=== PATIENT | female | born 1955 | race Caucasian/White ===

== ENCOUNTER 2017-03-20 00:59 | Emergency (ER) | payer OTHER ==
[~2017-03-20] VITALS: Ht 167.6 cm; Wt 114.6 kg
[~2017-03-20 00:59] MED LIST: ASPI81TA28 PO; BENZ100C6 PO; CALC0.2510 PO; CARV6.25 PO; CLOB-65 TOP; CLX/20 PO; ERGO500037 PO; ESTR1CRE PV; HYDR-4715 PO; INSU100I2 SQ; INSUINJ12 SQ; LORA-741 PO; LPT/20 PO; LSX/80 PO; MAGN1TAB41 PO; OXYC-57 PO; PROB1TAB16 PO; SALI0.6517 NAE; SITA25TA PO
[2017-03-20 01:03] VITALS: TEMP 36.9; Ht 167.6 cm; Wt 114.6 kg
[2017-03-20 02:05] LABS: BASO % 0.4 %; BASO ABS # 0.02 K/uL (0-0.2); COMPLETE YES; EOS % 3.8 %; HEMATOCRIT 33.3 % (37-47); IG% 0.2 %; LYMPH % 22.8 %; LYMPH ABS # 1.21 K/uL (1.2-3.4); MEAN CELL VOLUME 93.8 fL (80-100); MEAN CORPUSCULAR HEMOGLOBIN 30.1 pg (25-34); MEAN CORPUSCULAR HGB CONC 32.1 g/dl (32-36); MEAN PLATELET VOLUME 10.7 fL (7.4-10.4); MONO % 7.5 %; NEUT % 65.3 %; PLATELET COUNT 127 K/uL (130-400); RED BLOOD COUNT 3.55 M/uL (4.2-5.4)
[2017-03-20 02:14] LABS: INR 1.1 (0.9-1.1); PROTHROMBIN TIME (PATIENT) 11.6 SECONDS (9.0-12.0)
[2017-03-20 02:22] LABS: BUN/CREATININE RATIO 28.1 (10-20); CALCIUM 9.1 mg/dl (8.5-10.1); CREATININE 2.61 mg/dl (0.60-1.20); POTASSIUM 3.7 mmol/L (3.5-5.1)
[2017-03-20 02:27] LABS: CKMB/CK RATIO 2.2 (0-3.0)
[2017-03-20] MEDS ORDERED: FUROSEMIDE 40 MG/4 ML VIAL IV STA (02:32)
--- NOTE | 2017-03-20 03:05 | EMERGENCY ROOM VISIT NOTE ---
History Report prepared by Bhavesh: Katerine Bains Under the Supervision of: Dr. Caro Montejo D.O. First contact with patient: 01:36 Chief Complaint: SHORTNESS OF BREATH Stated Complaint: SOB W/EXERSION,GAINED 25 LBS FLUID IN 1 WEEK Nursing Triage Summary: Pt states she has gained 25lbs in the last week, her abdomen and Bilateral LE feel "tight". History of Present Illness The patient is a 62 year old female who presents to the Emergency Room with complaints of worsening shortness of breath starting 4 days ago. The patient states that she has noticed it is worse with exertion. She notes that she has had 25 lbs of fluid gain in the past week. She states that she knows this because she weighs herself daily. She denies any recent change in medications or diet. She notes that she stopped taking her Lasix at night because she needs sleep and has to urinate in the middle of the night if she does. She complains of her legs feeling tight and chronic constipation. The patient denies chest pain, back pain, fever, nausea, vomiting, hematochezia, and urinary symptoms. Source of History: patient Onset: 4 days ago Position: other (global) Quality: other (global) Timing: worsening Modifying Factors (Worsening): exertion Associated Symptoms: No fevers, No chest pain, No nausea, No vomiting, No back pain, No hematochezia, No urinary symptoms Note: The patient complains of her legs feeling tight, weight gain, and chronic constipation. Review of Systems See HPI for pertinent positives & negatives. A total of 10 systems reviewed and were otherwise negative. Past Medical & Surgical Medical Problems: (1) CKD (chronic kidney disease), stage IV (2) Congestive heart failure (3) Coronary artery disease (4) Depression (5) Diab Courtney Wo Compl, Type Ii Or Unspec Type, Not Uncntrld (6) DM2 (diabetes mellitus, type 2) (7) [place] (dyspnea on exertion) (8) Elevated troponin (9) High cholesterol (10) HTN (hypertension) (11) Hypertension Nos (12) Sarcoidosis Surgical Problems: (1) H/O colonoscopy (2) History of appendectomy (3) History of heart artery stent (4) History of hysterectomy (5) Status post breast lumpectomy Family History Blood clots FATHER (+ clotting disorder) Cancer FATHER MOTHER (BRCA positive) Depression Diabetes mellitus FATHER MOTHER Heart disease FATHER MOTHER Hypertension Kidney stones FATHER Stroke MOTHER Social History Smoking Status: Never Smoker Alcohol Use: none Drug Use: none Marital Status: Housing Status: lives with significant other Occupation Status: employed Current/Historical Medications Scheduled Allopurinol (Zyloprim), 200 MG PO QAM Aspirin (Aspirin Ec), 81 MG PO QAM Atorvastatin (Atorvastatin Calcium), 20 MG PO HS Calcitriol (Rocaltrol Cap), 1 CAP PO DAILY Carvedilol (Coreg), 6.25 MG PO BID Citalopram (Citalopram Hydrobromide), 20 MG PO QPM Ergocalciferol (Vitamin D 62962 Unit), 50,000 UNIT PO every 2 weeks Furosemide (Lasix), 1 TAB PO BID Hydralazine Hcl (Apresoline), 10 MG PO BID Insulin Glargine (Basaglar Kwikpen), 57 UNITS SQ QAM Insulin Lispro (Human) (Humalog Kwikpen), SQ ACHS Probiotic Product (Probiotic), 1 TAB PO DAILY Sitagliptin Phosphate (Januvia), 25 MG PO DAILY [viviscal], 1 TAB PO BID Scheduled PRN Metolazone (Metolazone), 2.5 MG PO WK PRN for fluid/weight gain Polyvinyl Alcohol-Povidone (Op (Refresh), 1-2 DROPS OPB UD PRN for DRYNESS Allergies Coded Allergies: Sulfa Antibiotics (Verified Allergy, Mild, RASH, 03/20/17) Morphine (Verified Adverse Reaction, Severe, NAUSEA/SICKNESS, 03/20/17) Atenolol (Verified Adverse Reaction, Mild, DROP HEART RATE, 03/20/17) Physical Exam Vital Signs Date Time Temp Pulse Resp B/P (MAP) Pulse Ox O2 Delivery O2 Flow Rate FiO2 03/20/17 04:54 61 16 181/83 96 Room Air 03/20/17 03:00 57 18 171/88 98 Room Air 03/20/17 02:42 60 20 186/75 95 Room Air 03/20/17 01:35 94 Room Air 03/20/17 01:33 60 03/20/17 01:03 36.9 72 24 190/72 92 Room Air Physical Exam HEENT: Head - normocephalic and atraumatic Pupils are equal, round, and reactive to light. Extraocular eye muscles are intact, and sclera are anicteric. Nose - moist nasal mucosa without discharge. Mouth - moist buccal mucosa. Oropharynx is nonerythematous and there is no tonsillar exudate or edema noted. Neck: Supple; no JVD, nuchal rigidity, cervical lymphadenopathy, or auscultated bruits. Heart: Regular rate and rhythm. There is a normal S1 and S2 with no murmurs, clicks, or gallops appreciated. Barely hear heart sounds secondary to body habitus. Lungs: Clear to auscultation bilaterally with no wheezes, rales, or rhonchi. Abdomen: Soft, completely nontender, with good bowel sounds. Abdomen is distended. There are no palpable pulsatile masses or hepatosplenomegaly. There is no guarding, rigidity, or rebound noted. Extremities: No evidence of cyanosis or clubbing. There are easily palpable peripheral pulses. 2+ pitting edema in bilateral LE. Skin: warm and dry with good turgor and no rashes. Medical Decision & Procedures ER Provider Diagnostic Interpretation: Chest X-Ray: The results were interpreted by me. Pacer in place. No significant pulmonary edema. No pleural effusions. Cardiomegaly. Laboratory Results 03/20/17 01:56 Red Blood Count 3.55, Mean Corpuscular Volume 93.8, Mean Corpuscular Hemoglobin 30.1, Mean Corpuscular Hemoglobin Concent 32.1, Mean Platelet Volume 10.7, Neutrophils (%) (Auto) 65.3, Lymphocytes (%) (Auto) 22.8, Monocytes (%) (Auto) 7.5, Eosinophils (%) (Auto) 3.8, Basophils (%) (Auto) 0.4, Neutrophils # (Auto) 3.46, Lymphocytes # (Auto) 1.21, Monocytes # (Auto) 0.40, Eosinophils # (Auto) 0.20, Basophils # (Auto) 0.02 03/20/17 01:56 Test 03/20/17 01:56 White Blood Count 5.30 K/uL (4.8-10.8) Red Blood Count 3.55 M/uL (4.2-5.4) Hemoglobin 10.7 g/dL (12.0-16.0) Hematocrit 33.3 % (37-47) Mean Corpuscular Volume 93.8 fL (80-100) Mean Corpuscular Hemoglobin 30.1 pg (25-34) Mean Corpuscular Hemoglobin Concent 32.1 g/dl (32-36) Platelet Count 127 K/uL (130-400) Mean Platelet Volume 10.7 fL (7.4-10.4) Neutrophils (%) (Auto) 65.3 % Lymphocytes (%) (Auto) 22.8 % Monocytes (%) (Auto) 7.5 % Eosinophils (%) (Auto) 3.8 % Basophils (%) (Auto) 0.4 % Neutrophils # (Auto) 3.46 K/uL (1.4-6.5) Lymphocytes # (Auto) 1.21 K/uL (1.2-3.4) Monocytes # (Auto) 0.40 K/uL (0.11-0.59) Eosinophils # (Auto) 0.20 K/uL (0-0.5) Basophils # (Auto) 0.02 K/uL (0-0.2) RDW Standard Deviation 48.2 fL (36.4-46.3) RDW Coefficient of Variation 14.2 % (11.5-14.5) Immature Granulocyte % (Auto) 0.2 % Immature Granulocyte # (Auto) 0.01 K/uL (0.00-0.02) Prothrombin Time 11.6 SECONDS (9.0-12.0) Prothromb Time International Ratio 1.1 (0.9-1.1) Activated Partial Thromboplast Time 25.4 SECONDS (21.0-31.0) Partial Thromboplastin Ratio 1.0 Anion Gap 4.0 mmol/L (3-11) Est Creatinine Clear Calc Drug Dose 28.0 ml/min Estimated GFR () 21.6 Estimated GFR (Non- 18.7 BUN/Creatinine Ratio 28.1 (10-20) Calcium Level 9.1 mg/dl (8.5-10.1) Total Creatine Kinase 64 U/L (26-192) Creatine Kinase MB 1.4 ng/ml (0.5-3.6) Creatine Kinase MB Ratio 2.2 (0-3.0) Troponin I 0.026 ng/ml (0-0.045) Pro-B-Type Natriuretic Peptide 2724 pg/ml (0-900) Laboratory results per my review. Medications Administered Medications (Trade) Dose Ordered Sig/Saurabh Route Start Time Stop Time Status Last Admin Dose Admin Furosemide (Lasix Inj) 40 mg NOW STAT IV 03/20/17 02:32 03/20/17 02:34 DC 03/20/17 02:42 40 MG Procedure 0232: Ordered Lasix Inj 40 mg IV. ECG Indication: SOB/dyspnea Rate (beats per minute): 60 Rhythm: other (atrial paced rhythm) Findings: RBBB, no ectopy Comparison ECG Date: December 24, 2015 Change: ST segment depression in leads 1 and AVL are new. ED Course 0219: Past medical records reviewed. The patient was evaluated in room A4B. A complete history and physical exam was performed. A twelve-lead EKG was obtained as described above. Patient had chest x-ray as described above. 0232: Ordered Lasix Inj 40 mg IV. 0350: I reevaluated the patient and she has urinated. She is feeling better. 0416: Upon reevaluation, the patient urinated again and is resting comfortably. I discussed findings and results with her. She verbalized agreement of the treatment plan. The patient was discharged home. Medical Decision The patient is a 62 year old female who presents to the Emergency Room with complaints of worsening shortness of breath starting 4 days ago. Differential diagnoses include CHF exacerbation, diuretic noncompliance, pneumonia, renal failure. LABS: Hemoglobin 107 which is baseline Creatine 2.61 which is baseline Normal white count BUN 73 Glucose 290 BNP 2724 Troponin 0.026 this is a 62-year-old female patient presents to emergency department with significant waking over the past week. She does have increased exertional shortness of breath. She admits that she has started a new job and has been on her feet or than usual. She also states that she stopped taking her evening dose of diuretic because it was keeping her up to go to the bathroom. The patient has started to diurese after receiving IV furosemide. I've asked her to start taking her evening dose of Lasix again. She was encouraged to follow-up with the PCP in the next 24-48 hours. If symptoms worsened or if she developed significant shortness of breath, she was to return to the ER. Medication Reconcilliation Current Medication List: was personally reviewed by me Blood Pressure Screening Patient's blood pressure: Elevated blood pressure Blood pressure disposition: Referred to PCP Impression Primary Impression: Noncompliance with medication regimen Additional Impression: Chronic kidney disease Scribe Attestation The scribe's documentation has been prepared under my direction and personally reviewed by me in its entirety. I confirm that the note above accurately reflects all work, treatment, procedures, and medical decision making performed by me. Departure Information Dispostion Home / Self-Care Referrals Madelaine Harrison D.O. (PCP) Forms HOME CARE DOCUMENTATION FORM, IMPORTANT VISIT INFORMATION Patient Instructions My [facility] [employer] Additional Instructions Please take your Lasix twice a day. Follow up with PCP next week. Watch your weight closely Return to the ER for any worsening shortness of breath Problem Qualifiers Additional Impression: Chronic kidney disease Chronic kidney disease stage: unspecified stage Qualified Codes: N18.9 - Chronic kidney disease, unspecified
[2017-03-20] MEDS ORDERED: ALLO100T PO (04:05)
[2017-03-20] MEDS ORDERED: INSU100I23 SQ (04:05)
[2017-03-20] MEDS ORDERED: viviscal PO (04:06)
[2017-03-20] MEDS ORDERED: POLYSOL OPB (04:06)
[2017-03-20] MEDS ORDERED: ZRX25 PO (04:08)
[2017-03-20 04:54] VITALS: BP 181/83; PULSE 61; O2SAT 96
--- NOTE | 2017-03-20 06:31 | DIAGNOSTIC IMAGING REPORT ---
CHEST 2 VIEWS ROUTINE CLINICAL HISTORY: Exertional shortness of breath COMPARISON STUDY: 12/23/2015 FINDINGS: The heart remains mildly enlarged. There is a left subclavian dual-chamber central venous pacemaker present. There is right hilar prominence unchanged from the prior study. There is no failure. There is no lobar consolidation. Surgical clips project over the anterior mediastinum unchanged from the prior study.[ IMPRESSION: Mild cardiomegaly. Stable hilar prominence. No acute findings. Electronically signed by: Tristen Calderon M.D. 03/20/2017 6:29 AM Dictated Date/Time: 03/20/2017 6:29 AM
== END 2017-03-20 04:55 | disposition home or self-care (01) ==
LOC: C.EDB 01:00 → C.EDA 04:55
DX: Z91.14 Patient's other noncompliance with medication regimen (principal); R06.02 Shortness of breath; R63.5 Abnormal weight gain; I12.9 Hypertensive chronic kidney disease with stage 1 through stage 4 chronic kidney disease, or unspecified chronic kidney disease; N18.4 Chronic kidney disease, stage 4 (severe); E11.22 Type 2 diabetes mellitus with diabetic chronic kidney disease; I25.10 Atherosclerotic heart disease of native coronary artery without angina pectoris; Z95.0 Presence of cardiac pacemaker; E78.00 Pure hypercholesterolemia, unspecified; Z79.82 Long term (current) use of aspirin; Z79.4 Long term (current) use of insulin

== ENCOUNTER 2018-05-31 19:55 | Inpatient (IN) ==
[2018-05-31] MEDS ORDERED: ONDANSETRON INJ 2 MG/ML 2 ML VIAL IV STA ×2 (21:06→22:17)
[2018-05-31] MEDS ORDERED: HYDROmorphone INJ 0.5 MG/0.5 ML SYR IV STA (21:06)
[2018-05-31] MEDS ORDERED: SODIUM CHLORIDE 0.9% 1000ML 1,000 ML IV SCH (21:15)
--- NOTE | 2018-05-31 21:29 | XRay Report ---
XR chest 1V portable CLINICAL HISTORY: Cough. COMPARISON STUDY: Chest radiograph December 23, 2015. Chest CT August 10, 2015. FINDINGS: Dual-lead left subclavian pacemaker is in place. There is no pneumothorax or pleural effusi on. There is no consolidation or evidence for pulmonary edema. Cardiomegaly is unchanged. IMPRESSION: No acute cardiopulmonary findings. No change in appearance of the chest. Electronically signed by: Audi Dewey M.D. 05/31/2018 9:28 PM
[2018-05-31 21:36] LABS: Basophils # (auto) 0.03 K/uL (0-0.2); Basophils % (auto) 0.5 %; Eosinophils # (auto) 0.28 K/uL (0-0.5); Eosinophils % (auto) 4.4 %; Hematocrit (blood only) 37.6 % (37-47); Hemoglobin 12.1 g/dL (12.0-16.0); Immature Granulocytes # (auto) 0.01 K/uL (0.00-0.02); Immature Granulocytes % (auto) 0.2 %; Lymphocytes # (auto) 1.19 K/uL (1.2-3.4); Lymphocytes % (auto) 18.7 %; Mean Corpuscular Hgb Conc 32.2 g/dL (32-36); Mean Corpuscular Volume 91.7 fL (80-100); Monocytes # (auto) 0.52 K/uL (0.11-0.59); Monocytes % (auto) 8.2 %; Neutrophils # (auto) 4.33 K/uL (1.4-6.5); Platelet Count 160 K/uL (130-400); RDW Standard Deviation 46.5 fL (36.4-46.3); White Blood Count 6.36 K/uL (4.8-10.8)
[2018-05-31 21:55] LABS: BUN Creatinine Ratio 27.7 (10-20); Calcium 9.2 mg/dl (8.5-10.1); Creatinine Clr Calc Pharmacy 32.2 ml/min; Est GFR (African American) 30.3; Est GFR (Non-African American) 26.2
[2018-05-31 21:58] LABS: Albumin Globulin Ratio 0.6 (0.9-2); Bilirubin,Total 0.9 mg/dl (0.2-1); Globulin 4.7 gm/dl (2.5-4.0); Total Protein 7.7 gm/dl (6.4-8.2)
[2018-05-31] MEDS ORDERED: HYDROmorphone INJ 1 MG/ML SYRINGE IV STA (22:28)
--- NOTE | 2018-05-31 22:47 | CT Scan Report ---
CT OF THE ABDOMEN AND PELVIS WITHOUT CONTRAST CLINICAL HISTORY: LUQ abd pain ? mass COMPARISON STUDY: No previous studies for comparison. TECHNIQUE: Axial images of the abdomen and pelvis were obtained without IV contrast. Images were revi ewed in the axial, sagittal, and coronal planes. Automated exposure control was utilized for the zhanna dy. A dose lowering technique was utilized adhering to the principles of ALARA. FINDINGS: Pacer leads are partially imaged. There is a trace left pleural effusion. There is nodulari ty liver surface. Gallstones are noted within the gallbladder with moderate gallbladder distention. T here is no pericholecystic infiltration. There is no hydronephrosis. The size of the spleen is at the upper limits of normal. A low-attenuation 1.5 cm left adrenal nodule is benign. There is no biliary or pancreatic ductal dilatation. There is no peripancreatic infiltration. There is no evidence for a bowel obstruction. No pneumatosis, free air or portal venous gas is present. Note is made of an 8.4 x 7.4 x 3.3 cm hematoma within the left rectus sheath. No additional sites of hemorrhage are identifie d within the abdomen or the pelvis. No suspicious osseous lesions are noted. IMPRESSION: 1. 8.4 x 7.4 x 3.3 cm left rectus sheath hematoma. 2. Cholelithiasis and moderate gallbladder distention without pericholecystic infiltration. The findi ngs are not strongly suggestive of acute cholecystitis however a right upper quadrant ultrasound coul d be obtained if this patient has right upper quadrant pain. 3. Nodularity of the liver surface which suggests cirrhosis. No hepatic lesions identified although s ensitivity diminished on this unenhanced exam. Electronically signed by: Audi Dewey M.D. 05/31/2018 10:46 PM
[2018-05-31 22:58] LABS: Potassium 3.2 mmol/L (3.5-5.1)
[2018-05-31] MEDS ORDERED: LEVOFLOXACIN/D5W 750 MG/150 ML BAG IV SCH (23:00)
[2018-05-31] MEDS ORDERED: ALBUTEROL 0.083% NEBU SOLN 3 ML VIAL NEB STA (23:01)
[2018-05-31] MEDS ORDERED: POTASSIUM CHLORIDE 20 MEQ TABCR PO STA (23:07)
[2018-05-31 23:10] LABS: Appearance Urine Clear (Clear); Bacteria Urine Automated Negative (Negative); Bilirubin Urine Negative (Negative); Cast Urine Automated 0 /lpf (0-5); Color Urine Yellow; Glucose Urine UA Negative (Negative); Ketones Urine Negative (Negative); Leukocyte Esterase Urine Negative (Negative); Nitrite Urine Negative (Negative); Protein Urine 2+ (Negative); Specific Gravity Urine 1.014 (1.000-1.030); Urobilinogen Urine Negative (Negative); pH Urine 6.5 (4.5-7.5)
[2018-05-31] MEDS ORDERED: CARVEDILOL 12.5 MG TAB PO STA (23:22)
[2018-05-31 23:31] LABS: Magnesium 1.6 mg/dl (1.8-2.4)
--- NOTE | 2018-05-31 23:54 | History & Physical Report ---
Date of Service May 31, 2018 Assessment & Plan (1) Acute hypoxemic respiratory failure: Secondary to diminished inspiratory effort secondary to rectus sheath hematoma secondary to cough symptoms from complicated sinusitis Rule out pneumonia ? Restrictive lung disease exacerbation CAD status post stent hx cardiac sarcoidosis/sinus node dysfunction status post PPM, paced rhythm hypertensive urgency secondary to missed meds, abdominal discomfort, illness CRI, creatinine better than baseline chronic anemia secondary to CKD, hemoglobin better than baseline possibly from hemoconcentration DM 2 insulin requiring, well controlled as of recent outpatient hemoglobin A1c of 6.9 last December 2017 Hypokalemia secondary to home insulin, diuretic Rx past tobacco abuse Medical telemetry for uncontrolled BP Supplemental O2 Baseline ABG Incentive spirometry CT chest RE cough rule out pneumonia Augmentin to replace Doxycycline for persistent complicated sinusitis symptoms if no pneumonia on CT chest antitussives as needed Facilitate home BP meds Analgesia, local measures for rectus sheath hematoma Appropriate to hold home aspirin with rectus sheath hematoma trend H&H, transfuse PRBC if hemoglobin less than 8 (hx CAD) General Surgery consult RE rectus sheath hematoma Resume home diuretics in a.m. if creatinine stable and oral intake better Decrease basal insulin given unpredictable p.o. intake , ISS BG goal 140-180 , update hemoglobin A1c Replace potassium DVT prophylaxis. SCDs RE rectus sheath hematoma Full code History of Present Illness Chief Complaint: Left-sided abdominal pain Primary Care Provider: Madelaine Harrison History obtained from patient, family, and records. Medical history significant for CAD status post stent, cardiac sarcoidosis/ sinus node dysfunction status post PPM, hypertension, hyperlipidemia, restrictive lung disease as per records, CRI (baseline creatinine 2.5), chronic anemia baseline hemoglobin 11, DM 2 insulin requiring, malignant melanoma as per records, past tobacco abuse. Recent confinement December 2015 for elevated troponin. 1 week history of sinus congestion symptoms. Patient coughing up greenish junky stuff. Patient seen at PCPs office. Doxycycline prescribed for sinusitis. Some shortness of breath with congestion symptoms. Admits to some sick contacts. Denies aspiration. Minimal improvement. Today patient noted achy left-sided abdominal pain worse with coughing. Poor appetite, occasional dry heaving. At the ER, IV Levaquin administered. Patient developed a pruritic rash on the during antibiotic infusion. Levaquin subsequently halted, IV Benadryl administered. 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 [employer] Allergies Allergy/AdvReac Type Severity Reaction Status Date / Time Sulfa (Sulfonamide Allergy Intermediate RASH Verified 06/01/18 06:15 Antibiotics) levofloxacin [From Levaquin] Allergy Mild Rash Verified 06/01/18 00:11 gabapentin [From Neurontin] AdvReac Intermediate FELT LIKE Verified 05/31/18 21: 17 WENT TO OUTER SPACE morphine AdvReac Intermediate NAUSEA/SICK Verified 06/01/18 06:15 NESS atenolol AdvReac Mild DROP HEART Verified 05/31/18 21:17 RATE Home Medications Home Medications Medication Instructions Recorded Confirmed Type allopurinol 200 mg PO QPM 05/31/18 05/31/18 History atorvastatin 20 mg PO HS 05/31/18 05/31/18 History calcitriol 0.25 mcg PO 3XWK 05/31/18 05/31/18 History carboxymethylcellulose sodium 1 - 2 drp OPB DIRECTED PRN 05/31/18 05/31/18 History [Refresh Tears] carvedilol 6.25 mg PO BID 05/31/18 05/31/18 History citalopram [Celexa] 20 mg PO QPM 05/31/18 05/31/18 History doxycycline hyclate 100 mg PO BID 05/31/18 05/31/18 History ergocalciferol (vitamin D2) 50,000 unit PO DIRECTED 05/31/18 05/31/18 History [Vitamin D2] hydralazine 10 mg PO BID 05/31/18 05/31/18 History insulin aspart U-100 [Novolog 0 sliding scale dose SUBCUT AC 05/31/18 05/31/18 History Flexpen U-100 Insulin] insulin glargine [Lantus U-100 57 unit SUBCUT QAM 05/31/18 05/31/18 History Insulin] linagliptin [Tradjenta] 5 mg PO DAILY 05/31/18 05/31/18 History meclizine 25 mg PO TID PRN 05/31/18 05/31/18 History metolazone 2.5 mg PO WK PRN 05/31/18 05/31/18 History acetaminophen [Mapap 650 mg PO Q4H PRN #90 tab 06/01/18 Rx (acetaminophen)] amoxicillin-pot clavulanate 1 tab PO BID #14 tab 06/01/18 Rx aspirin [Aspir-81] 81 mg PO DAILY #0 tab 06/01/18 05/31/18 Rx benzonatate [Tessalon Perles] 100 mg PO TID PRN #30 cap 06/01/18 Rx dextromethorphan-guaifenesin 20 ml PO Q6H #237 ml 06/01/18 Rx [Robitussin Cough-Chest Congestion DM] furosemide [Lasix] 80 mg PO BID #60 tab 06/01/18 05/31/18 Rx prednisone 5 mg PO DAILY #21 tab 06/01/18 Rx tramadol 25 - 50 mg PO Q4H PRN #60 tab 06/01/18 Rx Past Med/Surg History Medical History Sarcoidosis (Chronic) Coronary artery disease (Chronic) "s/p stenting x 2" HTN (hypertension) (Chronic) High cholesterol (Chronic) Congestive heart failure (Chronic) "diastolic" CKD (chronic kidney disease), stage IV (Chronic) DM2 (diabetes mellitus, type 2) (Chronic) "On insulin" Depression (Chronic) Surgical History History of heart artery stent (Resolved) History of appendectomy (Resolved) History of hysterectomy (Resolved) Status post breast lumpectomy (Resolved) H/O colonoscopy (Chronic) Family History Other No pertinent family history Social History Current Living Situation: Spouse current occupational status: retired Feels Safe at Home: Yes Safety Concerns: Feels Safe At This Time Smoking Status: Former smoker Hx Alcohol Use: No Hx Substance Use: No Beliefs That Will Affect Care: None Preferred Language: [place] Review of Systems As per HPI, all 10 systems reviewed, all other ROS negative Physical Exam 2 Vital Signs (Past 24 Hours): Last Vital Signs Temp 37.0 C 02/18/19 20:13 Pulse 73 05/31/18 23:00 Resp 28 H 05/31/18 23:00 BP 210/87 H 05/31/18 23:00 Pulse Ox 80 L 05/31/18 23:00 Physical Exam: GENERAL: Obese, uncomfortable, no respiratory distress SKIN: Pallor, warm HEENT: Pale palpebral conjunctivae, no ptosis, dry buccal mucosa NECK : Supple, short neck, no tenderness CHEST : Decreased breath sounds , no tenderness HEART : RRR, no obvious murmurs ABDOMEN: Some distention, tender left abdomen EXTREMITIES : minimal LE swelling, no tenderness, no other conspicuous deformities noted NEUROLOGIC : Coherent, no facial asymmetry, no other gross focality Results & Data Laboratory Results Laboratory Results WBC 6.36 K/uL (4.8-10.8) 05/31/18 21:30 RBC 4.10 M/uL (4.2-5.4) L 05/31/18 21:30 Hgb 12.1 g/dL (12.0-16.0) 05/31/18 21:30 Hct 37.6 % (37-47) 05/31/18 21:30 MCV 91.7 fL (80-100) 05/31/18 21:30 MCH 29.5 pg (25-34) 05/31/18 21:30 MCHC 32.2 g/dL (32-36) 05/31/18 21:30 RDW Std Deviation 46.5 fL (36.4-46.3) H 05/31/18 21:30 RDW Coeff of Dao 14.0 % (11.5-14.5) 05/31/18 21:30 Plt Count 160 K/uL (130-400) 05/31/18 21:30 MPV 11.0 fL (7.4-10.4) H 05/31/18 21:30 Immature Gran % (Auto) 0.2 % 05/31/18 21:30 Neut % (Auto) 68.0 % 05/31/18 21:30 Lymph % (Auto) 18.7 % 05/31/18 21:30 Wood % (Auto) 8.2 % 05/31/18 21:30 Eos % (Auto) 4.4 % 05/31/18 21:30 Baso % (Auto) 0.5 % 05/31/18 21:30 Immature Gran # (Auto) 0.01 K/uL (0.00-0.02) 05/31/18 21:30 Neut # (Auto) 4.33 K/uL (1.4-6.5) 05/31/18 21:30 Lymph # (Auto) 1.19 K/uL (1.2-3.4) L 05/31/18 21:30 Wood # (Auto) 0.52 K/uL (0.11-0.59) 05/31/18 21:30 Eos # (Auto) 0.28 K/uL (0-0.5) 05/31/18 21:30 Baso # (Auto) 0.03 K/uL (0-0.2) 05/31/18 21:30 Sodium 138 mmol/L (136-145) 05/31/18 21:30 Potassium 3.2 mmol/L (3.5-5.1) L 05/31/18 22:27 Chloride 103 mmol/L (98-107) 05/31/18 21:30 Carbon Dioxide 31 mmol/L (21-32) 05/31/18 21:30 Anion Gap 4.0 (3-11) 05/31/18 21:30 BUN 54 mg/dl (7-18) H 05/31/18 21:30 Creatinine 1.96 mg/dl (0.6-1.2) H 05/31/18 21:30 Est Cr Clr Drug Dosing 32.2 ml/min 05/31/18 21:30 Est GFR ( Amer) 30.3 05/31/18 21:30 Est GFR (Non-Af Amer) 26.2 05/31/18 21:30 BUN/Creatinine Ratio 27.7 (10-20) H 05/31/18 21:30 Glucose 92 mg/dl (70-99) 05/31/18 21:30 Calcium 9.2 mg/dl (8.5-10.1) 05/31/18 21:30 Magnesium 1.6 mg/dl (1.8-2.4) L 05/31/18 22:27 Total Bilirubin 0.9 mg/dl (0.2-1) 05/31/18 21:30 AST 18 U/L (15-37) 05/31/18 22:27 ALT 23 U/L (12-78) 05/31/18 21:30 Alkaline Phosphatase 76 U/L (45-117) 05/31/18 21:30 Total Protein 7.7 gm/dl (6.4-8.2) 05/31/18 21:30 Albumin 3.0 gm/dl (3.4-5.0) L 05/31/18 21:30 Globulin 4.7 gm/dl (2.5-4.0) H 05/31/18 21:30 Albumin/Globulin Ratio 0.6 (0.9-2) L 05/31/18 21:30 Lipase 291 U/L (73-393) 05/31/18 21:30 TSH 2.990 uIu/ml (0.300-4.500) 05/31/18 22:27 Urine Color Yellow 05/31/18 22:50 Urine Appearance Clear (Clear) 05/31/18 22:50 Urine pH 6.5 (4.5-7.5) 05/31/18 22:50 Ur Specific Coral 1.014 (1.000-1.030) 05/31/18 22:50 Urine Protein 2+ (Negative) H 05/31/18 22:50 Urine Glucose (UA) Negative (Negative) 05/31/18 22:50 Urine Ketones Negative (Negative) 05/31/18 22:50 Urine Blood Negative (Negative) 05/31/18 22:50 Urine Nitrite Negative (Negative) 05/31/18 22:50 Urine Bilirubin Negative (Negative) 05/31/18 22:50 Urine Urobilinogen Negative (Negative) 05/31/18 22:50 Ur Leukocyte Esterase Negative (Negative) 05/31/18 22:50 Urine WBC (Auto) 1-5 /hpf (0-5) 05/31/18 22:50 Urine RBC (Auto) 0-4 /hpf (0-4) 05/31/18 22:50 U Hyaline Cast (Auto) 0 /lpf (0-5) 05/31/18 22:50 U Epithel Cells (Auto) 10-20 /lpf (0-5) H 05/31/18 22:50 Urine Bacteria (Auto) Negative (Negative) 05/31/18 22:50 Diagnostic Findings Chest x-ray no acute cardiopulmonary findings CT abdomen pelvis: 1. 8.4 x 7.4 x 3.3 cm left rectus sheath hematoma. 2. Cholelithiasis and moderate gallbladder distention without pericholecystic infiltration. The findings are not strongly suggestive of acute cholecystitis however a right upper quadrant ultrasound could be obtained if this patient has right upper quadrant pain. 3. Nodularity of the liver surface which suggests cirrhosis. No hepatic lesions identified although sensitivity diminished on this unenhanced exam. EKG as per my interpretation rate 60, paced rhythm
[2018-05-31] MEDS ORDERED: PROCHLORPERAZINE 5 MG in SYRINGE 4 ML IV STA (23:59)
[2018-06-01] MEDS ORDERED: DiphenhydrAMINE HCL 50 MG/ML VIAL IV STA (00:04)
[2018-06-01] MEDS ORDERED: DiphenhydrAMINE HCL 50 MG/ML VIAL ONE (00:05)
[2018-06-01 00:37] LABS: Partial Thromboplastin Time 26.8 Seconds (21.0-31.0)
--- NOTE | 2018-06-01 01:24 | Emergency Department Note ---
Entered by Kelley Berger acting as a scribe for History of Present Illness General Chief complaint: Cough Stated complaint: COLD, [place] PAIN ON SIDE Source: patient History of Present Illness Onset (ago): week(s) 1 Location: chest and left (side) Pain Consistency: + other (persistent) Maximum Pain Intensity: 10 Current Pain Intensity: 8 Quality: + sharp (pain in her side) and + other (cough) Exacerbated By: + movement Associated symptoms: + other (Positive left side pain, runny nose, left ear pain.) The patient is a 63 year old female who presents to the Emergency Room with complaints of a persistent cough beginning 1 week ago. She states when her symptoms began, she had a cough and runny nose. She reports she went to the doctor 5 days ago and was given doxycycline and was diagnosed with a URI. The patient states this morning she had a coughing fit and suddenly felt a sharp pain in her left side. She notes her pain is worse with movement and rates it as a 8/10 in severity when she is not coughing and a 10/10 when she coughs. Pt has left ear pain and dizziness which resolved after she took meclizine. Pt regularly takes aspirin. Home Medications Home Medications Medication Instructions Recorded Confirmed Type allopurinol 200 mg PO QPM 05/31/18 05/31/18 History aspirin [Aspir-81] 81 mg PO DAILY 05/31/18 05/31/18 History atorvastatin 20 mg PO HS 05/31/18 05/31/18 History calcitriol 0.25 mcg PO 3XWK 05/31/18 05/31/18 History carboxymethylcellulose sodium 1 - 2 drp OPB DIRECTED PRN 05/31/18 05/31/18 History [Refresh Tears] carvedilol 6.25 mg PO BID 05/31/18 05/31/18 History citalopram [Celexa] 20 mg PO QPM 05/31/18 05/31/18 History doxycycline hyclate 100 mg PO BID 05/31/18 05/31/18 History ergocalciferol (vitamin D2) 50,000 unit PO DIRECTED 05/31/18 05/31/18 History [Vitamin D2] furosemide [Lasix] 80 mg PO DAILY 05/31/18 05/31/18 History hydralazine 10 mg PO BID 05/31/18 05/31/18 History insulin aspart U-100 [Novolog 0 sliding scale dose SUBCUT AC 05/31/18 05/31/18 History Flexpen U-100 Insulin] insulin glargine [Lantus U-100 57 unit SUBCUT QAM 05/31/18 05/31/18 History Insulin] linagliptin [Tradjenta] 5 mg PO DAILY 05/31/18 05/31/18 History meclizine 25 mg PO TID PRN 05/31/18 05/31/18 History metolazone 2.5 mg PO WK PRN 05/31/18 05/31/18 History Allergies Allergy/AdvReac Type Severity Reaction Status Date / Time levofloxacin [From Levaquin] Allergy Mild Rash Verified 06/01/18 00:11 Sulfa (Sulfonamide Allergy Mild RASH Verified 05/31/18 21:17 Antibiotics) morphine AdvReac Severe NAUSEA/SICK Verified 05/31/18 21:17 NESS gabapentin [From Neurontin] AdvReac Intermediate FELT LIKE Verified 05/31/18 21: 17 WENT TO OUTER SPACE atenolol AdvReac Mild DROP HEART Verified 05/31/18 21:17 RATE Past Med/Surg History Medical History Sarcoidosis (Chronic) Coronary artery disease (Chronic) "s/p stenting x 2" HTN (hypertension) (Chronic) High cholesterol (Chronic) Congestive heart failure (Chronic) "diastolic" CKD (chronic kidney disease), stage IV (Chronic) DM2 (diabetes mellitus, type 2) (Chronic) "On insulin" Depression (Chronic) Surgical History History of heart artery stent (Resolved) History of appendectomy (Resolved) History of hysterectomy (Resolved) Status post breast lumpectomy (Resolved) H/O colonoscopy (Chronic) Family History Other No pertinent family history Social History current occupational status: retired Feels Safe at Home: Yes Smoking Status: Never smoker Review of Systems See HPI for pertinent positives & negatives. and A total of 10 systems reviewed and were otherwise negative Physical Exam Vital Signs Vital Signs - 24 hr 05/31/18 20:13 05/31/18 21:55 05/31/18 22:52 Temperature 37.0 C Temperature Source Oral Sepsis Recent Fever Within 48 Hours No Sepsis Action Taken by Nursing No Action Required Pulse Rate 64 Pulse Rate [Apical] 87 Pulse Rate [Exercises] Pulse Rhythm [Apical] Regular Pulse Strength [Apical] Normal Respiratory Rate 22 18 Respiratory Rate [Exercises] Respiratory Effort / Characteristics Non-Labored Non-Labored Spontaneous Respiratory Depth Normal Normal Respiratory Pattern Regular Blood Pressure 202/78 H Blood Pressure [Left Arm] 197/82 H Blood Pressure Mean 119 Blood Pressure Mean [Left Arm] 120 Blood Pressure Position Sitting Pulse Oximetry 96 98 96 Pulse Oximetry [Exercises] Oxygen Delivery Method Room Air Room Air Room Air Oxygen Flow Rate 05/31/18 23:00 06/01/18 00:30 06/01/18 01:12 Temperature Temperature Source Sepsis Recent Fever Within 48 Hours Sepsis Action Taken by Nursing Pulse Rate 63 Pulse Rate [Apical] 62 65 Pulse Rate [Exercises] 73 Pulse Rhythm [Apical] Regular Pulse Strength [Apical] Normal Respiratory Rate 22 24 24 Respiratory Rate [Exercises] 28 H Respiratory Effort / Characteristics Non-Labored Spontaneous Non-Labored Spontaneous Respiratory Depth Normal Normal Respiratory Pattern Regular Blood Pressure 167/78 H Blood Pressure [Left Arm] 210/87 H 202/85 H Blood Pressure Mean Blood Pressure Mean [Left Arm] 128 124 Blood Pressure Position Pulse Oximetry 95 92 91 Pulse Oximetry [Exercises] 80 L Oxygen Delivery Method Nasal Cannula Nasal Cannula Nasal Cannula Oxygen Flow Rate 2 3 3 GENERAL: Sitting up in bed with a persistent cough, mild distress, non-toxic EYE EXAM: normal conjunctiva. OROPHARYNX: no exudate, no erythema, lips, buccal mucosa, and tongue normal and mucous membranes are moist NECK: supple, no nuchal rigidity, no adenopathy, non-tender LUNGS: Clear to auscultation. Normal chest wall mechanics HEART: no murmurs, S1 normal and S2 normal ABDOMEN: abdomen soft, LUQ with a firm, tender and palpable mass, normo-active bowel, sounds, no masses, no rebound or guarding. BACK: Back is symmetrical on inspection and there is no deformity, no midline tenderness, no CVA tenderness. SKIN: no rashes and no bruising UPPER EXTREMITIES: upper extremities are grossly normal. LOWER EXTREMITIES: No pitting edema. NEURO EXAM: Normal sensorium, cranial nerves II-XII grossly intact, normal speech, no gross weakness of arms, no gross weakness of legs. Course ED COURSE: Vital signs were reviewed and showed hypertensive The patients medical record was reviewed The above diagnostic studies were performed and reviewed. ED treatments and interventions as stated above. 2058: The patient was evaluated in room C8. A complete history and physical examination was performed. 2304: I reviewed the [facility] He will evaluate the patient for further management. 2308: Upon reevaluation, the patient is feeling slightly better. I discussed my findings with the patient and she understands and agrees with the treatment plan. Based on the patients age, coexisting illnesses, exam and lab findings the decision to treat as an inpatient was made. The patient remained stable while under my care. The patient will be evaluated for further management. Consultations Consultation #1: I reviewed the patient's case with Dr. Espinosa [facility]. He will evaluate the patient for further management. Time: 23:04 Administered Medications Levofloxacin/Dextrose (Levaquin/D5w) 750 mg in 150 mls @ 100 mls/hr IV Q24H AVIS Stop: 06/02/18 22:59 Last Infusion: 06/01/18 00:04 Dose: 0 mls/hr Admin: 05/31/18 23:13 Dose: 100 mls/hr Discontinued Medications Albuterol (Ventolin 0.083% 2.5mg/3ml) 2.5 mg NEB NOW STA Stop: 05/31/18 23:02 Last Admin: 05/31/18 23:13 Dose: 2.5 mg Carvedilol (Coreg) 6.25 mg PO NOW STA Stop: 05/31/18 23:23 Last Admin: 05/31/18 23:33 Dose: 6.25 mg Diphenhydramine HCl (Benadryl) 50 mg IV NOW STA Stop: 06/01/18 00:05 Last Admin: 06/01/18 00:09 Dose: 50 mg Diphenhydramine HCl (Benadryl) Confirm Administered Dose 50 mg .ROUTE .STK-MED ONE Stop: 06/01/18 00:06 Last Admin: 06/01/18 00:15 Dose: Not Given Hydromorphone HCl (Dilaudid) 0.5 mg IV NOW STA Stop: 05/31/18 21:07 Last Admin: 05/31/18 21:34 Dose: 0.5 mg Hydromorphone HCl (Dilaudid) 1 mg IV NOW STA Stop: 05/31/18 22:29 Last Admin: 05/31/18 22:50 Dose: 1 mg Sodium Chloride (Nss 1000ml) 1,000 mls @ 999 mls/hr IV .Q1H1M AVIS Stop: 05/31/18 22:15 Last Admin: 05/31/18 21:36 Dose: 999 mls/hr Prochlorperazine 5 mg/ Syringe 5 mls @ 5 mls/min IV NOW STA Stop: 06/01/18 00:00 Last Admin: 06/01/18 00:15 Dose: 5 mls/min Ondansetron HCl (Zofran) 4 mg IV NOW STA Stop: 05/31/18 21:07 Last Admin: 05/31/18 21:36 Dose: 4 mg Ondansetron HCl (Zofran) 4 mg IV NOW STA Stop: 05/31/18 22:18 Last Admin: 05/31/18 22:51 Dose: 4 mg Potassium Chloride (Klor-Con M20) 40 meq PO NOW STA Stop: 05/31/18 23:08 Last Admin: 05/31/18 23:35 Dose: 40 meq Medical Decision Making Differential Diagnosis Differential diagnoses includes but is not limited to gastritis, peptic ulcer disease, GERD, gallbladder disease, pancreatitis, small bowel obstruction, acute coronary syndrome, pericarditis, ischemic bowel, irritable bowel disease, irritable bowel syndrome, appendicitis, diverticulitis, malignancy, hernia, urinary tract infection, torsion, /ectopic (if female), perforation, trauma, infectious. Medical Records Attestation: I reviewed the patient's medical records. Home Medications Current Medication List: was personally reviewed by me Laboratory Data Attestation: I reviewed the patient's lab results. Result diagrams: 05/31/18 21:30 05/31/18 22:27 Lab Results 05/31/18 05/31/18 05/31/18 Range/Units 21:30 21:30 22:27 WBC 6.36 (4.8-10.8) K/uL RBC 4.10 L (4.2-5.4) M/uL Hgb 12.1 (12.0-16.0) g/dL Hct 37.6 (37-47) % MCV 91.7 (80-100) fL MCH 29.5 (25-34) pg MCHC 32.2 (32-36) g/dL RDW Std Deviation 46.5 H (36.4-46.3) fL RDW Coeff of Dao 14.0 (11.5-14.5) % Plt Count 160 (130-400) K/uL MPV 11.0 H (7.4-10.4) fL Immature Gran % (Auto) 0.2 % Neut % (Auto) 68.0 % Lymph % (Auto) 18.7 % [place] % (Auto) 8.2 % Eos % (Auto) 4.4 % Baso % (Auto) 0.5 % Immature Gran # (Auto) 0.01 (0.00-0.02) K/uL Neut # (Auto) 4.33 (1.4-6.5) K/uL Lymph # (Auto) 1.19 L (1.2-3.4) K/uL [place] # (Auto) 0.52 (0.11-0.59) K/uL Eos # (Auto) 0.28 (0-0.5) K/uL Baso # (Auto) 0.03 (0-0.2) K/uL APTT (21.0-31.0) Seconds PTT Ratio Sodium 138 (136-145) mmol/L Potassium 3.2 L (3.5-5.1) mmol/L Chloride 103 (98-107) mmol/L Carbon Dioxide 31 (21-32) mmol/L Anion Gap 4.0 (3-11) BUN 54 H (7-18) mg/dl Creatinine 1.96 H (0.6-1.2) mg/dl Est Cr Clr Drug Dosing 32.2 ml/min Est GFR ( Amer) 30.3 Est GFR (Non-Af Amer) 26.2 BUN/Creatinine Ratio 27.7 H (10-20) Glucose 92 (70-99) mg/dl Calcium 9.2 (8.5-10.1) mg/dl Magnesium 1.6 L (1.8-2.4) mg/dl Total Bilirubin 0.9 (0.2-1) mg/dl AST 18 (15-37) U/L ALT 23 (12-78) U/L Alkaline Phosphatase 76 (45-117) U/L Total Protein 7.7 (6.4-8.2) gm/dl Albumin 3.0 L (3.4-5.0) gm/dl Globulin 4.7 H (2.5-4.0) gm/dl Albumin/Globulin Ratio 0.6 L (0.9-2) Lipase 291 (73-393) U/L TSH 2.990 (0.300-4.500) uIu/ml Urine Color Urine Appearance (Clear) Urine pH (4.5-7.5) Ur Specific [place] (1.000-1.030) Urine Protein (Negative) Urine Glucose (UA) (Negative) Urine Ketones (Negative) Urine Blood (Negative) Urine Nitrite (Negative) Urine Bilirubin (Negative) Urine Urobilinogen (Negative) Ur Leukocyte Esterase (Negative) Urine WBC (Auto) (0-5) /hpf Urine RBC (Auto) (0-4) /hpf U Hyaline Cast (Auto) (0-5) /lpf U Epithel Cells (Auto) (0-5) /lpf Urine Bacteria (Auto) (Negative) Influenza Type A Ag (Neg) Influenza Type B Ag (Neg) Blood Type Antibody Screen 05/31/18 05/31/18 06/01/18 Range/Units 22:50 23:25 00:13 WBC (4.8-10.8) K/uL RBC (4.2-5.4) M/uL Hgb (12.0-16.0) g/dL Hct (37-47) % MCV (80-100) fL MCH (25-34) pg MCHC (32-36) g/dL RDW Std Deviation (36.4-46.3) fL RDW Coeff of Dao (11.5-14.5) % Plt Count (130-400) K/uL MPV (7.4-10.4) fL Immature Gran % (Auto) % Neut % (Auto) % Lymph % (Auto) % [place] % (Auto) % Eos % (Auto) % Baso % (Auto) % Immature Gran # (Auto) (0.00-0.02) K/uL Neut # (Auto) (1.4-6.5) K/uL Lymph # (Auto) (1.2-3.4) K/uL [place] # (Auto) (0.11-0.59) K/uL Eos # (Auto) (0-0.5) K/uL Baso # (Auto) (0-0.2) K/uL APTT (21.0-31.0) Seconds PTT Ratio Sodium (136-145) mmol/L Potassium (3.5-5.1) mmol/L Chloride (98-107) mmol/L Carbon Dioxide (21-32) mmol/L Anion Gap (3-11) BUN (7-18) mg/dl Creatinine (0.6-1.2) mg/dl Est Cr Clr Drug Dosing ml/min Est GFR ( Amer) Est GFR (Non-Af Amer) BUN/Creatinine Ratio (10-20) Glucose (70-99) mg/dl Calcium (8.5-10.1) mg/dl Magnesium (1.8-2.4) mg/dl Total Bilirubin (0.2-1) mg/dl AST (15-37) U/L ALT (12-78) U/L Alkaline Phosphatase (45-117) U/L Total Protein (6.4-8.2) gm/dl Albumin (3.4-5.0) gm/dl Globulin (2.5-4.0) gm/dl Albumin/Globulin Ratio (0.9-2) Lipase (73-393) U/L TSH (0.300-4.500) uIu/ml Urine Color Yellow Urine Appearance Clear (Clear) Urine pH 6.5 (4.5-7.5) Ur Specific [place] 1.014 (1.000-1.030) Urine Protein 2+ H (Negative) Urine Glucose (UA) Negative (Negative) Urine Ketones Negative (Negative) Urine Blood Negative (Negative) Urine Nitrite Negative (Negative) Urine Bilirubin Negative (Negative) Urine Urobilinogen Negative (Negative) Ur Leukocyte Esterase Negative (Negative) Urine WBC (Auto) 1-5 (0-5) /hpf Urine RBC (Auto) 0-4 (0-4) /hpf U Hyaline Cast (Auto) 0 (0-5) /lpf U Epithel Cells (Auto) 10-20 H (0-5) /lpf Urine Bacteria (Auto) Negative (Negative) Influenza Type A Ag Neg for Influ A (Neg) Influenza Type B Ag Neg for Influ B (Neg) Blood Type A Negative Antibody Screen NEGATIVE 06/01/18 Range/Units 00:13 WBC (4.8-10.8) K/uL RBC (4.2-5.4) M/uL Hgb (12.0-16.0) g/dL Hct (37-47) % MCV (80-100) fL MCH (25-34) pg MCHC (32-36) g/dL RDW Std Deviation (36.4-46.3) fL RDW Coeff of Dao (11.5-14.5) % Plt Count (130-400) K/uL MPV (7.4-10.4) fL Immature Gran % (Auto) % Neut % (Auto) % Lymph % (Auto) % [place] % (Auto) % Eos % (Auto) % Baso % (Auto) % Immature Gran # (Auto) (0.00-0.02) K/uL Neut # (Auto) (1.4-6.5) K/uL Lymph # (Auto) (1.2-3.4) K/uL [place] # (Auto) (0.11-0.59) K/uL Eos # (Auto) (0-0.5) K/uL Baso # (Auto) (0-0.2) K/uL APTT 26.8 (21.0-31.0) Seconds PTT Ratio 1.0 Sodium (136-145) mmol/L Potassium (3.5-5.1) mmol/L Chloride (98-107) mmol/L Carbon Dioxide (21-32) mmol/L Anion Gap (3-11) BUN (7-18) mg/dl Creatinine (0.6-1.2) mg/dl Est Cr Clr Drug Dosing ml/min Est GFR ( Amer) Est GFR (Non-Af Amer) BUN/Creatinine Ratio (10-20) Glucose (70-99) mg/dl Calcium (8.5-10.1) mg/dl Magnesium (1.8-2.4) mg/dl Total Bilirubin (0.2-1) mg/dl AST (15-37) U/L ALT (12-78) U/L Alkaline Phosphatase (45-117) U/L Total Protein (6.4-8.2) gm/dl Albumin (3.4-5.0) gm/dl Globulin (2.5-4.0) gm/dl Albumin/Globulin Ratio (0.9-2) Lipase (73-393) U/L TSH (0.300-4.500) uIu/ml Urine Color Urine Appearance (Clear) Urine pH (4.5-7.5) Ur Specific [place] (1.000-1.030) Urine Protein (Negative) Urine Glucose (UA) (Negative) Urine Ketones (Negative) Urine Blood (Negative) Urine Nitrite (Negative) Urine Bilirubin (Negative) Urine Urobilinogen (Negative) Ur Leukocyte Esterase (Negative) Urine WBC (Auto) (0-5) /hpf Urine RBC (Auto) (0-4) /hpf U Hyaline Cast (Auto) (0-5) /lpf U Epithel Cells (Auto) (0-5) /lpf Urine Bacteria (Auto) (Negative) Influenza Type A Ag (Neg) Influenza Type B Ag (Neg) Blood Type Antibody Screen Imaging Data Radiologist's Impression: Radiology results as stated below per my review and the radiologist's interpretation: XR chest 1V portable CLINICAL HISTORY: Cough. COMPARISON STUDY: Chest radiograph December 23, 2015. Chest CT August 10, 2015. FINDINGS: Dual-lead left subclavian pacemaker is in place. There is no pneumothorax or pleural effusion. There is no consolidation or evidence for pulmonary edema. Cardiomegaly is unchanged. IMPRESSION: No acute cardiopulmonary findings. No change in appearance of the chest. Electronically signed by: Audi Dewey M.D. 05/31/2018 9:[address] OF THE ABDOMEN AND PELVIS WITHOUT CONTRAST CLINICAL HISTORY: LUQ abd pain ? mass COMPARISON STUDY: No previous studies for comparison. TECHNIQUE: Axial images of the abdomen and pelvis were obtained without IV contrast. Images were reviewed in the axial, sagittal, and coronal planes. Automated exposure control was utilized for the study. A dose lowering technique was utilized adhering to the principles of ALARA. FINDINGS: Pacer leads are partially imaged. There is a trace left pleural effusion. There is nodularity liver surface. Gallstones are noted within the gallbladder with moderate gallbladder distention. There is no pericholecystic infiltration. There is no hydronephrosis. The size of the spleen is at the upper limits of normal. A low-attenuation 1.5 cm left adrenal nodule is benign. There is no biliary or pancreatic ductal dilatation. There is no peripancreatic infiltration. There is no evidence for a bowel obstruction. No pneumatosis, free air or portal venous gas is present. Note is made of an 8.4 x 7.4 x 3.3 cm hematoma within the left rectus sheath. No additional sites of hemorrhage are identified within the abdomen or the pelvis. No suspicious osseous lesions are noted. IMPRESSION: 1. 8.4 x 7.4 x 3.3 cm left rectus sheath hematoma. 2. Cholelithiasis and moderate gallbladder distention without pericholecystic infiltration. The findings are not strongly suggestive of acute cholecystitis however a right upper quadrant ultrasound could be obtained if this patient has right upper quadrant pain. 3. Nodularity of the liver surface which suggests cirrhosis. No hepatic lesions identified although sensitivity diminished on this unenhanced exam. Electronically signed by: Audi Dewey M.D. 05/31/2018 10:46 PM Blood Pressure Blood Pressure Findings: Elevated blood pressure Blood Pressure Disposition: further management by hospitalist BARRY Narrative Patient is a 63-year-old female presents the ER for 1 week worth of a cough and runny nose associated with left ear pain. Patient is on doxycycline. Patient notes that she does have excruciating pain in the left upper quadrant. She does have a firm mass here. Labs were obtained and showed no significant leukocytosis or anemia. BMP with mild hypokalemia. Creatinine was elevated at 1.9 which is actually improved from previous. No significant transaminitis. Lipase is normal. UA was unremarkable. Influenza was negative. CT abdomen pelvis confirms rectus sheath hematoma. Patient was hypoxic at 80% on room air. She was given IV antibiotics 1 neb treatment. She was updated bedside and admitted to the hospitalist for hypoxia secondary to a viral URI on 2 L nasal cannula. Impression & Plan Hypoxia, URI (upper respiratory infection) Discharge Plan Visit Data Chief Complaint: Cough Stated Complaint: COLD, [place] PAIN ON SIDE ED Provider: Norman Martinez Discharge Problem: Hypoxia, URI (upper respiratory infection) Patient Disposition: Being Evaluated by Hospitalist Discharge Instructions Interventions: ED Discharge Assessment Last Done: 06/01/18 01:12 The scribe's documentation has been prepared under my direction and personally reviewed by me in its entirety. I confirm that the note above accurately reflects all work, treatment, procedures, and medical decision making performed by me.
[2018-06-01] MEDS ORDERED: DEXTROSE 50% 50 ML SYRINGE IV PRN (01:53)
[2018-06-01] MEDS ORDERED: GLUCOSE 10 TABS/TUBE PO PRN (01:53)
[2018-06-01] MEDS ORDERED: ACETAMINOPHEN 325 MG TAB PO PRN (01:53)
[2018-06-01] MEDS ORDERED: MAGNESIUM SULFATE / D5W 1 GM/100 ML BAG IV ONE (01:53)
[2018-06-01] MEDS ORDERED: GLUCOSE 40% GEL 15 GM TUBE PO PRN (01:53)
[2018-06-01] MEDS ORDERED: NITROGLYCERIN SL 0.4 MG/TAB TAB SL PRN (01:53)
[2018-06-01] MEDS ORDERED: NSS + 20MEQ KCL 20 MEQ/1,000 ML BAG IV STA (01:53)
[2018-06-01] MEDS ORDERED: LORazepam 0.25 MG/0.5 ML VIAL IV PRN (01:53)
[2018-06-01] MEDS ORDERED: GLUCAGON FOR INJ 1 MG VIAL SQ PRN (01:53)
[2018-06-01] MEDS ORDERED: TRAMADOL HCL 50 MG TABLET PO PRN (01:53)
[2018-06-01] MEDS ORDERED: HYDROmorphone INJ 0.5 MG/0.5 ML SYR IV PRN (01:53)
[2018-06-01] MEDS ORDERED: CARBOHYDRATES FOR HYPOGLYCEMIA PO PRN (01:53)
[2018-06-01] MEDS ORDERED: PROCHLORPERAZINE 5 MG in SYRINGE 4 ML IV PRN (01:53)
[2018-06-01] MEDS ORDERED: BENZONATATE 100 MG CAPSULE PO PRN (01:53)
[2018-06-01] MEDS ORDERED: PROCHLORPERAZINE 5 ML IV SCH (01:53)
[2018-06-01] MEDS ORDERED: CARBOXYMETHYLCELLULOSE SODIUM OPB PRN (01:53)
[2018-06-01] MEDS ORDERED: AMPICILLIN/SULBACTAM SOD 3,000 MG in 0.9 % SODIUM CHLORIDE 100 ML IV STA (02:06)
[2018-06-01] MEDS: INSULIN ASPART 100 UNITS/ML 3 ML PEN SC SCH ×3 (02:33→12:55)
[2018-06-01] MEDS: HydrALAZINE 10 MG TAB PO SCH ×2 (02:34→08:22)
[2018-06-01 02:41] LABS: Influenza A virus by PCR Neg for Influ A (Neg); Influenza B virus by PCR Neg for Influ B (Neg)
[2018-06-01 06:04] LABS: Basophils # (auto) 0.02 K/uL (0-0.2); Basophils % (auto) 0.3 %; Eosinophils % (auto) 2.9 %; Hematocrit (blood only) 33.3 % (37-47); Hemoglobin 10.7 g/dL (12.0-16.0); Immature Granulocytes # (auto) 0.02 K/uL (0.00-0.02); Immature Granulocytes % (auto) 0.3 %; Lymphocytes # (auto) 1.41 K/uL (1.2-3.4); Lymphocytes % (auto) 20.3 %; Mean Corpuscular Hgb Conc 32.1 g/dL (32-36); Mean Corpuscular Volume 92.2 fL (80-100); Mean Platelet Volume 10.7 fL (7.4-10.4); Monocytes % (auto) 5.8 %; Neutrophils # (auto) 4.88 K/uL (1.4-6.5); Neutrophils % (auto) 70.4 %; Platelet Count 145 K/uL (130-400); RDW Coefficient of Variation 13.9 % (11.5-14.5); RDW Standard Deviation 46.1 fL (36.4-46.3); Red Blood Count 3.61 M/uL (4.2-5.4); White Blood Count 6.93 K/uL (4.8-10.8)
[2018-06-01 06:36] LABS: BUN Creatinine Ratio 26.5 (10-20); Calcium 8.4 mg/dl (8.5-10.1); Est GFR (African American) 28.7; Est GFR (Non-African American) 24.8; Magnesium 1.8 mg/dl (1.8-2.4); Potassium 4.3 mmol/L (3.5-5.1)
[2018-06-01 06:49] LABS: Estimated Average Glucose 183 mg/dl
--- NOTE | 2018-06-01 07:27 | CT Scan Report ---
CT chest wo con CT DOSE: 525.83 mGy.cm CLINICAL HISTORY: 63 years-old Female with cough. Acute cough with chest pain. TECHNIQUE: Multiaxial CT images of the chest were performed without contrast. A dose lowering techni que was utilized adhering to the principles of ALARA. COMPARISON: CT abdomen and pelvis of same day, CT chest 08/10/2015 FINDINGS: No dominant thyroid nodule identified. Moderate multichamber heart enlargement with trace pericardial effusion. Three-vessel distribution of coronary arterial calcifications are noted. Left subclavian p acer is noted with leads overlying the right atrium and right ventricle. No thoracic aortic aneurysm. Main pulmonary artery is dilated to 3.5 cm transversely. Mild peripheral calcifications of the pulmo nary artery also noted. AP window lymph nodes measure up to 9 mm. Mildly enlarged paratracheal and castro bcarinal lymph nodes measure up to 1.1 cm in short axis. Trace left pleural effusion. No pneumothorax. Mild mosaic attenuation noted bilaterally along with castro btle subsegmental bilateral groundglass densities. Minimal dependent subsegmental bibasilar atelectas is. Additionally, mild intralobular septal thickening noted bilaterally. Scattered calcified granulom daniella. No lobar airspace consolidation typical for pneumonia. 4 mm solid nodule of the right upper lobe , image 109 series 4 is indeterminate. There are a few additional scattered peripheral nodules about the posterior segment right upper lobe measuring up to 3 mm. Central airways appear patent. Mild wall thickening about the mid and distal esophagus with small sliding-type hiatal hernia. Hyperd ense material is noted within the esophageal lumen and proximal stomach. Soft tissues are unremarkabl e. The bones appear to be intact. IMPRESSION: 1. Cardiomegaly with trace pericardial and trace left pleural effusions. 2. Suggestion of pulmonary arterial hypertension. 3. Mild bilateral intralobular septal thickening is suggestive of a component of pulmonary edema . 4. Mild bilateral mosaic attenuation with groundglass opacities suggest air trapping with atelectasis . 5. There are a few benign-appearing pulmonary nodules of the right upper lobe measuring up to 4 mm wh ich are likely on an infectious or inflammatory basis. 6. Mild wall thickening about the mid and distal esophagus with small sliding-type hiatal hernia. Electronically signed by: Efe Elkins M.D. 06/01/2018 7:26 AM
[2018-06-01] MEDS ORDERED: AMPICILLIN/SULBACTAM SOD 3,000 MG in 0.9 % SODIUM CHLORIDE 100 ML IV SCH (08:00)
--- NOTE | 2018-06-01 08:18 | Discharge Summary ---
Date of Service June 01, 2018 Admission HPI Per Admitting Provider History obtained from patient, family, and records. Medical history significant for CAD status post stent, cardiac sarcoidosis/ sinus node dysfunction status post PPM, hypertension, hyperlipidemia, restrictive lung disease as per records, CRI (baseline creatinine 2.5), chronic anemia baseline hemoglobin 11, DM 2 insulin requiring, malignant melanoma as per records, past tobacco abuse. Recent confinement December 2015 for elevated troponin. 1 week history of sinus congestion symptoms. Patient coughing up greenish junky stuff. Patient seen at PCPs office. Doxycycline prescribed for sinusitis. Some shortness of breath with congestion symptoms. Admits to some sick contacts. Denies aspiration. Minimal improvement. Today patient noted achy left-sided abdominal pain worse with coughing. Poor appetite, occasional dry heaving. At the ER, IV Levaquin administered. Patient developed a pruritic rash on the during antibiotic infusion. Levaquin subsequently halted, IV Benadryl administered. Admission Exam Per Admitting Provider GENERAL: Sitting up in bed with a persistent cough, mild distress, non-toxic EYE EXAM: normal conjunctiva. OROPHARYNX: no exudate, no erythema, lips, buccal mucosa, and tongue normal and mucous membranes are moist NECK: supple, no nuchal rigidity, no adenopathy, non-tender LUNGS: Clear to auscultation. Normal chest wall mechanics HEART: no murmurs, S1 normal and S2 normal ABDOMEN: abdomen soft, LUQ with a firm, tender and palpable mass, normo-active bowel, sounds, no masses, no rebound or guarding. BACK: Back is symmetrical on inspection and there is no deformity, no midline tenderness, no CVA tenderness. SKIN: no rashes and no bruising UPPER EXTREMITIES: upper extremities are grossly normal. LOWER EXTREMITIES: No pitting edema. NEURO EXAM: Normal sensorium, cranial nerves II-XII grossly intact, normal speech, no gross weakness of arms, no gross weakness of legs. Principal Diagnosis Acute hypoxic respiratory failure Rectus sheath hematoma Obesity with a BMI of 36 Diabetes type 2 CKD CAD Chronic diastolic CHF Cardiac sarcoidosis Gout Depression Discharge Exam ROS-No Headache, No Visual Changes, No Nausea, No Vomiting, No Fever, No Chills , No Neck Pain or Stiffness, No Chest Pain, No Palpitations, No SOB, No [place], No Cough, No Sputum, No Wheezing, No Abdominal Pain, No Diarrhea, No Hematemesis, No Hemoptysis, No Unexpected Weight Loss, No Flank pain, No Melena, No Hematochezia, No Frequency, No Urgency, No Burning, No Hematuria, No Rashes, No Diaphoresis. Appetite is Normal, patient says she is at her baseline for breathing she is on home O2. Physical Exam Gen-AAO x 3, NAD, Afebrile, Obese Head-NCAT, EOMI, PERRLA, Anicteric Sclera, No Posterior Pharyngeal Erythema Neck-Supple, No JVD, No Thyromegaly, No Masses, No LAD, No Bruits Lungs-No Rales, No Rhonchi, Mild Wheezing-patient reports that she always wheezes, No Crepitus Chest-No S4, +S1, +S2, No S3, No Murmurs, No Rubs, No Gallops, No Ectopy Abdomen-Soft, Bowel Sounds Present, Tender, Non Distended, No Hepatomegaly, No Splenomegaly, No Palpable Masses, No Rebound, No Rigidity, No Guarding Musculoskeletal-Full Range of Motion Bilaterally, No CVAT Extremities-No Cyanosis, No Clubbing, No Edema Nuero-Cranial Nerves II-XII grossly intact, Motor WNL, DTRs WNL, Strength WNL, Non Focal Psych-Normal Mood Discharge Data Allergies Allergy/AdvReac Type Severity Reaction Status Date / Time Sulfa (Sulfonamide Allergy Intermediate RASH Verified 06/01/18 06:15 Antibiotics) levofloxacin [From Levaquin] Allergy Mild Rash Verified 06/01/18 00:11 gabapentin [From Neurontin] AdvReac Intermediate FELT LIKE Verified 05/31/18 21: 17 WENT TO OUTER SPACE morphine AdvReac Intermediate NAUSEA/SICK Verified 06/01/18 06:15 NESS atenolol AdvReac Mild DROP HEART Verified 05/31/18 21:17 RATE Consultations 05/31/18 23:01 ED Decision to Admit Stat 06/01/18 01:53 Consult General Surgery Routine Ordered Studies 05/31/18 21:58 CT abd pelvis wo con Stat 05/31/18 23:53 CT chest wo con Urgent Allergies Sulfa (Sulfonamide Antibiotics) Allergy (Intermediate, Verified 06/01/18 06:15) RASH levofloxacin [From Levaquin] Allergy (Mild, Verified 06/01/18 00:11) Rash gabapentin [From Neurontin] Adverse Reaction (Intermediate, Verified 05/31/18 21 :17) FELT LIKE WENT TO OUTER SPACE morphine Adverse Reaction (Intermediate, Verified 06/01/18 06:15) NAUSEA/SICKNESS atenolol Adverse Reaction (Mild, Verified 05/31/18 21:17) DROP HEART RATE Height/Weight/Isolation Height 5 ft 6 in Weight 101.8 kg Chemistry 05/31/18 05/31/18 06/01/18 21:30 22:27 05:40 Sodium 138 140 Potassium 3.2 L 4.3 D Chloride 103 106 Carbon Dioxide 31 28 Anion Gap 4.0 6.0 BUN 54 H 54 H Creatinine 1.96 H 2.05 H Glucose 92 149 H Urinalysis 05/31/18 22:50 Urine Color Yellow Urine Appearance Clear Urine pH 6.5 Ur Specific [place] 1.014 Urine Protein 2+ H Urine Glucose (UA) Negative Urine Ketones Negative Urine Blood Negative Urine Nitrite Negative Urine Bilirubin Negative Hospital Course (1) Acute hypoxemic respiratory failure: Secondary to diminished inspiratory effort secondary to rectus sheath hematoma secondary to cough symptoms from complicated sinusitis Restrictive lung disease exacerbation CAD status post stent hx cardiac sarcoidosis/sinus node dysfunction status post PPM hypertensive urgency secondary to missed meds, abdominal discomfort, illness, Resolved CRI, creatinine better than baseline chronic anemia secondary to CKD, hemoglobin better than baseline possibly from hemoconcentration DM 2 insulin requiring, well controlled as of recent outpatient hemoglobin A1c of 6.9 last December 2017 Hypokalemia secondary to home insulin, diuretic Rx-Resolved past tobacco abuse Supplemental O2-On Home O2 Incentive spirometry CT chest Neg for PNA, Edema Augmentin and Doxycycline on DC/sinusitis symptoms Facilitate home BP meds Analgesia, local measures for rectus sheath hematoma Appropriate to hold home aspirin with rectus sheath hematoma trend H&H, transfuse PRBC if hemoglobin less than 8 (hx CAD) General Surgery consult RE rectus sheath hematoma Decrease basal insulin given unpredictable p.o. intake , ISS BG goal 140-180 , update hemoglobin A1c DVT prophylaxis. SCDs RE rectus sheath hematoma Full code DC later today after seen by GS and Hb stable Total Time Total Time Spent Total Time Spent (In Minutes): 45 mins Total Time Includes: Examination of the Patient, Discharge Planning, Medication Reconciliation and Communication With Other Providers Discharge Plan Discharge Items Patient Disposition: Home - Self-Care Reason For Visit: RESP FAILURE Discharge Diagnosis: Acute hypoxic respiratory failure Rectus sheath hematoma Obesity with a BMI of 36 Diabetes type 2 CKD CAD Chronic diastolic CHF Cardiac sarcoidosis Gout Depression Condition: Good Discharge Goals: Decrease discomfort Activity: Resume your previous activity Lifting: None Bathing: No limitations Sexual Activity: When tolerated Exercise/Sports: None Driving/Machine Use: No limitations Weightbearing: Left weightbearing and Right weightbearing Non-emergency contact: Primary Care Provider Call non-emergency contact if: you have any medication questions and your symptoms worsen Follow-up/Referrals: Madelaine Harrison [Primary Care Provider] - Diet: Carb Consistent or DM2 and Heart Healthy Addtl Provider Instructions: Monitor H/H weekly x 2 Prescriptions: New acetaminophen [Mapap (acetaminophen)] 325 mg Tablet 650 mg PO Q4H PRN (Reason: fever or pain) Qty: 90 RF: 0 tramadol 50 mg Tablet 25 - 50 mg PO Q4H PRN (Reason: pain) Qty: 60 RF: 0 amoxicillin-pot clavulanate 875-125 mg Tablet 1 tab PO BID Qty: 14 RF: 0 benzonatate [Tessalon Perles] 100 mg Capsule 100 mg PO TID PRN (Reason: cough) Qty: 30 RF: 0 prednisone 5 mg tablet 5 mg PO DAILY Qty: 21 RF: 0 dextromethorphan-guaifenesin [Robitussin Cough-Chest [place] DM] 5-50 mg/5 mL liquid 20 ml PO Q6H Qty: 237 RF: 0 Continue metolazone 2.5 mg Tablet 2.5 mg PO WK PRN (Reason: Fluid Retention) RF: 0 hydralazine 10 mg Tablet 10 mg PO BID RF: 0 carvedilol 6.25 mg Tablet 6.25 mg PO BID RF: 0 atorvastatin 20 mg Tablet 20 mg PO HS RF: 0 allopurinol 100 mg Tablet 200 mg PO QPM RF: 0 citalopram [Celexa] 20 mg Tablet 20 mg PO QPM RF: 0 carboxymethylcellulose sodium [Refresh Tears] 0.5 % Drops 1 - 2 drp OPB DIRECTED PRN (Reason: Dry Eyes) RF: 0 meclizine 25 mg Tablet 25 mg PO TID PRN (Reason: Dizziness) RF: 0 ergocalciferol (vitamin D2) [Vitamin D2] 50,000 unit Capsule 50,000 unit PO DIRECTED RF: 0 doxycycline hyclate 100 mg Tablet 100 mg PO BID RF: 0 calcitriol 0.25 mcg Capsule 0.25 mcg PO 3XWK RF: 0 insulin aspart U-100 [Novolog Flexpen U-100 Insulin] 100 unit/mL Insulin Pen SUBCUT AC RF: 0 linagliptin [Tradjenta] 5 mg Tablet 5 mg PO DAILY RF: 0 No Action insulin glargine [Lantus U-100 Insulin] 100 unit/mL Solution 57 unit SUBCUT QAM RF: 0 Stand-Alone Forms: [facility] Discharge Orders: Discharge Order (Routine); Ordered 06/01/18 Ordered By: Deshawn Walker Admission Data Admit Date/Time: 05/31/18 23:58 Attending Provider: Deshawn Walker Admit Provider: Je Espinosa Primary Care Provider: Madelaine Harrison Other Providers: Je Espinosa ; Adarsh Murray ; Jessica Glass ; Henrique Sanford ; Bret Juarez ; Lencho Forte Jr ; Je Calabrese ; Zelalem Rangel ; Mayela Gonzáles ; Juan A Calderon ; Kevyn Voss Service: Telemetry Medical
[2018-06-01] MEDS ORDERED: AMOXICILLIN/CLAVULANATE 875 MG TAB PO SCH (09:00)
[2018-06-01] MEDS ORDERED: SODIUM CHLORIDE 0.65% NA SOLN 45 ML (OCEAN) NAE SCH (09:00)
[2018-06-01] MEDS ORDERED: CARVEDILOL 6.25 MG TAB PO SCH (09:00)
[2018-06-01] MEDS ORDERED: INSULIN GLARGINE SOLOSTAR 100 UNITS/ML 3 ML PEN SQ SCH (09:00)
[2018-06-01] MEDS ORDERED: CONSULT PHARMACY PRN (09:00)
[2018-06-01] MEDS ORDERED: FUROSEMIDE 80 MG in SYRINGE 0 ML IV ONE (09:30)
--- NOTE | 2018-06-01 11:36 | Surgery Consultation ---
Date of Consultation June 01, 2018 Assessment & Plan (1) Rectus sheath hematoma: No further intervention needed. Can f/u in clinic as needed for fever or signs of future infection. History of Present Illness Attending Physician: Deshawn Walker DO History of Present Illness 63 y/o female admitted last night for cough, uncontrolled HTN, rectus sheath hematoma. During one of her coughing spells she felt a "pop" on her left side and began having pain. Not on any anticoagulants other than ASA. Feels better this morning, is being discharged by primary service. Allergies Allergy/AdvReac Type Severity Reaction Status Date / Time Sulfa (Sulfonamide Allergy Intermediate RASH Verified 06/01/18 06:15 Antibiotics) levofloxacin [From Levaquin] Allergy Mild Rash Verified 06/01/18 00:11 gabapentin [From Neurontin] AdvReac Intermediate FELT LIKE Verified 05/31/18 21: 17 WENT TO OUTER SPACE morphine AdvReac Intermediate NAUSEA/SICK Verified 06/01/18 06:15 NESS atenolol AdvReac Mild DROP HEART Verified 05/31/18 21:17 RATE Home Medications Home Medications Medication Instructions Recorded Confirmed Type allopurinol 200 mg PO QPM 05/31/18 05/31/18 History aspirin [Aspir-81] 81 mg PO DAILY 05/31/18 05/31/18 History atorvastatin 20 mg PO HS 05/31/18 05/31/18 History calcitriol 0.25 mcg PO 3XWK 05/31/18 05/31/18 History carboxymethylcellulose sodium 1 - 2 drp OPB DIRECTED PRN 05/31/18 05/31/18 History [Refresh Tears] carvedilol 6.25 mg PO BID 05/31/18 05/31/18 History citalopram [Celexa] 20 mg PO QPM 05/31/18 05/31/18 History doxycycline hyclate 100 mg PO BID 05/31/18 05/31/18 History ergocalciferol (vitamin D2) 50,000 unit PO DIRECTED 05/31/18 05/31/18 History [Vitamin D2] furosemide [Lasix] 80 mg PO DAILY 05/31/18 05/31/18 History hydralazine 10 mg PO BID 05/31/18 05/31/18 History insulin aspart U-100 [Novolog 0 sliding scale dose SUBCUT AC 05/31/18 05/31/18 History Flexpen U-100 Insulin] insulin glargine [Lantus U-100 57 unit SUBCUT QAM 05/31/18 05/31/18 History Insulin] linagliptin [Tradjenta] 5 mg PO DAILY 05/31/18 05/31/18 History meclizine 25 mg PO TID PRN 05/31/18 05/31/18 History metolazone 2.5 mg PO WK PRN 05/31/18 05/31/18 History acetaminophen [Mapap 650 mg PO Q4H PRN #90 tab 06/01/18 Rx (acetaminophen)] amoxicillin-pot clavulanate 1 tab PO BID #14 tab 06/01/18 Rx benzonatate [Tessalon Perles] 100 mg PO TID PRN #30 cap 06/01/18 Rx dextromethorphan-guaifenesin 20 ml PO Q6H #237 ml 06/01/18 Rx [Robitussin Cough-Chest Congestion DM] prednisone 5 mg PO DAILY #21 tab 06/01/18 Rx tramadol 25 - 50 mg PO Q4H PRN #60 tab 06/01/18 Rx Patient History Medical History Sarcoidosis (Chronic) Coronary artery disease (Chronic) "s/p stenting x 2" HTN (hypertension) (Chronic) High cholesterol (Chronic) Congestive heart failure (Chronic) "diastolic" CKD (chronic kidney disease), stage IV (Chronic) DM2 (diabetes mellitus, type 2) (Chronic) "On insulin" Depression (Chronic) Surgical History History of heart artery stent (Resolved) History of appendectomy (Resolved) History of hysterectomy (Resolved) Status post breast lumpectomy (Resolved) H/O colonoscopy (Chronic) Family History Other No pertinent family history Social History Current Living Situation: Spouse current occupational status: retired Feels Safe at Home: Yes Safety Concerns: Feels Safe At This Time Smoking Status: Former smoker Hx Alcohol Use: No Hx Substance Use: No Beliefs That Will Affect Care: None Preferred Language: Pashto Communication Ability: Effective 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
[2018-06-01 11:58] LABS: Hematocrit (blood only) 33.1 % (37-47); Hemoglobin 10.6 g/dL (12.0-16.0)
[2018-06-01] MEDS ORDERED: ALLOPURINOL 100 MG TAB PO SCH (21:00)
[2018-06-01] MEDS ORDERED: CITALOPRAM 20 MG TAB PO SCH (21:00)
[2018-06-01] MEDS ORDERED: ATORVASTATIN 20 MG TAB PO SCH (21:00)
== END 2018-06-01 14:11 | disposition home or self-care (01) | DRG 555 ==
LOC: ED 19:55 → 2N 23:58

== ENCOUNTER 2018-09-10 14:33 | Observation (INO) ==
--- OUTSIDE RECORDS SUMMARY | 2018-09-10 14:36 | External Medical Summary | Continuity of Care Document ---
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 08-Jan-2017 13:00 Encounter Diagnosis: Problem not documented
[2018-09-10] MEDS ORDERED: SODIUM CHLORIDE 0.9% 1000ML 500 ML IV ONE (14:53)
[2018-09-10] MEDS ORDERED: ONDANSETRON INJ 2 MG/ML 2 ML VIAL IV STA (14:55)
[2018-09-10 15:41] LABS: Basophils # (auto) 0.02 K/uL (0-0.2); Basophils % (auto) 0.3 %; Eosinophils # (auto) 0.18 K/uL (0-0.5); Eosinophils % (auto) 2.8 %; Hematocrit (blood only) 34.9 % (37-47); Hemoglobin 11.6 g/dL (12.0-16.0); Immature Granulocytes # (auto) 0.01 K/uL (0.00-0.02); Immature Granulocytes % (auto) 0.2 %; Lymphocytes # (auto) 1.14 K/uL (1.2-3.4); Lymphocytes % (auto) 17.9 %; Mean Corpuscular Hgb Conc 33.2 g/dL (32-36); Mean Corpuscular Volume 91.1 fL (80-100); Monocytes # (auto) 0.36 K/uL (0.11-0.59); Monocytes % (auto) 5.7 %; Neutrophils # (auto) 4.66 K/uL (1.4-6.5); Neutrophils % (auto) 73.1 %; Platelet Count 155 K/uL (130-400); RDW Coefficient of Variation 14.3 % (11.5-14.5); RDW Standard Deviation 46.8 fL (36.4-46.3); Red Blood Count 3.83 M/uL (4.2-5.4); White Blood Count 6.37 K/uL (4.8-10.8)
[2018-09-10 15:56] LABS: Alanine Aminotransferase 29 U/L (12-78); Albumin Level 3.3 gm/dl (3.4-5.0); Aspartate Aminotransferase 22 U/L (15-37); BUN Creatinine Ratio 23.7 (10-20); Blood Urea Nitrogen 53 mg/dl (7-18); Carbon Dioxide 26 mmol/L (21-32); Chloride 105 mmol/L (98-107); Creatinine Clr Calc Pharmacy 29.8 ml/min; Est GFR (Non-African American) 22.4; Glucose 125 mg/dl (70-99); Magnesium 2.2 mg/dl (1.8-2.4); Potassium 3.9 mmol/L (3.5-5.1); Sodium 140 mmol/L (136-145)
[2018-09-10 16:00] LABS: Appearance Urine Clear (Clear); Bacteria Urine Automated Negative (Negative); Bilirubin Urine Negative (Negative); Blood Urine Negative (Negative); Cast Urine Automated 0 /lpf (0-5); Color Urine Yellow; Glucose Urine UA Negative (Negative); Ketones Urine Negative (Negative); Leukocyte Esterase Urine Negative (Negative); Nitrite Urine Negative (Negative); RBC Urine Automated 0-4 /hpf (0-4); Specific Gravity Urine 1.011 (1.000-1.030); Urobilinogen Urine Negative (Negative); WBC Urine Automated 0 /hpf (0-5)
[2018-09-10 16:01] LABS: Albumin Globulin Ratio 0.8 (0.9-2); Alkaline Phosphatase 68 U/L (45-117); Bilirubin,Total 0.9 mg/dl (0.2-1); Globulin 4.4 gm/dl (2.5-4.0); Total Protein 7.7 gm/dl (6.4-8.2); Troponin I < 0.015 ng/ml (0-0.045)
[2018-09-10 16:13] LABS: Protein Urine 2+ (Negative)
--- NOTE | 2018-09-10 16:27 | CT Scan Report ---
CT head/brain wo con CLINICAL HISTORY: Dizziness COMPARISON STUDY: Head CT dated 07/03/2015 TECHNIQUE: Axial CT of the brain is performed from the vertex to the skull base. IV contrast was not administered for this examination. A dose lowering technique was utilized adhering to the principles of ALARA. CT DOSE: 1277.12 mGycm FINDINGS: No intra or extra-axial mass lesions are visualized. There is no CT evidence of acute cortical infarc tion. There is no evidence of midline shift. There is no acute hemorrhage. No calvarial fractures ar e visualized. There are mild white matter hypodensities likely on a small vessel basis. There is no evidence of pathologic ventricular dilatation. There is no evidence of acute sinusitis IMPRESSION: No acute intracranial findings Electronically signed by: Tristen Calderon M.D. 09/10/2018 4:26 PM
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
[2018-09-10] MEDS ORDERED: HydrALAZINE 10 MG TAB PO ONE (18:30)
[2018-09-10] MEDS ORDERED: NITROGLYCERIN 2% OINTMENT 30GM TUBE EXT STA (18:32)
[2018-09-10] MEDS ORDERED: NITROGLYCERIN 2% OINTMENT 30GM TUBE ONE (18:39)
--- NOTE | 2018-09-10 19:42 | XRay Report ---
TWO VIEW CHEST CLINICAL HISTORY: Dizziness. FINDINGS: PA and lateral chest radiographs are compared to study dated 05/31/2018 and correlated with chest CT dated 06/01/2018. The PA view is degraded by patient rotation. A 2-lead cardiac pacemaker is unchanged in position. The heart is enlarged and there is atherosclerotic calcification of the thorac ic aorta. There is mild pulmonary vascular congestion. Chronic interstitial thickening is similar to previous. Bibasilar atelectasis is observed. No airspace consolidation or pleural effusion is identif ied. There is no pneumothorax. The skeletal structures are osteopenic. The bony thorax appears intact . IMPRESSION: 1. Cardiomegaly and cardiac pacemaker with mild pulmonary vascular congestion. 2. No airspace consolidation or pleural effusion is identified. Electronically signed by: Davis Santos M.D. 09/10/2018 7:41 PM
--- NOTE | 2018-09-10 20:01 | Emergency Department Note ---
Entered by Kellee Antonio acting as a scribe for Petar Morgan MD History of Present Illness General Chief complaint: Dizziness Stated complaint: EXTREME DIZZY, VOMITING, CAN'T WALK STRAIGHT Time Seen by Provider: 09/10/18 14:49 Source: patient History of Present Illness Provider complaint: vertigo episodes Onset (ago): day(s) 1 Location: head Pain Consistency: + other (episode) Maximum Pain Intensity: 4 Quality: + other (vertigo) Associated symptoms: + headaches and + other (-urinary problems, -numbness/weakn ess in legs, +neck pain, +tingling in hands); no fever/chills and no shortness of breath The patient is a 63 year old female who presents to the Emergency Room with complaints of vertigo episodes. The patient states that she is experiencing episodes of vertigo that started yesterday. She states that the episodes cause her not to be able to walk, or stand up, and cannot open her eyes. She states that she is experiencing a headache located in the back of her head, neck pain, and tingling in her hands. The patient denies any fever, chills, shortness of breath, urinary symptoms, or numbness or weakness in her legs. The patient states that she had a head injury 3 weeks ago and one recently on Thursday. She reports that she has a history of diabetes mellitus, chronic kidney disease, and hypertension. She states that she has taken new medication recently for hypertension. She notes that she has had vertigo episodes in the past, but they were recently from low blood sugar. Home Medications Home Medications Medication Instructions Recorded Confirmed Type Lantus U-100 Insulin 54 unit SUBCUT QAM 05/31/18 09/10/18 History Novolog Flexpen U-100 Insulin 0 sliding scale dose SUBCUT AC 05/31/18 09/10/18 History Refresh Tears 1 - 2 drp OPB DIRECTED PRN 05/31/18 09/10/18 History Tradjenta 5 mg PO DAILY 05/31/18 09/10/18 History allopurinol 200 mg PO QPM 05/31/18 09/10/18 History atorvastatin 20 mg PO HS 05/31/18 09/10/18 History citalopram [Celexa] 20 mg PO QPM 05/31/18 09/10/18 History ergocalciferol (vitamin D2) 50,000 unit PO WK 05/31/18 09/10/18 History [Vitamin D2] hydralazine 10 mg PO BID 05/31/18 09/10/18 History metolazone 2.5 mg PO WK 05/31/18 09/10/18 History aspirin [Aspir-81] 81 mg PO DAILY #0 tab 06/01/18 09/10/18 Rx benzonatate [Tessalon Perles] 100 mg PO TID PRN #30 cap 06/01/18 09/10/18 Rx acetaminophen [Mapap 650 mg PO HS 09/10/18 09/10/18 History (acetaminophen)] carvedilol 12.5 mg PO BID 09/10/18 09/10/18 History cyclosporine [Restasis] 1 drp OPHTHALMIC (EYE) Q12H 09/10/18 09/10/18 History docusate sodium [Colace] 100 mg PO BID 09/10/18 09/10/18 History furosemide [Lasix] 80 mg PO QAM 09/10/18 09/10/18 History melatonin 1 mg PO HS PRN 09/10/18 09/10/18 History Allergies Allergy/AdvReac Type Severity Reaction Status Date / Time Sulfa (Sulfonamide Allergy Intermediate RASH Verified 09/10/18 15:56 Antibiotics) levofloxacin [From Levaquin] Allergy Mild Rash Verified 09/10/18 15:56 gabapentin [From Neurontin] AdvReac Intermediate FELT LIKE Verified 09/10/18 15:56 WENT TO OUTER SPACE morphine AdvReac Intermediate NAUSEA/SICK Verified 09/10/18 15:56 NESS atenolol AdvReac Mild DROP HEART Verified 09/10/18 15:56 RATE Past Med/Surg History Medical History Pacemaker (Chronic) Sarcoidosis (Chronic) Coronary artery disease (Chronic) "s/p stenting x 2" HTN (hypertension) (Chronic) High cholesterol (Chronic) Congestive heart failure (Chronic) "diastolic" CKD (chronic kidney disease), stage IV (Chronic) DM2 (diabetes mellitus, type 2) (Chronic) "On insulin" Depression (Chronic) Gout (Chronic) Surgical History History of heart artery stent (Chronic) History of appendectomy (Chronic) History of hysterectomy (Chronic) Status post breast lumpectomy (Chronic) H/O colonoscopy (Chronic) Family History Other Cancer Diabetes No pertinent family history Stroke Social History Preferred Language: Indonesian Communication Ability: Effective Costing 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 and A total of 10 systems reviewed and were otherwise negative Physical Exam Vital Signs Vital Signs - 24 hr 09/10/18 14:44 09/10/18 15:01 09/10/18 15:49 Temperature 36.5 C Temperature Source Oral Sepsis Recent Fever Within 48 Hours No Sepsis New/Unexplained Change in Mental Status No Sepsis Action Taken by Nursing No Action Required Pulse Rate - Lying 54 L Pulse Rate - Sitting 55 L Pulse Rate - Standing 58 L Pulse Rate 55 L Pulse Rate [Apical] Respiratory Rate 16 Blood Pressure - Lying 204/73 H Blood Pressure - Sitting 199/78 H Blood Pressure- Standing 190/115 H Blood Pressure 196/81 H Blood Pressure [Right Arm] Blood Pressure Mean 119 Blood Pressure Mean [Right Arm] Pulse Oximetry 99 99 Oxygen Delivery Method Room Air 09/10/18 15:55 09/10/18 16:49 09/10/18 16:50 Temperature Temperature Source Sepsis Recent Fever Within 48 Hours Sepsis New/Unexplained Change in Mental Status Sepsis Action Taken by Nursing Pulse Rate - Lying Pulse Rate - Sitting Pulse Rate - Standing Pulse Rate Pulse Rate [Apical] 62 Respiratory Rate 20 Blood Pressure - Lying Blood Pressure - Sitting Blood Pressure- Standing Blood Pressure Blood Pressure [Right Arm] 211/82 H Blood Pressure Mean Blood Pressure Mean [Right Arm] 125 Pulse Oximetry 98 94 Oxygen Delivery Method Room Air Room Air 09/10/18 17:06 Temperature Temperature Source Sepsis Recent Fever Within 48 Hours Sepsis New/Unexplained Change in Mental Status Sepsis Action Taken by Nursing Pulse Rate - Lying Pulse Rate - Sitting Pulse Rate - Standing Pulse Rate Pulse Rate [Apical] Respiratory Rate Blood Pressure - Lying Blood Pressure - Sitting Blood Pressure- Standing Blood Pressure Blood Pressure [Right Arm] 188/87 H Blood Pressure Mean Blood Pressure Mean [Right Arm] 120 Pulse Oximetry Oxygen Delivery Method General: Moderately-ill appearing older female in no acute distress. She sits in bed with sunglasses on. No signs of nystagmus. HEENT: Normal cephalic atraumatic. Pupils are equal round and reactive to light. Extraocular movements are intact. Oropharynx is pink with moist mucous membranes. No swelling of the mouth lips or tongue. Conjunctiva are somewhat pale Neck: Supple with a midline trachea. No meningeal signs or stiffness, no JVD or bruits. No Stridor. Chest: Clear to auscultation bilaterally. No wheezes or rhonchi. No increased work of breathing. Heart: regular rate and rhythm. Abdomen: Soft nontender, nondistended without rebound guarding or rigidity. Extremities: No cyanosis clubbing or edema. No calf tenderness or asymmetry Spine/Back. Non tender to palpation. No CVA tenderness Skin: Good turgor without rashes. Neurologic exam: Cranial nerves two through 12 are intact. Motor and sensation are intact and symmetrical throughout. No tremor. Course 1450: The patient was evaluated in room A3, and a complete history and physical examination were performed. 1556: I reevaluated the patient and discussed her test results, she is currently resting comfortably. 1624: I reevaluated the patient and she is currently still wheezing and denatures in high 80. 1658: I reevaluated the patient and discussed her results. 1701: I reviewed the patient's case with Dr. Isac Munoz. He will evaluate the patient for further management. Reevaluation(s) Reevaluation #1: Dr. Isac Munoz Time: 17:10 Administered Medications Allopurinol (Zyloprim) 200 mg PO QPM AVIS Stop: 10/10/18 20:59 Last Admin: 09/10/18 21:34 Dose: 200 mg Documented by: [id number] Atorvastatin Calcium (Lipitor) 20 mg PO HS AVIS Stop: 10/10/18 20:59 Last Admin: 09/10/18 21:34 Dose: 20 mg Documented by: [id number] Carvedilol (Coreg) 12.5 mg PO BID AVIS Stop: 10/10/18 20:59 Last Admin: 09/10/18 21:34 Dose: 12.5 mg Documented by: [id number] Citalopram Hydrobromide (Celexa) 20 mg PO QPM AVIS Stop: 10/10/18 20:59 Last Admin: 09/10/18 21:34 Dose: 20 mg Documented by: [id number] Sodium Chloride (Nss 1000ml) 1,000 mls @ 80 mls/hr IV .[id number] AVIS Stop: 09/11/18 09:44 Last Admin: 09/10/18 21:34 Dose: 80 mls/hr Documented by: [id number] Insulin Aspart (Novolog Flexpen) 0 units SC ACHS AVIS Stop: 10/10/18 20:59 Last Admin: 09/10/18 21:32 Dose: Not Given Documented by: [id number] Cosigned by: [id number] Insulin Glargine (Lantus Solostar Pen) 0 - 27 units SC BID [facility]; Protocol Stop: 10/10/18 20:59 Last Admin: 09/10/18 21:33 Dose: 14 units Documented by: [id number] Cosigned by: [id number] Discontinued Medications Hydralazine HCl (Apresoline) 10 mg PO 1830 ONE Stop: 09/10/18 18:31 Last Admin: 09/10/18 18:42 Dose: 10 mg Documented by: [id number] Sodium Chloride (Nss 1000ml) 500 mls @ 999 mls/hr IV .Q31M ONE Stop: 09/10/18 15:23 Last Infusion: 09/10/18 16:20 Dose: 0 mls/hr Documented by: [id number] Admin: 09/10/18 15:47 Dose: 999 mls/hr Documented by: [id number] Nitroglycerin (Nitro-Bid 2%) Confirm Administered Dose 18 inch .ROUTE .STK-MED ONE Stop: 09/10/18 18:40 Last Admin: 09/10/18 18:42 Dose: 0.5 inch Documented by: [id number] Ondansetron HCl (Zofran) 4 mg IV NOW STA Stop: 09/10/18 14:56 Last Admin: 09/10/18 15:47 Dose: 4 mg Documented by: [id number] Medical Decision Making Differential Diagnosis Differentials include vertigo, concussion, CVA, infection, dehydration, electrolyte abnormality, and metabolic derangement. Medical Records Attestation: I reviewed the patient's medical records. Home Medications Current Medication List: was personally reviewed by me Laboratory Data Attestation: I reviewed the patient's lab results. Result diagrams: 09/10/18 15:28 09/10/18 15:28 Lab Results 09/10/18 09/10/18 09/10/18 Range/Units 15:20 15:28 15:28 WBC 6.37 (4.8-10.8) K/uL RBC 3.83 L (4.2-5.4) M/uL Hgb 11.6 L (12.0-16.0) g/dL Hct 34.9 L (37-47) % MCV 91.1 (80-100) fL MCH 30.3 (25-34) pg MCHC 33.2 (32-36) g/dL RDW Std Deviation 46.8 H (36.4-46.3) fL RDW Coeff of Dao 14.3 (11.5-14.5) % Plt Count 155 (130-400) K/uL MPV 12.0 H (7.4-10.4) fL Immature Gran % (Auto) 0.2 % Neut % (Auto) 73.1 % Lymph % (Auto) 17.9 % Emmet % (Auto) 5.7 % Eos % (Auto) 2.8 % Baso % (Auto) 0.3 % Immature Gran # (Auto) 0.01 (0.00-0.02) K/uL Neut # (Auto) 4.66 (1.4-6.5) K/uL Lymph # (Auto) 1.14 L (1.2-3.4) K/uL Emmet # (Auto) 0.36 (0.11-0.59) K/uL Eos # (Auto) 0.18 (0-0.5) K/uL Baso # (Auto) 0.02 (0-0.2) K/uL Sodium 140 (136-145) mmol/L Potassium 3.9 (3.5-5.1) mmol/L Chloride 105 (98-107) mmol/L Carbon Dioxide 26 (21-32) mmol/L Anion Gap 10.0 (3-11) BUN 53 H (7-18) mg/dl Creatinine 2.23 H (0.6-1.2) mg/dl Est Cr Clr Drug Dosing 29.8 ml/min Est GFR ( Amer) 26.0 Est GFR (Non-Af Amer) 22.4 BUN/Creatinine Ratio 23.7 H (10-20) Glucose 125 H (70-99) mg/dl POC Glucose 143 H (70-99) Calcium 10.0 (8.5-10.1) mg/dl Magnesium 2.2 (1.8-2.4) mg/dl Total Bilirubin 0.9 (0.2-1) mg/dl AST 22 (15-37) U/L ALT 29 (12-78) U/L Alkaline Phosphatase 68 (45-117) U/L Troponin I < 0.015 (0-0.045) ng/ml Total Protein 7.7 (6.4-8.2) gm/dl Albumin 3.3 L (3.4-5.0) gm/dl Globulin 4.4 H (2.5-4.0) gm/dl Albumin/Globulin Ratio 0.8 L (0.9-2) TSH (0.300-4.500) uIu/ml Urine Color Urine Appearance (Clear) Urine pH (4.5-7.5) Ur Specific [place] (1.000-1.030) Urine Protein (Negative) Urine Glucose (UA) (Negative) Urine Ketones (Negative) Urine Blood (Negative) Urine Nitrite (Negative) Urine Bilirubin (Negative) Urine Urobilinogen (Negative) Ur Leukocyte Esterase (Negative) Urine WBC (Auto) (0-5) /hpf Urine RBC (Auto) (0-4) /hpf U Hyaline Cast (Auto) (0-5) /lpf U Epithel Cells (Auto) (0-5) /lpf Urine Bacteria (Auto) (Negative) 09/10/18 09/10/18 Range/Units 15:28 15:29 WBC (4.8-10.8) K/uL RBC (4.2-5.4) M/uL Hgb (12.0-16.0) g/dL Hct (37-47) % MCV (80-100) fL MCH (25-34) pg MCHC (32-36) g/dL RDW Std Deviation (36.4-46.3) fL RDW Coeff of Dao (11.5-14.5) % Plt Count (130-400) K/uL MPV (7.4-10.4) fL Immature Gran % (Auto) % Neut % (Auto) % Lymph % (Auto) % Emmet % (Auto) % Eos % (Auto) % Baso % (Auto) % Immature Gran # (Auto) (0.00-0.02) K/uL Neut # (Auto) (1.4-6.5) K/uL Lymph # (Auto) (1.2-3.4) K/uL [place] # (Auto) (0.11-0.59) K/uL Eos # (Auto) (0-0.5) K/uL Baso # (Auto) (0-0.2) K/uL Sodium (136-145) mmol/L Potassium (3.5-5.1) mmol/L Chloride (98-107) mmol/L Carbon Dioxide (21-32) mmol/L Anion Gap (3-11) BUN (7-18) mg/dl Creatinine (0.6-1.2) mg/dl Est Cr Clr Drug Dosing ml/min Est GFR ( Amer) Est GFR (Non-Af Amer) BUN/Creatinine Ratio (10-20) Glucose (70-99) mg/dl POC Glucose (70-99) Calcium (8.5-10.1) mg/dl Magnesium (1.8-2.4) mg/dl Total Bilirubin (0.2-1) mg/dl AST (15-37) U/L ALT (12-78) U/L Alkaline Phosphatase (45-117) U/L Troponin I (0-0.045) ng/ml Total Protein (6.4-8.2) gm/dl Albumin (3.4-5.0) gm/dl Globulin (2.5-4.0) gm/dl Albumin/Globulin Ratio (0.9-2) TSH 1.840 (0.300-4.500) uIu/ml Urine Color Yellow Urine Appearance Clear (Clear) Urine pH 8.0 H (4.5-7.5) Ur Specific [place] 1.011 (1.000-1.030) Urine Protein 2+ H (Negative) Urine Glucose (UA) Negative (Negative) Urine Ketones Negative (Negative) Urine Blood Negative (Negative) Urine Nitrite Negative (Negative) Urine Bilirubin Negative (Negative) Urine Urobilinogen Negative (Negative) Ur Leukocyte Esterase Negative (Negative) Urine WBC (Auto) 0 (0-5) /hpf Urine RBC (Auto) 0-4 (0-4) /hpf U Hyaline Cast (Auto) 0 (0-5) /lpf U Epithel Cells (Auto) 10-20 H (0-5) /lpf Urine Bacteria (Auto) Negative (Negative) Imaging Data Radiologist's Impression: Radiology results as stated below per my review and the radiologist's interpretation: CT head/brain wo con CLINICAL HISTORY: Dizziness COMPARISON STUDY: Head CT dated 07/03/2015 TECHNIQUE: Axial CT of the brain is performed from the vertex to the skull ba se. IV contrast was not administered for this examination. A dose lowering technique was utilized adhering to the principles of ALARA. CT DOSE: 1277.12 mGycm FINDINGS: No intra or extra-axial mass lesions are visualized. There is no CT evidence of acute cortical infarction. There is no evidence of midline shift. There is no acute hemorrhage. No calvarial fractures are visualized. There are mild white matter hypodensities likely on a small vessel basis. There is no evidence of pathologic ventricular dilatation. There is no evidence of acute sinusitis IMPRESSION: No acute intracranial findings Electronically signed by: Tristen Calderon M.D. 09/10/2018 4:26 PM ECG Data Attestation: I personally reviewed and interpreted this ECG as follows: Indication: other (dizziness) Rate (beats per minute): 59 Rhythm: other (ventricular pace rhythm) Findings: no acute ischemic change Comparison ECG Date: from (06/01/18) Change: the following changes noted (ventricular pace rhythm replaced atrial pace rhythm ) Blood Pressure Blood Pressure Findings: Elevated blood pressure Blood Pressure Disposition: Referred to patients primary care provider MDM Narrative This patient comes in as described above. She was placed in room A3. She is here for treatment and evaluation of weakness and dizziness. She says she just feels awful. She also has a headache. On exam, she initially looks somewhat pale and moderately ill-appearing but has a normal neurologic exam. She has no meningeal signs or stiffness. She did have an concussion a couple weeks ago and tells me. she had negative CAT scan. She said her electrolytes were off at the time. IV access established was hydrated with normal saline bolus IV as well as IV Zofran. she seems to be doing quite a bit better. EKG shows a paced rhythm without any acute ischemic changes or ectopy. She has no significant electrolyte or metabolic abnormalities. she has no fever or white count to suggest infection. CAT scan of his head is unremarkable. Chest x-ray is unremarkable. I am concerned that she is very symptomatic. she is not orthostatic when we check these. I do think she needs to be admitted for hydration and further evaluation, she may need an MRI to rule out a central neurologic process as well as the posterior part of the brain cannot be seen on CAT scan very well. I have consulted the [facility] [address] hospitalist in the ER for these measures. Impression & Plan Dizziness, Nausea, Dehydration, Head ache Discharge Plan Visit Data *Final* Discharge Date/Time: 09/10/18 19:50 Chief Complaint: Dizziness Stated Complaint: EXTREME DIZZY, VOMITING, CAN'T WALK STRAIGHT ED Provider: Petar Morgan Discharge Problem: Dizziness, Nausea, Dehydration, Head ache Patient Disposition: Admitted As Inpatient Discharge Instructions Interventions: ED Discharge Assessment Last Done: 09/10/18 19:50 The capriibe's documentation has been prepared under my direction and personally reviewed by me in its entirety. I confirm that the note above accurately reflects all work, treatment, procedures, and medical decision making performed by me.
[2018-09-10] MEDS ORDERED: CARBOHYDRATES FOR HYPOGLYCEMIA PO PRN (20:34)
[2018-09-10] MEDS ORDERED: MECLIZINE HCL 25 MG TAB PO PRN (20:34)
[2018-09-10] MEDS ORDERED: DEXTROSE 50% 50 ML SYRINGE IV PRN (20:34)
[2018-09-10] MEDS ORDERED: GLUCOSE 10 TABS/TUBE PO PRN (20:34)
[2018-09-10] MEDS ORDERED: GLUCOSE 40% GEL 15 GM TUBE PO PRN (20:34)
[2018-09-10] MEDS ORDERED: GLUCAGON FOR INJ 1 MG VIAL SQ PRN (20:34)
[2018-09-10] MEDS ORDERED: DOCUSATE SODIUM 100 MG CAP PO PRN (20:34)
[2018-09-10] MEDS ORDERED: ALLOPURINOL 100 MG TAB PO SCH (21:00)
[2018-09-10] MEDS ORDERED: ATORVASTATIN 20 MG TAB PO SCH (21:00)
[2018-09-10] MEDS ORDERED: CITALOPRAM 20 MG TAB PO SCH (21:00)
[2018-09-10] MEDS ORDERED: SODIUM CHLORIDE 0.9% 1000ML 1,000 ML IV SCH (21:15)
[2018-09-10] MEDS: INSULIN ASPART 100 UNITS/ML 3 ML PEN SC SCH (21:32)
[2018-09-10] MEDS: INSULIN GLARGINE SOLOSTAR 100 UNITS/ML 3 ML PEN SC SCH (21:33)
[2018-09-10] MEDS: CARVEDILOL 12.5 MG TAB PO SCH (21:34)
[2018-09-11] MEDS: ACETAMINOPHEN 325 MG TAB PO PRN ×2 (00:48→08:03)
--- NOTE | 2018-09-11 07:31 | Hospitalist Progress Note ---
Date of Service September 11, 2018 Assessment & Plan (1) Dizziness: (2) Headache: Pt presented with onset of dizziness described as "head spinning" with associated nausea with movement of head and sitting/standing. Today with posterior VOGEL In ER afebrile, P: 55, R: 16, BP: 196/81, 99% on RA. Pt was given 500ml NSS and zofran for nausea. No leukocytosis or significant electrolyte abnormality. negative troponin. UA: no signs infection. Paced EKG. CT Head: no acute changes VOGEL may be secondary to HTN Dizziness likely vertigo/inner ear related with reproducible symptoms with movement and noted nystagmus on exam -Tele -Orthostatic vital signs -CXR-Vascular congestion -TSH-normal -Stop IVF -Meclizine -PT eval for assistance with Yakelin-Halpike maneuver -+improvement, DC today after PT (3) Pacemaker: H/O conduction system disease s/p pacemaker -pacemaker interrogation-pulse 55?? 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 Pt was anxious and with dizziness, +VOGEL -nitro paste applied -resume hydralazine, carvedilol -monitor BP (5) DM2 (diabetes mellitus, type 2): A1c: 6.9 on 12/2017 -Hold Tradjenta -Continue Lantus, NovoLog sliding scale per protocol -A1c in a.m. (6) Coronary artery disease: S/P stent -Continue aspirin, statin, Coreg (7) CKD (chronic kidney disease), stage IV: Cr: 2.23 (baseline 2.2-2.5) -monitor renal functions -avoid nephrotoxic agents when possible (8) Depression: Hx Depression. Recent increased anxiety with caring for elderly father -continue citalopram DVT Prophylaxis -SCDs Full Code Follows with Dr Harrison for routine care ROS-No Headache, No Visual Changes, No Nausea, No Vomiting, No Fever, No Chills, No Neck Pain or Stiffness, No Chest Pain, No Palpitations, No SOB, No [place], No Cough, No Sputum, No Wheezing, No Abdominal Pain, No Diarrhea, No Hematemesis, No Hemoptysis, No Unexpected Weight Loss, No Flank pain, No Melena, No Hematochezia, No Frequency, No Urgency, No Burning, No Hematuria, No Rashes, No Diaphoresis. Appetite is Normal Physical Exam Gen-AAO x 3, NAD, Afebrile, obese Head-NCAT, EOMI, PERRLA, Anicteric Sclera, No Posterior Pharyngeal Erythema Neck-Supple, No JVD, No Thyromegaly, No Masses, No LAD, No Bruits Lungs-Clear to Auscultation Bilaterally, No Rales, No Rhonchi, No Wheezing, No Crepitus Chest-No S4, +S1, +S2, No S3, No Murmurs, No Rubs, No Gallops, No Ectopy Abdomen-Soft, Bowel Sounds Present, Non Tender, Non Distended, No Hepatomegaly, No Splenomegaly, No Palpable Masses, No Rebound, No Rigidity, No Guarding Musculoskeletal-Full Range of Motion Bilaterally, No CVAT Extremities-No Cyanosis, No Clubbing, No Edema Nuero-Cranial Nerves II-XII grossly intact, Motor WNL, DTRs WNL, Strength WNL, Non Focal Psych-Normal Mood Results & Data Vital Signs (Past 12 Hours) Vital Signs Temp Pulse Pulse Pulse Resp BP BP 09/11/18 04:32 36.8 C 55 L 20 143/72 H 09/10/18 23:14 36.8 C 57 L 18 143/68 H 09/10/18 23:09 66 09/10/18 21:52 36.8 C 67 18 185/70 H 09/10/18 21:51 62 09/10/18 19:50 65 18 186/90 H Pulse Ox 09/11/18 04:32 93 09/10/18 23:14 91 09/10/18 23:09 09/10/18 21:52 97 09/10/18 21:51 09/10/18 19:50 Current Diagnoses Type 2 diabetes mellitus without complications (09/10/18) Major depressive disorder, single episode, unspecified (09/10/18) Essential (primary) hypertension (09/10/18) Atherosclerotic heart disease of [place] coronary artery without angina pectoris (09/10/18) Chronic kidney disease, stage 4 (severe) (09/10/18) Dizziness and giddiness (09/10/18) Headache (09/10/18) Presence of cardiac pacemaker (09/10/18) Allergies Sulfa (Sulfonamide Antibiotics) Allergy (Intermediate, Verified 09/10/18 15:56) RASH levofloxacin [From Levaquin] Allergy (Mild, Verified 09/10/18 15:56) Rash gabapentin [From Neurontin] Adverse Reaction (Intermediate, Verified 09/10/18 15:56) FELT LIKE WENT TO OUTER SPACE morphine Adverse Reaction (Intermediate, Verified 09/10/18 15:56) NAUSEA/SICKNESS atenolol Adverse Reaction (Mild, Verified 09/10/18 15:56) DROP HEART RATE Height/Weight/Isolation Height 5 ft 6 in Weight 102.3 kg Chemistry 09/10/18 15:28 Sodium 140 Potassium 3.9 Chloride 105 Carbon Dioxide 26 Anion Gap 10.0 BUN 53 H Creatinine 2.23 H Glucose 125 H Urinalysis 09/10/18 15:29 Urine Color Yellow Urine Appearance Clear Urine pH 8.0 H Ur Specific [place] 1.011 Urine Protein 2+ H Urine Glucose (UA) Negative Urine Ketones Negative Urine Blood Negative Urine Nitrite Negative Urine Bilirubin Negative
[2018-09-11] MEDS: INSULIN GLARGINE SOLOSTAR 100 UNITS/ML 3 ML PEN SC SCH (08:05)
[2018-09-11] MEDS: CARVEDILOL 12.5 MG TAB PO SCH (08:05)
[2018-09-11] MEDS: INSULIN ASPART 100 UNITS/ML 3 ML PEN SC SCH ×2 (08:07→12:25)
[2018-09-11 08:35] LABS: Hematocrit (blood only) 32.9 % (37-47); Hemoglobin 10.6 g/dL (12.0-16.0); Mean Corpuscular Hgb Conc 32.2 g/dL (32-36); Mean Corpuscular Volume 92.7 fL (80-100); Mean Platelet Volume 11.6 fL (7.4-10.4); Platelet Count 139 K/uL (130-400); RDW Coefficient of Variation 14.6 % (11.5-14.5); RDW Standard Deviation 48.6 fL (36.4-46.3); Red Blood Count 3.55 M/uL (4.2-5.4); White Blood Count 4.58 K/uL (4.8-10.8)
[2018-09-11 08:41] LABS: Estimated Average Glucose 148 mg/dl; Hemoglobin A1C 6.8 % (4.5-5.6)
[2018-09-11 09:00] LABS: BUN Creatinine Ratio 23.8 (10-20); Calcium 9.3 mg/dl (8.5-10.1); Creatinine Clr Calc Pharmacy 30.6 ml/min; Est GFR (African American) 26.2; Est GFR (Non-African American) 22.6; Potassium 3.7 mmol/L (3.5-5.1)
[2018-09-11] MEDS ORDERED: ASPIRIN 81 MG ECTAB PO SCH (09:00)
[2018-09-11] MEDS ORDERED: HydrALAZINE 10 MG TAB PO SCH (09:00)
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
== END 2018-09-11 12:42 | disposition home or self-care (01) ==
LOC: ED 14:33 → 2W 14:33

== ENCOUNTER 2019-03-28 11:25 | Inpatient (IN) ==
[2019-03-28] MEDS ORDERED: SODIUM CHLORIDE 0.9% 1000ML 1,000 ML IV ONE (12:26)
[2019-03-28] MEDS ORDERED: PROMETHAZINE HCL 6.25 MG in SODIUM CHLORIDE 0.9% 50 ML IV STA (12:26)
[2019-03-28] MEDS ORDERED: ACETAMINOPHEN 1,000 MG/100 ML VIAL IV STA (12:26)
[2019-03-28] MEDS ORDERED: HYDROmorphone INJ 0.5 MG/0.5 ML SYR IV PRN ×2 (12:26→18:09)
[2019-03-28] MEDS ORDERED: ONDANSETRON INJ 2 MG/ML 2 ML VIAL IV STA ×2 (12:26→14:21)
[2019-03-28] MEDS ORDERED: PROMETHAZINE 6.25 MG/50.25 ML NSS IV ONE (13:08)
--- NOTE | 2019-03-28 13:14 | XRay Report ---
SINGLE VIEW CHEST CLINICAL HISTORY: Atypical chest pain. Epigastric abdominal pain. FINDINGS: An AP, portable, upright chest radiograph is compared to study dated 03/11/2019. Correlatio n is made with chest CT dated 06/01/2018. The examination is degraded by portable technique and apical lordotic positioning. A right internal jugular central venous infusion port is unchanged in position . A 2-lead cardiac pacemaker is again noted and partially obscures the left lower chest. The heart is enlarged noting atherosclerotic calcification of the thoracic aorta. The pulmonary vasculature is no ncongested. There is bibasilar scarring/atelectasis. No airspace consolidation or large pleural effus ion is seen. No pneumothorax is seen. The skeletal structures are osteopenic. The bony thorax is jayce sly intact. Surgical clips project over the upper chest. IMPRESSION: 1. Cardiomegaly and cardiac pacemaker. There is no radiographic evidence of congestive failure. 2. No airspace consolidation or large pleural effusion is identified. Electronically signed by: Davis Santos M.D. 03/28/2019 1:13 PM
[2019-03-28 13:21] LABS: Albumin Globulin Ratio 0.8 (0.9-2); Albumin Level 3.1 gm/dl (3.4-5.0); BUN Creatinine Ratio 40.9 (10-20); Bilirubin,Total 1.6 mg/dl (0.2-1); Calcium 9.4 mg/dl (8.5-10.1); Creatinine Clr Calc Pharmacy 31.8 ml/min; Est GFR (African American) 30.9; Est GFR (Non-African American) 26.7; Globulin 3.7 gm/dl (2.5-4.0); Potassium 3.7 mmol/L (3.5-5.1); Total Protein 6.8 gm/dl (6.4-8.2); Troponin I 0.02 ng/ml (0-0.045)
[2019-03-28] MEDS ORDERED: NovoLIN-R INSULIN PER UNIT CHARGE IV STA (13:28)
[2019-03-28 13:31] LABS: Basophils # (auto) 0.01 K/uL (0-0.2); Basophils % (auto) 0.6 %; Eosinophils # (auto) 0.08 K/uL (0-0.5); Eosinophils % (auto) 4.4 %; Hematocrit (blood only) 33.9 % (37-47); Hemoglobin 11.4 g/dL (12.0-16.0); Immature Granulocytes # (auto) 0.01 K/uL (0.00-0.02); Immature Granulocytes % (auto) 0.6 %; Lymphocytes # (auto) 0.16 K/uL (1.2-3.4); Lymphocytes % (auto) 8.9 %; Mean Corpuscular Hemoglobin 29.9 pg (25-34); Mean Corpuscular Hgb Conc 33.6 g/dL (32-36); Monocytes # (auto) 0.09 K/uL (0.11-0.59); Neutrophils # (auto) 1.45 K/uL (1.4-6.5); Neutrophils % (auto) 80.5 %; Platelet Count 93 K/uL (130-400); Platelet Estimate Decreased (Normal); RDW Coefficient of Variation 12.8 % (11.5-14.5); RDW Standard Deviation 41.2 fL (36.4-46.3); Red Blood Count 3.81 M/uL (4.2-5.4)
[2019-03-28] MEDS ORDERED: HydrALAZINE HCL 20 MG/ML VIAL IV STA (13:50)
[2019-03-28 13:56] LABS: Beta-Hydroxybutyrate 20.86 mg/dl (0.2-2.81)
[2019-03-28 14:04] LABS: Appearance Urine Clear (Clear); Bacteria Urine Automated Negative (Negative); Bilirubin Urine Negative (Negative); Blood Urine Trace (Negative); Color Urine Yellow; Glucose Urine UA 3+ (Negative); Ketones Urine 1+ (Negative); Leukocyte Esterase Urine Negative (Negative); Nitrite Urine Negative (Negative); Protein Urine 3+ (Negative); RBC Urine Automated 0-4 /hpf (0-4); Specific Gravity Urine 1.016 (1.000-1.030); Urobilinogen Urine Negative (Negative); pH Urine 6.5 (4.5-7.5)
--- NOTE | 2019-03-28 14:06 | CT Scan Report ---
CT SCAN OF THE ABDOMEN AND PELVIS WITHOUT IV CONTRAST CLINICAL HISTORY: Epigastric abdominal pain. COMPARISON STUDY: Abdominal CT dated 05/31/2018. TECHNIQUE: CT scan of the abdomen and pelvis is performed from the lung bases to the proximal femora. Images are reviewed in the axial, sagittal, and coronal planes. IV contrast was not administered for this examination due to poor renal function. A dose lowering technique was utilized adhering to the principles of ALARA. CT DOSE: 1038.06 mGy.cm FINDINGS: Lung bases: The heart is mildly enlarged and without pericardial effusion. Pacemaker leads are noted. The coronary arteries are densely calcified. There are scattered calcified granulomas. No airspace c onsolidation or pleural effusion is identified. There is a small to moderate hiatal hernia. Liver: The unenhanced liver is enlarged, measuring 18.3 cm in length. There is nodularity of the hepa tic surface contour suggesting early change of cirrhosis. There is no intrahepatic biliary ductal dil atation. Gallbladder: There are numerous calcified gallstones, with no clear CT evidence of acute cholecystiti s. Spleen: Normal in size and attenuation. Pancreas: The unenhanced pancreas is moderately atrophic and grossly unremarkable. Adrenal glands: A small left adrenal adenoma is unchanged. The right adrenal gland is normal in appea jacinto. Kidneys: The unenhanced kidneys demonstrate cortical atrophy and are without hydronephrosis. No renal calculi are clearly identified. There are bilateral renal vascular calcifications. There is no evide nce of contour deforming renal mass lesion. Abdominal vasculature: The abdominal aorta is normal in course and caliber noting moderate to advance d atherosclerotic calcification. Bowel: There is colonic fecal retention. No bowel obstruction is seen. The appendix is not identifie d and reported surgically absent. Peritoneum: There is no intraperitoneal free air or abdominal ascites. Lymphadenopathy: None. Pelvic viscera: The bladder is normal as imaged. The uterus is surgically absent. No adnexal lesion i s seen. Skeletal structures: The skeletal structures are osteopenic. There is mild to moderate lumbosacral sp ondylosis. No lytic or blastic lesions are seen. IMPRESSION: 1. There are no acute infectious or inflammatory findings in the abdomen or pelvis. 2. Cholelithiasis. 3. The liver is mildly enlarged. Nodularity of the surface contour suggests early change of cirrhosis . 4. Cardiomegaly and cardiac pacemaker. 5. Hiatal hernia. 6. Additional findings as above. Electronically signed by: Davis Santos M.D. 03/28/2019 2:05 PM
--- NOTE | 2019-03-28 15:15 | Ultrasound Report ---
US gallbladder CLINICAL HISTORY: 64 years-old Female presenting with ruq pain, vomiting. TECHNIQUE: Real-time grayscale and limited color Doppler ultrasound imaging of the abdomen limited to the right upper quadrant was performed. COMPARISON: CT from earlier today. FINDINGS: Pancreas: Visualized portions of the pancreatic head and body normal. Liver: Minimally hyperechogenic parenchyma with heterogeneous echotexture, likely indicating fibrosis or steatosis. The liver measures 18.7 cm in maximal sagittal dimension. No sonographic evidence of h epatic mass. Main portal vein patent with normal directional flow. Biliary: No intrahepatic biliary ductal dilatation. Common bile duct measures up to 4 mm in diameter. Gallbladder: Gallstones without evidence of gallbladder distention, wall thickening, or pericholecyst ic fluid or inflammatory change. Right kidney: Normal in appearance without evidence of hydronephrosis. Ascites: None. Other: None. IMPRESSION: 1. Cholelithiasis without evidence of cholecystitis or biliary ductal dilatation. 2. Heterogeneous liver parenchyma could indicate underlying fibrosis or steatosis. Borderline hepato megaly. Electronically signed by: Valdemar Amaya M.D. 03/28/2019 3:13 PM
--- NOTE | 2019-03-28 15:47 | History & Physical Report ---
Date of Service March 28, 2019 Assessment & Plan (1) Dehydration: 2/2 intolerance of PO. Dysphagia, nausea and pain all playing a role. Cont with supportive care efforts. IVF for now, hold Lasix/metolazone. Clear liquid diet and advance as tolerated to mech soft. (2) Vomiting: cont supportive care with antiemetics. Holding most PO for bowel rest for now. (3) Esophageal cancer: continues on chemo with carboplatin/paclitaxel. Monitor CBC w/diff daily out of concern for expected neutropenia. (4) Dysphagia: 2/2 esophageal mass with presumed inflammation undergoing XRT and chemo. GI cocktail/TUMS and pain control as tolerated. Scheduled Tylenol, PRN Dilaudid or Oxycodone. Nutritional assessment per faculty head. Appreciate recs. (5) Abdominal discomfort, epigastric: supportive care same as above. CT abdomen doesn't reveal evidence of acute issues outside of esophageal mass. She only reports chronic pain with worsening of pain after eating. Clinically, story appears to be most consistent with pain from her cancer, however, biliary colic is in the differential. Will ask Surgery to evaluate her. (6) CKD (chronic kidney disease), stage IV: at baseline, cont to renally dose meds as appropriate and avoid nephrotoxic substances. Follows with Dr. Brown as outpatient. (7) Coronary artery disease: appears stable with no evidence of ACS. Cont to monitor on telemetry. Holding ASA. Cont Coreg. Pt not on statin at home. CKD precludes ACEI use. (8) Depression: Cont celexa per home regimen as tolerated. (9) Chronic diastolic (congestive) heart failure: hypovolemic 2/2 dehydration. Holding Lasix, metolazone. Monitor for fluid overload with ongoing IVF. (10) DM2 (diabetes mellitus, type 2): Cont basal bolus insulin while admitted. Holding trajenta. (11) Gout: Will treat gout flares as they arise. For now holding allopurinol. (12) Thrombocytopenia: 2/2 chemo, some epistaxis recently reported at home. Currently 93K. Monitor CBC daily. (13) Leukopenia due to antineoplastic chemotherapy: Monitor CBC w/ diff daily for neutropenia. (14) DVT prophylaxis: SCDs, holding chemoprophylaxis in setting of thrombocytopenia. Full Code as discussed with her on admission. Dispo- med tele, expect to home on discharge. May niko PT/OT evaluations, however. Amisha Oleary DO [facility] Hospitalist History of Present Illness Chief Complaint: abdominal pain, intolerant of PO Primary Care Provider: Madelaine Harrison DO 64-year-old female with esophageal adenocarcinoma on chemotherapy and radiation presents with severe epigastric pain triggered by anything p.o. including solid or liquid. She reports the pain began after starting XRT and chemotherapy, started on the same day. Since that time she has been tolerating the pain using Tylenol 1000 at night only along with as needed viscous lidocaine, which she states works for only 15 minutes at a time. She is subsequently unable to tolerate any solid food and has been subsisting on popsicles. She has been unable to take any pills down for the last 3 days and has not taken insulin in over 24 hours. Additionally, last dose of chemotherapy was approximately 3 days ago and she takes Decadron around these treatments. Her blood glucose level was in the 300s and she was given insulin in the ER which improved things. She is having severe nausea in addition to epigastric pain which radiates to her right upper quadrant. She is found most helpful to use Protonix and Mylanta in addition to the lidocaine and Tylenol above. She also recently started Compazine and after Phenergan in the ER states that this is helpful, also. She reports pain in her right ear without tinnitus or fullness. She denies any upper respiratory tract symptoms outside of a chronic cough that is nonprodu ctive. She does state that she had some epistaxis this week where she was blowing clots from her nose. This has lasted approximately 1 week. She denies any fevers or chills. She denies any sore throat. She recently was around someone who was ill and took an antibiotic course to prevent infection but was not actually sick. She is also very constipated, and reports having a BM last night which was incomplete. She denies any UTI symptoms. A recent EGD performed on 02/10 test 19 reveal a partially obstructing malignant esophageal tumor in the lower esophagus with a normal stomach and duodenum. Full liquid diet/mechanical soft diet was indefinitely recommended. She is currently requesting red Jell-O. She does report being given Carafate to take per radiation oncology, however, states that the thick pasty slurry she took 1 time was difficult to swallow with questionable success in controlling symptoms. Allergies Allergy/AdvReac Type Severity Reaction Status Date / Time Sulfa (Sulfonamide Allergy Intermediate RASH Verified 03/28/19 12:06 Antibiotics) atenolol Allergy Mild DROP HEART Verified 03/28/19 12:06 RATE levofloxacin [From Levaquin] Allergy Mild Rash Verified 03/28/19 12:06 gabapentin [From Neurontin] AdvReac Mild FELT LIKE Verified 03/28/19 12:06 WENT TO OUTER SPACE morphine AdvReac Mild NAUSEA/SICK Verified 03/28/19 12:06 NESS Home Medications Home Medications Medication Instructions Recorded Confirmed Type Novolog Flexpen U-100 Insulin 0 sliding scale dose SUBCUT AC 05/31/18 03/28/19 History Tradjenta 5 mg PO QAM 05/31/18 03/28/19 History allopurinol 200 mg PO QPM 05/31/18 03/28/19 History atorvastatin 20 mg PO HS 05/31/18 03/28/19 History citalopram [Celexa] 20 mg PO QPM 05/31/18 03/28/19 History ergocalciferol (vitamin D2) 50,000 unit PO WK 05/31/18 03/28/19 History [Vitamin D2] hydralazine 10 mg PO BID 05/31/18 03/28/19 History metolazone 2.5 mg PO WK 05/31/18 03/28/19 History Restasis 1 drp OPHTHALMIC (EYE) Q12H 09/10/18 03/28/19 History acetaminophen [Mapap 650 mg PO HS 09/10/18 03/28/19 History (acetaminophen)] carvedilol 12.5 mg PO BID 09/10/18 03/28/19 History docusate sodium [Colace] 100 mg PO QAM 09/10/18 03/28/19 History furosemide [Lasix] 80 mg PO QAM 09/10/18 03/28/19 History melatonin 1 mg PO HS PRN 09/10/18 03/28/19 History meclizine 12.5 mg PO Q8H PRN #30 tab 09/11/18 03/28/19 Rx aspirin [Aspir-81] 81 mg PO QAM 01/11/19 03/28/19 History insulin glargine 100) 100 unit/mL 40 unit SUBCUT QAM 11/22/19 12/16/19 History subcutaneous solution nystatin 100,000 unit/gram topical 1 appln TOP BID #60 gm 03/04/19 03/28/19 Rx powder ondansetron 4 mg disintegrating 4 mg PO HS PRN tab 03/04/19 03/28/19 History tablet pantoprazole 20 mg tablet,delayed 20 mg PO DAILY 03/23/19 03/28/19 History release sucralfate 1 gram tablet 1 gm PO Q6H #60 tab 03/25/19 03/28/19 Rx dexamethasone 12 mg PO UD 03/28/19 03/28/19 History Past Med/Surg History Medical History Anemia Carcinoma in situ Cervical - 1985 CKD (chronic kidney disease), stage IV follows w/ Dr. Faye Congestive heart failure "diastolic" - Follows with Dr. Good Coronary artery disease "s/p stenting x 2"--follow with Dr. Good Depression Diastolic dysfunction with acute on chronic heart failure (Inactive) Difficulty swallowing Current due to esophageal CA - feels like food sits at top of stomach DM2 (diabetes mellitus, type 2) IDDM Esophageal cancer (Chronic) Diagnosed 01/19/19 Gout Hearing deficit High cholesterol (Inactive) History of GI bleed d/t ulcer (age in 20's) HTN (hypertension) Melanoma of back Removed - [facility] Surgery Pacemaker (Inactive) implanted 2015 -- [employer] - last checked 03/01/2019 Rectus sheath hematoma (Resolved) Sarcoidosis Cutaneuos, Lung, Eyes, Spleen, Cardiac (s/p prednisone 1 year and then plaquinil) Surgical History H/O colonoscopy (Inactive) 01/19/19 [facility] History of appendectomy (Inactive) Age 16 History of bilateral cataract extraction 2014 History of bronchoscopy 1988 - with biopsy (at [facility]) History of cardiac cath prior to 2009 -- @ [place] History of carpal tunnel surgery of right wrist x 2 History of cone biopsy of cervix 1985 - malignant "in situ" History of detached retina repair 2014 - right eye History of dilatation and curettage 1974 History of esophagogastroduodenoscopy (EGD) w/ biopsy 01/19/19 [facility] History of heart artery stent (Inactive) x 2 stents prior to 2010 in [place] History of hysterectomy (Inactive) 1986 History of lumpectomy of left breast benign History of Mohs micrographic surgery for skin cancer On back - for Melanoma History of wisdom tooth extraction Hx of endoscopy upper endoscopic ultrasonography Family History Mother , Passed age 78 of dementia Breast cancer Bilateral Breasts - 2 different kinds - had lumpectomy and brachytherapy Hypertension Heart disease Father , Passed age 88 of COPD/Cardiac Complications Diabetes Melanoma Heart disease Sister No problems noted. 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 Physical Exam Physical Exam: CONSTITUTIONAL: WNWD, vitals as above, generally ill-appearing EYES: PERRL, normal conjunctivae, no scleral icterus ENT: external ear and nose normal, oropharynx clear, + maxillary sinus tenderness bilaterally, TM clear bilaterally with some clear fluid in left middle ear (opposite the side with pain). NECK: trachea midline, no lymphadenopathy RESPIRATORY: clear to auscultation bilaterally, no crackles, rales or wheezes, normal respiratory effort CARDIOVASCULAR: regular rate and rhythm, S1 and 2 heard without murmurs, gallops or rubs, no JVD, no peripheral edema CHEST: A port on R anterior chest wall is accessed. GASTROINTESTINAL: hypoactive bowel sounds, TTP in epigastric region, LLQ and somewhat RUQ, no guarding, soft and not distended. MUSCULOSKELETAL: moves all extremities equally SKIN: warm and dry NEUROLOGIC: CN 2-12 grossly intact, normal cognition, normal speech PSYCHIATRIC: alert cooperative and oriented to person, place and time. Results & Data Vital Signs (Past 12 Hours) Vital Signs Temp Pulse Pulse Resp BP BP Pulse Ox 03/28/19 14:30 81 20 146/79 H 93 03/28/19 14:08 71 20 180/90 H 92 03/28/19 13:36 70 22 213/88 H 100 03/28/19 12:54 98 03/28/19 11:33 36.9 C 64 20 175/81 H 98 Laboratory Results Short CBC 03/28/19 Range/Units 12:49 WBC 1.80 L (4.8-10.8) K/uL Hgb 11.4 L (12.0-16.0) g/dL Hct 33.9 L (37-47) % Plt Count 93 L (130-400) K/uL BMP 03/28/19 12:49 Sodium 137 Potassium 3.7 Chloride 103 Carbon Dioxide 23 BUN 79 H Creatinine 1.92 H Glucose 344 H* Calcium 9.4 Cardiac Enzymes 03/28/19 Range/Units 12:49 Troponin I 0.020 (0-0.045) ng/ml Liver Function 03/28/19 Range/Units 12:49 Total Bilirubin 1.6 H (0.2-1) mg/dl AST 14 L (15-37) U/L ALT 14 (12-78) U/L Alkaline Phosphatase 57 (45-117) U/L Albumin 3.1 L (3.4-5.0) gm/dl Urine 03/28/19 Range/Units 13:30 Urine Color Yellow Urine Appearance Clear (Clear) Urine pH 6.5 (4.5-7.5) Ur Specific [place] 1.016 (1.000-1.030) Urine Protein 3+ H (Negative) Urine Glucose (UA) 3+ H (Negative) Diagnostic Findings US gallbladder: Pancreas: Visualized portions of the pancreatic head and body normal. Liver: Minimally hyperechogenic parenchyma with heterogeneous echotexture, likely indicating fibrosis or steatosis. The liver measures 18.7 cm in maximal sagittal dimension. No sonographic evidence of hepatic mass. Main portal vein patent with normal directional flow. Biliary: No intrahepatic biliary ductal dilatation. Common bile duct measures up to 4 mm in diameter. Gallbladder: Gallstones without evidence of gallbladder distention, wall thickening, or pericholecystic fluid or inflammatory change. Right kidney: Normal in appearance without evidence of hydronephrosis. Ascites: None. Other: None. IMPRESSION: 1. Cholelithiasis without evidence of cholecystitis or biliary ductal dilatation. 2. Heterogeneous liver parenchyma could indicate underlying fibrosis or steatosis. Borderline hepatomegaly. SINGLE VIEW CHEST FINDINGS: An AP, portable, upright chest radiograph is compared to study dated 03/11/2019. Correlation is made with chest CT dated 06/01/2018. The examination is degraded by portable technique and apical lordotic positioning. A right internal jugular central venous infusion port is unchanged in position. A 2-lead cardiac pacemaker is again noted and partially obscures the left lower chest. The heart is enlarged noting atherosclerotic calcification of the thoracic aorta. The pulmonary vasculature is noncongested. There is bibasilar scarring/atelectasis. No airspace consolidation or large pleural effusion is seen. No pneumothorax is seen. The skeletal structures are osteopenic. The bony thorax is grossly intact. Surgical clips project over the upper chest. IMPRESSION: 1. Cardiomegaly and cardiac pacemaker. There is no radiographic evidence of congestive failure. 2. No airspace consolidation or large pleural effusion is identified. CT SCAN OF THE ABDOMEN AND PELVIS WITHOUT IV CONTRAST FINDINGS: Lung bases: The heart is mildly enlarged and without pericardial effusion. Pacemaker leads are noted. The coronary arteries are densely calcified. There are scattered calcified granulomas. No airspace consolidation or pleural effusion is identified. There is a small to moderate hiatal hernia. Liver: The unenhanced liver is enlarged, measuring 18.3 cm in length. There is nodularity of the hepatic surface contour suggesting early change of cirrhosis. There is no intrahepatic biliary ductal dilatation. Gallbladder: There are numerous calcified gallstones, with no clear CT evidence of acute cholecystitis. Spleen: Normal in size and attenuation. Pancreas: The unenhanced pancreas is moderately atrophic and grossly unremarkable. Adrenal glands: A small left adrenal adenoma is unchanged. The right adrenal gland is normal in appearance. Kidneys: The unenhanced kidneys demonstrate cortical atrophy and are without hydronephrosis. No renal calculi are clearly identified. There are bilateral renal vascular calcifications. There is no evidence of contour deforming renal mass lesion. Abdominal vasculature: The abdominal aorta is normal in course and caliber noting moderate to advanced atherosclerotic calcification. Bowel: There is colonic fecal retention. No bowel obstruction is seen. The appendix is not identified and reported surgically absent. Peritoneum: There is no intraperitoneal free air or abdominal ascites. Lymphadenopathy: None. Pelvic viscera: The bladder is normal as imaged. The uterus is surgically absent. No adnexal lesion is seen. Skeletal structures: The skeletal structures are osteopenic. There is mild to moderate lumbosacral spondylosis. No lytic or blastic lesions are seen. IMPRESSION: 1. There are no acute infectious or inflammatory findings in the abdomen or pelvis. 2. Cholelithiasis. 3. The liver is mildly enlarged. Nodularity of the surface contour suggests early change of cirrhosis. 4. Cardiomegaly and cardiac pacemaker. 5. Hiatal hernia. 6. Additional findings as above. Code Status & VTE Plan Code Status Full as discussed with patient on admission. VTE Prophylaxis Plan VTE Prophylaxis will be ordered: Yes Critical Care Time Critical Care Time: No Prolonged Care Time Prolonged Care Time: No Critical Care Time Critical Care Time: No (1) Esophageal cancer Malignant neoplasm of esophagus location: lower third Qualified Code(s): C15.5 - Malignant neoplasm of lower third of esophagus
--- NOTE | 2019-03-28 17:19 | Emergency Department Note ---
Entered by Vanessa Bahena acting as a scribe for History of Present Illness General Chief complaint: Abdominal Pain Time Seen by Provider: 03/28/19 12:09 Source: patient Mode of arrival: ambulatory Limitations: no limitations History of Present Illness Onset (ago): day(s) 10 Location: abdomen Radiation: non-radiation Pain Consistency: + constant Maximum Pain Intensity: 10 Current Pain Intensity: 10 Relieved By: + medication (Tramadol) Exacerbated By: + none Associated symptoms: + nausea/vomiting and + other (-diarrhea); no fever/chills Treatments prior to arrival: other (Tramadol) The patient is a 64 year old female who presents to the ED with complaints of epigastric abdominal pain for the past 10 days. She has a history of esophageal cancer and was at the cancer center this morning for an appointment, when she was referred here to the ED for her symptoms. She complains of epigastric abdominal pain, nausea, vomiting and a 14 pound weight loss recently. She rates her pain as a 10/10 in severity and states "it's right where the tumour is". Tramadol has provided no pain relief. She had a port placed on March 11. She has had 2 chemotherapy treatments and daily radiation since having the port placed. 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 She denies any recent fevers or diarrhea. She has previously undergone a complete hysterectomy and appendectomy. She states she does have known gallstones. The patient is on prescribed medication but states she has not taken it in a few days because of the vomiting. She does admit to some recent "bloody clots" coming out of her nose, but she is not bleeding currently in the ED. Home Medications Home Medications Medication Instructions Recorded Confirmed Type Novolog Flexpen U-100 Insulin 0 sliding scale dose SUBCUT AC 05/31/18 03/28/19 History Tradjenta 5 mg PO QAM 05/31/18 03/28/19 History allopurinol 200 mg PO QPM 05/31/18 03/28/19 History atorvastatin 20 mg PO HS 05/31/18 03/28/19 History citalopram [Celexa] 20 mg PO QPM 05/31/18 03/28/19 History ergocalciferol (vitamin D2) 50,000 unit PO WK 05/31/18 03/28/19 History [Vitamin D2] hydralazine 10 mg PO BID 05/31/18 03/28/19 History metolazone 2.5 mg PO WK 05/31/18 03/28/19 History Restasis 1 drp OPHTHALMIC (EYE) Q12H 09/10/18 03/28/19 History acetaminophen [Mapap 650 mg PO HS 09/10/18 03/28/19 History (acetaminophen)] carvedilol 12.5 mg PO BID 09/10/18 03/28/19 History docusate sodium [Colace] 100 mg PO QAM 09/10/18 03/28/19 History furosemide [Lasix] 80 mg PO QAM 09/10/18 03/28/19 History melatonin 1 mg PO HS PRN 09/10/18 03/28/19 History meclizine 12.5 mg PO Q8H PRN #30 tab 09/11/18 03/28/19 Rx aspirin [Aspir-81] 81 mg PO QAM 01/11/19 03/28/19 History insulin glargine 100) 100 unit/mL 40 unit SUBCUT QAM 03/04/19 03/28/19 History subcutaneous solution nystatin 100,000 unit/gram topical 1 appln TOP BID #60 gm 03/04/19 03/28/19 Rx powder ondansetron 4 mg disintegrating 4 mg PO HS PRN tab 03/04/19 03/28/19 History tablet pantoprazole 20 mg tablet,delayed 20 mg PO DAILY 03/23/19 03/28/19 History release sucralfate 1 gram tablet 1 gm PO Q6H #60 tab 03/25/19 03/28/19 Rx dexamethasone 12 mg PO UD 03/28/19 03/28/19 History Allergies Allergy/AdvReac Type Severity Reaction Status Date / Time Sulfa (Sulfonamide Allergy Intermediate RASH Verified 03/28/19 12:06 Antibiotics) atenolol Allergy Mild DROP HEART Verified 03/28/19 12:06 RATE levofloxacin [From Levaquin] Allergy Mild Rash Verified 03/28/19 12:06 gabapentin [From Neurontin] AdvReac Mild FELT LIKE Verified 03/28/19 12:06 WENT TO OUTER SPACE morphine AdvReac Mild NAUSEA/SICK Verified 03/28/19 12:06 NESS Past Med/Surg History Medical History Anemia Carcinoma in situ Cervical - 1985 CKD (chronic kidney disease), stage IV follows w/ Dr. Faye Congestive heart failure "diastolic" - Follows with Dr. Good Coronary artery disease "s/p stenting x 2"--follow with Dr. Good Depression Diastolic dysfunction with acute on chronic heart failure (Inactive) Difficulty swallowing Current due to esophageal CA - feels like food sits at top of stomach DM2 (diabetes mellitus, type 2) IDDM Esophageal cancer (Chronic) Diagnosed 01/19/19 Gout Hearing deficit High cholesterol (Inactive) History of GI bleed d/t ulcer (age in 20's) HTN (hypertension) Melanoma of back Removed - [facility]'S Surgery Pacemaker (Inactive) implanted 2015 -- [employer] - last checked 03/01/2019 Rectus sheath hematoma (Resolved) Sarcoidosis Cutaneuos, Lung, Eyes, Spleen, Cardiac (s/p prednisone 1 year and then plaquinil) Surgical History H/O colonoscopy (Inactive) 01/19/19 [facility] History of appendectomy (Inactive) Age 16 History of bilateral cataract extraction 2014 History of bronchoscopy 1988 - with biopsy (at [facility]) History of cardiac cath prior to 2009 -- @ [place] History of carpal tunnel surgery of right wrist x 2 History of cone biopsy of cervix 1985 - malignant "in situ" History of detached retina repair 2014 - right eye History of dilatation and curettage 1974 History of esophagogastroduodenoscopy (EGD) w/ biopsy 01/19/19 [facility] History of heart artery stent (Inactive) x 2 stents prior to 2009 in [place] History of hysterectomy (Inactive) 1986 History of lumpectomy of left breast benign History of Mohs micrographic surgery for skin cancer On back - for Melanoma History of wisdom tooth extraction Hx of endoscopy upper endoscopic ultrasonography Family History Mother , Passed age 78 of dementia Breast cancer Bilateral Breasts - 2 different kinds - had lumpectomy and brachytherapy Hypertension Heart disease Father , Passed age 88 of COPD/Cardiac Complications Diabetes Melanoma Heart disease Sister No problems noted. 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 and A total of 10 systems reviewed and were otherwise negative Physical Exam Vital Signs Vital Signs - 24 hr 03/28/19 11:33 03/28/19 12:54 03/28/19 13:36 Temperature 36.9 C Temperature Source Oral Pulse Rate 64 Pulse Rate [Left Finger] 70 Pulse Rhythm [Left Finger] Respiratory Rate 20 22 Respiratory Effort / Characteristics Non-Labored Non-Labored Respiratory Depth Normal Normal Respiratory Pattern Regular Regular Blood Pressure 175/81 H Blood Pressure [Left Arm] 213/88 H Blood Pressure Mean 112 Blood Pressure Mean [Left Arm] 129 Pulse Oximetry 98 98 100 Oxygen Delivery Method Room Air Room Air Room Air 03/28/19 14:08 03/28/19 14:30 03/28/19 15:15 Temperature Temperature Source Pulse Rate Pulse Rate [Left Finger] 71 81 72 Pulse Rhythm [Left Finger] Regular Regular Respiratory Rate 20 20 21 Respiratory Effort / Characteristics Non-Labored Non-Labored Non-Labored Respiratory Depth Normal Normal Normal Respiratory Pattern Regular Regular Regular Blood Pressure Blood Pressure [Left Arm] 180/90 H 146/79 H 138/67 Blood Pressure Mean Blood Pressure Mean [Left Arm] 120 101 90 Pulse Oximetry 92 93 93 Oxygen Delivery Method Room Air Room Air Room Air GENERAL: Patient is in no acute distress. HEENT: No acute trauma, normocephalic atraumatic, mucous membranes moist, no nasal congestion, no scleral icterus. NECK: No stridor, no adenopathy, no meningismus, trachea is midline. LUNGS: Clear to auscultation bilaterally, no wheeze, no rhonchi, breath sounds equal. HEART: Without murmurs gallops or rubs, regular rate and rhythm. ABDOMEN: Soft, moderate epigastric and RUQ tenderness, bowel sounds positive, no hernias, no peritonitis. EXTREMITIES: No cyanosis or edema, full range of motion of all the joints without pain or difficulty, no signs for acute trauma. NEUROLOGIC: Oriented x 3, no acute motor or sensory deficits, no focal weakness. SKIN: No rash, no jaundice, no diaphoresis. Course Course 1220: The patient was evaluated in room A4 and a complete history and physical were performed. 1420: I reevaluated the patient. She is up to date on the plan. 1525: I reevaluated the patient. She is resting comfortably. I discussed my recommendation she remain in the hospital for further evaluation and management and she is agreeable with the plan. 1528: I discussed the patients case with Dr. Oleary, [facility] Hospitalist. The patient will be further evaluated. Administered Medications Acetaminophen (Ofirmev) 1,000 mg in 100 mls @ 400 mls/hr IV Q8H AVIS Stop: 03/31/19 18:08 Last Admin: 03/28/19 19:03 Dose: 400 mls/hr Documented by: [id number] Sodium Chloride (Nss 1000ml) 1,000 mls @ 100 mls/hr IV .Q10H AVIS Stop: 04/27/19 18:59 Last Admin: 03/28/19 19:10 Dose: 100 mls/hr Documented by: [id number] Discontinued Medications Hydralazine HCl (Hydralazine Hcl) 10 mg IV NOW STA Stop: 03/28/19 13:51 Last Admin: 03/28/19 14:17 Dose: 10 mg Documented by: [id number] Hydromorphone HCl (Dilaudid) 0.5 mg IV Q15M PRN PRN Reason: Pain Stop: 04/11/19 12:25 Last Admin: 03/28/19 13:27 Dose: 0.5 mg Documented by: [id number] Sodium Chloride (Nss 1000ml) 1,000 mls @ 999 mls/hr IV .Q1H1M ONE Stop: 03/28/19 13:26 Last Infusion: 03/28/19 14:21 Dose: 0 mls/hr Documented by: [id number] Admin: 03/28/19 13:27 Dose: 999 mls/hr Documented by: [id number] Acetaminophen (Ofirmev) 1,000 mg in 100 mls @ 400 mls/hr IV NOW STA Stop: 03/28/19 12:40 Last Infusion: 03/28/19 14:20 Dose: 0 mls/hr Documented by: [id number] Admin: 03/28/19 14:06 Dose: 400 mls/hr Documented by: [id number] Promethazine HCl 6.25 mg/ (Sodium Chloride) 50.25 mls @ 201 mls/hr IV NOW STA Stop: 03/28/19 12:40 Last Admin: 03/28/19 13:27 Dose: Not Given Documented by: [id number] Insulin Human Regular (Novolin R U-100 Per Unit) 10 units IV NOW STA Stop: 03/28/19 13:29 Last Admin: 03/28/19 14:02 Dose: 10 units Documented by: [id number] Cosigned by: [id number] Ondansetron HCl (Zofran) 4 mg IV NOW STA Stop: 03/28/19 12:27 Last Admin: 03/28/19 13:27 Dose: 4 mg Documented by: [id number] Ondansetron HCl (Zofran) 4 mg IV NOW STA Stop: 03/28/19 14:22 Last Admin: 03/28/19 14:36 Dose: 4 mg Documented by: [id number] Promethazine HCl (Phenergan) Confirm Administered Dose 6.25 mg IV .STK-MED ONE Stop: 03/28/19 13:09 Last Admin: 03/28/19 13:27 Dose: 6.25 mg Documented by: [id number] Medical Decision Making Differential Diagnosis The differential diagnoses considered include biliary colic, worsening esophageal cancer, bowel obstruction, pancreatitis, acute cholecystitis, diverticulitis, pneumonia, dehydration, electrolyte imbalance. Medical Records Attestation: I reviewed the patient's medical records. Home Medications Current Medication List: was personally reviewed by me Laboratory Data Attestation: I reviewed the patient's lab results. Result diagrams: 03/28/19 12:49 03/28/19 12:49 Lab Results 03/28/19 03/28/19 03/28/19 Range/Units 12:49 12:49 13:30 WBC 1.80 L (4.8-10.8) K/uL RBC 3.81 L (4.2-5.4) M/uL Hgb 11.4 L (12.0-16.0) g/dL Hct 33.9 L (37-47) % MCV 89.0 (80-100) fL MCH 29.9 (25-34) pg MCHC 33.6 (32-36) g/dL RDW Std Deviation 41.2 (36.4-46.3) fL RDW Coeff of Dao 12.8 (11.5-14.5) % Plt Count 93 L (130-400) K/uL Immature Gran % (Auto) 0.6 % Neut % (Auto) 80.5 % Lymph % (Auto) 8.9 % [place] % (Auto) 5.0 % Eos % (Auto) 4.4 % Baso % (Auto) 0.6 % Immature Gran # (Auto) 0.01 (0.00-0.02) K/uL Neut # (Auto) 1.45 (1.4-6.5) K/uL Lymph # (Auto) 0.16 L (1.2-3.4) K/uL [place] # (Auto) 0.09 L (0.11-0.59) K/uL Eos # (Auto) 0.08 (0-0.5) K/uL Baso # (Auto) 0.01 (0-0.2) K/uL Platelet Estimate Decreased L (Normal) Sodium 137 (136-145) mmol/L Potassium 3.7 (3.5-5.1) mmol/L Chloride 103 (98-107) mmol/L Carbon Dioxide 23 (21-32) mmol/L Anion Gap 11.0 (3-11) BUN 79 H (7-18) mg/dl Creatinine 1.92 H (0.6-1.2) mg/dl Est Cr Clr Drug Dosing 31.8 ml/min Est GFR ( Amer) 30.9 Est GFR (Non-Af Amer) 26.7 BUN/Creatinine Ratio 40.9 H (10-20) Glucose 344 H* (70-99) mg/dl POC Glucose (70-99) Calcium 9.4 (8.5-10.1) mg/dl Total Bilirubin 1.6 H (0.2-1) mg/dl AST 14 L (15-37) U/L ALT 14 (12-78) U/L Alkaline Phosphatase 57 (45-117) U/L Troponin I 0.020 (0-0.045) ng/ml Total Protein 6.8 (6.4-8.2) gm/dl Albumin 3.1 L (3.4-5.0) gm/dl Globulin 3.7 (2.5-4.0) gm/dl Albumin/Globulin Ratio 0.8 L (0.9-2) Lipase 146 (73-393) U/L Beta-Hydroxybutyric Acd 20.86 H (0.2-2.81) mg/dl Urine Color Yellow Urine Appearance Clear (Clear) Urine pH 6.5 (4.5-7.5) Ur Specific Masterson 1.016 (1.000-1.030) Urine Protein 3+ H (Negative) Urine Glucose (UA) 3+ H (Negative) Urine Ketones 1+ H (Negative) Urine Blood Trace H (Negative) Urine Nitrite Negative (Negative) Urine Bilirubin Negative (Negative) Urine Urobilinogen Negative (Negative) Ur Leukocyte Esterase Negative (Negative) Urine WBC (Auto) 1-5 (0-5) /hpf Urine RBC (Auto) 0-4 (0-4) /hpf U Hyaline Cast (Auto) 1-5 (0-5) /lpf U Epithel Cells (Auto) 5-10 H (0-5) /lpf Urine Bacteria (Auto) Negative (Negative) 03/28/19 Range/Units 14:31 WBC (4.8-10.8) K/uL RBC (4.2-5.4) M/uL Hgb (12.0-16.0) g/dL Hct (37-47) % MCV (80-100) fL MCH (25-34) pg MCHC (32-36) g/dL RDW Std Deviation (36.4-46.3) fL RDW Coeff of Dao (11.5-14.5) % Plt Count (130-400) K/uL Immature Gran % (Auto) % Neut % (Auto) % Lymph % (Auto) % [place] % (Auto) % Eos % (Auto) % Baso % (Auto) % Immature Gran # (Auto) (0.00-0.02) K/uL Neut # (Auto) (1.4-6.5) K/uL Lymph # (Auto) (1.2-3.4) K/uL [place] # (Auto) (0.11-0.59) K/uL Eos # (Auto) (0-0.5) K/uL Baso # (Auto) (0-0.2) K/uL Platelet Estimate (Normal) Sodium (136-145) mmol/L Potassium (3.5-5.1) mmol/L Chloride (98-107) mmol/L Carbon Dioxide (21-32) mmol/L Anion Gap (3-11) BUN (7-18) mg/dl Creatinine (0.6-1.2) mg/dl Est Cr Clr Drug Dosing ml/min Est GFR ( Amer) Est GFR (Non-Af Amer) BUN/Creatinine Ratio (10-20) Glucose (70-99) mg/dl POC Glucose 283 H (70-99) Calcium (8.5-10.1) mg/dl Total Bilirubin (0.2-1) mg/dl AST (15-37) U/L ALT (12-78) U/L Alkaline Phosphatase (45-117) U/L Troponin I (0-0.045) ng/ml Total Protein (6.4-8.2) gm/dl Albumin (3.4-5.0) gm/dl Globulin (2.5-4.0) gm/dl Albumin/Globulin Ratio (0.9-2) Lipase (73-393) U/L Beta-Hydroxybutyric Acd (0.2-2.81) mg/dl Urine Color Urine Appearance (Clear) Urine pH (4.5-7.5) Ur Specific Masterson (1.000-1.030) Urine Protein (Negative) Urine Glucose (UA) (Negative) Urine Ketones (Negative) Urine Blood (Negative) Urine Nitrite (Negative) Urine Bilirubin (Negative) Urine Urobilinogen (Negative) Ur Leukocyte Esterase (Negative) Urine WBC (Auto) (0-5) /hpf Urine RBC (Auto) (0-4) /hpf U Hyaline Cast (Auto) (0-5) /lpf U Epithel Cells (Auto) (0-5) /lpf Urine Bacteria (Auto) (Negative) Imaging Data Radiologist's Impression: Radiology results as stated below per my review and the radiologist's interpretation: SINGLE VIEW CHEST CLINICAL HISTORY: Atypical chest pain. Epigastric abdominal pain. FINDINGS: An AP, portable, upright chest radiograph is compared to study dated 03/11/2019. Correlation is made with chest CT dated 06/01/2018. The examination is degraded by portable technique and apical lordotic positioning. A right internal jugular central venous infusion port is unchanged in position. A 2-lead cardiac pacemaker is again noted and partially obscures the left lower chest. The heart is enlarged noting atherosclerotic calcification of the thoracic aorta. The pulmonary vasculature is noncongested. There is bibasilar scarring/atelectasis. No airspace consolidation or large pleural effusion is seen. No pneumothorax is seen. The skeletal structures are osteopenic. The bony thorax is grossly intact. Surgical clips project over the upper chest. IMPRESSION: 1. Cardiomegaly and cardiac pacemaker. There is no radiographic evidence of congestive failure. 2. No airspace consolidation or large pleural effusion is identified. Electronically signed by: Davis Santos M.D. 03/28/2019 1:[address] SCAN OF THE ABDOMEN AND PELVIS WITHOUT IV CONTRAST CLINICAL HISTORY: Epigastric abdominal pain. COMPARISON STUDY: Abdominal CT dated 05/31/2018. TECHNIQUE: CT scan of the abdomen and pelvis is performed from the lung bases to the proximal femora. Images are reviewed in the axial, sagittal, and coronal planes. IV contrast was not administered for this examination due to poor renal function. A dose lowering technique was utilized adhering to the principles of ALARA. CT DOSE: 1038.06 mGy.cm FINDINGS: Lung bases: The heart is mildly enlarged and without pericardial effusion. Pacemaker leads are noted. The coronary arteries are densely calcified. There are scattered calcified granulomas. No airspace consolidation or pleural effusion is identified. There is a small to moderate hiatal hernia. Liver: The unenhanced liver is enlarged, measuring 18.3 cm in length. There is nodularity of the hepatic surface contour suggesting early change of cirrhosis. There is no intrahepatic biliary ductal dilatation. Gallbladder: There are numerous calcified gallstones, with no clear CT evidence of acute cholecystitis. Spleen: Normal in size and attenuation. Pancreas: The unenhanced pancreas is moderately atrophic and grossly unremarkable. Adrenal glands: A small left adrenal adenoma is unchanged. The right adrenal gland is normal in appearance. Kidneys: The unenhanced kidneys demonstrate cortical atrophy and are without hydronephrosis. No renal calculi are clearly identified. There are bilateral renal vascular calcifications. There is no evidence of contour deforming renal mass lesion. Abdominal vasculature: The abdominal aorta is normal in course and caliber n oting moderate to advanced atherosclerotic calcification. Bowel: There is colonic fecal retention. No bowel obstruction is seen. The appendix is not identified and reported surgically absent. Peritoneum: There is no intraperitoneal free air or abdominal ascites. Lymphadenopathy: None. Pelvic viscera: The bladder is normal as imaged. The uterus is surgically absent. No adnexal lesion is seen. Skeletal structures: The skeletal structures are osteopenic. There is mild to moderate lumbosacral spondylosis. No lytic or blastic lesions are seen. IMPRESSION: 1. There are no acute infectious or inflammatory findings in the abdomen or pelvis. 2. Cholelithiasis. 3. The liver is mildly enlarged. Nodularity of the surface contour suggests early change of cirrhosis. 4. Cardiomegaly and cardiac pacemaker. 5. Hiatal hernia. 6. Additional findings as above. Electronically signed by: Davis Santos M.D. 03/28/2019 2:05 PM US gallbladder CLINICAL HISTORY: 64 years-old Female presenting with ruq pain, vomiting. TECHNIQUE: Real-time grayscale and limited color Doppler ultrasound imaging of t he abdomen limited to the right upper quadrant was performed. COMPARISON: CT from earlier today. FINDINGS: Pancreas: Visualized portions of the pancreatic head and body normal. Liver: Minimally hyperechogenic parenchyma with heterogeneous echotexture, likely indicating fibrosis or steatosis. The liver measures 18.7 cm in maximal sagittal dimension. No sonographic evidence of hepatic mass. Main portal vein patent with normal directional flow. Biliary: No intrahepatic biliary ductal dilatation. Common bile duct measures up to 4 mm in diameter. Gallbladder: Gallstones without evidence of gallbladder distention, wall thickening, or pericholecystic fluid or inflammatory change. Right kidney: Normal in appearance without evidence of hydronephrosis. Ascites: None. Other: None. IMPRESSION: 1. Cholelithiasis without evidence of cholecystitis or biliary ductal dilatation. 2. Heterogeneous liver parenchyma could indicate underlying fibrosis or steatosis. Borderline hepatomegaly. Electronically signed by: Valdemar Amaya M.D. 03/28/2019 3:13 PM ECG Data Attestation: I personally reviewed and interpreted this ECG as follows: Indication: + other (abdominal pain) Rate (beats per minute): 67 Rhythm: + sinus rhythm ECG Intervals/blocks: + First degree AV block, + Right Bundle branch block and + Normal QT-c (488) ECG ST segments: no ST elevation ECG Findings: no PVCs Comparison ECG Date: from (09/10/2018) Change: the following changes noted (Pacemaker function today is not active compared to previous) MDM Narrative There is a lower white blood cell count, likely consistent with her recent chemotherapy. Hemoglobin was 11.4. Platelet count slightly low at 93, also likely consistent with her recent chemotherapy. There was no true neutropenia. Renal panel testing shows a creatinine of 1.92, this value is baseline for the patient. Sugar was quite high at 344. No worrisome liver enzyme elevation. No evidence for pancreatitis. Urinalysis did not show any evidence of for infection. Chest film did not show pneumonia or free air. EKG showed a sinus rhythm with a first-degree AV block, no acute ischemic change. Cardiac enzyme testing x1 was not consistent with acute cardiac injury. Abdominal and pelvis CT showed gallstones, no bowel obstruction, no acute surgical pathology. Gallbladder ultrasound showed gallstones, no evidence for acute cholecystitis. The patient received IV saline. She was given IV Tylenol, IV Dilaudid, IV Zofran. She required another dose of IV Zofran and a dose of IV Phenergan to control her nausea. She was given IV hydralazine for some elevated blood pressure. She received IV insulin for her high blood sugar, her blood sugar is now in the mid 200s. The patient presents with weight loss, increasing epigastric abdominal pain, nausea and vomiting and the inability to take her regular medications. She is dehydrated based on history. Given the story, given her findings, I do think a hospital stay is warranted. Further care and work-up is warranted. I spoke to the patient and case management. The on-call hospitalist was consulted. At this point, the reason for the increased epigastric abdominal pain is not completely clear. Impression & Plan Abdominal discomfort, epigastric, Esophageal cancer, Gallstones, Vomiting, Dehydration, Failure of outpatient treatment Discharge Plan Visit Data *Final* Discharge Date/Time: 03/28/19 17:24 Chief Complaint: Abdominal Pain ED Provider: Davis Sheriff Discharge Problem: Abdominal discomfort, epigastric, Esophageal cancer, Gallstones, Vomiting, Dehydration, Failure of outpatient treatment Patient Disposition: Admitted As Inpatient Discharge Instructions Interventions: ED Discharge Assessment Last Done: 03/28/19 17:24 The capriibe's documentation has been prepared under my direction and personally reviewed by me in its entirety. I confirm that the note above accurately reflects all work, treatment, procedures, and medical decision making performed by me.
[2019-03-28] MEDS ORDERED: CARBOHYDRATES FOR HYPOGLYCEMIA PO PRN (18:09)
[2019-03-28] MEDS ORDERED: DEXTROSE 50% 50 ML SYRINGE IV PRN (18:09)
[2019-03-28] MEDS ORDERED: GLUCOSE 10 TABS/TUBE PO PRN (18:09)
[2019-03-28] MEDS ORDERED: PROCHLORPERAZINE 5 MG in SYRINGE 4 ML IV PRN (18:09)
[2019-03-28] MEDS ORDERED: OXYCODONE HCL IR 5 MG TAB (IMMEDIATE RELEASE) PO PRN (18:09)
[2019-03-28] MEDS ORDERED: ONDANSETRON 8MG OD TAB PO PRN (18:09)
[2019-03-28] MEDS ORDERED: SODIUM CHLORIDE 0.65% NA SOLN 45 ML (OCEAN) PRN (18:09)
[2019-03-28] MEDS ORDERED: GLUCAGON FOR INJ 1 MG VIAL SQ PRN (18:09)
[2019-03-28] MEDS ORDERED: GLUCOSE 40% GEL 15 GM TUBE PO PRN (18:09)
[2019-03-28] MEDS ORDERED: ALUMINUM/MAGNESIUM SUSP 72 ML, LIDOCAINE HCL VISCOUS 2% 24 ML, BARCODE IDENTIFIER 1 EA PO PRN (18:09)
--- NOTE | 2019-03-28 18:35 | Surgery Consultation ---
Date of Consultation March 28, 2019 Assessment & Plan (1) Epigastric abdominal pain: Normally we may consider removal of the gallbladder. But her history of esophageal cancer with recent radiation and chemotherapy can be contributing to this problem. Her burning pain is atypical. She has not had any of these symptoms prior She is neutropenic and thrombocytopenic adding to her risk. We can try HIDA scan with ejection fraction to assess the function and whether she has any symptoms with the ejection fraction. This may be difficult to rule out is biliary colic but I would have to be pushed further to consider operation. I will follow her for now and order the HIDA scan with ejection fraction History of Present Illness Attending Physician: Amisha Oleary, DO History of Present Illness Asked to see the patient with possible biliary colic-she does have gallstones on her ultrasound and CT scan. She does not have any gallbladder wall thickening or pericholecystic fluid Significant history for esophageal cancer undergoing chemotherapy and radiation therapy-with intense right epigastric burning type pain associated with the eating which began shortly after her radiation. She did not have these symptoms prior to that She is also dehydrated with a white blood cell count of 1.8, platelet count 93 BUN and creatinine 79/1.9 respectively Currently she is sitting in her bed eating a liquid dinner in no distress Allergies Allergy/AdvReac Type Severity Reaction Status Date / Time Sulfa (Sulfonamide Allergy Intermediate RASH Verified 03/28/19 12:06 Antibiotics) atenolol Allergy Mild DROP HEART Verified 03/28/19 12:06 RATE levofloxacin [From Levaquin] Allergy Mild Rash Verified 03/28/19 12:06 gabapentin [From Neurontin] AdvReac Mild FELT LIKE Verified 03/28/19 12:06 WENT TO OUTER SPACE morphine AdvReac Mild NAUSEA/SICK Verified 03/28/19 12:06 NESS Home Medications Home Medications Medication Instructions Recorded Confirmed Type Novolog Flexpen U-100 Insulin 0 sliding scale dose SUBCUT AC 05/31/18 03/28/19 History Tradjenta 5 mg PO QAM 05/31/18 03/28/19 History allopurinol 200 mg PO QPM 05/31/18 03/28/19 History atorvastatin 20 mg PO HS 05/31/18 03/28/19 History citalopram [Celexa] 20 mg PO QPM 05/31/18 03/28/19 History ergocalciferol (vitamin D2) 50,000 unit PO WK 05/31/18 03/28/19 History [Vitamin D2] hydralazine 10 mg PO BID 05/31/18 03/28/19 History metolazone 2.5 mg PO WK 05/31/18 03/28/19 History Restasis 1 drp OPHTHALMIC (EYE) Q12H 09/10/18 03/28/19 History acetaminophen [Mapap 650 mg PO HS 09/10/18 03/28/19 History (acetaminophen)] carvedilol 12.5 mg PO BID 09/10/18 03/28/19 History docusate sodium [Colace] 100 mg PO QAM 09/10/18 03/28/19 History furosemide [Lasix] 80 mg PO QAM 09/10/18 03/28/19 History melatonin 1 mg PO HS PRN 09/10/18 03/28/19 History meclizine 12.5 mg PO Q8H PRN #30 tab 09/11/18 03/28/19 Rx aspirin [Aspir-81] 81 mg PO QAM 01/11/19 03/28/19 History insulin glargine 100) 100 unit/mL 40 unit SUBCUT QAM 03/04/19 03/28/19 History subcutaneous solution nystatin 100,000 unit/gram topical 1 appln TOP BID #60 gm 03/04/19 03/28/19 Rx powder ondansetron 4 mg disintegrating 4 mg PO HS PRN tab 03/04/19 03/28/19 History tablet pantoprazole 20 mg tablet,delayed 20 mg PO DAILY 03/23/19 03/28/19 History release sucralfate 1 gram tablet 1 gm PO Q6H #60 tab 03/25/19 03/28/19 Rx dexamethasone 12 mg PO UD 03/28/19 03/28/19 History Patient History Medical History Anemia Carcinoma in situ Cervical - 1985 CKD (chronic kidney disease), stage IV follows w/ Dr. Faye Congestive heart failure "diastolic" - Follows with Dr. Good Coronary artery disease "s/p stenting x 2"--follow with Dr. Good Depression Diastolic dysfunction with acute on chronic heart failure (Inactive) Difficulty swallowing Current due to esophageal CA - feels like food sits at top of stomach DM2 (diabetes mellitus, type 2) IDDM Esophageal cancer (Chronic) Diagnosed 01/19/19 Gout Hearing deficit High cholesterol (Inactive) History of GI bleed d/t ulcer (age in 20's) HTN (hypertension) Melanoma of back Removed - [facility] Surgery Pacemaker (Inactive) implanted 2015 -- [employer]tr[employer] - last checked 03/01/2019 Rectus sheath hematoma (Resolved) Sarcoidosis Cutaneuos, Lung, Eyes, Spleen, Cardiac (s/p prednisone 1 year and then plaquinil) Surgical History H/O colonoscopy (Inactive) 01/19/19 [facility] History of appendectomy (Inactive) Age 16 History of bilateral cataract extraction 2014 History of bronchoscopy 1988 - with biopsy (at [facility]) History of cardiac cath prior to 2009 -- @ [place] History of carpal tunnel surgery of right wrist x 2 History of cone biopsy of cervix 1985 - malignant "in situ" History of detached retina repair 2014 - right eye History of dilatation and curettage 1974 History of esophagogastroduodenoscopy (EGD) w/ biopsy 01/19/19 [facility] History of heart artery stent (Inactive) x 2 stents prior to 2009 in [place] History of hysterectomy (Inactive) 1987 History of lumpectomy of left breast benign History of Mohs micrographic surgery for skin cancer On back - for Melanoma History of wisdom tooth extraction Hx of endoscopy upper endoscopic ultrasonography Family History Mother , Passed age 78 of dementia Breast cancer Bilateral Breasts - 2 different kinds - had lumpectomy and brachytherapy Hypertension Heart disease Father , Passed age 88 of COPD/Cardiac Complications Diabetes Melanoma Heart disease Sister No problems noted. 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 Feels Safe at Home: Yes Smoking Status: Former smoker Tobacco Type: cigarettes ; Second Hand Exposure: Yes (FATHER SMOKED) ; Hx Alcohol Use: Yes Alcohol type: other Hx Substance Use: No Childhood Exposure to Second-Hand Smoke: Yes (Father Smoked in Home ) Other Diet Comment: "I try to stay away from sugars" caffeine: No during the past year weight has: decreased > 10 lbs Dental Care, Regularly: No Review of Systems Review of Systems: All systems reviewed & are unremarkable except as noted in HPI & below Physical Exam Physical Exam: Patient does not appear to be in any significant distress and has no significant abdominal pain at the present time Her abdomen is soft Respiratory: normal respiratory effort; no respiratory distress Cardiovascular: Rate/Rhythm: regular rate Musculoskeletal: Head/Neck/Chest: head atraumatic Skin: no rashes, warm and dry Neurologic: awake Psychiatric: Orientation: alert Results & Data Vital Signs (Past 12 Hours) Vital Signs Temp Pulse Pulse Resp BP BP Pulse Ox 03/28/19 17:24 79 20 145/65 H 93 03/28/19 16:43 72 15 159/65 H 93 03/28/19 16:00 75 25 H 160/74 H 94 03/28/19 15:15 72 21 138/67 93 03/28/19 14:30 81 20 146/79 H 93 03/28/19 14:08 71 20 180/90 H 92 03/28/19 13:36 70 22 213/88 H 100 03/28/19 12:54 98 03/28/19 11:33 36.9 C 64 20 175/81 H 98 I have reviewed her ultrasound and CAT scan PG Care Time/CCT Total # of Minutes Spent Total Time Spent with Patient: Total time spent is greater than 50% in coordination of care (as documented) at patient's floor/unit and/or counseling patient:
[2019-03-28] MEDS: ACETAMINOPHEN 1,000 MG/100 ML VIAL IV SCH (19:03)
[2019-03-28] MEDS: SODIUM CHLORIDE 0.9% 1000ML 1,000 ML IV SCH (19:10)
[2019-03-28] MEDS: FAMOTIDINE 20 MG in SYRINGE 3 ML IV SCH (20:10)
[2019-03-28] MEDS ORDERED: INSULIN HUMAN REGULAR PER UNIT 10 UNITS in SYRINGE 9.9 ML IV ONE (20:15)
[2019-03-28] MEDS: CITALOPRAM 20 MG TAB PO SCH (20:31)
[2019-03-28] MEDS: carvediloL 12.5 MG TAB PO SCH (20:31)
[2019-03-28] MEDS: SENNA 17.6 MG/10 ML UDP PO SCH (20:34)
[2019-03-28] MEDS: INSULIN ASPART 100 UNITS/ML 3 ML PEN SC SCH (21:50)
[2019-03-28] MEDS: INSULIN GLARGINE SOLOSTAR 100 UNITS/ML 3 ML PEN SC SCH (21:52)
[2019-03-29] MEDS ORDERED: INSULIN ASPART 100 UNITS/ML 3 ML PEN SC SCH (01:00)
[2019-03-29] MEDS: CALCIUM CARBONATE 500 MG CHEWABLE TAB PO PRN ×3 (01:28→16:08)
[2019-03-29] MEDS: ACETAMINOPHEN 1,000 MG/100 ML VIAL IV SCH ×3 (01:28→19:11)
[2019-03-29] MEDS: PROMETHAZINE HCL 12.5 MG in SODIUM CHLORIDE 0.9% 50 ML IV PRN ×3 (01:49→16:29)
[2019-03-29] MEDS: SODIUM CHLORIDE 0.9% 1000ML 1,000 ML IV SCH ×2 (04:39→14:30)
[2019-03-29] MEDS: HEPARIN 100 UNIT/ML 5ML FLUSH FLUSH PRN (05:57)
[2019-03-29] MEDS: FAMOTIDINE 20 MG in SYRINGE 3 ML IV SCH ×2 (06:33→20:05)
[2019-03-29 06:51] LABS: Hematocrit (blood only) 30.3 % (37-47); Hemoglobin 10.1 g/dL (12.0-16.0); Mean Corpuscular Hemoglobin 30.1 pg (25-34); Mean Corpuscular Hgb Conc 33.3 g/dL (32-36); Mean Corpuscular Volume 90.2 fL (80-100); Mean Platelet Volume 12.5 fL (7.4-10.4); Platelet Count 76 K/uL (130-400); RDW Coefficient of Variation 12.8 % (11.5-14.5); RDW Standard Deviation 42.6 fL (36.4-46.3); Red Blood Count 3.36 M/uL (4.2-5.4); White Blood Count 1.22 K/uL (4.8-10.8)
[2019-03-29 06:56] LABS: Eosinophils # (auto) 0.05 K/uL (0-0.5); Eosinophils % (auto) 4.1 %; Giant Platelets 2+; Lymphocytes # (auto) 0.24 K/uL (1.2-3.4); Lymphocytes % (auto) 19.7 %; Monocytes % (auto) 8.2 %; Neutrophils # (auto) 0.83 K/uL (1.4-6.5); Ovalocytes 1+; Platelet Estimate Decreased (Normal)
[2019-03-29 07:06] LABS: BUN Creatinine Ratio 38.2 (10-20); Calcium 8.8 mg/dl (8.5-10.1); Creatinine Clr Calc Pharmacy 31.1 ml/min; Est GFR (Non-African American) 25.8; Magnesium 2.1 mg/dl (1.8-2.4); Potassium 3.7 mmol/L (3.5-5.1)
[2019-03-29 08:20] LABS: Estimated Average Glucose 183 mg/dl
[2019-03-29] MEDS ORDERED: SINCALIDE 1.8 MCG in 0.9 % SODIUM CHLORIDE 100 ML IV SCH (08:45)
[2019-03-29] MEDS: INSULIN ASPART 100 UNITS/ML 3 ML PEN SC SCH ×4 (09:09→21:19)
--- NOTE | 2019-03-29 09:49 | Nuclear Medicine Report ---
NM hepatobiliary CLINICAL HISTORY: 64 years-old Female presenting with gallstones, nausea , vomiting, dehydration, CK D, generalized abdominal pain, constipation. TECHNIQUE: Immediately following the intravenous administration of 5.3 mCi Tc-99m Choletec, dynamic a nterior abdominal imaging was performed. No morphine administration was required. COMPARISON: CT and ultrasound from 03/28/2019. FINDINGS: Uniform hepatic tracer accumulation is shown. Prompt intrahepatic biliary excretion is seen. The gall bladder and common bile duct are visualized by 26-30 minutes. Expected radiotracer activity within sm all bowel indicates an unobstructed common duct. IMPRESSION: 1. No evidence of acute or chronic cholecystitis. No evidence of cystic duct obstruction. Electronically signed by: Valdemar Amaya M.D. 03/29/2019 9:48 AM
[2019-03-29] MEDS: carvediloL 12.5 MG TAB PO SCH ×2 (09:50→20:16)
[2019-03-29] MEDS: INSULIN GLARGINE SOLOSTAR 100 UNITS/ML 3 ML PEN SC SCH ×2 (09:51→20:17)
--- NOTE | 2019-03-29 10:17 | Radiation OncologyConsultation ---
Date of Consultation March 29, 2019 Assessment & Plan (1) Esophageal cancer: Ms. Murray is a 64-year-old female with a diagnosis of esophageal cancer currently receiving chemotherapy and radiation therapy. The patient has received 9 fractions of radiation therapy of 180 cGy per fraction for a total dose of 1620 centigray. The patient was seen in our department yesterday in the outpatient setting and was doing poorly so we sent her to the emergency room after completion of treatment. The patient was admitted to the hospital due to multiple medical issues including dehydration and potential cholecystitis. Surgery has evaluated the patient and has recommended against cholecystectomy and has recommended conservative management. I have spoken with Dr. Sampson regarding continuation of radiation therapy while in the inpatient setting. At this point, Dr. Sampson has recommended that we hold radiation therapy today and will reevaluate tomorrow after conversation with hospital team. Please call us with any further questions or concerns. Malignant neoplasm of esophagus location: lower third Qualified Code(s): C15.5 - Malignant neoplasm of lower third of esophagus Present on Admission?: Yes History of Present Illness Attending Physician: Margot Sampson MD Allergies Allergy/AdvReac Type Severity Reaction Status Date / Time Sulfa (Sulfonamide Allergy Intermediate RASH Verified 03/28/19 12:06 Antibiotics) atenolol Allergy Mild DROP HEART Verified 03/28/19 12:06 RATE levofloxacin [From Levaquin] Allergy Mild Rash Verified 03/28/19 12:06 gabapentin [From Neurontin] AdvReac Mild FELT LIKE Verified 03/28/19 12:06 WENT TO OUTER SPACE morphine AdvReac Mild NAUSEA/SICK Verified 03/28/19 12:06 NESS Home Medications Home Medications Medication Instructions Recorded Confirmed Type Novolog Flexpen U-100 Insulin 0 sliding scale dose SUBCUT AC 05/31/18 03/28/19 History Tradjenta 5 mg PO QAM 05/31/18 03/28/19 History allopurinol 200 mg PO QPM 05/31/18 03/28/19 History atorvastatin 20 mg PO HS 05/31/18 03/28/19 History citalopram [Celexa] 20 mg PO QPM 05/31/18 03/28/19 History ergocalciferol (vitamin D2) 50,000 unit PO WK 05/31/18 03/28/19 History [Vitamin D2] hydralazine 10 mg PO BID 05/31/18 03/28/19 History metolazone 2.5 mg PO WK 05/31/18 03/28/19 History Restasis 1 drp OPHTHALMIC (EYE) Q12H 09/10/18 03/28/19 History acetaminophen [Mapap 650 mg PO HS 09/10/18 03/28/19 History (acetaminophen)] carvedilol 12.5 mg PO BID 09/10/18 03/28/19 History docusate sodium [Colace] 100 mg PO QAM 09/10/18 03/28/19 History furosemide [Lasix] 80 mg PO QAM 09/10/18 03/28/19 History melatonin 1 mg PO HS PRN 09/10/18 03/28/19 History meclizine 12.5 mg PO Q8H PRN #30 tab 09/11/18 03/28/19 Rx aspirin [Aspir-81] 81 mg PO QAM 01/11/19 03/28/19 History insulin glargine 100) 100 unit/mL 40 unit SUBCUT QAM 03/04/19 03/28/19 History subcutaneous solution nystatin 100,000 unit/gram topical 1 appln TOP BID #60 gm 03/04/19 03/28/19 Rx powder ondansetron 4 mg disintegrating 4 mg PO HS PRN tab 03/04/19 03/28/19 History tablet pantoprazole 20 mg tablet,delayed 20 mg PO DAILY 03/23/19 03/28/19 History release sucralfate 1 gram tablet 1 gm PO Q6H #60 tab 03/25/19 03/28/19 Rx dexamethasone 12 mg PO UD 03/28/19 03/28/19 History Patient History Medical History Anemia Carcinoma in situ Cervical - 1985 CKD (chronic kidney disease), stage IV follows w/ Dr. Faye Congestive heart failure "diastolic" - Follows with Dr. Good Coronary artery disease "s/p stenting x 2"--follow with Dr. Good Depression Diastolic dysfunction with acute on chronic heart failure (Inactive) Difficulty swallowing Current due to esophageal CA - feels like food sits at top of stomach DM2 (diabetes mellitus, type 2) IDDM Esophageal cancer (Chronic) Diagnosed 01/19/19 Gout Hearing deficit High cholesterol (Inactive) History of GI bleed d/t ulcer (age in 20's) HTN (hypertension) Melanoma of back Removed - [facility] Surgery Pacemaker (Inactive) implanted 2015 -- [employer] - last checked 03/01/2019 Rectus sheath hematoma (Resolved) Sarcoidosis Cutaneuos, Lung, Eyes, Spleen, Cardiac (s/p prednisone 1 year and then plaqu inil) Surgical History H/O colonoscopy (Inactive) 01/19/19 [facility] History of appendectomy (Inactive) Age 16 History of bilateral cataract extraction 2014 History of bronchoscopy 1988 - with biopsy (at [facility]) History of cardiac cath prior to 2009 -- @ [place] History of carpal tunnel surgery of right wrist x 2 History of cone biopsy of cervix 1985 - malignant "in situ" History of detached retina repair 2014 - right eye History of dilatation and curettage 1974 History of esophagogastroduodenoscopy (EGD) w/ biopsy 01/19/19 [facility] History of heart artery stent (Inactive) x 2 stents prior to 2009 in [place] History of hysterectomy (Inactive) 1987 History of lumpectomy of left breast benign History of Mohs micrographic surgery for skin cancer On back - for Melanoma History of wisdom tooth extraction Hx of endoscopy upper endoscopic ultrasonography Family History Mother , Passed age 78 of dementia Breast cancer Bilateral Breasts - 2 different kinds - had lumpectomy and brachytherapy Hypertension Heart disease Father , Passed age 88 of COPD/Cardiac Complications Diabetes Melanoma Heart disease Sister No problems noted. 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 Other Information That Helps Us Care for You: No Feels Safe at Home: Yes Safety Concerns: Feels Safe At This Time Smoking Status: Never smoker Tobacco Type: cigarettes ; Do You Dip or Chew Tobacco: No ; Second Hand Exposure: Yes ; Tobacco Cessation Education Requested by Patient: No Hx Alcohol Use: No Hx Substance Use: No Childhood Exposure to Second-Hand Smoke: Yes (Father Smoked in Home ) Other Diet Comment: "I try to stay away from sugars" caffeine: No during the past year weight has: decreased > 10 lbs Dental Care, Regularly: No Results Additional Studies 03/28/19 12:26 ECG [address] abd pelvis wo con Stat 03/28/19 12:27 XR chest 1V portable Stat 03/28/19 14:10 US gallbladder Stat 03/29/19 04:44 ECG 12 lead EKG AMLAB 03/29/19 08:00 NM hepatobiliary Routine 03/30/19 04:44 ECG 12 lead EKG AMLAB
--- NOTE | 2019-03-29 12:57 | Hospitalist Progress Note ---
Date of Service March 29, 2019 Assessment & Plan (1) Dehydration: due to intolerance to po /severe dysphagia /odynophagia possible due to advanced esophageal carcinoma with obstructive 7 cm tumor on GE junction also getting radiation tx received 9 radiation tx already -possible can worsen the dysphagia due to radiation scarring pt was started on liquid diet , which is d/preet as unable to swallow , experiencing severe burning sensation and pain on epigastric area with each sips of liquid ordered for NPO except of Ice chips GI consult requested for consideration for PEG tube given large tumor mass on lower GE junction not sure endoscopic PEG tube will be an option may need to consider other possible option for nutrition - TPN nutrition consulted pt has significant wt loss 50lb in past 6 months past several weeks was not able to eat or drink anything has been sucking on popsicles only is scheduled for total 29 sessions of radiation( received 9 tx already ) getting chemo weekly during radiation tx with Paclitaxel and Carboplatin ( Heme /Onc Dr Sandoval with [facility] ) plan to get 5-6 weeks of chemo plan is to have surgical resection of esophageal tumor (2) Vomiting: (3) Esophageal cancer: following with Heme Onc Dr Segura with [facility] and Radiation oncology pt was seen by GI for chronic 1.5 yr of abdominal pain , bloating ,experiencing pain while swallowing with solid , which advanced to liquid significant wt loss of 50lb in last 1 yrs EGD on 01/[address] Saha showed :localized severe mucosal changes characteristic friability /with spontaneous bleeding , mass /pathology shows poorly differentiate adenoca was seen by surgery in [place] , plan to have chemo and radiation tx , later follow up at [facility] for possible surgical resenction (4) Dysphagia: 2/2 esophageal mass with presumed inflammation undergoing XRT and chemo. ordered for NPO as pt could not tolerate pO NUTRITION: significant wt loss due to lower esophageal GE junction adeno ca /severe dysphagia unable to swallow liquid causing pain and discomfort at lower epigastric area /Last EGD showed ulcerated lesion with tumor mass ordered for NPO speech eval appreciated recommends GI eval , possible consideration for PEG tube if feeding tube is not an option , may need to consider parenteral nutrition - TPN nutrition consulted pt has A-port which is currently in use for chemo tx need to discuss with Oncology if A -port can be used for TPN or needs different IV access (5) Abdominal discomfort, epigastric: possible due to lower esophageal /GE junction ulcerated mass /adeno ca . CT abdomen doesn't reveal evidence of acute issues outside of esophageal mass. She only reports chronic pain with worsening of pain after eating. appreciate input form surgery HIDA scan negative -suggestive of no acute gall bladder pathology cont pain control , PPI for GERD pt reports severe constant pain on lower abdomen unable to swallow roxicodone getting intermittent relief with IV dilaudid ordered for Roxanol pain management consulted (6) CKD (chronic kidney disease), stage IV: presents with dehydration due to poor PO intake unable to swallow Cr at approx baseline 1.9 ordered for IV fluid avoid NSAID's/contrast (7) Coronary artery disease: appears stable with no evidence of ACS. no complain of chest heaviness or SOB D/c Aspirin -high risk for GI bleed /ulcerated , bleeding mass noted in lower GE junction in last EGD cont Coreg (8) Depression: Cont celexa (9) Chronic diastolic (congestive) heart failure: hypovolemic 2/2 dehydration. Holding Lasix, metolazone. ordered IVF (10) DM2 (diabetes mellitus, type 2): Cont basal bolus insulin with sliding scale while in hospital /NPO Holding trajenta. (11) Thrombocytopenia: pancytopenia : due to recent Chemo tx Antineoplastic chemotherapy induced pancytopenia Aspirin D/preet avoid anticoagulation (12) Leukopenia due to antineoplastic chemotherapy: follow CBC ordered neutropenic precaution (13) DVT prophylaxis: SCDs, holding chemoprophylaxis in setting of thrombocytopenia. Full Code as discussed with her on admission. DISPOSITION : expected to be discharged home when medically stable Subjective unable to swallow liquid having severe pain and burning , has constant epigastric pain and nausea radiation tx was kept on hold due to dehydration no rt upper quad pain HIDA SCAN negative ordered for NPO , except for sips of water and ice chips GI consulted for option of feeding tube no complain of cough , no fever or chills Review of Systems Review of Systems: All systems reviewed & are unremarkable except as noted in HPI & below Physical Exam Constitutional: WD/WN, vitals as above + ill appearing Eyes: PERRL, conjunctivae normal, anicteric sclerae ENMT: external ear and nose normal, oropharynx normal Neck: trachea midline, no thyromegaly Respiratory: normal respiratory effort; no respiratory distress Cardiovascular: Rate/Rhythm: regular rate Gastrointestinal (Abdomen): Percussion/Palpation: + abdomen tender (Tenderness on epigastric area ) and abdomen soft Musculoskeletal: Head/Neck/Chest: head atraumatic Skin: no rashes, warm and dry Neurologic: PERRL, EOMI, accommodation nl, no face palsy, no dysarthria awake Psychiatric: Orientation: alert Results & Data Vital Signs (Past 12 Hours) Vital Signs Temp Pulse Pulse Resp BP BP Pulse Ox 03/29/19 11:27 36.8 C 60 16 146/70 H 92 03/29/19 07:23 36.7 C 59 L 17 156/75 H 90 03/29/19 07:07 59 L 03/29/19 03:02 36.4 C L 58 L 16 122/72 92 (1) Esophageal cancer Malignant neoplasm of esophagus location: lower third Qualified Code(s): C15.5 - Malignant neoplasm of lower third of esophagus
[2019-03-29] MEDS ORDERED: OXYCODONE HCL SOLN 5 MG/5 ML UDC PO PRN (13:55)
--- NOTE | 2019-03-29 14:00 | Surgery Progress Note ---
Date of Service March 29, 2019 Assessment & Plan (1) Epigastric abdominal pain: I don't think cholecystectomy will alleviate sxs in this situation unless evidence of acute disease will cont to follow Subjective pt resting in bed- not too hungry today Hida normal ( no EF done ) Results & Data Vital Signs (Past 12 Hours) Vital Signs Temp Pulse Pulse Resp BP BP Pulse Ox 03/29/19 11:27 36.8 C 60 16 146/70 H 92 03/29/19 07:23 36.7 C 59 L 17 156/75 H 90 03/29/19 07:07 59 L 03/29/19 03:02 36.4 C L 58 L 16 122/72 92 PG Care Time/CCT Total # of Minutes Spent Total Time Spent with Patient: Total time spent is greater than 50% in coordination of care (as documented) at patient's floor/unit and/or counseling patient:
[2019-03-29] MEDS ORDERED: ONDANSETRON INJ 2 MG/ML 2 ML VIAL IV PRN (16:23)
[2019-03-29] MEDS ORDERED: PHARMACY GLYCEMIC MGMT CONSULT PRN (16:45)
[2019-03-29] MEDS ORDERED: bisacodyL 10 MG SUPP PR STA (17:56)
[2019-03-29] MEDS: D5W AND NSS 1,000 ML IV SCH (19:06)
[2019-03-29] MEDS: MoRPHine SULFATE 10 MG/0.5 ML UDP PO PRN (19:32)
[2019-03-29] MEDS: SENNA 17.6 MG/10 ML UDP PO SCH (20:17)
[2019-03-29] MEDS: CITALOPRAM 20 MG TAB PO SCH (20:17)
[2019-03-30] MEDS: ACETAMINOPHEN 1,000 MG/100 ML VIAL IV SCH ×2 (02:37→09:29)
[2019-03-30] MEDS: D5W AND NSS 1,000 ML IV SCH ×3 (05:38→18:05)
[2019-03-30] MEDS: FAMOTIDINE 20 MG in SYRINGE 3 ML IV SCH ×2 (06:26→18:05)
--- NOTE | 2019-03-30 06:40 | Surgery Progress Note ---
Date of Service March 30, 2019 Assessment & Plan (1) Dysphagia: considering GI evaluation for possible PEG tube. If they do not feel this can be performed , I would consider checking with doctors at [facility] where she has been treated to try to avoid open operation. Results & Data Vital Signs (Past 12 Hours) Vital Signs Temp Pulse Resp BP Pulse Ox 03/30/19 03:49 36.9 C 55 L 19 127/75 95 03/29/19 23:37 36.9 C 55 L 18 131/64 95 PG Care Time/CCT Total # of Minutes Spent Total Time Spent with Patient: Total time spent is greater than 50% in coordination of care (as documented) at patient's floor/unit and/or counseling patient:
--- NOTE | 2019-03-30 08:42 | Pharmacy Report ---
Pharmacy Glycemic Short Note 2 - Date of Service March 30, 2019 - Glycemic Short BSG Results (Last 24 hours): 03/29/19 03/29/19 03/29/19 11:41 16:25 20:11 POC Glucose 220 H 141 H 146 H 03/30/19 03/30/19 03:01 07:38 POC Glucose 144 H 148 H OUTPATIENT ANTIDIABETIC REGIMEN: * Lantus 40 units SQ qAM * Novolog AC - med rec states patient has not used recently * Linagliptin 5 mg PO qAM * A1c = 8% (03/29/19) ASSESSMENT: * Zoraida is a 64 year old diabetic admitted with dehydration, vomiting, abdominal discomfort, and dysphagia in the setting of esophageal cancer on active chemotherapy. She was made NPO on 03/29 PM for surgery evaluation. * Basal insulin was changed to dose per scale (decreased from 15 units BID to 10-15 units) to allow for possible reduction in Lantus dose with NPO status. * Post prandial BSGs were acceptable yesterday, with the exception of lunch BSG of 220 mg/dL. Carb ratio was tightened yesterday evening. Effect not seen since patient has not consumed food since then. No changes at this time. PLAN FOR INPATIENT GLYCEMIC CONTROL: * Hold outpatient oral diabetes medications * Basal insulin * Lantus 10-15 units SQ BID - 10 units for BSG less than 140 mg/dL - 15 units for BSG 140 mg/dL or more * Bolus insulin * NovoLog per scale ACHS or Q6hrs while NPO * Goal Range: Low 120 mg/dL - High 150 mg/dL * Correction Factor: 25 mg/dL/unit * Nutritional / Prandial insulin per carb ratio of 1 unit per 8 grams CHO consumed PLAN FOR DISCHARGE: * A1c = 8% * Patient reports recent steroid use with chemotherapy and the possibility of starting chronic low-dose steroids. * If steroid is ordered on discharge, consider addition of one daily dose of NPH to combat steroid induced hyperglycemia.
[2019-03-30] MEDS: INSULIN ASPART 100 UNITS/ML 3 ML PEN SC SCH ×4 (09:19→20:41)
[2019-03-30] MEDS: INSULIN GLARGINE SOLOSTAR 100 UNITS/ML 3 ML PEN SC SCH ×2 (09:21→20:42)
[2019-03-30] MEDS: carvediloL 12.5 MG TAB PO SCH ×2 (09:22→20:43)
[2019-03-30] MEDS: PROMETHAZINE HCL 12.5 MG in SODIUM CHLORIDE 0.9% 50 ML IV PRN ×2 (10:05→17:02)
[2019-03-30] MEDS ORDERED: ACETAMINOPHEN 1,000 MG/100 ML VIAL IV PRN (11:03)
--- NOTE | 2019-03-30 11:27 | Hospitalist Progress Note ---
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 also getting radiation tx received 9 radiation tx already -possible can worsen the dysphagia due to radiation scarring pt was started on liquid diet , which is d/preet as unable to swallow , experiencing severe burning sensation and pain on epigastric area with each sips of liquid ordered for NPO GI consulted appreciate input scheduled for EGD today and possible stent placement at the lower GE junction pt may be able to tolerate soft /liquid diet if esophageal stent placement is done nutrition consulted pt has significant wt loss 50lb in past 6 months past several weeks was not able to eat or drink anything has been sucking on popsicles only is scheduled for total 29 sessions of radiation( received 9 tx already ) getting chemo weekly during radiation tx with Paclitaxel and Carboplatin ( Heme /Onc Dr Sandoval with [facility] [address] ) plan to get 5-6 weeks of chemo plan is to have surgical resection of esophageal tumor (2) Vomiting: esophageal ca /on chemo and radiation t cont supportive care with antiemetics. (3) Esophageal cancer: following with Heme Onc Dr Segura with [facility] and Radiation oncology pt was seen by GI for chronic 1.5 yr of abdominal pain , bloating ,experiencing pain while swallowing with solid , which advanced to liquid significant wt loss of 50lb in last 1 yrs EGD on 01/[address] Saha showed :localized severe mucosal changes c haracteristic friability /with spontaneous bleeding , mass /pathology shows poorly differentiate adenoca appreciate help from GI plan for Egd today with possible esophageal stent placement was seen by surgery in [place] , plan to have chemo and radiation tx , later follow up at [facility] for possible surgical resenction (4) Dysphagia: 2/2 esophageal mass with presumed inflammation undergoing XRT and chemo. NUTRITION: significant wt loss due to lower esophageal GE junction adeno ca /severe dysphagia unable to swallow liquid causing pain and discomfort at lower epigastric area /Last EGD showed ulcerated lesion with tumor mass NPO now as pt could not tolerate pO /EGD with possible stent placement by GI pt will need continued nutritional assessment for dietary supplement (5) Abdominal discomfort, epigastric: possible due to lower esophageal /GE junction ulcerated mass /adeno ca . CT abdomen doesn't reveal evidence of acute issues outside of esophageal mass. She only reports chronic pain with worsening of pain after eating. appreciate input form surgery HIDA scan negative -suggestive of no acute gall bladder pathology cont pain control , PPI for GERD pt reports severe constant pain on lower abdomen unable to swallow roxicodone getting intermittent relief with IV dilaudid ordered for Roxanol -pt repots gets pain form 12/21 down to 6 pain management consulted (6) CKD (chronic kidney disease), stage IV: presents with dehydration due to poor PO intake unable to swallow Cr at approx baseline 1.9 ordered for IV fluid avoid NSAID's/contrast pt is counselled to avoid Aspirin , and NSAID's -no motrin , aleve , advil , ibuprophen , naproxen high risk for worsening of CKD and GI bleed (7) Coronary artery disease: appears stable with no evidence of ACS. no complain of chest heaviness or SOB D/c Aspirin -high risk for GI bleed /ulcerated , bleeding mass noted in lower GE junction in last EGD cont Coreg (8) Depression: Cont celexa (9) Chronic diastolic (congestive) heart failure: pt is at present appears to be on dry side , poor PO intake -leading to dehydration Holding Lasix, metolazone. ordered IVF (10) DM2 (diabetes mellitus, type 2): Cont basal bolus insulin with sliding scale while in hospital /NPO Holding trajenta. BSg elevated due to steroid tx pre Chemo pharmacy consulted for glycemic management appreciate input (11) Thrombocytopenia: pancytopenia : due to recent Chemo tx Antineoplastic chemotherapy induced pancytopenia Aspirin D/preet avoid anticoagulation (12) Leukopenia due to antineoplastic chemotherapy: follow CBC ordered neutropenic precaution (13) DVT prophylaxis: SCDs, holding chemoprophylaxis in setting of thrombocytopenia. Full Code as discussed with her on admission. DISPOSITION : expected to be discharged home when medically stable Subjective pt able to sleep last night the liquid morphine ( roxanol ) helped no nausea or vomiting has non productive cough ( chronic ) no chest pain , SOB , no fever or chills Review of Systems Review of Systems: All systems reviewed & are unremarkable except as noted in HPI & below Physical Exam Constitutional: WD/WN, vitals as above + ill appearing Eyes: PERRL, conjunctivae normal, anicteric sclerae ENMT: external ear and nose normal, oropharynx normal Neck: trachea midline, no thyromegaly Respiratory: normal respiratory effort; no respiratory distress Cardiovascular: Rate/Rhythm: regular rate Gastrointestinal (Abdomen): Percussion/Palpation: + abdomen tender (Tenderness on epigastric area and rt upper quadrant ) and abdomen soft Musculoskeletal: Head/Neck/Chest: head atraumatic Skin: no rashes, warm and dry Neurologic: PERRL, EOMI, accommodation nl, no face palsy, no dysarthria awake Psychiatric: Orientation: alert Results & Data Vital Signs (Past 12 Hours) Vital Signs Temp Pulse Resp BP BP Pulse Ox 03/30/19 11:17 36.6 C 53 L 17 178/72 H 95 03/30/19 07:24 36.7 C 54 L 18 150/80 H 94 03/30/19 03:49 36.9 C 55 L 19 127/75 95 03/29/19 23:37 36.9 C 55 L 18 131/64 95 (1) Esophageal cancer Malignant neoplasm of esophagus location: lower third Qualified Code(s): C15.5 - Malignant neoplasm of lower third of esophagus
[2019-03-30 11:42] LABS: Hematocrit (blood only) 29.6 % (37-47); Hemoglobin 9.8 g/dL (12.0-16.0); Mean Corpuscular Hemoglobin 30.7 pg (25-34); Mean Corpuscular Hgb Conc 33.1 g/dL (32-36); Mean Corpuscular Volume 92.8 fL (80-100); Mean Platelet Volume 12.1 fL (7.4-10.4); Platelet Count 76 K/uL (130-400); RDW Coefficient of Variation 12.8 % (11.5-14.5); RDW Standard Deviation 43.7 fL (36.4-46.3); Red Blood Count 3.19 M/uL (4.2-5.4); White Blood Count 0.98 K/uL (4.8-10.8)
[2019-03-30 11:59] LABS: Basophils # (auto) 0.01 K/uL (0-0.2); Eosinophils # (auto) 0.06 K/uL (0-0.5); Eosinophils % (auto) 6.1 %; Immature Granulocytes # (auto) 0.01 K/uL (0.00-0.02); Lymphocytes # (auto) 0.23 K/uL (1.2-3.4); Lymphocytes % (auto) 23.5 %; Monocytes # (auto) 0.13 K/uL (0.11-0.59); Monocytes % (auto) 13.3 %; Neutrophils # (auto) 0.54 K/uL (1.4-6.5); Neutrophils % (auto) 55.1 %; Ovalocytes 1+
[2019-03-30] MEDS ORDERED: HydrALAZINE HCL 20 MG/ML VIAL IV PRN (11:59)
[2019-03-30 12:08] LABS: BUN Creatinine Ratio 30.4 (10-20); Calcium 8.5 mg/dl (8.5-10.1); Creatinine Clr Calc Pharmacy 37.4 ml/min; Est GFR (African American) 37.4; Est GFR (Non-African American) 32.3; Phosphorus 2.1 mg/dl (2.5-4.9); Potassium 3.5 mmol/L (3.5-5.1)
--- NOTE | 2019-03-30 14:35 | Gastrointestinal Consultation ---
Date of Consultation March 30, 2019 Assessment & Plan (1) Epigastric abdominal pain: Present on Admission?: Yes (2) Dysphagia: Present on Admission?: Yes (3) Odynophagia: Present on Admission?: Yes (4) Esophageal cancer: Consider transfer to [place] for evaluation for esophageal stent vs. PEG or other nutritional means. She is high risk for complications (neutropenia, imaging suggesting previously undiagnosed cirrhosis) and thoracic surgeon (or other surgeon from his service) who will eventually perform gastric pull through should have input in any pro cedures as may effect outcome of that surgery. Additionally she should be followed by an active, IP hem/onc service and we only have OP hem/onc available here in [place]. This was explained to the pt, and discussed with Dr. Juan Jose Jolley, [facility] hospitalist at [facility] as well as Dr. Delma Wallis the GI attending at [place]. Delma felt that it was reasonable to transfer the pt for evaluation for possible esophageal stenting vs. other nutritional options. Present on Admission?: Yes Supervising Physician Co-Signing Physician Notes I have personally seen and examined the patient with SUZI Cutler on 03/30/2019. Her note reflects my exam and findings. I agree with her impression and plan. Patient wishes to pursue either esophageal Stent or PEG. Given plans for possible esophagectomy, I would discuss with surgery team in [place] who knows patient and consider transfer to the facility so as to not interfere with surgery in future. Herman Tafoya M.D. History of Present Illness Reason for Consultation: Esophageal cancer, consider PEG Requesting Physician: Dr. Jolley Attending Physician: Juan Jose Jolley MD History of Present Illness Ms. Zoraida Murray is a 64 yr old female pt of Dr. Castillo with a hx of Sarcoidosis, CKD-3, HTN, DM-2, Obesity, CAD with stents and a pacemaker, who was sent from Radiation Onc to [facility] for admission on 03/28 for pain, poor nutritional status and dysphagia. She was dx'ed with locally advanced, distal esophageal adenocarcinoma in January and is undergoing neoadjuvant chemoradiation. She reports dysphagia and odynophagia. She reports that most of the time, if she tries to eat or drink, she has lower esophageal pain and pressure and "brings it back up." This was her initial presenting symptom prior to dx of the esophageal cancer and has increased in frequency so that she is rarely able to hold down foods or fluids. Interestingly, she is able to swallow and retain the few pills that she takes, though the water that she drinks with them comes back up. She was on ASA 81 mg until a few days ago and a BID PPI was added a few weeks ago w/o improvement. She was prescribed Carafate pills which she crushed and added to a few T of water but did feel that she was able to get that down. Here, she is neutropenic, with WBC 0.98 annd 540 neutrophils. She has significant burning chest and upper abdomen pain. She reports generalized weakness and weight loss in the past few months but is able to sit up in bed and ambulate to the BR. She denies any gross GI bleeding. CT abd/pelvis on arrival suggests early cirrhosis and hiatal hernia as well as cholelithiasis. GB US with stones, no ductal dilation. HIDA scan w/o cystic obstruction. She was seen by general surgery here whose opinion was that she has biliary colic and it would be reasonable to undergo cholecystectomy if she did not currently have cancer. Allergies Allergy/AdvReac Type Severity Reaction Status Date / Time Sulfa (Sulfonamide Allergy Intermediate RASH Verified 03/28/19 12:06 Antibiotics) atenolol Allergy Mild DROP HEART Verified 03/28/19 12:06 RATE levofloxacin [From Levaquin] Allergy Mild Rash Verified 03/28/19 12:06 gabapentin [From Neurontin] AdvReac Mild FELT LIKE Verified 03/28/19 12:06 WENT TO OUTER SPACE morphine AdvReac Mild NAUSEA/SICK Verified 03/28/19 12:06 NESS Home Medications Home Medications Medication Instructions Recorded Confirmed Type Novolog Flexpen U-100 Insulin 0 sliding scale dose SUBCUT AC 05/31/18 03/28/19 History Tradjenta 5 mg PO QAM 05/31/18 03/28/19 History allopurinol 200 mg PO QPM 05/31/18 03/28/19 History atorvastatin 20 mg PO HS 05/31/18 03/28/19 History citalopram [Celexa] 20 mg PO QPM 05/31/18 03/28/19 History ergocalciferol (vitamin D2) 50,000 unit PO WK 05/31/18 03/28/19 History [Vitamin D2] hydralazine 10 mg PO BID 05/31/18 03/28/19 History metolazone 2.5 mg PO WK 05/31/18 03/28/19 History Restasis 1 drp OPHTHALMIC (EYE) Q12H 09/10/18 03/28/19 History acetaminophen [Mapap 650 mg PO HS 09/10/18 03/28/19 History (acetaminophen)] carvedilol 12.5 mg PO BID 09/10/18 03/28/19 History docusate sodium [Colace] 100 mg PO QAM 09/10/18 03/28/19 History furosemide [Lasix] 80 mg PO QAM 09/10/18 03/28/19 History melatonin 1 mg PO HS PRN 09/10/18 03/28/19 History meclizine 12.5 mg PO Q8H PRN #30 tab 09/11/18 03/28/19 Rx aspirin [Aspir-81] 81 mg PO QAM 01/11/19 03/28/19 History insulin glargine 100) 100 unit/mL 40 unit SUBCUT QAM 03/04/19 03/28/19 History subcutaneous solution nystatin 100,000 unit/gram topical 1 appln TOP BID #60 gm 03/04/19 03/28/19 Rx powder ondansetron 4 mg disintegrating 4 mg PO HS PRN tab 03/04/19 03/28/19 History tablet pantoprazole 20 mg tablet,delayed 20 mg PO DAILY 03/23/19 03/28/19 History release sucralfate 1 gram tablet 1 gm PO Q6H #60 tab 03/25/19 03/28/19 Rx dexamethasone 12 mg PO UD 03/28/19 03/28/19 History Patient History Family History Mother , Passed age 78 of dementia Breast cancer Bilateral Breasts - 2 different kinds - had lumpectomy and brachytherapy Hypertension Heart disease Father , Passed age 88 of COPD/Cardiac Complications Diabetes Melanoma Heart disease Sister No problems noted. 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 Other Information That Helps Us Care for You: No Feels Safe at Home: Yes Safety Concerns: Feels Safe At This Time Smoking Status: Never smoker Tobacco Type: cigarettes ; Do You Dip or Chew Tobacco: No ; Second Hand Exposure: Yes ; Tobacco Cessation Education Requested by Patient: No Hx Alcohol Use: No Hx Substance Use: No Childhood Exposure to Second-Hand Smoke: Yes (Father Smoked in Home ) Other Diet Comment: "I try to stay away from sugars" caffeine: No during the past year weight has: decreased > 10 lbs Dental Care, Regularly: No Review of Systems Review of Systems: ROS: Gen: + weakness, weight loss Eyes: No eye redness, or pain, no recent vision changes Resp: No SOB, no cough Cardio: No palpitations/irregular beats, no chest pain GI: + chest and epigastric pain, + nausea/vomiting : Denies pain on urination Skin: No jaundice, itching or new rashes Physical Exam Constitutional: WD/WN, vitals as above + ill appearing and + obese Eyes: PERRL, conjunctivae normal, anicteric sclerae ENMT: external ear and nose normal, oropharynx normal Neck: trachea midline, no thyromegaly Respiratory: normal respiratory effort, lungs clear to auscultation Cardiovascular: RRR, no murmur, no edema Gastrointestinal (Abdomen): Inspection/Auscultation: abdomen normal to inspection; abdomen not distended Percussion/Palpation: + abdomen tender (epigastric) and abdomen soft Skin: no rashes, warm and dry Neurologic: patellar DTR's 2+ bilat, sensation intact Psychiatric: A+Ox3, euthymic affect Results & Data Vital Signs (Past 12 Hours) Vital Signs Temp Pulse Resp BP BP Pulse Ox 03/30/19 11:17 36.6 C 53 L 17 178/72 H 95 03/30/19 07:24 36.7 C 54 L 18 150/80 H 94 03/30/19 03:49 36.9 C 55 L 19 127/[address] 03/28/19: 1. There are no acute infectious or inflammatory findings in the abdomen or pelvis. 2. Cholelithiasis. 3. The liver is mildly enlarged. Nodularity of the surface contour suggests early change of cirrhosis. 4. Cardiomegaly and cardiac pacemaker. 5. Hiatal hernia. 6. Additional findings as above. US 03/28/19: 1. Cholelithiasis without evidence of cholecystitis or biliary ductal dilatation. 2. Heterogeneous liver parenchyma could indicate underlying fibrosis or steatosis. Borderline hepatomegaly. HIDA 03/29/19: No evidence of acute or chronic cholecystitis. No evidence of cystic duct obstruction. (1) Esophageal cancer Malignant neoplasm of esophagus location: lower third Qualified Code(s): C15.5 - Malignant neoplasm of lower third of esophagus
--- NOTE | 2019-03-30 15:26 | Discharge Summary ---
Date of Service March 30, 2019 Admission HPI Per Admitting Provider 64-year-old female with esophageal adenocarcinoma on chemotherapy and radiation presents with severe epigastric pain triggered by anything p.o. including solid or liquid. She reports the pain began after starting XRT and chemotherapy, started on the same day. Since that time she has been tolerating the pain using Tylenol 1000 at night only along with as needed viscous lidocaine, which she states works for only 15 minutes at a time. She is subsequently unable to tolerate any solid food and has been subsisting on popsicles. She has been unable to take any pills down for the last 3 days and has not taken insulin in over 24 hours. Additionally, last dose of chemotherapy was approximately 3 days ago and she takes Decadron around these treatments. Her blood glucose level was in the 300s and she was given insulin in the ER which improved things. She is having severe nausea in addition to epigastric pain which radiates to her right upper quadrant. She is found most helpful to use Protonix and Mylanta in addition to the lidocaine and Tylenol above. She also recently started Compazine and after Phenergan in the ER states that this is helpful, also. She reports pain in her right ear without tinnitus or fullness. She denies any upper respiratory tract symptoms outside of a chronic cough that is nonproductive. She does state that she had some epistaxis this week where she was blowing clots from her nose. This has lasted approximately 1 week. She denies any fevers or chills. She denies any sore throat. She recently was around someone who was ill and took an antibiotic course to prevent infection but was not actually sick. She is also very constipated, and reports having a BM last night which was incomplete. She denies any UTI symptoms. A recent EGD performed on 02/10 test 19 reveal a partially obstructing malignant esophageal tumor in the lower esophagus with a normal stomach and duodenum. Full liquid diet/mechanical soft diet was indefinitely recommended. She is currently r equesting red Jell-O. She does report being given Carafate to take per radiation oncology, however, states that the thick pasty slurry she took 1 time was difficult to swallow with questionable success in controlling symptoms. Admission Exam Per Admitting Provider CONSTITUTIONAL: WNWD, vitals as above, generally ill-appearing EYES: PERRL, normal conjunctivae, no scleral icterus ENT: external ear and nose normal, oropharynx clear, + maxillary sinus tenderness bilaterally, TM clear bilaterally with some clear fluid in left middle ear (opposite the side with pain). NECK: trachea midline, no lymphadenopathy RESPIRATORY: clear to auscultation bilaterally, no crackles, rales or wheezes, normal respiratory effort CARDIOVASCULAR: regular rate and rhythm, S1 and 2 heard without murmurs, gallops or rubs, no JVD, no peripheral edema CHEST: A port on R anterior chest wall is accessed. GASTROINTESTINAL: hypoactive bowel sounds, TTP in epigastric region, LLQ and somewhat RUQ, no guarding, soft and not distended. MUSCULOSKELETAL: moves all extremities equally SKIN: warm and dry NEUROLOGIC: CN 2-12 grossly intact, normal cognition, normal speech PSYCHIATRIC: alert cooperative and oriented to person, place and time. Principal Diagnosis Esophageal cancer, neutropenia, dehydration, malnutrition, poor oral intake Discharge Exam Constitutional: Elderly female lying in bed in NAD, + ill appearing Eyes: PERRL, EOMI, conjunctivae normal, anicteric sclerae HEENT: Normocephalic, atraumatic external ear and nose normal, oropharynx normal Neck: trachea midline, no thyromegaly Respiratory: normal respiratory effort; no respiratory distress, clear to auscultation bilaterally, no wheezing, rhonchi or crackles Cardiovascular: RRR, no murmurs noted Gastrointestinal (Abdomen): + bowel sounds, + abdomen tender (Tenderness at epigastric area and rt upper quadrant ), abdomen soft, somewhat distended Musculoskeletal: Moves all 4 extremities spontaneously and without difficulty Skin: no rashes, warm and dry Neurologic: PERRL, EOMI, accommodation nl, no face palsy, no dysarthria awake, moves extremities spontaneously Psychiatric: Orientation: alert and oriented x3, euthymic effect Discharge Data Allergies Allergy/AdvReac Type Severity Reaction Status Date / Time Sulfa (Sulfonamide Allergy Intermediate RASH Verified 03/28/19 12:06 Antibiotics) atenolol Allergy Mild DROP HEART Verified 03/28/19 12:06 RATE levofloxacin [From Levaquin] Allergy Mild Rash Verified 03/28/19 12:06 gabapentin [From Neurontin] AdvReac Mild FELT LIKE Verified 03/28/19 12:06 WENT TO OUTER SPACE morphine AdvReac Mild NAUSEA/SICK Verified 03/28/19 12:06 NESS Consultations 03/28/19 15:38 ED Decision to Admit Stat 03/28/19 18:09 Consult Case Management - Discharge Planning Routine Consult General Surgery Routine Consult Radiation Oncology Routine 03/29/19 16:28 Consult Gastroenterology Routine 03/30/19 11:00 Consult Pain Management Routine Ordered Studies 03/28/19 12:26 CT abd pelvis wo con Stat FINDINGS: Lung bases: The heart is mildly enlarged and without pericardial effusion. Pacemaker leads are noted. The coronary arteries are densely calcified. There are scattered calcified granulomas. No airspace consolidation or pleural effusion is identified. There is a small to moderate hiatal hernia. Liver: The unenhanced liver is enlarged, measuring 18.3 cm in length. There is nodularity of the hepatic surface contour suggesting early change of cirrhosis. There is no intrahepatic biliary ductal dilatation. Gallbladder: There are numerous calcified gallstones, with no clear CT evidence of acute cholecystitis. Spleen: Normal in size and attenuation. Pancreas: The unenhanced pancreas is moderately atrophic and grossly unremarka ble. Adrenal glands: A small left adrenal adenoma is unchanged. The right adrenal gland is normal in appearance. Kidneys: The unenhanced kidneys demonstrate cortical atrophy and are without hydronephrosis. No renal calculi are clearly identified. There are bilateral renal vascular calcifications. There is no evidence of contour deforming renal mass lesion. Abdominal vasculature: The abdominal aorta is normal in course and caliber noting moderate to advanced atherosclerotic calcification. Bowel: There is colonic fecal retention. No bowel obstruction is seen. The appendix is not identified and reported surgically absent. Peritoneum: There is no intraperitoneal free air or abdominal ascites. Lymphadenopathy: None. Pelvic viscera: The bladder is normal as imaged. The uterus is surgically abse nt. No adnexal lesion is seen. Skeletal structures: The skeletal structures are osteopenic. There is mild to moderate lumbosacral spondylosis. No lytic or blastic lesions are seen. IMPRESSION: 1. There are no acute infectious or inflammatory findings in the abdomen or pelvis. 2. Cholelithiasis. 3. The liver is mildly enlarged. Nodularity of the surface contour suggests early change of cirrhosis. 4. Cardiomegaly and cardiac pacemaker. 5. Hiatal hernia. 6. Additional findings as above. 03/28/19 14:10 US gallbladder Stat FINDINGS: Pancreas: Visualized portions of the pancreatic head and body normal. Liver: Minimally hyperechogenic parenchyma with heterogeneous echotexture, likely indicating fibrosis or steatosis. The liver measures 18.7 cm in maximal sagittal dimension. No sonographic evidence of hepatic mass. Main portal vein patent with normal directional flow. Biliary: No intrahepatic biliary ductal dilatation. Common bile duct measures up to 4 mm in diameter. Gallbladder: Gallstones without evidence of gallbladder distention, wall thickening, or pericholecystic fluid or inflammatory change. Right kidney: Normal in appearance without evidence of hydronephrosis. Ascites: None. Other: None. IMPRESSION: 1. Cholelithiasis without evidence of cholecystitis or biliary ductal dilatation. 2. Heterogeneous liver parenchyma could indicate underlying fibrosis or steatosis. Borderline hepatomegaly. NM hepatobiliary 03/29/2019 FINDINGS: Uniform hepatic tracer accumulation is shown. Prompt intrahepatic biliary excretion is seen. The gallbladder and common bile duct are visualized by 26-30 minutes. Expected radiotracer activity within small bowel indicates an unobstructed common duct. IMPRESSION: 1. No evidence of acute or chronic cholecystitis. No evidence of cystic duct obstruction. Hospital Course (1) Dehydration: due to intolerance to po /severe dysphagia /odynophagia possible due to advanced esophageal carcinoma with obstructive 7 cm tumor on GE junction also getting radiation tx received 9 radiation tx already -possible can worsen the dysphagia due to radiation scarring pt was started on liquid diet , which is d/preet as unable to swallow , experiencing severe burning sensation and pain on epigastric area with each sips of liquid GI consulted appreciate input -Recommend to use Carafate and full liquid diet, patient was able to have ice cream this afternoon GI and surgery consulted, discussed PEG tube placement, versus esophageal stent placement, recommend to transfer patient to [place] for further evaluation and treatment. GI discussed the case with Dr. Delma Wallis, GI attending at [place], who is willing to evaluate the pt further. I discussed the possible transfer with Dr. Bocanegra, hospitalist at [place], who is willing to accept the patient to their care. nutrition consulted pt has significant wt loss 50lb in past 6 months past several weeks was not able to eat or drink anything has been sucking on popsicles only is scheduled for total 29 sessions of radiation( received 9 tx already ) getting chemo weekly during radiation tx with Paclitaxel and Carboplatin ( Heme [facility], last chemotherapy was on Thursday, 1 week ago) plan to get 5-6 weeks of chemo Plan is to have eventually surgical resection of esophageal tumor at the [place]. (2) Vomiting: esophageal ca /on chemo and radiation therapy cont supportive care with antiemetics. (3) Esophageal cancer: following with Heme Onc Dr Segura (last chemotherapy was on Thursday, 1 week ago ) with [facility] and Radiation oncology pt was seen by GI for chronic 1.5 yr of abdominal pain , bloating ,experiencing pain while swallowing with solid , which advanced to liquid significant wt loss of 50lb in last 1 yrs EGD on 01/[address] Saha showed :localized severe mucosal changes characteristic friability /with spontaneous bleeding , mass /pathology shows poorly differentiate adenoca appreciate help from GI Pt was seen by surgery in [place] , plan to have chemo and radiation tx , later follow up at [place] for possible surgical resection During current hospitalization, GI service and general surgery consulted, discussed possibility of PEG tube versus esophageal stent placement, recommend to transfer patient to [place] for further evaluation and treatment (4) Dysphagia: 2/2 esophageal mass with presumed inflammation undergoing XRT and chemo. Difficulty with swallowing, causing pain and discomfort at lower epigastric area /Last EGD showed ulcerated lesion with tumor mass -As above, GI and surgery consulted, discussed possible esophageal stent versus PEG tube placement, recommend to transfer patient to [place] for further evaluation. GI recommended to use Carafate, and then full liquid diet, patient was able to have some ice cream this afternoon. NUTRITION: significant wt loss due to lower esophageal GE junction adeno ca /severe dysphagia unable to swallow liquid causing pain and discomfort at lower epigastric area /Last EGD showed ulcerated lesion with tumor mass NPO now as pt could not tolerate PO /EGD with possible stent placement by GI pt will need continued nutritional assessment for dietary supplement (5) Abdominal discomfort, epigastric: Possible due to lower esophageal /GE junction ulcerated mass /adeno ca CT abdomen doesn't reveal evidence of acute issues outside of esophageal mass. She reports chronic pain with worsening of pain after eating. General surgery and GI consulted, as above, discussed possibility of PEG tube placement, esophageal stent placement, recommend to transfer to [facility] in [place] for further evaluation and treatment. HIDA scan negative -suggestive of no acute gall bladder pathology cont pain control , PPI for GERD getting intermittent relief with IV dilaudid ordered for Roxanol -pt repots gets pain form 12/21 down to 6 pain management consulted (6) CKD (chronic kidney disease), stage IV: presents with dehydration due to poor PO intake unable to swallow Cr at approx baseline 1.9 ordered for IV fluid avoid NSAID's/contrast pt is counselled to avoid Aspirin , and NSAID's -no motrin , aleve , advil , ibuprophen , naproxen high risk for worsening of CKD and GI bleed (7) Coronary artery disease: appears stable with no evidence of ACS. no complain of chest heaviness or SOB D/c Aspirin -high risk for GI bleed /ulcerated , bleeding mass noted in lower GE junction in last EGD cont Coreg (8) Depression: Cont celexa (9) Chronic diastolic (congestive) heart failure: poor PO intake -leading to dehydration Holding Lasix, metolazone. ordered IVF on admission (10) DM2 (diabetes mellitus, type 2): Cont basal bolus insulin with sliding scale while in hospital /NPO Holding trajenta. BSg elevated due to steroid tx pre Chemo pharmacy consulted for glycemic management appreciate input (11) Thrombocytopenia: pancytopenia : due to recent Chemo tx Antineoplastic chemotherapy induced pancytopenia Aspirin D/preet avoid anticoagulation (12) Leukopenia due to antineoplastic chemotherapy: Neutropenia follow CBC ordered neutropenic precaution (13) DVT prophylaxis: SCDs, holding chemoprophylaxis in setting of thrombocytopenia. Full Code as discussed with her on admission. DISPOSITION : Plan to transfer to [facility] in [place] Total Time Total Time Spent Total Time Spent (In Minutes): 40 Total Time Includes: Examination of the Patient, Discharge Planning, Medication Reconciliation and Communication With Other Providers Discharge Plan Discharge Items Patient Disposition: Transfer Acute Care Hospital Reason For Visit: WEAKNESS Discharge Diagnosis: Esophageal cancer, neutropenia, dehydration, malnutrition, poor oral intake Activity: As commented below Activity Comment: as tolerated, pace yourself, ask for help as needed Non-emergency contact: Surgeon, Senior Telecommunications Specialist and Oncologist Call non-emergency contact if: you have any medication questions and your symptoms worsen Follow-up/Referrals: Madelaine Harrison DO [Primary Care Provider] - Diet: Full liquid Addtl Attending Provider Instructions: Patient with history of esophageal cancer, on chemotherapy and radiation, currently neutropenic, presented here with dehydration, very poor oral intake. Surgery and GI services were consulted, evaluated for possible EGD and stent placement, versus PEG tube, after thorough discussion, recommend to transfer patient to [facility] in [place]. GI discussed with Dr. Delma Wallis, GI attending at [place], who agreed to evaluate patient further. I discussed possible transfer with Dr. Bocanegra, hospitalist at [place], who is willing to accept the patient. Pending Studies at Discharge: No Stand-Alone Forms: Call Back Authorization, [facility] Skilled Items Patient informed of condition?: Yes DNR: No Discharge Level of Care: Other Communicable Disease: No Discharge Prognosis: Other Lines: Peripheral IV Urinary Catheter: No Medications and DC Order Prescriptions: Continued ondansetron 4 mg tablet,disintegrating 4 mg PO HS PRN (Reason: Nausea) RF: 0 nystatin 100,000 unit/gram powder 1 appln TOP BID Qty: 60 RF: 2 pantoprazole [Protonix] 20 mg tablet,delayed release (DR/EC) 20 mg PO DAILY RF: 0 sucralfate 1 gram tablet 1 gm PO Q6H Qty: 60 RF: 2 dexamethasone 4 mg tablet 12 mg PO UD RF: 0 metolazone 2.5 mg Tablet 2.5 mg PO WK RF: 0 hydralazine 10 mg Tablet 10 mg PO BID RF: 0 atorvastatin 20 mg Tablet 20 mg PO HS RF: 0 allopurinol 100 mg Tablet 200 mg PO QPM RF: 0 citalopram [Celexa] 20 mg Tablet 20 mg PO QPM RF: 0 ergocalciferol (vitamin D2) [Vitamin D2] 50,000 unit Capsule 50,000 unit PO WK RF: 0 Novolog Flexpen U-100 Insulin 100 unit/mL Insulin Pen 0 sliding scale dose SUBCUT AC RF: 0 Tradjenta 5 mg Tablet 5 mg PO QAM RF: 0 Lantus U-100 Insulin 100 unit/mL solution 40 unit SUBCUT QAM RF: 0 carvedilol 12.5 mg Tablet 12.5 mg PO BID RF: 0 docusate sodium [Colace] 100 mg Capsule 100 mg PO QAM RF: 0 Restasis 0.05 % Dropperette 1 drp OPHTHALMIC (EYE) Q12H RF: 0 acetaminophen [Mapap (acetaminophen)] 325 mg tablet 650 mg PO HS RF: 0 furosemide [Lasix] 80 mg tablet 80 mg PO QAM RF: 0 melatonin 1 mg Tablet 1 mg PO HS PRN (Reason: Insomnia) RF: 0 meclizine 25 mg Tablet 12.5 mg PO Q8H PRN (Reason: dizziness) Qty: 30 RF: 0 No Action aspirin [Aspir-81] 81 mg tablet,delayed release (DR/EC) 81 mg PO QAM RF: 0 Discharge Orders: Discharge Order (Routine); Ordered 03/30/19 Ordered By: Juan Jose Jolley Admission Data Admit Date/Time: 03/28/19 15:53 Attending Provider: Juan Jose Jolley Admit Provider: Amisha Oleary Primary Care Provider: Madelaine Harrison Other Providers: Amisha Oleary ; Adarsh Murray ; Petr Sandoval ; Ko Ortiz ; Ama Mancera ; Mike Caba ; Sandra Crawford ; Peter Saha ; Cipriano Krishnamurthy ; Melissa Leach ; Lynda Bennett ; Srinath Beatty ; Herman Tafoya ; Hodan Jauregui ; Itzel Joshi ; Geeta Jordan ; Kami Childers ; Abby Coles ; Margot Sampson ; Abdirahman Muñiz
[2019-03-30] MEDS: HEPARIN 100 UNIT/ML 5ML FLUSH FLUSH PRN (16:33)
[2019-03-30] MEDS: SUCRALFATE 1 GM/10 ML UDC PO SCH ×2 (16:35→20:42)
[2019-03-30] MEDS: ACETAMINOPHEN 1,000 MG/100 ML VIAL IV PRN (16:46)
[2019-03-30] MEDS: CALCIUM CARBONATE 500 MG CHEWABLE TAB PO PRN (19:21)
[2019-03-30] MEDS: MoRPHine SULFATE 10 MG/0.5 ML UDP PO PRN (20:41)
[2019-03-30] MEDS: SENNA 17.6 MG/10 ML UDP PO SCH (20:43)
[2019-03-30] MEDS: CITALOPRAM 20 MG TAB PO SCH (20:44)
[2019-03-31] MEDS: ACETAMINOPHEN 1,000 MG/100 ML VIAL IV PRN ×2 (03:18→12:43)
[2019-03-31] MEDS: PROMETHAZINE HCL 12.5 MG in SODIUM CHLORIDE 0.9% 50 ML IV PRN ×2 (03:42→13:21)
[2019-03-31] MEDS: D5W AND NSS 1,000 ML IV SCH (04:06)
[2019-03-31] MEDS: FAMOTIDINE 20 MG in SYRINGE 3 ML IV SCH (06:31)
[2019-03-31 06:43] LABS: Hematocrit (blood only) 28.5 % (37-47); Hemoglobin 9.4 g/dL (12.0-16.0); Mean Corpuscular Volume 91.1 fL (80-100); Mean Platelet Volume 12.1 fL (7.4-10.4); Platelet Count 78 K/uL (130-400); RDW Coefficient of Variation 12.9 % (11.5-14.5); RDW Standard Deviation 43.1 fL (36.4-46.3); Red Blood Count 3.13 M/uL (4.2-5.4); White Blood Count 0.98 K/uL (4.8-10.8)
[2019-03-31 07:13] LABS: Basophils # (auto) 0.01 K/uL (0-0.2); Eosinophils # (auto) 0.06 K/uL (0-0.5); Eosinophils % (auto) 6.1 %; Immature Granulocytes # (auto) 0.01 K/uL (0.00-0.02); Lymphocytes # (auto) 0.27 K/uL (1.2-3.4); Lymphocytes % (auto) 27.6 %; Monocytes # (auto) 0.12 K/uL (0.11-0.59); Monocytes % (auto) 12.2 %; Neutrophils # (auto) 0.51 K/uL (1.4-6.5); Neutrophils % (auto) 52.1 %
[2019-03-31 07:21] LABS: BUN Creatinine Ratio 25.7 (10-20); Calcium 8.6 mg/dl (8.5-10.1); Creatinine Clr Calc Pharmacy 43.7 ml/min; Est GFR (African American) 43.4; Est GFR (Non-African American) 37.4; Potassium 3.5 mmol/L (3.5-5.1)
--- NOTE | 2019-03-31 08:22 | History & Physical Report ---
Date of Service March 31, 2019 Assessment & Plan (1) Esophageal cancer: Present on Admission?: Yes (2) Epigastric abdominal pain: Present on Admission?: Yes (3) Odynophagia: 1. We discussed management of her pain which is likely a byproduct of her esophageal mass. Patient is in the process of being transferred to [facility] in [place] to determine further surgical treatment options at this time. 2. Patient was encouraged to utilize Roxanol as prescribed for as needed breakthrough pain. We discussed her concerns regarding dependence/tolerance of opiate therapies. 3. She does not appear to be a viable candidate for celiac plexus block at this time 4. We did briefly discuss initiation of fentanyl, but would not initiate at this time given her impending transfer to [facility] in [place]. 5. Patient may undergo outpatient evaluation at [facility] pain clinic at her request with persisting pain complaints upon her return from [facility]. Information provided. Thank you for allowing us to participate in the care of Mrs. Murray Present on Admission?: Yes History of Present Illness Chief Complaint: Midepigastric and right upper quadrant abdominal pain Primary Care Provider: Madelaine Harrison DO Mrs. Murray is a 64-year-old white female who was admitted on 03/28/2019 with abdominal pain and dehydration due to intolerance of oral intake. The patient has known history of esophageal cancer with dysphagia and nausea/vomiting who is currently undergoing radiation and chemotherapy. Patient presented with severe epigastric pain triggered by any intake of solid or liquid. She reports her pain is been ongoing over the past few months but has increased in frequency and severity recently. She reports the pain is in the midepigastric and right upper quadrant region. Her pain is a 3-4/10 while lying supine without movement. Her pain escalates with movement or any dietary intake even liquids. Patient is known to have a partially obstructing malignant esophageal tumor in the lower esophagus. Patient is in process of being transferred to [facility] in [place] which will likely occur later today to determine whether surgical options are available for treatment of her esophageal cancer. Patient is reporting persisting nausea. She reports some moderate relief from Phenergan which causes her to be tired and sedate. She has been utilizing Roxanol for as needed breakthrough pain with last dose approximately 12 hours ago. She reports that the medication "makes her not care about the pain". She is concerned about ongoing use of opiates and becoming "addicted". She has not utilized IV hydromorphone for as needed breakthrough pain. She has no prior history of use of fentanyl patches. The patient denies axial thoracic pain or thoracic radicular component to her symptoms. She denies increase in pain with deep breathing, coughing or sneezing activities. Patient has no further constitution al complaints. Plan of care discussed with Dr. Lucia De Leon. Allergies Allergy/AdvReac Type Severity Reaction Status Date / Time Sulfa (Sulfonamide Allergy Intermediate RASH Verified 03/28/19 12:06 Antibiotics) atenolol Allergy Mild DROP HEART Verified 03/28/19 12:06 RATE levofloxacin [From Levaquin] Allergy Mild Rash Verified 03/28/19 12:06 gabapentin [From Neurontin] AdvReac Mild FELT LIKE Verified 03/28/19 12:06 WENT TO OUTER SPACE morphine AdvReac Mild NAUSEA/SICK Verified 03/28/19 12:06 NESS Home Medications Home Medications Medication Instructions Recorded Confirmed Type Novolog Flexpen U-100 Insulin 0 sliding scale dose SUBCUT AC 05/31/18 03/28/19 History Tradjenta 5 mg PO QAM 05/31/18 03/28/19 History allopurinol 200 mg PO QPM 05/31/18 03/28/19 History atorvastatin 20 mg PO HS 05/31/18 03/28/19 History citalopram [Celexa] 20 mg PO QPM 05/31/18 03/28/19 History ergocalciferol (vitamin D2) 50,000 unit PO WK 05/31/18 03/28/19 History [Vitamin D2] hydralazine 10 mg PO BID 05/31/18 03/28/19 History metolazone 2.5 mg PO WK 05/31/18 03/28/19 History Restasis 1 drp OPHTHALMIC (EYE) Q12H 09/10/18 03/28/19 History acetaminophen [Mapap 650 mg PO HS 09/10/18 03/28/19 History (acetaminophen)] carvedilol 12.5 mg PO BID 09/10/18 03/28/19 History docusate sodium [Colace] 100 mg PO QAM 09/10/18 03/28/19 History furosemide [Lasix] 80 mg PO QAM 09/10/18 03/28/19 History melatonin 1 mg PO HS PRN 09/10/18 03/28/19 History meclizine 12.5 mg PO Q8H PRN #30 tab 09/11/18 03/28/19 Rx aspirin [Aspir-81] 81 mg PO QAM 01/11/19 03/28/19 History insulin glargine 100) 100 unit/mL 40 unit SUBCUT QAM 03/04/19 03/28/19 History subcutaneous solution nystatin 100,000 unit/gram topical 1 appln TOP BID #60 gm 03/04/19 03/28/19 Rx powder ondansetron 4 mg disintegrating 4 mg PO HS PRN tab 03/04/19 03/28/19 History tablet pantoprazole 20 mg tablet,delayed 20 mg PO DAILY 03/23/19 03/28/19 History release sucralfate 1 gram tablet 1 gm PO Q6H #60 tab 03/25/19 03/28/19 Rx dexamethasone 12 mg PO UD 03/28/19 03/28/19 History Past Med/Surg History Medical History (Updated 03/31/19 @ 08:54 by Fernando Adler PA-C) Anemia Carcinoma in situ Cervical - 1985 CKD (chronic kidney disease), stage IV follows w/ Dr. Faye Congestive heart failure "diastolic" - Follows with Dr. Good Coronary artery disease "s/p stenting x 2"--follow with Dr. Good Depression Diastolic dysfunction with acute on chronic heart failure (Inactive) Difficulty swallowing Current due to esophageal CA - feels like food sits at top of stomach DM2 (diabetes mellitus, type 2) IDDM Esophageal cancer (Chronic) Diagnosed 01/19/19 Gout Hearing deficit High cholesterol (Inactive) History of GI bleed d/t ulcer (age in 20's) HTN (hypertension) Melanoma of back Removed - MOH'S Surgery Pacemaker (Inactive) implanted 2015 -- [employer] - last checked 03/01/2019 Rectus sheath hematoma (Resolved) Sarcoidosis Cutaneuos, Lung, Eyes, Spleen, Cardiac (s/p prednisone 1 year and then plaquinil) Surgical History H/O colonoscopy (Inactive) 01/19/19 [facility] History of appendectomy (Inactive) Age 16 History of bilateral cataract extraction 2014 History of bronchoscopy 1988 - with biopsy (at [facility]) History of cardiac cath prior to 2009 -- @ [place] History of carpal tunnel surgery of right wrist x 2 History of cone biopsy of cervix 1985 - malignant "in situ" History of detached retina repair 2014 - right eye History of dilatation and curettage 1974 History of esophagogastroduodenoscopy (EGD) w/ biopsy 01/19/19 [facility] History of heart artery stent (Inactive) x 2 stents prior to 2009 in [place] History of hysterectomy (Inactive) 1987 History of lumpectomy of left breast benign History of Mohs micrographic surgery for skin cancer On back - for Melanoma History of wisdom tooth extraction Hx of endoscopy upper endoscopic ultrasonography Family History Mother , Passed age 78 of dementia Breast cancer Bilateral Breasts - 2 different kinds - had lumpectomy and brachytherapy Hypertension Heart disease Father , Passed age 88 of COPD/Cardiac Complications Diabetes Melanoma Heart disease Sister No problems noted. 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 Other Information That Helps Us Care for You: No Feels Safe at Home: Yes Safety Concerns: Feels Safe At This Time Smoking Status: Never smoker Tobacco Type: cigarettes ; Do You Dip or Chew Tobacco: No ; Second Hand Exposure: Yes ; Tobacco Cessation Education Requested by Patient: No Hx Alcohol Use: No Hx Substance Use: No Childhood Exposure to Second-Hand Smoke: Yes (Father Smoked in Home ) Other Diet Comment: "I try to stay away from sugars" caffeine: No during the past year weight has: decreased > 10 lbs Dental Care, Regularly: No Review of Systems Review of Systems: Constitutional: Negative for fever, chills, sweats Eyes: Negative for eye pain, photophobia, drainage Ear, nose, mouth, throat: Negative for ear pain, nasal congestion, mouth lesions, change in voice Respiratory: Negative for wheezing, sputum production Cardiovascular: Negative for chest pain, palpitations, calf pain Gastrointestinal: Negative for abdominal pain, belching, bloating Genitourinary: Negative for dysuria, urinary incontinence, urinary urgency Musculoskeletal: Negative for deformities Integumentary: Negative for nail changes, skin yellowing, pruritus Neurological: Negative for abnormal speech, seizure type activity Physical Exam Physical Exam: General: Patient was sleeping upon entering the room in no acute distress. Patient accompanied by her . Patient was easily arousable. Speech and thought process appropriate. Mood and affect appropriate. Cognition intact. Head: Normocephalic and atraumatic. Neck: Supple without adenopathy and full range of motion. Chest: Nontender to palpation of the costosternal junction. Tender over the sternum. No focal rib or intercostal tenderness. Nontender with AP/lateral compression. Abdomen: Soft and nondistended. No organomegaly. Bowel sounds active. Patient is tender in the midepigastric and right upper quadrant to palpation without rebound or guarding. Upper extremities: Strength 5/5 with handgrip and opposition. Sensation intact. Neurologic: Cranial nerves grossly intact. Ambulatory function not witnessed. Results & Data Vital Signs (Past 12 Hours) Vital Signs Temp Pulse Resp BP BP Pulse Ox 03/31/19 07:29 36.4 C L 54 L 16 154/56 H 95 03/31/19 04:32 36.7 C 56 L 18 143/75 H 91 03/31/19 03:12 36.7 C 55 L 18 147/65 H 94 03/31/19 01:45 36.8 C 54 L 17 147/71 H 92 Diagnostic Findings [place] [phone] Nuclear Medicine Report Patient: RAMIRO MURRAY Date: 03/28/19 MR#: [id number]: [address] Acct ID:[id number]: Date: [address] [place] [address] Zip: [place] [address] Age: 64Location: 2N Sex: F Room[facility]Bed: [facility] Att Phy: Margot Sampson, MDDiagnosis: WEAKNESS Roshni Phy: Madelaine Harrison, DOService Date: 03/29/19 Fam Phy:Interpreting Phy: Valdemar Amaya MD Admit Phy: Amisha Oleary DO Ordering Phy: Margot Sampson MD cc: ~ NM hepatobiliary CLINICAL HISTORY: 64 years-old Female presenting with gallstones, nausea , vomiting, dehydration, CK D, generalized abdominal pain, constipation. TECHNIQUE: Immediately following the intravenous administration of 5.3 mCi Tc- 99m Choletec, dynamic anterior abdominal imaging was performed. No morphine administration was required. COMPARISON: CT and ultrasound from 03/28/2019. FINDINGS: Uniform hepatic tracer accumulation is shown. Prompt intrahepatic biliary excretion is seen. The gallbladder and common bile duct are visualized by 26-30 minutes. Expected radiotracer activity within small bowel indicates an unobstructed common duct. IMPRESSION: 1. No evidence of acute or chronic cholecystitis. No evidence of cystic duct obstruction. Electronically signed by: Valdemar Amaya M.D. 03/29/2019 9:48 AM Dictated: 03/29/19 09 Transcribed: 03/29/19 0945 [place], [place] [phone] Ultrasound Report Patient: RAMIRO MURRAY Date: 03/28/19 MR#: [id number]: [address] Acct ID:[id number]: Date: 1955[facility] Zip: [place] [address] Age: 64Location: ED Sex: F Room/Bed: Att Phy:Diagnosis: NAUSEA,VOMITNG,SEVERE ABD PAIN Roshni Phy: Madelaine Harrison, DOService Date: 03/28/19 Fam Phy:Interpreting Phy: Valdemar Amaya MD Admit Phy: Ordering Phy: Davis Sheriff M.D. cc: ~ US gallbladder CLINICAL HISTORY: 64 years-old Female presenting with ruq pain, vomiting. TECHNIQUE: Real-time grayscale and limited color Doppler ultrasound imaging of the abdomen limited to the right upper quadrant was performed. COMPARISON: CT from earlier today. FINDINGS: Pancreas: Visualized portions of the pancreatic head and body normal. Liver: Minimally hyperechogenic parenchyma with heterogeneous echotexture, likely indicating fibrosis or steatosis. The liver measures 18.7 cm in maximal sagittal dimension. No sonographic evidence of hepatic mass. Main portal vein patent with normal directional flow. Biliary: No intrahepatic biliary ductal dilatation. Common bile duct measures up to 4 mm in diameter. Gallbladder: Gallstones without evidence of gallbladder distention, wall thickening, or pericholecystic fluid or inflammatory change. Right kidney: Normal in appearance without evidence of hydronephrosis. Ascites: None. Other: None. IMPRESSION: 1. Cholelithiasis without evidence of cholecystitis or biliary ductal dilatation. 2. Heterogeneous liver parenchyma could indicate underlying fibrosis or steatosis. Borderline hepatomegaly. Electronically signed by: Valdemar Amaya M.D. 03/28/2019 3:13 PM Dictated: 03/28/19 1511 Transcribed: 03/28/19 1511 [place], [place] [phone] XRay Report Patient: RAMIRO MURRAY Date: 03/28/19 MR#: [id number]: [address] Acct ID:[id number]: Date: [address] [place] [address] Zip: [place] [address] Age: 64Location: ED Sex: F Room/Bed: Att Phy:Diagnosis: NAUSEA,VOMITNG,SEVERE ABD PAIN Roshni Phy: Madelaine Harrison, DOService Date: 03/28/19 Fam Phy:Interpreting Phy: Davis Santos MD Admit Phy: Ordering Phy: Davis Sheriff M.D. cc: ~ SINGLE VIEW CHEST CLINICAL HISTORY: Atypical chest pain. Epigastric abdominal pain. FINDINGS: An AP, portable, upright chest radiograph is compared to study dated 03/11/2019. Correlation is made with chest CT dated 06/01/2018. The examination is degraded by portable technique and apical lordotic positioning. A right internal jugular central venous infusion port is unchanged in position. A 2-lead cardiac pacemaker is again noted and partially obscures the left lower chest. The heart is enlarged noting atherosclerotic calcification of the thoracic aorta. The pulmonary vasculature is noncongested. There is bibasilar scarring/atelectasis. No airspace consolidation or large pleural effusion is seen. No pneumothorax is seen. The skeletal structures are osteopenic. The bony thorax is grossly intact. Surgical clips project over the upper chest. IMPRESSION: 1. Cardiomegaly and cardiac pacemaker. There is no radiographic evidence of congestive failure. 2. No airspace consolidation or large pleural effusion is identified. Electronically signed by: Davis Santos M.D. 03/28/2019 1:13 PM Dictated: 03/28/19 1312 Transcribed: 03/28/19 1312 RAMIRO MURRAY 64 F 1955 [facility], [place] [phone] CT Scan Report Patient: RAMIRO MURRAY Date: 03/28/19 MR#: [id number]: [address] Acct ID:[id number]: Date: 1955[facility] Zip: [place] [address] Age: 64Location: ED Sex: F Room/Bed: Att Phy:Diagnosis: NAUSEA,VOMITNG,SEVERE ABD PAIN Roshni Phy: Madelaine Harrison, DOService Date: 03/28/19 Fam Phy:Interpreting Phy: Davis Santos MD Admit Phy: Ordering Phy: Davis Sheriff M.D. cc: ~ CT SCAN OF THE ABDOMEN AND PELVIS WITHOUT IV CONTRAST CLINICAL HISTORY: Epigastric abdominal pain. COMPARISON STUDY: Abdominal CT dated 05/31/2018. TECHNIQUE: CT scan of the abdomen and pelvis is performed from the lung bases to the proximal femora. Images are reviewed in the axial, sagittal, and coronal planes. IV contrast was not administered for this examination due to poor renal function. A dose lowering technique was utilized adhering to the principles of ALARA. CT DOSE: 1038.06 mGy.cm FINDINGS: Lung bases: The heart is mildly enlarged and without pericardial effusion. Pacemaker leads are noted. The coronary arteries are densely calcified. There are scattered calcified granulomas. No airspace consolidation or pleural effusion is identified. There is a small to moderate hiatal hernia. Liver: The unenhanced liver is enlarged, measuring 18.3 cm in length. There is nodularity of the hepatic surface contour suggesting early change of cirrhosis. There is no intrahepatic biliary ductal dilatation. Gallbladder: There are numerous calcified gallstones, with no clear CT evidence of acute cholecystitis. Spleen: Normal in size and attenuation. Pancreas: The unenhanced pancreas is moderately atrophic and grossly unremarkable. Adrenal glands: A small left adrenal adenoma is unchanged. The right adrenal gland is normal in appearance. Kidneys: The unenhanced kidneys demonstrate cortical atrophy and are without hydronephrosis. No renal calculi are clearly identified. There are bilateral renal vascular calcifications. There is no evidence of contour deforming renal mass lesion. Abdominal vasculature: The abdominal aorta is normal in course and caliber noting moderate to advanced atherosclerotic calcification. Bowel: There is colonic fecal retention. No bowel obstruction is seen. The appendix is not identified and reported surgically absent. Peritoneum: There is no intraperitoneal free air or abdominal ascites. Lymphadenopathy: None. Pelvic viscera: The bladder is normal as imaged. The uterus is surgically absent. No adnexal lesion is seen. Skeletal structures: The skeletal structures are osteopenic. There is mild to moderate lumbosacral spondylosis. No lytic or blastic lesions are seen. IMPRESSION: 1. There are no acute infectious or inflammatory findings in the abdomen or pelvis. 2. Cholelithiasis. 3. The liver is mildly enlarged. Nodularity of the surface contour suggests early change of cirrhosis. 4. Cardiomegaly and cardiac pacemaker. 5. Hiatal hernia. 6. Additional findings as above. Electronically signed by: Davis Santos M.D. 03/28/2019 2:05 PM Dictated: 03/28/19 1344 Transcribed: 03/28/19 1344 Code Status & VTE Plan VTE Prophylaxis Plan VTE Prophylaxis will be ordered: Yes (1) Esophageal cancer Malignant neoplasm of esophagus location: lower third Qualified Code(s): C15.5 - Malignant neoplasm of lower third of esophagus
[2019-03-31] MEDS: INSULIN ASPART 100 UNITS/ML 3 ML PEN SC SCH ×2 (08:32→12:53)
[2019-03-31] MEDS: INSULIN GLARGINE SOLOSTAR 100 UNITS/ML 3 ML PEN SC SCH (08:32)
[2019-03-31] MEDS: SUCRALFATE 1 GM/10 ML UDC PO SCH ×2 (08:33→12:45)
[2019-03-31] MEDS: carvediloL 12.5 MG TAB PO SCH ×2 (08:33→12:44)
--- NOTE | 2019-04-08 13:12 | Coding Query ---
MALNUTRITION Pt recently lost about 50 pounds, over 6 months. This was due to inability to eat,(nausea from ca and from chemotherapy). To promote full compliance with coding requirements relating to patient care, physician participation is requested in all cases of manager customer uncertainty. Please assist us with the question(s) below: Please place an X within the parenthesis (x). If other, please document: 1. "Malnutrition" is documented in this record on the Discharge Summary. If possible, please check the box that provides a more specific diagnosis: ( ) Mild malnutrition () Moderate malnutrition ( ) Severe malnutrition ( ) Protein malnutrition (kwashiorkor) ( ) Severe protein calorie malnutrition ( ) Protein calorie malnutrition, unspecified ( ) Other (please specify): 2. Was this diagnosis present on admission? Please place an X within the parenthesis (x). (x ) Present on admission ( ) Not present on admission ( ) Unable to be clinically determined Thank you Emmy Headley [facility]
== END 2019-03-31 14:42 | disposition short-term general hospital (02) | DRG 374 ==
LOC: EDSEX → ED 11:25 → SUATTDRO 15:53 → 2N 15:53

== ENCOUNTER 2019-04-07 19:19 | Inpatient (IN) ==
[2019-04-07] MEDS ORDERED: SODIUM CHLORIDE 0.9% 1000ML 1,000 ML IV SCH (20:45)
[2019-04-07 21:02] LABS: Albumin Level 2.6 gm/dl (3.4-5.0); BUN Creatinine Ratio 28.2 (10-20); Calcium 9.1 mg/dl (8.5-10.1); Creatinine Clr Calc Pharmacy 36.9 ml/min; Est GFR (African American) 34.3; Est GFR (Non-African American) 29.6; Potassium 3.2 mmol/L (3.5-5.1)
[2019-04-07 21:13] LABS: Hemoglobin 9.5 g/dL (12.0-16.0); Mean Corpuscular Hemoglobin 30.5 pg (25-34); Mean Corpuscular Hgb Conc 33.9 g/dL (32-36); Platelet Count 90 K/uL (130-400); RDW Coefficient of Variation 14.1 % (11.5-14.5); RDW Standard Deviation 43.8 fL (36.4-46.3); Red Blood Count 3.11 M/uL (4.2-5.4); White Blood Count 3.09 K/uL (4.8-10.8)
[2019-04-07 21:14] LABS: Albumin Globulin Ratio 0.7 (0.9-2); Globulin 3.5 gm/dl (2.5-4.0); Total Protein 6.1 gm/dl (6.4-8.2); Troponin I 0.062 ng/ml (0-0.045)
[2019-04-07 21:16] LABS: Anisocytosis Present; Basophils # (auto) 0.03 K/uL (0-0.2); Eosinophils # (auto) 0.04 K/uL (0-0.5); Eosinophils % (auto) 1.3 %; Immature Granulocytes # (auto) 0.01 K/uL (0.00-0.02); Immature Granulocytes % (auto) 0.3 %; Lymphocytes # (auto) 0.58 K/uL (1.2-3.4); Lymphocytes % (auto) 18.8 %; Monocytes # (auto) 0.57 K/uL (0.11-0.59); Monocytes % (auto) 18.4 %; Neutrophils # (auto) 1.86 K/uL (1.4-6.5); Neutrophils % (auto) 60.2 %; Platelet Estimate Decreased (Normal)
[2019-04-07] MEDS ORDERED: HYDROmorphone INJ 0.5 MG/0.5 ML SYR IV PRN (21:18)
[2019-04-07 21:20] LABS: Appearance Urine Clear (Clear); Bacteria Urine Automated Negative (Negative); Bilirubin Urine Negative (Negative); Blood Urine Negative (Negative); Color Urine Yellow; Epithelial Cell Urine Auto 20-30 /lpf (0-5); Glucose Urine UA Negative (Negative); Ketones Urine Negative (Negative); Leukocyte Esterase Urine Negative (Negative); Nitrite Urine Negative (Negative); Protein Urine 2+ (Negative); RBC Urine Automated 0-4 /hpf (0-4); Specific Gravity Urine 1.009 (1.000-1.030); Urobilinogen Urine Negative (Negative)
--- NOTE | 2019-04-07 21:23 | XRay Report ---
RIGHT ANKLE 3 VIEWS CLINICAL HISTORY: Right ankle injury. FINDINGS: 3 views of the right ankle are compared to study dated 12/26/2015. The skeletal structures a re osteopenic. No fracture is identified. The ankle mortise is intact. A chronic avulsion injury is a gain suggested along the inferior aspect of the medial malleolus. Soft tissue edema is present around the ankle and in the calf. No significant joint effusion is identified. There are large dorsal and p lantar calcaneal enthesophytes. Atherosclerotic calcification is noted in the regional arteries. IMPRESSION: 1. Soft tissue swelling with no radiographic evidence of acute fracture. 2. Large heel spurs. Electronically signed by: Davis Santos M.D. 04/07/2019 9:21 PM
--- NOTE | 2019-04-07 21:24 | XRay Report ---
SINGLE VIEW CHEST CLINICAL HISTORY: Dyspnea. FINDINGS: An AP, portable, upright chest radiograph is compared to study dated 03/28/2019. Correlatio n is made with chest CT dated 06/01/2018. The examination is degraded by portable technique, patient r otation, and apical lordotic positioning. A right internal jugular central venous infusion port is un changed in position. A 2-lead cardiac pacemaker is again noted and partially obscures the left latera l chest. The heart is enlarged noting atherosclerotic calcification of the thoracic aorta. There is p ulmonary vascular congestion. There is bibasilar scarring/atelectasis. Trace pleural effusions are castro spected. No pneumothorax is seen. The skeletal structures are osteopenic. The bony thorax is grossly intact. Surgical clips project over the upper chest. IMPRESSION: 1. Cardiomegaly and cardiac pacemaker with mild pulmonary vascular congestion. 2. Suspect trace pleural effusions. Electronically signed by: Davis Santos M.D. 04/07/2019 9:23 PM
--- NOTE | 2019-04-07 22:36 | CT Scan Report ---
CT SCAN OF THE ABDOMEN AND PELVIS WITHOUT IV CONTRAST; CT SCAN OF THE BONY PELVIS WITHOUT IV CONTRAST ; CT SCAN OF THE LUMBAR SPINE WITHOUT IV CONTRAST CLINICAL HISTORY: Low back pain. Pelvic pain. Metastatic esophageal cancer. Fall. COMPARISON STUDY: Abdominal CT dated 03/28/2019. PET/CT dated 02/14/2019 TECHNIQUE: CT scan of the abdomen and pelvis is performed from the lung bases to the proximal femora. CT scan of the bony pelvis is performed from the pelvic inlet to the proximal femora, and CT scan of lumbar spine is performed from the lower thoracic spine to the sacrum. Images were all examinations are reviewed in the axial, sagittal, and coronal planes. IV contrast was not administered for this ex amination as per the referring clinician. Note that the examination was performed in suboptimal fashi on without oral and IV contrast. A dose lowering technique was utilized adhering to the principles of ALARA. CT DOSE: 1200.17 mGy.cm FINDINGS: Lung bases: The heart is mildly enlarged and there is a small pericardial effusion. Pacemaker leads a re noted. The coronary arteries are densely calcified. There is diminutive attenuation of the cardiac blood pool as compared to the myocardium suggesting anemia. There are small to moderate pleural effu sions with bibasilar atelectasis. Intralobular septal thickening at the lung bases suggests congestiv e failure. There is a small hiatal hernia. Wall thickening at the gastroesophageal junction is simila r to previous. Liver: The unenhanced liver is enlarged, measuring 19.6 cm in length. The liver is cirrhotic in morph ology and heterogeneous in attenuation. There is nodularity of the hepatic surface contour. There is no intrahepatic biliary ductal dilatation. Gallbladder: The gallbladder is distended and there are calcified gallstones. There is no CT evidence of acute cholecystitis. Spleen: Normal in size and attenuation. Pancreas: The unenhanced pancreas is atrophic and grossly unremarkable. Adrenal glands: A 1.7 cm left adrenal nodule meets CT criteria for a fat-containing adenoma. The righ t adrenal gland is normal in appearance. Kidneys: The unenhanced kidneys are atrophic and without hydronephrosis. There are no renal calculi c learly identified. Numerous renovascular calcifications are observed. There is no evidence of contour deforming renal mass lesion. Abdominal vasculature: The abdominal aorta is normal in course and caliber noting moderate to advance d atherosclerotic calcification. Bowel: There is no bowel obstruction. There are scattered colonic diverticula without CT evidence of acute diverticulitis. Residual enteric contrast is noted in the colon. The appendix is identified an d reported surgically absent. Peritoneum: There is no intraperitoneal free air. There is trace. Ascites. Trace free fluid is noted in the pelvis. Lymphadenopathy: None. Pelvic viscera: The bladder is normal as visualized. The uterus is surgically absent. No adnexal lesi on is seen. Skeletal structures: The skeletal structures are osteopenic. No lytic or blastic lesions are seen. LUMBAR SPINE: Vertebral body height and alignment are maintained throughout the lumbar spine. There i s no evidence of fracture or malalignment. Small anterior and lateral marginal osteophytes are seen t hroughout. The transverse and spinous processes are intact. There is no evidence of spondylolysis. Th e disc spaces are preserved. The paraspinous soft tissues are within normal limits. Bony pelvis: There is no evidence of fracture involving the bony pelvis or proximal femora. There is no evidence of osteonecrosis of the femoral heads. Mild degenerative change is noted in the hips and sacroiliac joints. There is mild generalized atrophy of the pelvic musculature. No intramuscular pepe mirlande is seen. Soft tissues: There is mild body wall edema. IMPRESSION: 1. There is no evidence of solid organ injury in the abdomen or pelvis on this unenhanced examination . 2. There is no evidence of fracture or malalignment involving the lumbar spine. 3. There is no evidence of fracture involving the bony pelvis or proximal femora. 4. Cardiomegaly and cardiac pacemaker. Interlobular septal thickening at the lung bases suggests monik estive failure. 5. Small to moderate pleural effusions with associated atelectasis. 6. Wall thickening is again seen at the gastroesophageal junction. This likely corresponds to the [facility] history of esophageal carcinoma. 7. The liver is cirrhotic in morphology and heterogeneous in attenuation. 8. Trace abdominopelvic ascites. 9. Cholelithiasis. 10. Additional findings as above. ACT 112: Negative or not required by law. Electronically signed by: Davis Santos M.D. 04/07/2019 10:35 PM
[2019-04-08] MEDS ORDERED: NON-FORMULARY MEDICATION (Cyclosporine [Restasis] 1 DROPS) OP SCH (01:10)
[2019-04-08] MEDS ORDERED: PROCHLORPERAZINE MALEATE 10 MG TAB PO PRN (01:10)
[2019-04-08] MEDS ORDERED: BENZONATATE 100 MG CAPSULE PO PRN (01:10)
[2019-04-08] MEDS ORDERED: ONDANSETRON INJ 2 MG/ML 2 ML VIAL IV PRN (01:10)
[2019-04-08] MEDS ORDERED: FUROSEMIDE 40 MG/4 ML VIAL IV STA (01:10)
[2019-04-08] MEDS ORDERED: NITROGLYCERIN SL 0.4 MG/TAB TAB SL PRN (01:10)
[2019-04-08] MEDS ORDERED: NON-FORMULARY MEDICATION (Melatonin 1 MG) PO PRN (01:10)
[2019-04-08] MEDS ORDERED: FUROSEMIDE 40 MG in SYRINGE 0 ML IV ONE (01:30)
[2019-04-08] MEDS: HYDROmorphone INJ 0.5 MG/0.5 ML SYR IV PRN ×3 (01:42→20:25)
[2019-04-08] MEDS ORDERED: DEXTROSE 50% 50 ML SYRINGE IV PRN (01:45)
[2019-04-08] MEDS ORDERED: GLUCOSE 10 TABS/TUBE PO PRN (01:45)
[2019-04-08] MEDS ORDERED: GLUCAGON FOR INJ 1 MG VIAL SQ PRN (01:45)
[2019-04-08] MEDS ORDERED: GLUCOSE 40% GEL 15 GM TUBE PO PRN (01:45)
[2019-04-08] MEDS ORDERED: CARBOHYDRATES FOR HYPOGLYCEMIA PO PRN (01:45)
--- NOTE | 2019-04-08 02:19 | History and Physical Report ---
DATE OF ADMISSION: 04/07/2019 CHIEF COMPLAINT: Back pain, shortness of breath on exertion. HISTORY OF PRESENT ILLNESS: This is a 64-year-old female with past medical history significant for type 2 diabetes, chronic kidney disease stage IV, baseline creatinine around 1.8, hyperlipidemia, restrictive lung disease, sinus node dysfunction status post pacemaker, venous insufficiency, chronic diastolic congestive heart failure. The patient says recently her Lasix was stopped and she is having complaints of shortness of breath on exertion and lower extremity swelling since last about 1 week, hypertension, history of coronary artery disease with stable angina s/p stent, vitamin D deficiency, cutaneous sarcoidosis, anemia, depression. The patient has esophageal adenocarcinoma on the lower part of the esophagus, was getting chemo and radiation treatment, which is on hold currently. The patient was here in the hospital at [facility], was admitted on 03/28/2019 as she was not able to eat anything at that time. Was having severe dysphagia and odynophagia secondary to advanced esophageal carcinoma with obstructive 7-cm tumor in GE junction. At that time, the patient was transferred to [place] for further management and possible J-tube placement, but in [place] she was status post EGD and esophageal stent placement, but the stent migrated into the proximal stomach. The stent was placed on 04/04/2019, migrated on 04/05/2019. Status post stent removal but the esophagus was noted to be more dilated with stent removal, so there was no indication for J-tube at that time, and she was started on diet. Currently, patient is tolerating soft diet. No nausea, vomiting. The odynophagia has improved. The patient was discharged yesterday. At home, she was walking and her ankle gave away and she almost fell down. At that time, she was fine, but today on 04/07/2019 evening around 2:30 p.m., she started to have severe back pain in the buttock region, very severe, which she notes now she cannot walk because of the back pain. Because of that she came to the hospital and also she is lately having shortness of breath on exertion, she thinks it is because of stopping the Lasix. She does not know why it was stopped, probably because of her kidney disease. She has also noticed some swelling in the legs since last 1 week. But because of shortness of breath on exertion, she took 1 dose of Lasix today. Currently hemodynamics are stable, saturating okay on oxygen. Denies any fever, chills, no headache, no dizziness, no blurred visions, no earache. She always has runny nose and since last few weeks she is getting blood clots from the nose every day. Denies any sore throat, no cough, no fever or chills. No chest pain. Currently, no nausea. She says some abdominal discomfort from empty stomach. No diarrhea. She is constipated and she uses stool softeners, but no blood in the stools or black stools. Normal bladder movements. No blood in the stools. No hematuria or burning micturition. She has some bruises in the left forearm. ALLERGIES: SULFA ANTIBIOTICS, ATENOLOL, LEVAQUIN, GABAPENTIN, MORPHINE. PAST MEDICAL HISTORY: As mentioned above. 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 MEDICATIONS: The patient is on hydralazine 10 mg p.o. t.i.d., Lantus 20 units p.o. daily, Decadron 12 mg the night before and morning of chemotherapy, Coreg 12.5 mg p.o. b.i.d., Protonix 20 mg p.o. b.i.d., Zofran 8 mg p.o. every 8 hours p.r.n., Compazine 10 mg p.o. q. 6 hours p.r.n., tramadol 25 mg p.o. daily, Celexa 20 mg p.o. daily, Tradjenta 5 mg p.o. daily, allopurinol 200 mg p.o. daily, Lipitor 20 mg p.o. daily, vitamin D 5000 units capsule once a week, cranberry 500 mg p.o. daily, insulin NovoLog sliding scale, Restasis 0.05% ophthalmic 1 drop b.i.d., melatonin 1 mg p.o. at bedtime, clobetasol apply to affected area at night time as needed, Tessalon Perles 100 mg 1 or 2 tablets t.i.d. p.r.n., aspirin enteric coated 81 mg p.o. daily. FAMILY HISTORY: Significant for cancer, diabetes, heart disorder, nephrolithiasis. Mother has breast cancer, diabetes, eye problems, heart disorder, stroke. SOCIAL HISTORY: . Former smoker, smoked for 1 year. No drug use. No alcohol use. REVIEW OF SYSTEMS: As per HPI. Rest of the review of systems negative. PHYSICAL EXAMINATION: GENERAL: The patient is of moderate build, not in acute distress. VITAL SIGNS: Temperature 37.6, pulse 62, respiratory rate 20, blood pressure 169/62, oxygen 97% on room air. HEENT: No pallor, no icterus. Pupils are slightly dilated chronically. NECK: No JVD, no neck masses, no carotid bruits. CARDIOVASCULAR: S1, S2 heard, regular rate and rhythm, no murmur, no gallop. RESPIRATORY SYSTEM: Normal AP diameter. No accessory muscle use. No wheezing, no crackles. ABDOMEN: Soft, bowel sounds present, nontender. No distention. CENTRAL NERVOUS SYSTEM: Alert and oriented. Obeys commands. Moves extremities. EXTREMITIES: Bilateral lower extremities, +1 edema present, no erythema seen. Straight leg test positive on the left leg. LABORATORY DATA: WBC 3, hemoglobin 9.5, hematocrit 28, platelets 90. Sodium 140, potassium 3.2, chloride 110, bicarb 24, BUN 50, creatinine 1.7, serum glucose 119, calcium 9.1, total bilirubin 0.1, AST 14, ALT 16, alkaline phosphatase 79. Troponin 1 of 0.062. BNP 2200. Lipase 74. Urinalysis +2 protein. IMAGING DATA: CT of the abdomen and pelvis, no evidence of fracture or malalignment involving the lumbar spine. No evidence of fracture involving the bony pelvis or proximal femora. Cardiomegaly and cardiac pacemaker, intralobular septal thickening of the lung bases, congestive failure. No evidence of solid organ injury in the abdomen or pelvis. [id number]-ba-wdrefsta pleural effusion with associated atelectasis. Wall thickening is again seen at the gastroesophageal junction. This likely corresponds to a known history of esophageal carcinoma. The liver is cirrhotic in morphology and heterogenous in attenuation. Trace abdominopelvic ascites, cholelithiasis. Right ankle x-ray, soft tissue swelling with no radiographic evidence of acute fracture, large heel spurs. Chest x-ray, cardiomegaly and cardiac pacemaker with mild pulmonary vascular congestion, suspect trace pleural effusions. Lumbar spine CT and Pelvis CT as above. EKG: Ventricular paced rhythm at a rate of 73, no acute ST changes seen. ASSESSMENT AND PLAN: This is a 64-year-old female who presents with back pain, shortness of breath with exertion, found to have some mild congestive heart failure changes and also mild elevation of troponin. 1. Back pain. She almost fell yesterday, thought she fractured her ankle, but her ankle x-ray is okay and today she noticed severe back pain in the buttock region. CAT scan of the abdomen and pelvis and lumbar spine CT and pelvis CT is unremarkable. Could not do MRI because of the pacemaker. Pain control, PT, OT. If Still significant pain we will consider consulting pain management. 2. Mild elevation of troponin. The patient does not have any chest pain, but we will follow serial cardiac enzymes, echocardiogram. We will keep n.p.o. for now and consult cardiology in the a.m. 3. Possible [id number] diastolic congestive heart failure. The patient has history of diastolic congestive heart failure, but recently Lasix was stopped, she does not know why, and she is getting some shortness of breath on exertion and some swelling in the lower extremity and she took 1 dose of Lasix today. Chest x-ray shows some congestion. We will give IV Lasix 40 mg 1 dose and follow the response and await cardiology input. She is on Coreg. 4. Chronic kidney disease stage IV. Baseline creatinine around 1.8, current creatinine is 1.76. We will follow the creatinine after Lasix. 5. Hypokalemia, we will replace. 6. Hypertension. Continue hydralazine, Coreg. We will monitor the blood pressure. 7. History of diabetes. Currently the patient is npo.. We will cut down Lantus from [address] on insulin sliding scale. Hold Tradjenta. Monitor blood sugars, follow the HbA1c levels. 8. Gastroesophageal reflux disease, on PPI; nausea, on antiemetics. 9. Depression, Celexa. 10. Hyperlipidemia, on statin. 11. Gout, allopurinol. 12. Esophageal adenocarcinoma chemo and radiation, currently is on hold because of dysphagia and odynophagia. Recently was transferred to [place] where she had esophageal stent, but that migrated to the stomach the next day, but the esophagus is dilated enough that she is able to eat now. She will continue her soft diet when she is able to take, and follow up with Hematology/Oncology. 13. Deep vein thrombosis prophylaxis, sequential compression devices for now. 14. Pancytopenia secondary to chemo and cancer. Follow the labs. DISPOSITION: Admit to tele floor. Expect to discharge home. PT and OT prior to discharge. Social Service to help with discharge planning. Level 1 full code as per my discussion with the patient. DANED
[2019-04-08] MEDS ORDERED: CLOBETASOL PROPIONATE 0.05% OINT 15 GM TUBE EXT PRN (03:03)
[2019-04-08 05:55] LABS: Estimated Average Glucose 183 mg/dl
[2019-04-08 05:55] LABS: Hematocrit (blood only) 26.3 % (37-47); Hemoglobin 8.8 g/dL (12.0-16.0); Mean Corpuscular Hemoglobin 30.1 pg (25-34); Mean Corpuscular Hgb Conc 33.5 g/dL (32-36); Mean Corpuscular Volume 90.1 fL (80-100); Mean Platelet Volume 12.6 fL (7.4-10.4); Platelet Count 87 K/uL (130-400); RDW Coefficient of Variation 14.1 % (11.5-14.5); Red Blood Count 2.92 M/uL (4.2-5.4); White Blood Count 2.77 K/uL (4.8-10.8)
[2019-04-08 06:08] LABS: BUN Creatinine Ratio 28.4 (10-20); Calcium 8.5 mg/dl (8.5-10.1); Est GFR (African American) 35.3; Est GFR (Non-African American) 30.5; Magnesium 1.8 mg/dl (1.8-2.4); Potassium 3.3 mmol/L (3.5-5.1)
[2019-04-08 06:10] LABS: Basophils # (auto) 0.02 K/uL (0-0.2); Basophils % (auto) 0.7 %; Eosinophils # (auto) 0.04 K/uL (0-0.5); Eosinophils % (auto) 1.4 %; Lymphocytes # (auto) 0.55 K/uL (1.2-3.4); Lymphocytes % (auto) 19.9 %; Monocytes % (auto) 18.1 %; Neutrophils # (auto) 1.66 K/uL (1.4-6.5); Neutrophils % (auto) 59.9 %; Ovalocytes 1+
[2019-04-08] MEDS ORDERED: ATORVASTATIN 20 MG TAB PO SCH (09:00)
[2019-04-08] MEDS ORDERED: PANTOprazole 40 MG TAB PO SCH (09:00)
[2019-04-08] MEDS ORDERED: INSULIN GLARGINE SOLOSTAR 100 UNITS/ML 3 ML PEN SC SCH (09:00)
[2019-04-08] MEDS ORDERED: NON-FORMULARY MEDICATION (Cranberry 500 MG) PO SCH (09:00)
--- NOTE | 2019-04-08 09:06 | Cardiology Consultation ---
Date of Consultation April 08, 2019 Assessment & Plan (1) Chronic diastolic (congestive) heart failure: Diuretics were held at [facility] discharge. Mild volume overload on admission, improved with one dose IV lasix. Likely resume furosemide 80 mg daily on discharge. (2) Coronary artery disease: No anginal symptoms. Echo with preserved LV systolic function. Continue home medications. (3) Cardiac pacemaker in situ: appropriate funciton/battery longevity Device and leads are MRI compatible if additional imaging of her pelvis/sacrum is required due to severe pain Case discussed with Dr. Agrawal. Will follow Supervising Physician Co-Signing Physician Notes Patient seen and examined with Mary Pena PA-C. Agree with findings and assessment as above. Slight volume overload after oral diuretics were held. We will give an additional dose of IV Lasix this evening after brisk response from earlier dose. We will also supplement potassium 40 mEq twice daily with first dose now and check a BMP this evening. Likely change back to oral regimen in the a.m. and discharged home. In regards to her pacemaker is MRI compatible so should an MRI be deemed necessary for her back pain there will be no cardiac contraindications. General: Awake, alert and oriented x 3. No acute distress. HEENT: Normocephalic, atraumatic. Pupils equal, round and reactive to light and accommodation. Extraocular muscles are intact. Anicteric sclera. Moist mucous membranes. Neck: No JVD. No bruit. Cardiovascular: Regular. Positive S-4. Normal S-1 and S-2. No S-3. No murmurs or rubs. Pulmonary: Clear to auscultation B/L. No rales, rhonchi or wheezing Abdomen: Bowel sounds x 4, soft. No rebound, guarding or tenderness. No organomegaly. Extremities: No clubbing, cyanosis or edema. +2 pedal pulses bilaterally. Skin: Warm and dry. History of Present Illness Reason for Consultation: Elevated troponin, CHF Requesting Physician: Dr. Sampson Attending Physician: Dr. Agrawal History of Present Illness Patient is a complex 64 year old female, known to [facility] Cardiology following with Dr. Good as an outpatient. History includes: 1.Atherosclerotic coronary disease, status post remote bare metal stent. 2.Stable class 1-2 angina pectoris. 3.History of past pulmonary, renal, and cardiac sarcoidosis diagnosed at age 38. 4.Status post dual-chamber pacemaker insertion, July 2015, for conduction system disease and cardiac sarcoidosis.[employer] Advisa DR MRI A2 DR 0 1 5.Hypertension. 6.Dyslipidemia. 7.Chronic renal insufficiency stage IV. 8.Diabetes mellitus type 2, insulin requiring. 9. Diagnosis of esophageal carcinoma presenting with dysphagia January 19, 2019 Most recently she was admitted in March 2019, transferred to [facility] and underwent esophageal stent placement, which unfortunately migrated to her stomach. Stent was removed. Esophagus remained dilated and she was discharged from [facility]. Furosemide was held at that time, due to poor PO intake and mild renal insufficiency. Over the next few days, patient developed worsening SOB, edema. She took one dose of furosemide which aided her symptoms at home. She sustained a fall with injury to her ankle and lower back/sacral region. she reports her fall was mechanical in nature. Due to significant pain, she came to ER for evaluation. Due to SOB/edema, she was treated with one dose IV Lasix, with interval improvement. Cardiology consultation was requested due to mildly elevated t roponin and concerns for CHF. No chest pain reported by the patient. EKG on admission demonstrated ventricular paced rhythm without acute changes At time of consult patient feeling ok from cardiac standpoint. Edema resolved. Denied chest pain or SOB. Notes significant lower back pain with minimal movement. Nurses concerned with wide complex rhythm, intermittent. It appears she has intermittent ventricular pacing but no pacer spikes on telemetry monitors. She is asymptomatic. Allergies Allergy/AdvReac Type Severity Reaction Status Date / Time Sulfa (Sulfonamide Allergy Intermediate RASH Verified 04/07/19 21:49 Antibiotics) atenolol Allergy Mild DROP HEART Verified 04/07/19 21:49 RATE levofloxacin [From Levaquin] Allergy Mild Rash Verified 04/07/19 21:49 gabapentin [From Neurontin] AdvReac Mild FELT LIKE Verified 04/07/19 21:49 WENT TO OUTER SPACE morphine AdvReac Mild NAUSEA/SICK Verified 04/07/19 21:49 NESS Home Medications Home Medications Medication Instructions Recorded Confirmed Type Novolog Flexpen U-100 Insulin 0 sliding scale dose SUBCUT ACHS 05/31/18 04/07/19 History Tradjenta 5 mg PO QAM 05/31/18 04/07/19 History allopurinol 200 mg PO QPM 05/31/18 04/07/19 History citalopram [Celexa] 20 mg PO QPM 05/31/18 04/07/19 History Restasis 1 drp OPHTHALMIC (EYE) Q12H 09/10/18 04/07/19 History melatonin 1 mg PO HS PRN 09/10/18 04/07/19 History insulin glargine 100) 100 unit/mL 20 unit SUBCUT QAM 03/04/19 04/07/19 History subcutaneous solution pantoprazole 20 mg tablet,delayed 20 mg PO BID 03/23/19 04/07/19 History release dexamethasone 12 mg PO UD 03/28/19 04/07/19 History aspirin [Aspir-Low] 81 mg PO DAILY 04/07/19 04/07/19 History atorvastatin [Lipitor] 20 mg PO DAILY 04/07/19 04/07/19 History benzonatate 100 - 200 mg PO TID PRN 04/07/19 04/07/19 History carvedilol 12.5 mg PO BID 04/07/19 04/07/19 History clobetasol 1 applic TOPICAL HS PRN 04/07/19 04/07/19 History cranberry 500 mg PO DAILY 04/07/19 04/07/19 History cyclosporine [Restasis] 1 drp OPHTHALMIC (EYE) Q12H 04/07/19 04/07/19 History ergocalciferol (vitamin D2) 50,000 unit PO WK 04/07/19 04/07/19 History [Vitamin D2] hydralazine 10 mg PO TID 04/07/19 04/07/19 History ondansetron HCl [Zofran] 8 mg PO Q8 PRN 04/07/19 04/07/19 History prochlorperazine maleate 10 mg PO Q6H PRN 04/07/19 04/07/19 History tramadol 25 mg PO DAILY 04/07/19 04/07/19 History Patient History Medical History Anemia Carcinoma in situ Cervical - 1985 CKD (chronic kidney disease), stage IV follows w/ Dr. Faye Congestive heart failure "diastolic" - Follows with Dr. Good Coronary artery disease "s/p stenting x 2"--follow with Dr. Good Depression Diastolic dysfunction with acute on chronic heart failure (Inactive) Difficulty swallowing Current due to esophageal CA - feels like food sits at top of stomach DM2 (diabetes mellitus, type 2) IDDM Esophageal cancer (Chronic) Diagnosed 01/19/19 Gout Hearing deficit High cholesterol (Inactive) History of GI bleed d/t ulcer (age in 20's) HTN (hypertension) Melanoma of back Removed - MOH'S Surgery Pacemaker (Inactive) implanted 2015 -- Medtronic - last checked 03/01/2019 Rectus sheath hematoma (Resolved) Sarcoidosis Cutaneuos, Lung, Eyes, Spleen, Cardiac (s/p prednisone 1 year and then plaquinil) Surgical History H/O colonoscopy (Inactive) 01/19/19 [facility] History of appendectomy (Inactive) Age 16 History of bilateral cataract extraction 2014 History of bronchoscopy 1988 - with biopsy (at [facility]) History of cardiac cath prior to 2009 -- @ [place] History of carpal tunnel surgery of right wrist x 2 History of cone biopsy of cervix 1985 - malignant "in situ" History of detached retina repair 2014 - right eye History of dilatation and curettage 1974 History of esophagogastroduodenoscopy (EGD) w/ biopsy 01/19/19 [facility] History of heart artery stent (Inactive) x 2 stents prior to 2009 in [place] History of hysterectomy (Inactive) 1986 History of lumpectomy of left breast benign History of Mohs micrographic surgery for skin cancer On back - for Melanoma History of wisdom tooth extraction Hx of endoscopy upper endoscopic ultrasonography Family History Mother , Passed age 78 of dementia Breast cancer Bilateral Breasts - 2 different kinds - had lumpectomy and brachytherapy Hypertension Heart disease Father , Passed age 88 of COPD/Cardiac Complications Diabetes Melanoma Heart disease Sister No problems noted. 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 Other Information That Helps Us Care for You: No Feels Safe at Home: Yes Safety Concerns: Feels Safe At This Time Smoking Status: Unknown if ever smoked Hx Alcohol Use: No Hx Substance Use: No Childhood Exposure to Second-Hand Smoke: Yes (Father Smoked in Home ) Other Diet Comment: "I try to stay away from sugars" caffeine: No during the past year weight has: decreased > 10 lbs Dental Care, Regularly: No Review of Systems Review of Systems: All systems reviewed & are unremarkable except as noted in HPI & below Physical Exam Constitutional: + acute distress (with lower back/sacral pain with movement) and + ill appearing Neck: trachea midline, no thyromegaly normal visual inspection Respiratory: normal respiratory effort, lungs clear to auscultation Cardiovascular: RRR, no murmur, no edema Gastrointestinal (Abdomen): normal bowel sounds, soft, nontender, no hepatosplenomegaly Musculoskeletal: no cyanosis or clubbing, extremities motor strength 5/5 Psychiatric: A+Ox3, euthymic affect Results & Data Vital Signs (Past 12 Hours) Vital Signs Temp Pulse Pulse Resp BP BP Pulse Ox 04/08/19 03:06 63 16 149/67 H 97 04/08/19 03:00 61 16 97 04/08/19 02:30 57 L 16 94 04/08/19 02:06 66 18 153/70 H 93 04/08/19 02:00 67 18 93 04/08/19 01:48 62 04/08/19 01:30 61 18 97 04/08/19 01:20 57 L 19 97 04/08/19 01:10 63 18 97 04/08/19 01:06 63 24 171/70 H 96 04/08/19 01:04 63 19 04/08/19 00:55 37.3 C 61 22 171/70 H 04/08/19 00:40 68 18 97 04/08/19 00:31 54 L 19 96 04/08/19 00:30 69 18 173/65 H 97 04/08/19 00:20 61 20 96 04/08/19 00:10 61 19 96 04/08/19 00:01 67 18 96 04/08/19 00:00 56 L 19 165/65 H 96 04/07/19 23:50 68 20 97 04/07/19 23:40 67 19 95 04/07/19 23:31 69 18 95 04/07/19 23:30 56 L 62 22 169/67 H 169/67 H 96 04/07/19 23:20 70 18 94 04/07/19 23:11 37.3 C 61 20 95 04/07/19 23:01 71 22 96 04/07/19 23:00 65 17 180/63 H 97 04/07/19 22:50 68 19 95 04/07/19 22:40 69 20 85 L 04/07/19 22:31 74 19 87 L 04/07/19 22:30 62 19 168/64 H 85 L 04/07/19 22:20 71 20 89 L 04/07/19 22:10 66 26 H 87 L 04/07/19 22:09 59 L 15 89 L 04/07/19 21:50 61 16 04/07/19 21:40 74 22 04/07/19 21:31 74 21 216/73 H 93 04/07/19 21:30 71 26 H 91 04/07/19 21:20 62 23 92 04/07/19 21:10 69 26 H 95 04/07/19 21:06 70 25 H Pulse Ox 04/08/19 03:06 04/08/19 03:00 04/08/19 02:30 04/08/19 02:06 04/08/19 02:00 04/08/19 01:48 04/08/19 01:30 04/08/19 01:20 04/08/19 01:10 94 04/08/19 01:06 04/08/19 01:04 04/08/19 00:55 04/08/19 00:40 04/08/19 00:31 04/08/19 00:30 04/08/19 00:20 04/08/19 00:10 04/08/19 00:01 04/08/19 00:00 04/07/19 23:50 04/07/19 23:40 04/07/19 23:31 04/07/19 23:30 04/07/19 23:20 04/07/19 23:11 04/07/19 23:01 04/07/19 23:00 04/07/19 22:50 04/07/19 22:40 04/07/19 22:31 04/07/19 22:30 04/07/19 22:20 04/07/19 22:10 04/07/19 22:09 04/07/19 21:50 04/07/19 21:40 04/07/19 21:31 04/07/19 21:30 04/07/19 21:20 04/07/19 21:10 04/07/19 21:06 Laboratory Results 04/08/19 04/08/19 04/08/19 Range/Units Unknown 07:23 07:21 WBC (4.8-10.8) K/uL RBC (4.2-5.4) M/uL Hgb (12.0-16.0) g/dL Hct (37-47) % MCV (80-100) fL MCH (25-34) pg MCHC (32-36) g/dL RDW Std Deviation (36.4-46.3) fL RDW Coeff of Dao (11.5-14.5) % Plt Count (130-400) K/uL MPV (7.4-10.4) fL Immature Gran % (Auto) % Neut % (Auto) % Lymph % (Auto) % [place] % (Auto) % Eos % (Auto) % Baso % (Auto) % Immature Gran # (Auto) (0.00-0.02) K/uL Neut # (Auto) (1.4-6.5) K/uL Lymph # (Auto) (1.2-3.4) K/uL [place] # (Auto) (0.11-0.59) K/uL Eos # (Auto) (0-0.5) K/uL Baso # (Auto) (0-0.2) K/uL Platelet Estimate (Normal) Anisocytosis Ovalocytes Sodium (136-145) mmol/L Potassium (3.5-5.1) mmol/L Chloride (98-107) mmol/L Carbon Dioxide (21-32) mmol/L Anion Gap (3-11) BUN (7-18) mg/dl Creatinine (0.6-1.2) mg/dl Est Cr Clr Drug Dosing ml/min Est GFR ( Amer) Est GFR (Non-Af Amer) BUN/Creatinine Ratio (10-20) Glucose (70-99) mg/dl POC Glucose 200 H (70-99) Estimat Average Glucose mg/dl Hemoglobin A1c (4.5-5.6) % Calcium (8.5-10.1) mg/dl Magnesium (1.8-2.4) mg/dl Total Bilirubin (0.2-1) mg/dl AST (15-37) U/L ALT (12-78) U/L Alkaline Phosphatase (45-117) U/L Troponin I 0.049 H* (0-0.045) ng/ml NT-Pro-B Natriuret Pep (0-900) pg/ml Total Protein (6.4-8.2) gm/dl Albumin (3.4-5.0) gm/dl Globulin (2.5-4.0) gm/dl Albumin/Globulin Ratio (0.9-2) Lipase (73-393) U/L Urine Color Urine Appearance (Clear) Urine pH (4.5-7.5) Ur Specific [place] (1.000-1.030) Urine Protein (Negative) Urine Glucose (UA) (Negative) Urine Ketones (Negative) Urine Blood (Negative) Urine Nitrite (Negative) Urine Bilirubin (Negative) Urine Urobilinogen (Negative) Ur Leukocyte Esterase (Negative) Urine WBC (Auto) (0-5) /hpf Urine RBC (Auto) (0-4) /hpf U Hyaline Cast (Auto) (0-5) /lpf U Epithel Cells (Auto) (0-5) /lpf Urine Bacteria (Auto) (Negative) Nasal Screen MRSA (PCR) Positive A (Negative) 04/08/19 04/08/19 04/08/19 Range/Units 05:23 05:23 01:27 WBC 2.77 L (4.8-10.8) K/uL RBC 2.92 L (4.2-5.4) M/uL Hgb 8.8 L (12.0-16.0) g/dL Hct 26.3 L (37-47) % MCV 90.1 (80-100) fL MCH 30.1 (25-34) pg MCHC 33.5 (32-36) g/dL RDW Std Deviation 44.0 (36.4-46.3) fL RDW Coeff of Dao 14.1 (11.5-14.5) % Plt Count 87 L (130-400) K/uL MPV 12.6 H (7.4-10.4) fL Immature Gran % (Auto) 0.0 % Neut % (Auto) 59.9 % Lymph % (Auto) 19.9 % [place] % (Auto) 18.1 % Eos % (Auto) 1.4 % Baso % (Auto) 0.7 % Immature Gran # (Auto) 0.00 (0.00-0.02) K/uL Neut # (Auto) 1.66 (1.4-6.5) K/uL Lymph # (Auto) 0.55 L (1.2-3.4) K/uL [place] # (Auto) 0.50 (0.11-0.59) K/uL Eos # (Auto) 0.04 (0-0.5) K/uL Baso # (Auto) 0.02 (0-0.2) K/uL Platelet Estimate (Normal) Anisocytosis Ovalocytes 1+ Sodium 143 (136-145) mmol/L Potassium 3.3 L (3.5-5.1) mmol/L Chloride 113 H (98-107) mmol/L Carbon Dioxide 24 (21-32) mmol/L Anion Gap 6.0 (3-11) BUN 49 H (7-18) mg/dl Creatinine 1.72 H (0.6-1.2) mg/dl Est Cr Clr Drug Dosing 37.0 ml/min Est GFR ( Amer) 35.3 Est GFR (Non-Af Amer) 30.5 BUN/Creatinine Ratio 28.4 H (10-20) Glucose 180 H (70-99) mg/dl POC Glucose (70-99) Estimat Average Glucose mg/dl Hemoglobin A1c (4.5-5.6) % Calcium 8.5 (8.5-10.1) mg/dl Magnesium 1.8 (1.8-2.4) mg/dl Total Bilirubin (0.2-1) mg/dl AST (15-37) U/L ALT (12-78) U/L Alkaline Phosphatase (45-117) U/L Troponin I 0.063 H* (0-0.045) ng/ml NT-Pro-B Natriuret Pep (0-900) pg/ml Total Protein (6.4-8.2) gm/dl Albumin (3.4-5.0) gm/dl Globulin (2.5-4.0) gm/dl Albumin/Globulin Ratio (0.9-2) Lipase (73-393) U/L Urine Color Urine Appearance (Clear) Urine pH (4.5-7.5) Ur Specific [place] (1.000-1.030) Urine Protein (Negative) Urine Glucose (UA) (Negative) Urine Ketones (Negative) Urine Blood (Negative) Urine Nitrite (Negative) Urine Bilirubin (Negative) Urine Urobilinogen (Negative) Ur Leukocyte Esterase (Negative) Urine WBC (Auto) (0-5) /hpf Urine RBC (Auto) (0-4) /hpf U Hyaline Cast (Auto) (0-5) /lpf U Epithel Cells (Auto) (0-5) /lpf Urine Bacteria (Auto) (Negative) Nasal Screen MRSA (PCR) (Negative) 04/08/19 04/08/19 04/07/19 Range/Units 01:27 01:20 21:05 WBC (4.8-10.8) K/uL RBC (4.2-5.4) M/uL Hgb (12.0-16.0) g/dL Hct (37-47) % MCV (80-100) fL MCH (25-34) pg MCHC (32-36) g/dL RDW Std Deviation (36.4-46.3) fL RDW Coeff of Dao (11.5-14.5) % Plt Count (130-400) K/uL MPV (7.4-10.4) fL Immature Gran % (Auto) % Neut % (Auto) % Lymph % (Auto) % [place] % (Auto) % Eos % (Auto) % Baso % (Auto) % Immature Gran # (Auto) (0.00-0.02) K/uL Neut # (Auto) (1.4-6.5) K/uL Lymph # (Auto) (1.2-3.4) K/uL [place] # (Auto) (0.11-0.59) K/uL Eos # (Auto) (0-0.5) K/uL Baso # (Auto) (0-0.2) K/uL Platelet Estimate (Normal) Anisocytosis Ovalocytes Sodium (136-145) mmol/L Potassium (3.5-5.1) mmol/L Chloride (98-107) mmol/L Carbon Dioxide (21-32) mmol/L Anion Gap (3-11) BUN (7-18) mg/dl Creatinine (0.6-1.2) mg/dl Est Cr Clr Drug Dosing ml/min Est GFR ( Amer) Est GFR (Non-Af Amer) BUN/Creatinine Ratio (10-20) Glucose (70-99) mg/dl POC Glucose 183 H (70-99) Estimat Average Glucose 183 mg/dl Hemoglobin A1c 8.0 H (4.5-5.6) % Calcium (8.5-10.1) mg/dl Magnesium (1.8-2.4) mg/dl Total Bilirubin (0.2-1) mg/dl AST (15-37) U/L ALT (12-78) U/L Alkaline Phosphatase (45-117) U/L Troponin I (0-0.045) ng/ml NT-Pro-B Natriuret Pep (0-900) pg/ml Total Protein (6.4-8.2) gm/dl Albumin (3.4-5.0) gm/dl Globulin (2.5-4.0) gm/dl Albumin/Globulin Ratio (0.9-2) Lipase (73-393) U/L Urine Color Yellow Urine Appearance Clear (Clear) Urine pH 5.0 (4.5-7.5) Ur Specific [place] 1.009 (1.000-1.030) Urine Protein 2+ H (Negative) Urine Glucose (UA) Negative (Negative) Urine Ketones Negative (Negative) Urine Blood Negative (Negative) Urine Nitrite Negative (Negative) Urine Bilirubin Negative (Negative) Urine Urobilinogen Negative (Negative) Ur Leukocyte Esterase Negative (Negative) Urine WBC (Auto) 1-5 (0-5) /hpf Urine RBC (Auto) 0-4 (0-4) /hpf U Hyaline Cast (Auto) 1-5 (0-5) /lpf U Epithel Cells (Auto) 20-30 H (0-5) /lpf Urine Bacteria (Auto) Negative (Negative) Nasal Screen MRSA (PCR) (Negative) 04/07/19 04/07/19 Range/Units 19:47 19:47 WBC 3.09 L (4.8-10.8) K/uL RBC 3.11 L (4.2-5.4) M/uL Hgb 9.5 L (12.0-16.0) g/dL Hct 28.0 L (37-47) % MCV 90.0 (80-100) fL MCH 30.5 (25-34) pg MCHC 33.9 (32-36) g/dL RDW Std Deviation 43.8 (36.4-46.3) fL RDW Coeff of Dao 14.1 (11.5-14.5) % Plt Count 90 L (130-400) K/uL MPV 12.0 H (7.4-10.4) fL Immature Gran % (Auto) 0.3 % Neut % (Auto) 60.2 % Lymph % (Auto) 18.8 % [place] % (Auto) 18.4 % Eos % (Auto) 1.3 % Baso % (Auto) 1.0 % Immature Gran # (Auto) 0.01 (0.00-0.02) K/uL Neut # (Auto) 1.86 (1.4-6.5) K/uL Lymph # (Auto) 0.58 L (1.2-3.4) K/uL [place] # (Auto) 0.57 (0.11-0.59) K/uL Eos # (Auto) 0.04 (0-0.5) K/uL Baso # (Auto) 0.03 (0-0.2) K/uL Platelet Estimate Decreased L (Normal) Anisocytosis Present Ovalocytes Sodium 140 (136-145) mmol/L Potassium 3.2 L (3.5-5.1) mmol/L Chloride 110 H (98-107) mmol/L Carbon Dioxide 24 (21-32) mmol/L Anion Gap 6.0 (3-11) BUN 50 H (7-18) mg/dl Creatinine 1.76 H (0.6-1.2) mg/dl Est Cr Clr Drug Dosing 36.9 ml/min Est GFR ( Amer) 34.3 Est GFR (Non-Af Amer) 29.6 BUN/Creatinine Ratio 28.2 H (10-20) Glucose 191 H (70-99) mg/dl POC Glucose (70-99) Estimat Average Glucose mg/dl Hemoglobin A1c (4.5-5.6) % Calcium 9.1 (8.5-10.1) mg/dl Magnesium (1.8-2.4) mg/dl Total Bilirubin 1.0 (0.2-1) mg/dl AST 14 L (15-37) U/L ALT 16 (12-78) U/L Alkaline Phosphatase 79 (45-117) U/L Troponin I 0.062 H* (0-0.045) ng/ml NT-Pro-B Natriuret Pep 2231 H (0-900) pg/ml Total Protein 6.1 L (6.4-8.2) gm/dl Albumin 2.6 L (3.4-5.0) gm/dl Globulin 3.5 (2.5-4.0) gm/dl Albumin/Globulin Ratio 0.7 L (0.9-2) Lipase 74 (73-393) U/L Urine Color Urine Appearance (Clear) Urine pH (4.5-7.5) Ur Specific [place] (1.000-1.030) Urine Protein (Negative) Urine Glucose (UA) (Negative) Urine Ketones (Negative) Urine Blood (Negative) Urine Nitrite (Negative) Urine Bilirubin (Negative) Urine Urobilinogen (Negative) Ur Leukocyte Esterase (Negative) Urine WBC (Auto) (0-5) /hpf Urine RBC (Auto) (0-4) /hpf U Hyaline Cast (Auto) (0-5) /lpf U Epithel Cells (Auto) (0-5) /lpf Urine Bacteria (Auto) (Negative) Nasal Screen MRSA (PCR) (Negative) Diagnostic Findings 2D echocardiogram completed today 04/08/2019: Normal LV chamber size with mild concentric LVH. Normal LV systolic function with ejection fraction 60 to 65%. No segmental left ventricular wall motion abnormalities are noted. RV chamber size is normal. Normal RV systolic function. Aortic valve sclerosis mild without significant aortic valvular stenosis. Focal posterior mitral annular calcification, unchanged prior to previous study. TR jet inadequate to calculate RVSP but dilated IVC suggests increased RA pressure. Moderate left atrial enlargement. Device interrogation completed today - appropriate function and battery longevity. intermittent atrial and ventricular pacing Outpatient echo complete don 02/25/19 at [facility] Interpretation Summary The examination is adequate to evaluate the referral indication. The LV wall thickness is severely increased (concentric). The left ventricular wall motion is normal. The qualitative LV ejection fraction is 65-69% (normal). The left atrium is moderately enlarged. The right atrium is mildly enlarged. The left ventricular diastolic function is moderately abnormal (grade II). Mild tricuspid regurgitation is present. Moderate to severe pulmonary hypertension is present. The estimated pulmonary artery systolic pressure=65 mm Hg. Compared to the prior study dated 02/06/2014, pulmonary hypertension is now present. Medications Administered Current Inpatient Medications Acetaminophen (Tylenol) 650 mg PO Q4H PRN PRN Reason: Pain or Fever Stop: 05/08/19 01:09 Allopurinol (Zyloprim) 200 mg PO QPM [facility] Stop: 05/08/19 20:59 Aspirin (Ecotrin Ectab) 81 mg PO DAILY [facility] Stop: 05/08/19 08:59 Atorvastatin Calcium (Lipitor) 20 mg PO DAILY [facility] Stop: 05/08/19 08:59 Benzonatate (Tessalon Perle) 100 - 200 mg PO TID PRN PRN Reason: Cough Stop: 05/08/19 01:09 Carvedilol (Coreg) 12.5 mg PO BID [facility] Stop: 05/08/19 08:59 Citalopram Hydrobromide (Celexa) 20 mg PO QPM [facility] Stop: 05/08/19 20:59 Clobetasol Propionate (Clobetasol Propionate Oint) 1 appln EXT HS PRN PRN Reason: Rash Stop: 05/08/19 03:02 Dextrose (Dextrose 50%) 25 - 50 ml IV UD PRN; Protocol PRN Reason: Hypoglycemia Protocol Stop: 05/08/19 01:44 Glucagon (Glucagen) 1 mg SQ UD PRN; Protocol PRN Reason: Hypoglycemia Protocol Stop: 05/08/19 01:44 Glucose (Glucose 40%) 15 - 30 gm PO UD PRN; Protocol PRN Reason: Hypoglycemia Protocol Stop: 05/08/19 01:44 Glucose (Dex4 Glucose) 4 - 8 tabs PO UD PRN; Protocol PRN Reason: Hypoglycemia Protocol Stop: 05/08/19 01:44 Hydralazine HCl (Apresoline) 10 mg PO TID [facility] Stop: 05/08/19 08:59 Hydromorphone HCl (Dilaudid) 0.5 mg IV Q3H PRN PRN Reason: Pain Stop: 04/22/19 01:09 Last Admin: 04/08/19 01:42 Dose: 0.5 mg Documented by: Insulin Aspart (Novolog Flexpen) 0 units SC ACHS [facility] Stop: 05/08/19 07:29 Insulin Glargine (Lantus Solostar Pen) 10 units SC DAILY [facility] Stop: 05/08/19 08:59 Miscellaneous (Order Awaiting Action) 1 ea N/A QS [facility] Stop: 05/08/19 07:59 Miscellaneous (Carbohydrates For Hypoglycemia) 15 - 30 gm PO UD PRN PRN Reason: Hypoglycemia Treatment Stop: 05/08/19 01:44 Nitroglycerin (Nitrostat) 0.4 mg SL UD PRN PRN Reason: Chest Pain Stop: 05/08/19 01:09 Ondansetron HCl (Zofran) 4 mg IV Q6H PRN PRN Reason: Nausea Stop: 05/08/19 01:09 Pantoprazole Sodium (Protonix) 40 mg PO BID [facility] Stop: 05/08/19 08:59 Prochlorperazine (Compazine) 10 mg PO Q6H PRN PRN Reason: Nausea Stop: 05/08/19 01:09 Tramadol HCl (Ultram) 25 mg PO DAILY [facility] Stop: 05/08/19 08:59
[2019-04-08] MEDS: HydrALAZINE 10 MG TAB PO SCH ×3 (09:13→20:07)
[2019-04-08] MEDS: PANTOprazole 40 MG TAB PO SCH ×2 (09:14→20:09)
[2019-04-08] MEDS: carvediloL 12.5 MG TAB PO SCH ×2 (09:14→20:08)
[2019-04-08] MEDS: INSULIN ASPART 100 UNITS/ML 3 ML PEN SC SCH ×4 (09:19→20:16)
[2019-04-08] MEDS: ASPIRIN 81 MG ECTAB PO SCH ×2 (09:21→13:10)
[2019-04-08] MEDS: RESTASIS~ORDER AWAITING ACTION SCH ×3 (09:26→23:35)
[2019-04-08] MEDS: TRAMADOL HCL 50 MG TABLET PO SCH (10:24)
[2019-04-08] MEDS: POTASSIUM CHLORIDE / WTR 10 MEQ/100 ML PLCT IV SCH ×2 (11:51→12:56)
[2019-04-08] MEDS ORDERED: PHARMACY GLYCEMIC MGMT CONSULT PRN (14:23)
[2019-04-08] MEDS ORDERED: INSULIN GLARGINE SOLOSTAR 100 UNITS/ML 3 ML PEN SC ONE (14:30)
--- NOTE | 2019-04-08 14:42 | Pharmacy Report ---
Pharmacy Glycemic Short Note 2 - Date of Service April 08, 2019 - Glycemic Short BSG Results (Last 24 hours): 04/07/19 04/08/19 04/08/19 19:47 01:20 05:23 Glucose 191 H 180 H POC Glucose 183 H 04/08/19 04/08/19 07:23 11:54 Glucose POC Glucose 200 H 267 H OUTPATIENT ANTIDIABETIC REGIMEN: * Lantus 20 units Q AM * Novolog per scale, up to 65 units daily (however pt receives dexamethasone at time of chemotherapy txs) * Linagliptin 5mg daily * A1c = 8.0% ASSESSMENT: * Type 2 diabetic admitted for SOB, ADHF, and intractable back pain * Fasting BSG elevated this AM, will give supplemental Lantus dose now and dose per scale BID due to uncertain PO intake * Novolog doses will be based upon recent admission doses PLAN FOR INPATIENT GLYCEMIC CONTROL: * Hold outpatient oral diabetes medications (Linagliptin) * Basal insulin * Additional 5units SQ x 1 now (received only 5 units this AM) * Lantus SQ BID per the following scale: * 0 units if less than 100 * 5 units if 100-140 * 10 units if greater than 140 * Bolus insulin * NovoLog per scale ACHS and at 0200 * Goal Range: Low 110 mg/dL - High 140 mg/dL * Correction Factor: 25 mg/dL/unit * Nutritional / Prandial insulin per carb ratio of 1 unit per 8 grams CHO consumed PLAN FOR DISCHARGE: * to be determined
[2019-04-08] MEDS ORDERED: POTASSIUM CHLORIDE 20 MEQ TABCR PO SCH (14:50)
[2019-04-08] MEDS ORDERED: Nursing to Pharmacy Communication ONE (15:46)
[2019-04-08] MEDS ORDERED: HydrALAZINE HCL 20 MG/ML VIAL IV STA (15:53)
--- NOTE | 2019-04-08 15:55 | Hospitalist Progress Note ---
Date of Service April 08, 2019 Assessment & Plan (1) Traumatic buttock pain: Patient sustained injury on left lower back/buttock area he did against door on Patient sustained a fall at home, Landed on her left side hitting her back against the door Did not had much pain or discomfort right after the injury, The next day she started to experience severe excruciating pain and discomfort on the left buttock area unable to walk unable to change position CT abdomen pelvis does not show any evidence of pelvis fracture or muscle injury there is increased area of warmth, tenderness and ecchymosis on the area of impact-Concern for possible developing cellulitis, given patient is significantly immunocompromised with ongoing chemo and radiation treatment for esophageal CA\\ Ordered for IV Dapto and Zosyn Continue pain control, ordered for p.o. Roxanol, getting intermittent relief with IV Dilaudid, ordered for fentanyl patch, offloading, heating pad Patient continues to have increased pain, we will may consider ultrasound of sacral area to rule out hematoma/Patient will not be able to tolerate MRI scan due to severe pain, unable to lie flat (2) Esophageal cancer: esophageal carcinoma undergoing chemo and radiation treatment, Severe dysphasia Due to above, recent esophageal stent placement at [facility], procedure was unsuccessful secondary to stent migration stoma, later repeat EGD done to remove esophageal stent Patient able to tolerate soft diet only, ordered for full liquid diet aspiration precaution (3) Abdominal discomfort, epigastric: Due to Lower esophageal adeno CA Pain is worsening after swallowing solid, Continue full liquid diet only as tolerated, Patient was evaluated by pain management in the past Patient will continue IV Dilaudid, Roxanol as needed consider pain management if symptom not relieved with current regimen Decompensated CHF with diastolic dysfunction,. Preserved Left ventricle ejection fraction: Presented with shortness of breath volume overload, patient's Lasix was kept on hold on discharge from [facility] Given IV Lasix, with adequate diuresis, Appreciate input from cardiology, Recommend supportive care CKD stage 4: Creatinine at baseline, Avoid NSAIDs, contrast study CODE STATUS: Full code Disposition: Continue to monitor in telemetry Subjective Patient complains of severe pain on left buttock area with minimum movement Unable to lie flat secondary to severe pain Getting intermittent relief with IV Dilaudid No complaint of shortness of breath, dyspnea on exertion, no cough no fever or chills In significant distress secondary to intractable pain on lower buttock area Review of Systems Musculoskeletal: + problem reported (Severe tenderness, increased warmth, ecchymosis noted on the left buttock area) Physical Exam Constitutional: + acute distress (From severe localized pain on the left buttock area) Eyes: PERRL, conjunctivae normal, anicteric sclerae ENMT: external ear and nose normal, oropharynx normal Neck: trachea midline, no thyromegaly Respiratory: normal respiratory effort; no respiratory distress and no cough Auscultation: no crackles, no rales, no rhonchi and no wheezes Cardiovascular: RRR, no murmur, no edema Gastrointestinal (Abdomen): Percussion/Palpation: abdomen soft; abdomen nontender Musculoskeletal: Extremities: + extremities abnormal to inspection (Sustained injury/trauma to the left buttock area, area of ecchymosis with s) Skin: Trauma: + evidence of skin trauma (Localized ecchymosis on the left buttock area) Neurologic: PERRL, EOMI, accommodation nl, no face palsy, no dysarthria Psychiatric: Orientation: alert and oriented x 3 Results & Data Vital Signs (Past 12 Hours) Vital Signs Pulse Resp BP Pulse Ox 04/08/19 13:06 69 14 208/97 H 04/08/19 10:40 63 19 201/78 H 04/08/19 10:13 63 16 210/81 H 04/08/19 10:03 78 22 186/113 H 99 04/08/19 09:26 66 15 187/95 H 98 04/08/19 08:06 64 17 189/76 H 95 04/08/19 07:25 67 18 211/84 H 99 04/08/19 07:07 67 12 205/80 H 98 (1) Esophageal cancer Malignant neoplasm of esophagus location: lower third Qualified Code(s): C15.5 - Malignant neoplasm of lower third of esophagus
[2019-04-08] MEDS ORDERED: FUROSEMIDE 60 MG in SYRINGE 0 ML IV SCH (17:00)
[2019-04-08] MEDS ORDERED: PIPERACILL/TAZOBAC CONSULT ACTIVE PRN (19:31)
[2019-04-08] MEDS ORDERED: MoRPHine SULFATE 10 MG/0.5 ML UDP PO PRN (19:42)
[2019-04-08] MEDS ORDERED: PIPERACILLIN/TAZOBACTAM 4.5 GM in DEXTROSE 5% 100 ML IV STA (19:55)
[2019-04-08] MEDS ORDERED: DAPTOmycin 225 MG in SYRINGE 0 ML IV SCH (20:00)
[2019-04-08] MEDS: CITALOPRAM 20 MG TAB PO SCH (20:08)
[2019-04-08] MEDS: POTASSIUM CHLORIDE PWD 20 MEQ PACK PO SCH (20:09)
[2019-04-08] MEDS: allopurinoL 100 MG TAB PO SCH (20:10)
[2019-04-08] MEDS: INSULIN GLARGINE SOLOSTAR 100 UNITS/ML 3 ML PEN SC SCH (20:14)
[2019-04-08] MEDS: fentaNYL 12 MCG/HR TDSY TD SCH (20:25)
[2019-04-08 21:03] LABS: BUN Creatinine Ratio 27.6 (10-20); Creatinine Clr Calc Pharmacy 35.2 ml/min; Est GFR (African American) 34.1; Est GFR (Non-African American) 29.4; Potassium 3.3 mmol/L (3.5-5.1)
[2019-04-08] MEDS: CHECK FENTANYL PATCH PLACEMENT SCH (23:38)
[2019-04-09] MEDS ORDERED: INSULIN ASPART 100 UNITS/ML 3 ML PEN SC SCH (02:00)
[2019-04-09] MEDS: PIPERACILLIN/TAZOBACTAM 3.375 GM in DEXTROSE 5% 100 ML IV SCH ×3 (02:18→18:38)
--- NOTE | 2019-04-09 02:33 | Emergency Department Note ---
Entered by Debbie Negrete acting as a scribe for Nedra Villagran DO History of Present Illness General Chief complaint: Back Injury/Pain Stated complaint: BACK/SIDE PAIN Time Seen by Provider: 04/07/19 20:14 Source: patient and family History of Present Illness Onset (ago): day(s) 1 Location: back Radiation: other (group home down left buttocks amd about 6 inches down left leg ) Pain Consistency: + constant Maximum Pain Intensity: 10 Current Pain Intensity: 10 ("excruciating") Quality: + other ("shooting", "like lightning bolts") Relieved By: + rest Exacerbated By: + movement Associated symptoms: + denies other symptoms (hip pain), + shortness of breath (recent) and + other (right ankle pain secondary to fall); no fever/chills The patient is a 64 year old female with a history of esophageal cancer stage 3, chronic diastolic CHF, CAD, CKD, thrombocytopenia, HTN, DM2, chemotherapy, and radiation who presents to the Emergency Room with complaints of back injury/pain. The patient explains that 2 weeks ago she could not swallow or tolerate PO after radiation treatment. She saw her oncologist for her symptoms and was admitted to the hospital. She states that she was stable after admission and had a shunt placed shortly after. After shunt placement got began vomiting "dark coffee grounds" and had the shunt removed the following day. 1 day ago she was released from the hospital and went home even though doctors wanted to perform more blood work and testing. When she came home she was walking up a step to her doorway when her right ankle bent inward. She nearly lost her balance but was able to grab onto a railing to stop her fall. She currently has some ankle pain. The patient also reports that since the fall she began to experience "shooting" pains like "lighting bolts" from her waistline which radiates group home down to her left buttocks and then travels about "6 inches down her left leg". She describes her pain as "excruciating", constant, and worse with movement. She reports that she never had anything similar in the past nor did she hit her back during the fall. She also does not have a history of back p roblems. However, she admits that she may have hit her buttocks against the frame of her home when trying to catch herself and reports a black and blue kristi in this area. Additionally, she states that she recently stopped taking Lasix and has also been experiencing recent shortness of breath. She is unsure of her last blood counts but notes that her WBC count is down to 1,000 and has a history of neutropenia. She denies fevers and hip pain. The patient offers no additional concerns at this time. Home Medications Home Medications Medication Instructions Recorded Confirmed Type Novolog Flexpen U-100 Insulin 0 sliding scale dose SUBCUT ACHS 05/31/18 04/07/19 History Tradjenta 5 mg PO QAM 05/31/18 04/07/19 History allopurinol 200 mg PO QPM 05/31/18 04/07/19 History citalopram [Celexa] 20 mg PO QPM 05/31/18 04/07/19 History Restasis 1 drp OPHTHALMIC (EYE) Q12H 09/10/18 04/07/19 History melatonin 1 mg PO HS PRN 09/10/18 04/07/19 History insulin glargine 100) 100 unit/mL 20 unit SUBCUT QAM 03/04/19 04/07/19 History subcutaneous solution pantoprazole 20 mg tablet,delayed 20 mg PO BID 03/23/19 04/07/19 History release dexamethasone 12 mg PO UD 03/28/19 04/07/19 History aspirin [Aspir-Low] 81 mg PO DAILY 04/07/19 04/07/19 History atorvastatin [Lipitor] 20 mg PO DAILY 04/07/19 04/07/19 History benzonatate 100 - 200 mg PO TID PRN 04/07/19 04/07/19 History carvedilol 12.5 mg PO BID 04/07/19 04/07/19 History clobetasol 1 applic TOPICAL HS PRN 04/07/19 04/07/19 History cranberry 500 mg PO DAILY 04/07/19 04/07/19 History cyclosporine [Restasis] 1 drp OPHTHALMIC (EYE) Q12H 04/07/19 04/07/19 History ergocalciferol (vitamin D2) 50,000 unit PO WK 04/07/19 04/07/19 History [Vitamin D2] hydralazine 10 mg PO TID 04/07/19 04/07/19 History ondansetron HCl [Zofran] 8 mg PO Q8 PRN 04/07/19 04/07/19 History prochlorperazine maleate 10 mg PO Q6H PRN 04/07/19 04/07/19 History tramadol 25 mg PO DAILY 04/07/19 04/07/19 History Allergies Allergy/AdvReac Type Severity Reaction Status Date / Time Sulfa (Sulfonamide Allergy Intermediate RASH Verified 04/07/19 21:49 Antibiotics) atenolol Allergy Mild DROP HEART Verified 04/07/19 21:49 RATE levofloxacin [From Levaquin] Allergy Mild Rash Verified 04/07/19 21:49 gabapentin [From Neurontin] AdvReac Mild FELT LIKE Verified 04/07/19 21:49 WENT TO OUTER SPACE morphine AdvReac Mild NAUSEA/SICK Verified 04/07/19 21:49 NESS Past Med/Surg History Medical History (Updated 04/08/19 @ 20:03 by Margot Sampson MD) Anemia Carcinoma in situ Cervical - 1985 CKD (chronic kidney disease), stage IV follows w/ Dr. Faye Congestive heart failure "diastolic" - Follows with Dr. Good Coronary artery disease "s/p stenting x 2"--follow with Dr. Good Depression Diastolic dysfunction with acute on chronic heart failure Difficulty swallowing Current due to esophageal CA - feels like food sits at top of stomach DM2 (diabetes mellitus, type 2) IDDM Esophageal cancer (Chronic) Diagnosed 01/19/19 Gout Hearing deficit High cholesterol (Inactive) History of GI bleed d/t ulcer (age in 20's) HTN (hypertension) Melanoma of back Removed - MOH'S Surgery Pacemaker (Inactive) implanted 2015 -- [employer] - last checked 03/01/2019 Rectus sheath hematoma (Resolved) Sarcoidosis Cutaneuos, Lung, Eyes, Spleen, Cardiac (s/p prednisone 1 year and then plaquinil) Surgical History H/O colonoscopy (Inactive) 01/19/19 [facility] History of appendectomy (Inactive) Age 16 History of bilateral cataract extraction 2014 History of bronchoscopy 1988 - with biopsy (at [facility]) History of cardiac cath prior to 2009 -- @ [place] History of carpal tunnel surgery of right wrist x 2 History of cone biopsy of cervix 1985 - malignant "in situ" History of detached retina repair 2014 - right eye History of dilatation and curettage 1974 History of esophagogastroduodenoscopy (EGD) w/ biopsy 01/19/19 [facility] History of heart artery stent (Inactive) x 2 stents prior to 2009 in [place] History of hysterectomy (Inactive) 1986 History of lumpectomy of left breast benign History of Mohs micrographic surgery for skin cancer On back - for Melanoma History of wisdom tooth extraction Hx of endoscopy upper endoscopic ultrasonography Family History Mother , Passed age 78 of dementia Breast cancer Bilateral Breasts - 2 different kinds - had lumpectomy and brachytherapy Hypertension Heart disease Father , Passed age 88 of COPD/Cardiac Complications Diabetes Melanoma Heart disease Sister No problems noted. 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 and A total of 10 systems reviewed and were otherwise negative Physical Exam Vital Signs Vital Signs - 24 hr 04/07/19 19:29 04/07/19 19:58 04/07/19 20:00 Temperature 37.6 C H Temperature Source Oral Pulse Rate 69 63 65 Pulse Rate [Finger] 69 Pulse Rate from SpO2 Sensor 65 63 Pulse Rhythm [Finger] Pulse Strength [Finger] Respiratory Rate 12 18 22 Respiratory Effort / Characteristics Respiratory Depth Blood Pressure 186/94 H Blood Pressure [Right Arm] 186/94 H Blood Pressure Mean 124 Blood Pressure Mean [Right Arm] 124 Blood Pressure Position [Right Arm] Pulse Oximetry 91 93 Oxygen Delivery Method Room Air Room Air Room Air Sepsis Recent Fever Within 48 Hours No Sepsis New/Unexplained Change in Mental Status No Sepsis Action Taken by Nursing No Action Required 04/07/19 20:10 04/07/19 20:20 04/07/19 20:30 Temperature Temperature Source Pulse Rate 69 65 64 Pulse Rate [Finger] Pulse Rate from SpO2 Sensor 69 61 60 Pulse Rhythm [Finger] Pulse Strength [Finger] Respiratory Rate 16 24 20 Respiratory Effort / Characteristics Respiratory Depth Blood Pressure Blood Pressure [Right Arm] Blood Pressure Mean Blood Pressure Mean [Right Arm] Blood Pressure Position [Right Arm] Pulse Oximetry 91 93 92 Oxygen Delivery Method Room Air Room Air Room Air Sepsis Recent Fever Within 48 Hours Sepsis New/Unexplained Change in Mental Status Sepsis Action Taken by Nursing 04/07/19 20:40 04/07/19 20:50 04/07/19 21:06 Temperature Temperature Source Pulse Rate 70 62 70 Pulse Rate [Finger] Pulse Rate from SpO2 Sensor 69 65 Pulse Rhythm [Finger] Pulse Strength [Finger] Respiratory Rate 22 24 25 H Respiratory Effort / Characteristics Respiratory Depth Blood Pressure Blood Pressure [Right Arm] Blood Pressure Mean Blood Pressure Mean [Right Arm] Blood Pressure Position [Right Arm] Pulse Oximetry 94 92 Oxygen Delivery Method Room Air Room Air Room Air Sepsis Recent Fever Within 48 Hours Sepsis New/Unexplained Change in Mental Status Sepsis Action Taken by Nursing 04/07/19 21:10 04/07/19 21:20 04/07/19 21:30 Temperature Temperature Source Pulse Rate 69 62 71 Pulse Rate [Finger] Pulse Rate from SpO2 Sensor 63 65 81 Pulse Rhythm [Finger] Pulse Strength [Finger] Respiratory Rate 26 H 23 26 H Respiratory Effort / Characteristics Respiratory Depth Blood Pressure Blood Pressure [Right Arm] Blood Pressure Mean Blood Pressure Mean [Right Arm] Blood Pressure Position [Right Arm] Pulse Oximetry 95 92 91 Oxygen Delivery Method Room Air Room Air Room Air Sepsis Recent Fever Within 48 Hours Sepsis New/Unexplained Change in Mental Status Sepsis Action Taken by Nursing 04/07/19 21:31 04/07/19 21:40 04/07/19 21:50 Temperature Temperature Source Pulse Rate 74 74 61 Pulse Rate [Finger] Pulse Rate from SpO2 Sensor 74 74 65 Pulse Rhythm [Finger] Pulse Strength [Finger] Respiratory Rate 21 22 16 Respiratory Effort / Characteristics Respiratory Depth Blood Pressure 216/73 H Blood Pressure [Right Arm] Blood Pressure Mean 128 Blood Pressure Mean [Right Arm] Blood Pressure Position [Right Arm] Pulse Oximetry 93 Oxygen Delivery Method Room Air Room Air Room Air Sepsis Recent Fever Within 48 Hours Sepsis New/Unexplained Change in Mental Status Sepsis Action Taken by Nursing 04/07/19 22:09 04/07/19 22:10 04/07/19 22:20 Temperature Temperature Source Pulse Rate 59 L 66 71 Pulse Rate [Finger] Pulse Rate from SpO2 Sensor 63 65 72 Pulse Rhythm [Finger] Pulse Strength [Finger] Respiratory Rate 15 26 H 20 Respiratory Effort / Characteristics Respiratory Depth Blood Pressure Blood Pressure [Right Arm] Blood Pressure Mean Blood Pressure Mean [Right Arm] Blood Pressure Position [Right Arm] Pulse Oximetry 89 L 87 L 89 L Oxygen Delivery Method Room Air Room Air Room Air Sepsis Recent Fever Within 48 Hours Sepsis New/Unexplained Change in Mental Status Sepsis Action Taken by Nursing 04/07/19 22:30 04/07/19 22:31 04/07/19 22:40 Temperature Temperature Source Pulse Rate 62 74 69 Pulse Rate [Finger] Pulse Rate from SpO2 Sensor 64 72 69 Pulse Rhythm [Finger] Pulse Strength [Finger] Respiratory Rate 19 19 20 Respiratory Effort / Characteristics Respiratory Depth Blood Pressure 168/64 H Blood Pressure [Right Arm] Blood Pressure Mean 126 Blood Pressure Mean [Right Arm] Blood Pressure Position [Right Arm] Pulse Oximetry 85 L 87 L 85 L Oxygen Delivery Method Room Air Room Air Room Air Sepsis Recent Fever Within 48 Hours Sepsis New/Unexplained Change in Mental Status Sepsis Action Taken by Nursing 04/07/19 22:50 04/07/19 23:00 04/07/19 23:01 Temperature Temperature Source Pulse Rate 68 65 71 Pulse Rate [Finger] Pulse Rate from SpO2 Sensor 66 66 62 Pulse Rhythm [Finger] Pulse Strength [Finger] Respiratory Rate 19 17 22 Respiratory Effort / Characteristics Respiratory Depth Blood Pressure 180/63 H Blood Pressure [Right Arm] Blood Pressure Mean 117 Blood Pressure Mean [Right Arm] Blood Pressure Position [Right Arm] Pulse Oximetry 95 97 96 Oxygen Delivery Method Sepsis Recent Fever Within 48 Hours Sepsis New/Unexplained Change in Mental Status Sepsis Action Taken by Nursing 04/07/19 23:11 04/07/19 23:20 04/07/19 23:30 Temperature 37.3 C Temperature Source Pulse Rate 61 70 56 L Pulse Rate [Finger] 62 Pulse Rate from SpO2 Sensor 62 69 58 L Pulse Rhythm [Finger] Regular Pulse Strength [Finger] Normal Respiratory Rate 20 18 22 Respiratory Effort / Characteristics Non-Labored Spontaneous Respiratory Depth Normal Blood Pressure 169/67 H Blood Pressure [Right Arm] 169/67 H Blood Pressure Mean 131 Blood Pressure Mean [Right Arm] 101 Blood Pressure Position [Right Arm] Sitting Pulse Oximetry 95 94 96 Oxygen Delivery Method Room Air Sepsis Recent Fever Within 48 Hours Sepsis New/Unexplained Change in Mental Status Sepsis Action Taken by Nursing 04/07/19 23:31 04/07/19 23:40 04/07/19 23:50 Temperature Temperature Source Pulse Rate 69 67 68 Pulse Rate [Finger] Pulse Rate from SpO2 Sensor 69 67 69 Pulse Rhythm [Finger] Pulse Strength [Finger] Respiratory Rate 18 19 20 Respiratory Effort / Characteristics Respiratory Depth Blood Pressure Blood Pressure [Right Arm] Blood Pressure Mean Blood Pressure Mean [Right Arm] Blood Pressure Position [Right Arm] Pulse Oximetry 95 95 97 Oxygen Delivery Method Sepsis Recent Fever Within 48 Hours Sepsis New/Unexplained Change in Mental Status Sepsis Action Taken by Nursing 04/08/19 00:00 04/08/19 00:01 Temperature Temperature Source Pulse Rate 56 L 67 Pulse Rate [Finger] Pulse Rate from SpO2 Sensor 60 67 Pulse Rhythm [Finger] Pulse Strength [Finger] Respiratory Rate 19 18 Respiratory Effort / Characteristics Respiratory Depth Blood Pressure 165/65 H Blood Pressure [Right Arm] Blood Pressure Mean 117 Blood Pressure Mean [Right Arm] Blood Pressure Position [Right Arm] Pulse Oximetry 96 96 Oxygen Delivery Method Sepsis Recent Fever Within 48 Hours Sepsis New/Unexplained Change in Mental Status Sepsis Action Taken by Nursing GENERAL: alert, well appearing, well nourished, no distress, non-toxic EYE EXAM: normal conjunctiva, PERRL and EOM's grossly intact OROPHARYNX: no exudate, no erythema, lips, buccal mucosa, and tongue normal and mucous membranes are moist NECK: supple, no nuchal rigidity, no adenopathy, non-tender LUNGS: Clear to auscultation. Normal chest wall mechanics, no w/r/r HEART: no murmurs, S1 normal and S2 normal CHEST: port on the right side of the superior chest wall. ABDOMEN: abdomen soft, non-tender, normo-active bowel sounds, no masses, no rebound or guarding. BACK: Back is symmetrical on inspection and there is no deformity, no midline tenderness, no CVA tenderness. SKIN: no rashes and no bruising UPPER EXTREMITIES: upper extremities are grossly normal. FROM, nml pulses b/l. LOWER EXTREMITIES: No pitting edema. Swelling inferior to the medial malleolus on the right. No deformity. Nml pulses b/l. NEURO EXAM: Normal sensorium, cranial nerves II-XII grossly intact, normal speech, no gross weakness of arms, no gross weakness of legs. Course Course 2030: Past medical records reviewed. The patient was evaluated in room A02. A complete history and physical exam was performed. 2144: Pt updated on results. Recent [facility] labs were also reviewed. WBC improved, H/H and Plt stable. 2200: I spoke with Dr. Arteaga, [facility] Hospitalist who accepts the patient for admission. 2220: I checked on the patient and updated her on test results.The patient letty rees expressed understanding and agreement of the treatment plan. Patient offered transfer to [facility] given her recent admission there and she declined. The patient will be evaluated for further treatment. Administered Medications Allopurinol (Zyloprim) 200 mg PO QPM [facility] Stop: 05/08/19 20:59 Last Admin: 04/08/19 20:10 Dose: 200 mg Documented by: [id number] Carvedilol (Coreg) 12.5 mg PO BID [facility] Stop: 05/08/19 08:59 Last Admin: 04/08/19 20:08 Dose: 12.5 mg Documented by: [id number] Admin: 04/08/19 09:14 Dose: 12.5 mg Documented by: [id number] Citalopram Hydrobromide (Celexa) 20 mg PO QPM [facility] Stop: 05/08/19 20:59 Last Admin: 04/08/19 20:08 Dose: 20 mg Documented by: [id number] Fentanyl (Duragesic) 12 mcg TD Q3D [facility] Stop: 04/22/19 19:59 Last Admin: 04/08/19 20:25 Dose: 12 mcg Documented by: [id number] Hydralazine HCl (Apresoline) 10 mg PO TID [facility] Stop: 05/08/19 08:59 Last Admin: 04/08/19 20:07 Dose: 10 mg Documented by: [id number] Admin: 04/08/19 13:01 Dose: 10 mg Documented by: [id number] Admin: 04/08/19 09:13 Dose: 10 mg Documented by: [id number] Hydromorphone HCl (Dilaudid) 0.5 mg IV Q3H PRN PRN Reason: Pain Stop: 04/22/19 01:09 Last Admin: 04/08/19 20:25 Dose: 0.5 mg Documented by: [id number] Admin: 04/08/19 16:06 Dose: 0.5 mg Documented by: [id number] Admin: 04/08/19 01:42 Dose: 0.5 mg Documented by: [id number] Piperacillin Sod/Tazobactam (Sod 3.375 gm/ Dextrose) 115 mls @ 28.75 mls/hr IV Q8H [facility]; Protocol Stop: 04/19/19 01:59 Last Admin: 04/09/19 02:18 Dose: 28.8 mls/hr Documented by: [id number] Daptomycin 225 mg/ Syringe 4.5 mls @ 2.75 mls/min IV Q24H [facility]; Protocol Stop: 04/18/19 19:59 Last Admin: 04/08/19 20:22 Dose: 2.75 mls/min Documented by: [id number] Insulin Aspart (Novolog Flexpen) 0 units SC ACHS [facility]; Protocol Stop: 05/08/19 07:29 Last Admin: 04/08/19 20:16 Dose: 4 units Documented by: [id number] Cosigned by: [id number] Admin: 04/08/19 18:25 Dose: 5 units Documented by: [id number] Cosigned by: [id number] Admin: 04/08/19 13:01 Dose: 9 units Documented by: [id number] Cosigned by: [id number] Admin: 04/08/19 09:19 Dose: 2 units Documented by: [id number] Cosigned by: [id number] Insulin Glargine (Lantus Solostar Pen) 0 units SC BID [facility]; Protocol Stop: 05/08/19 20:59 Last Admin: 04/08/19 20:14 Dose: 10 units Documented by: [id number] Cosigned by: [id number] Miscellaneous (Order Awaiting Action) 1 ea N/A QS [facility] Stop: 05/08/19 07:59 Last Admin: 04/08/19 23:35 Dose: Not Given Documented by: [id number] Admin: 04/08/19 18:24 Dose: Not Given Documented by: [id number] Admin: 04/08/19 09:26 Dose: Not Given Documented by: [id number] Miscellaneous (Fentanyl Patch Check Placement) 1 ea N/A QS [facility] Stop: 05/09/19 00:00 Last Admin: 04/08/19 23:38 Dose: 1 ea Documented by: [id number] Pantoprazole Sodium (Protonix) 40 mg PO BID [facility] Stop: 05/08/19 08:59 Last Admin: 04/08/19 20:09 Dose: 40 mg Documented by: [id number] Admin: 04/08/19 09:14 Dose: 40 mg Documented by: [id number] Potassium Chloride (Klor-Con Pwd) 40 meq PO BID [facility] Stop: 05/08/19 20:59 Last Admin: 04/08/19 20:09 Dose: 40 meq Documented by: [id number] Tramadol HCl (Ultram) 25 mg PO DAILY [facility] Stop: 05/08/19 08:59 Last Admin: 04/08/19 10:24 Dose: 25 mg Documented by: [id number] Discontinued Medications Aspirin (Ecotrin Ectab) 81 mg PO DAILY [facility] Stop: 05/08/19 08:59 Last Admin: 04/08/19 13:10 Dose: Not Given Documented by: [id number] Atorvastatin Calcium (Lipitor) 20 mg PO DAILY [facility] Stop: 05/08/19 08:59 Last Admin: 04/08/19 09:14 Dose: 20 mg Documented by: [id number] Hydralazine HCl (Hydralazine Hcl) 10 mg IV NOW STA Stop: 04/08/19 15:54 Last Admin: 04/08/19 16:05 Dose: 10 mg Documented by: [id number] Hydromorphone HCl (Dilaudid) 0.5 mg IV Q15M PRN PRN Reason: Pain Stop: 04/21/19 21:17 Last Admin: 04/07/19 21:31 Dose: 0.5 mg Documented by: [id number] Sodium Chloride (Nss 1000ml) 1,000 mls @ 200 mls/hr IV .Q5H [facility] Stop: 05/07/19 20:44 Last Infusion: 04/08/19 06:45 Dose: 0 mls/hr Documented by: [id number] Admin: 04/07/19 21:14 Dose: 200 mls/hr Documented by: [id number] Furosemide 40 mg/ Syringe 4 mls @ 4 mls/min IV ONE ONE Stop: 04/08/19 01:31 Last Admin: 04/08/19 01:41 Dose: 4 mls/min Documented by: [id number] Potassium Chloride (K Henry / Wtr) 10 meq in 100 mls @ 100 mls/hr IV Q1H [facility] Stop: 04/08/19 13:04 Last Infusion: 04/08/19 13:57 Dose: 0 mls/hr Documented by: [id number] Admin: 04/08/19 12:56 Dose: 100 mls/hr Documented by: [id number] Infusion: 04/08/19 12:51 Dose: 100 mls/hr Documented by: [id number] Admin: 04/08/19 11:51 Dose: 100 mls/hr Documented by: [id number] Furosemide 60 mg/ Syringe 6 mls @ 4 mls/min IV TODAY@1700 [facility] Stop: 04/08/19 17:02 Last Admin: 04/08/19 16:06 Dose: 4 mls/min Documented by: [id number] Piperacillin Sod/Tazobactam (Sod 4.5 gm/ Dextrose) 120 mls @ 200 mls/hr IV NOW STA; Protocol Stop: 04/08/19 20:30 Last Infusion: 04/08/19 21:59 Dose: 0 mls/hr Documented by: [id number] Admin: 04/08/19 20:22 Dose: 200 mls/hr Documented by: [id number] Insulin Aspart (Novolog Flexpen) 0 units SC TODAY@0200 [facility]; Protocol Stop: 04/09/19 02:01 Last Admin: 04/09/19 02:18 Dose: 1 units Documented by: [id number] Cosigned by: [id number] Insulin Glargine (Lantus Solostar Pen) 10 units SC DAILY [facility] Stop: 05/08/19 08:59 Last Admin: 04/08/19 10:16 Dose: 5 units Documented by: [id number] Cosigned by: [id number] Insulin Glargine (Lantus Solostar Pen) 5 units SC NOW ONE; Protocol Stop: 04/08/19 14:31 Last Admin: 04/08/19 14:35 Dose: 5 units Documented by: [id number] Cosigned by: [id number] Medical Decision Making Differential Diagnosis Differential diagnosis includes but is not limited to etiologies such as musculoskeletal, disc herniation, fracture, aortic disease, metastatic disease, cord compression, discitis, infection, renal colic, gastrointestinal, acute exacerbation of chronic back pain, sciatica, cauda equina, as well as others were entertained. Medical Records Attestation: I reviewed the patient's medical records. Home Medications Current Medication List: was personally reviewed by me Laboratory Data Attestation: I reviewed the patient's lab results. Result diagrams: 04/08/19 05:23 04/08/19 20:00 Lab Results 04/07/19 04/07/19 04/07/19 Range/Units 19:47 19:47 21:05 WBC 3.09 L (4.8-10.8) K/uL RBC 3.11 L (4.2-5.4) M/uL Hgb 9.5 L (12.0-16.0) g/dL Hct 28.0 L (37-47) % MCV 90.0 (80-100) fL MCH 30.5 (25-34) pg MCHC 33.9 (32-36) g/dL RDW Std Deviation 43.8 (36.4-46.3) fL RDW Coeff of Dao 14.1 (11.5-14.5) % Plt Count 90 L (130-400) K/uL MPV 12.0 H (7.4-10.4) fL Immature Gran % (Auto) 0.3 % Neut % (Auto) 60.2 % Lymph % (Auto) 18.8 % Walker % (Auto) 18.4 % Eos % (Auto) 1.3 % Baso % (Auto) 1.0 % Immature Gran # (Auto) 0.01 (0.00-0.02) K/uL Neut # (Auto) 1.86 (1.4-6.5) K/uL Lymph # (Auto) 0.58 L (1.2-3.4) K/uL Walker # (Auto) 0.57 (0.11-0.59) K/uL Eos # (Auto) 0.04 (0-0.5) K/uL Baso # (Auto) 0.03 (0-0.2) K/uL Platelet Estimate Decreased L (Normal) Anisocytosis Present Sodium 140 (136-145) mmol/L Potassium 3.2 L (3.5-5.1) mmol/L Chloride 110 H (98-107) mmol/L Carbon Dioxide 24 (21-32) mmol/L Anion Gap 6.0 (3-11) BUN 50 H (7-18) mg/dl Creatinine 1.76 H (0.6-1.2) mg/dl Est Cr Clr Drug Dosing 36.9 ml/min Est GFR ( Amer) 34.3 Est GFR (Non-Af Amer) 29.6 BUN/Creatinine Ratio 28.2 H (10-20) Glucose 191 H (70-99) mg/dl Calcium 9.1 (8.5-10.1) mg/dl Total Bilirubin 1.0 (0.2-1) mg/dl AST 14 L (15-37) U/L ALT 16 (12-78) U/L Alkaline Phosphatase 79 (45-117) U/L Troponin I 0.062 H* (0-0.045) ng/ml NT-Pro-B Natriuret Pep 2231 H (0-900) pg/ml Total Protein 6.1 L (6.4-8.2) gm/dl Albumin 2.6 L (3.4-5.0) gm/dl Globulin 3.5 (2.5-4.0) gm/dl Albumin/Globulin Ratio 0.7 L (0.9-2) Lipase 74 (73-393) U/L Urine Color Yellow Urine Appearance Clear (Clear) Urine pH 5.0 (4.5-7.5) Ur Specific [place] 1.009 (1.000-1.030) Urine Protein 2+ H (Negative) Urine Glucose (UA) Negative (Negative) Urine Ketones Negative (Negative) Urine Blood Negative (Negative) Urine Nitrite Negative (Negative) Urine Bilirubin Negative (Negative) Urine Urobilinogen Negative (Negative) Ur Leukocyte Esterase Negative (Negative) Urine WBC (Auto) 1-5 (0-5) /hpf Urine RBC (Auto) 0-4 (0-4) /hpf U Hyaline Cast (Auto) 1-5 (0-5) /lpf U Epithel Cells (Auto) 20-30 H (0-5) /lpf Urine Bacteria (Auto) Negative (Negative) Imaging Data Radiologist's Impression: Radiology results as stated below per my review and the radiologist's interpretation: CT SCAN OF THE ABDOMEN AND PELVIS WITHOUT IV CONTRAST; CT SCAN OF THE BONY PELVIS WITHOUT IV CONTRAST; CT SCAN OF THE LUMBAR SPINE WITHOUT IV CONTRAST CLINICAL HISTORY: Low back pain. Pelvic pain. Metastatic esophageal cancer. Fall. COMPARISON STUDY: Abdominal CT dated 03/28/2019. PET/CT dated 02/14/2019 TECHNIQUE: CT scan of the abdomen and pelvis is performed from the lung bases to the proximal femora. CT scan of the bony pelvis is performed from the pelvic inlet to the proximal femora, and CT scan of lumbar spine is performed from the lower thoracic spine to the sacrum. Images were all examinations are reviewed in the axial, sagittal, and coronal planes. IV contrast was not administered for this examination as per the referring clinician. Note that the examination was performed in suboptimal fashion without oral and IV contrast. A dose lowering technique was utilized adhering to the principles of ALARA. CT DOSE: 1200.17 mGy.cm FINDINGS: Lung bases: The heart is mildly enlarged and there is a small pericardial effusion. Pacemaker leads are noted. The coronary arteries are densely calcified. There is diminutive attenuation of the cardiac blood pool as compared to the myocardium suggesting anemia. There are small to moderate pleural effusions with bibasilar atelectasis. Intralobular septal thickening at the lung bases suggests congestive failure. There is a small hiatal hernia. Wall thickening at the gastroesophageal junction is similar to previous. Liver: The unenhanced liver is enlarged, measuring 19.6 cm in length. The liver is cirrhotic in morphology and heterogeneous in attenuation. There is nodularity of the hepatic surface contour. There is no intrahepatic biliary ductal dilatation. Gallbladder: The gallbladder is distended and there are calcified gallstones. There is no CT evidence of acute cholecystitis. Spleen: Normal in size and attenuation. Pancreas: The unenhanced pancreas is atrophic and grossly unremarkable. Adrenal glands: A 1.7 cm left adrenal nodule meets CT criteria for a fat- containing adenoma. The right adrenal gland is normal in appearance. Kidneys: The unenhanced kidneys are atrophic and without hydronephrosis. There are no renal calculi clearly identified. Numerous renovascular calcifications are observed. There is no evidence of contour deforming renal mass lesion. Abdominal vasculature: The abdominal aorta is normal in course and caliber noting moderate to advanced atherosclerotic calcification. Bowel: There is no bowel obstruction. There are scattered colonic diverticula without CT evidence of acute diverticulitis. Residual enteric contrast is noted in the colon. The appendix is identified and reported surgically absent. Peritoneum: There is no intraperitoneal free air. There is trace. Ascites. Trace free fluid is noted in the pelvis. Lymphadenopathy: None. Pelvic viscera: The bladder is normal as visualized. The uterus is surgically absent. No adnexal lesion is seen. Skeletal structures: The skeletal structures are osteopenic. No lytic or blastic lesions are seen. LUMBAR SPINE: Vertebral body height and alignment are maintained throughout the lumbar spine. There is no evidence of fracture or malalignment. Small anterior and lateral marginal osteophytes are seen throughout. The transverse and spinous processes are intact. There is no evidence of spondylolysis. The disc spaces are preserved. The paraspinous soft tissues are within normal limits. Bony pelvis: There is no evidence of fracture involving the bony pelvis or proximal femora. There is no evidence of osteonecrosis of the femoral heads. Mild degenerative change is noted in the hips and sacroiliac joints. There is mild generalized atrophy of the pelvic musculature. No intramuscular hematoma is seen. Soft tissues: There is mild body wall edema. IMPRESSION: 1. There is no evidence of solid organ injury in the abdomen or pelvis on this unenhanced examination. 2. There is no evidence of fracture or malalignment involving the lumbar spine. 3. There is no evidence of fracture involving the bony pelvis or proximal femora. 4. Cardiomegaly and cardiac pacemaker. Interlobular septal thickening at the lung bases suggests congestive failure. 5. Small to moderate pleural effusions with associated atelectasis. 6. Wall thickening is again seen at the gastroesophageal junction. This likely corresponds to the known history of esophageal carcinoma. 7. The liver is cirrhotic in morphology and heterogeneous in attenuation. 8. Trace abdominopelvic ascites. 9. Cholelithiasis. 10. Additional findings as above. ACT 112: Negative or not required by law. Electronically signed by: Davis Santos M.D. 04/07/2019 10:35 PM RIGHT ANKLE 3 VIEWS CLINICAL HISTORY: Right ankle injury. FINDINGS: 3 views of the right ankle are compared to study dated 12/26/2015. The skeletal structures are osteopenic. No fracture is identified. The ankle mortise is intact. A chronic avulsion injury is again suggested along the inferior aspect of the medial malleolus. Soft tissue edema is present around the ankle and in the calf. No significant joint effusion is identified. There are large dorsal and plantar calcaneal enthesophytes. Atherosclerotic calcification is noted in the regional arteries. IMPRESSION: 1. Soft tissue swelling with no radiographic evidence of acute fracture. 2. Large heel spurs. Electronically signed by: Davis Santos M.D. 04/07/2019 9:21 PM SINGLE VIEW CHEST CLINICAL HISTORY: Dyspnea. FINDINGS: An AP, portable, upright chest radiograph is compared to study dated 03/28/2019. Correlation is made with chest CT dated 06/01/2018. The examination is degraded by portable technique, patient rotation, and apical lordotic positioning. A right internal jugular central venous infusion port is unchanged in position. A 2-lead cardiac pacemaker is again noted and partially obscures the left lateral chest. The heart is enlarged noting atherosclerotic calcification of the thoracic aorta. There is pulmonary vascular congestion. There is bibasilar scarring/atelectasis. Trace pleural effusions are suspected. No pneumothorax is seen. The skeletal structures are osteopenic. The bony thorax is grossly intact. Surgical clips project over the upper chest. IMPRESSION: 1. Cardiomegaly and cardiac pacemaker with mild pulmonary vascular congestion. 2. Suspect trace pleural effusions. Electronically signed by: Davis Santos M.D. 04/07/2019 9:[address] SCAN OF THE ABDOMEN AND PELVIS WITHOUT IV CONTRAST; CT SCAN OF THE BONY PELVIS WITHOUT IV CONTRAST; CT SCAN OF THE LUMBAR SPINE WITHOUT IV CONTRAST CLINICAL HISTORY: Low back pain. Pelvic pain. Metastatic esophageal cancer. Fall. COMPARISON STUDY: Abdominal CT dated 03/28/2019. PET/CT dated 02/14/2019 TECHNIQUE: CT scan of the abdomen and pelvis is performed from the lung bases to the proximal femora. CT scan of the bony pelvis is performed from the pelvic inlet to the proximal femora, and CT scan of lumbar spine is performed from the lower thoracic spine to the sacrum. Images were all examinations are reviewed in the axial, sagittal, and coronal planes. IV contrast was not administered for this examination as per the referring clinician. Note that the examination was performed in suboptimal fashion without oral and IV contrast. A dose lowering technique was utilized adhering to the principles of ALARA. CT DOSE: 1200.17 mGy.cm FINDINGS: Lung bases: The heart is mildly enlarged and there is a small pericardial effusion. Pacemaker leads are noted. The coronary arteries are densely calcified. There is diminutive attenuation of the cardiac blood pool as compared to the myocardium suggesting anemia. There are small to moderate pleural effusions with bibasilar atelectasis. Intralobular septal thickening at the lung bases suggests congestive failure. There is a small hiatal hernia. Wall thickening at the gastroesophageal junction is similar to previous. Liver: The unenhanced liver is enlarged, measuring 19.6 cm in length. The liver is cirrhotic in morphology and heterogeneous in attenuation. There is nodularity of the hepatic surface contour. There is no intrahepatic biliary ductal dilatation. Gallbladder: The gallbladder is distended and there are calcified gallstones. There is no CT evidence of acute cholecystitis. Spleen: Normal in size and attenuation. Pancreas: The unenhanced pancreas is atrophic and grossly unremarkable. Adrenal glands: A 1.7 cm left adrenal nodule meets CT criteria for a fat- containing adenoma. The right adrenal gland is normal in appearance. Kidneys: The unenhanced kidneys are atrophic and without hydronephrosis. There are no renal calculi clearly identified. Numerous renovascular calcifications are observed. There is no evidence of contour deforming renal mass lesion. Abdominal vasculature: The abdominal aorta is normal in course and caliber noting moderate to advanced atherosclerotic calcification. Bowel: There is no bowel obstruction. There are scattered colonic diverticula without CT evidence of acute diverticulitis. Residual enteric contrast is noted in the colon. The appendix is identified and reported surgically absent. Peritoneum: There is no intraperitoneal free air. There is trace. Ascites. Trace free fluid is noted in the pelvis. Lymphadenopathy: None. Pelvic viscera: The bladder is normal as visualized. The uterus is surgically absent. No adnexal lesion is seen. Skeletal structures: The skeletal structures are osteopenic. No lytic or blastic lesions are seen. LUMBAR SPINE: Vertebral body height and alignment are maintained throughout the lumbar spine. There is no evidence of fracture or malalignment. Small anterior and lateral marginal osteophytes are seen throughout. The transverse and spinous processes are intact. There is no evidence of spondylolysis. The disc spaces are preserved. The paraspinous soft tissues are within normal limits. Bony pelvis: There is no evidence of fracture involving the bony pelvis or proximal femora. There is no evidence of osteonecrosis of the femoral heads. Mild degenerative change is noted in the hips and sacroiliac joints. There is mild generalized atrophy of the pelvic musculature. No intramuscular hematoma is seen. Soft tissues: There is mild body wall edema. IMPRESSION: 1. There is no evidence of solid organ injury in the abdomen or pelvis on this unenhanced examination. 2. There is no evidence of fracture or malalignment involving the lumbar spine. 3. There is no evidence of fracture involving the bony pelvis or proximal fe caicedo. 4. Cardiomegaly and cardiac pacemaker. Interlobular septal thickening at the lung bases suggests congestive failure. 5. Small to moderate pleural effusions with associated atelectasis. 6. Wall thickening is again seen at the gastroesophageal junction. This likely corresponds to the known history of esophageal carcinoma. 7. The liver is cirrhotic in morphology and heterogeneous in attenuation. 8. Trace abdominopelvic ascites. 9. Cholelithiasis. 10. Additional findings as above. ACT 112: Negative or not required by law. Electronically signed by: Davis Santos M.D. 04/07/2019 10:[address] SCAN OF THE ABDOMEN AND PELVIS WITHOUT IV CONTRAST; CT SCAN OF THE BONY PELVIS WITHOUT IV CONTRAST; CT SCAN OF THE LUMBAR SPINE WITHOUT IV CONTRAST CLINICAL HISTORY: Low back pain. Pelvic pain. Metastatic esophageal cancer. Fall. COMPARISON STUDY: Abdominal CT dated 03/28/2019. PET/CT dated 02/14/2019 TECHNIQUE: CT scan of the abdomen and pelvis is performed from the lung bases to the proximal femora. CT scan of the bony pelvis is performed from the pelvic inlet to the proximal femora, and CT scan of lumbar spine is performed from the lower thoracic spine to the sacrum. Images were all examinations are reviewed in the axial, sagittal, and coronal planes. IV contrast was not administered for this examination as per the referring clinician. Note that the examination was performed in suboptimal fashion without oral and IV contrast. A dose lowering technique was utilized adhering to the principles of ALARA. CT DOSE: 1200.17 mGy.cm FINDINGS: Lung bases: The heart is mildly enlarged and there is a small pericardial effusion. Pacemaker leads are noted. The coronary arteries are densely calcified. There is diminutive attenuation of the cardiac blood pool as compared to the myocardium suggesting anemia. There are small to moderate pleural effusions with bibasilar atelectasis. Intralobular septal thickening at the lung bases suggests congestive failure. There is a small hiatal hernia. Wall thickening at the gastroesophageal junction is similar to previous. Liver: The unenhanced liver is enlarged, measuring 19.6 cm in length. The liver is cirrhotic in morphology and heterogeneous in attenuation. There is nodularity of the hepatic surface contour. There is no intrahepatic biliary ductal dilatation. Gallbladder: The gallbladder is distended and there are calcified gallstones. There is no CT evidence of acute cholecystitis. Spleen: Normal in size and attenuation. Pancreas: The unenhanced pancreas is atrophic and grossly unremarkable. Adrenal glands: A 1.7 cm left adrenal nodule meets CT criteria for a fat-co ntaining adenoma. The right adrenal gland is normal in appearance. Kidneys: The unenhanced kidneys are atrophic and without hydronephrosis. There are no renal calculi clearly identified. Numerous renovascular calcifications are observed. There is no evidence of contour deforming renal mass lesion. Abdominal vasculature: The abdominal aorta is normal in course and caliber noting moderate to advanced atherosclerotic calcification. Bowel: There is no bowel obstruction. There are scattered colonic diverticula without CT evidence of acute diverticulitis. Residual enteric contrast is noted in the colon. The appendix is identified and reported surgically absent. Peritoneum: There is no intraperitoneal free air. There is trace. Ascites. Trace free fluid is noted in the pelvis. Lymphadenopathy: None. Pelvic viscera: The bladder is normal as visualized. The uterus is surgically absent. No adnexal lesion is seen. Skeletal structures: The skeletal structures are osteopenic. No lytic or blastic lesions are seen. LUMBAR SPINE: Vertebral body height and alignment are maintained throughout the lumbar spine. There is no evidence of fracture or malalignment. Small anterior and lateral marginal osteophytes are seen throughout. The transverse and spinous processes are intact. There is no evidence of spondylolysis. The disc spaces are preserved. The paraspinous soft tissues are within normal limits. Bony pelvis: There is no evidence of fracture involving the bony pelvis or proximal femora. There is no evidence of osteonecrosis of the femoral heads. Mild degenerative change is noted in the hips and sacroiliac joints. There is mild generalized atrophy of the pelvic musculature. No intramuscular hematoma is seen. Soft tissues: There is mild body wall edema. IMPRESSION: 1. There is no evidence of solid organ injury in the abdomen or pelvis on this unenhanced examination. 2. There is no evidence of fracture or malalignment involving the lumbar spine. 3. There is no evidence of fracture involving the bony pelvis or proximal femora. 4. Cardiomegaly and cardiac pacemaker. Interlobular septal thickening at the lung bases suggests congestive failure. 5. Small to moderate pleural effusions with associated atelectasis. 6. Wall thickening is again seen at the gastroesophageal junction. This likely corresponds to the known history of esophageal carcinoma. 7. The liver is cirrhotic in morphology and heterogeneous in attenuation. 8. Trace abdominopelvic ascites. 9. Cholelithiasis. 10. Additional findings as above. ACT 112: Negative or not required by law. Electronically signed by: Davis Santos M.D. 04/07/2019 10:35 PM ECG Data Attestation: I personally reviewed and interpreted this ECG as follows: Indication: + back/shoulder pain Rate (beats per minute): 73 Rhythm: + other (paced rhythm) ECG [place]: + Left axis deviation ECG Findings: + Other (prolonged intervals, no acute ischemic changes) Blood Pressure Blood Pressure Findings: Elevated blood pressure Blood Pressure Disposition: further management by hospitalist BARRY Lance Patient here well-appearing with initial concerns about low back pain and sciatica type pain after a stumble and near fall last night at home. Upon additional conversation with the patient she also admits to recent increased shortness of breath stating that she is suspicious for possible congestive heart failure. Patient does follow with Dr. Good and has had a recent echo which she states was reported to her as normal. Patient was recently off of her Lasix while admitted at [facility], and due to her increased shortness of breath with exertion recently she restarted this on her own today. Patient's H&H stable, WBCs improved, platelets stable in comparison to recent labs at [facility]. Patient is undergoing active chemo and radiation for known stage III esophageal cancer. I do not suspect other occult traumatic injury related to the stumble and near fall last night. Right ankle edema likely secondary to contusion or ankle sprain. The mildly elevated troponin noted on the patient is likely secondary to possible CHF. Patient with no symptoms while at rest. I do not suspect primary ACS at this time. While the patient does have chronic kidney disease that does appear stable and could have a falsely positive t roponin secondary to this, there is no prior history of elevated troponin with her chronic kidney disease. Patient remained hemodynamically stable while in the emergency room. Patient did not wish to be transferred back to [facility] where she was recently admitted. Patient was in agreement with plan for additional inpatient evaluation here after much bedside discussion. Family was in agreement with this plan also. Case discussed with hospitalist. Impression & Plan [place]GAD[place]O (dyspnea on exertion), CHF (congestive heart failure), Lumbar radiculopathy, Elevated troponin, Right ankle pain Discharge Plan Visit Data *Final* Discharge Date/Time: 04/08/19 00:44 Chief Complaint: Back Injury/Pain Stated Complaint: BACK/SIDE PAIN ED Provider: Nedra Villagran Discharge Problem: [place] (dyspnea on exertion), CHF (congestive heart failure), Lumbar radiculopat hy, Elevated troponin, Right ankle pain Patient Disposition: Admitted As Inpatient Discharge Instructions Interventions: ED Discharge Assessment Last Done: 04/08/19 00:44 Discharge Problem: CHF (congestive heart failure) Qualifiers: Heart failure type: unspecified Heart failure chronicity: unspecified Qualified Code(s): I50.9 - Heart failure, unspecified Right ankle pain Qualifiers: Chronicity: unspecified Qualified Code(s): M25.571 - Pain in right ankle and joints of right foot The scribe's documentation has been prepared under my direction and personally reviewed by me in its entirety. I confirm that the note above accurately reflec ts all work, treatment, procedures, and medical decision making performed by me.
[2019-04-09 04:41] LABS: BUN Creatinine Ratio 26.3 (10-20); Calcium 8.6 mg/dl (8.5-10.1); Creatinine Clr Calc Pharmacy 32.5 ml/min; Est GFR (African American) 30.9; Est GFR (Non-African American) 26.7; Magnesium 1.7 mg/dl (1.8-2.4); Potassium 3.3 mmol/L (3.5-5.1)
[2019-04-09] MEDS: INSULIN ASPART 100 UNITS/ML 3 ML PEN SC SCH ×4 (08:30→20:58)
[2019-04-09] MEDS: RESTASIS~ORDER AWAITING ACTION SCH ×2 (08:31→17:29)
[2019-04-09] MEDS: CHECK FENTANYL PATCH PLACEMENT SCH ×2 (08:31→17:29)
[2019-04-09] MEDS: TRAMADOL HCL 50 MG TABLET PO SCH (08:32)
[2019-04-09] MEDS: INSULIN GLARGINE SOLOSTAR 100 UNITS/ML 3 ML PEN SC SCH (08:32)
[2019-04-09] MEDS: carvediloL 12.5 MG TAB PO SCH ×2 (08:34→20:54)
[2019-04-09] MEDS: PANTOprazole 40 MG TAB PO SCH ×2 (08:34→20:55)
[2019-04-09] MEDS: HydrALAZINE 10 MG TAB PO SCH ×3 (08:35→20:53)
[2019-04-09] MEDS ORDERED: INSULIN GLARGINE SOLOSTAR 100 UNITS/ML 3 ML PEN SC SCH (09:00)
[2019-04-09] MEDS: POTASSIUM CHLORIDE PWD 20 MEQ PACK PO SCH (09:10)
[2019-04-09] MEDS ORDERED: PROCHLORPERAZINE 5 MG in SYRINGE 4 ML IV PRN (10:09)
[2019-04-09] MEDS: POTASSIUM CHLORIDE / WTR 10 MEQ/100 ML PLCT IV SCH ×4 (10:27→14:19)
--- NOTE | 2019-04-09 10:27 | Hospitalist Progress Note ---
Date of Service April 09, 2019 Assessment & Plan (1) Traumatic buttock pain: Pain has improved markedly, Able to lie flat, area of erythema warmth has resolved, no evidence of cellulitis, will DC antibiotic CT abdomen pelvis does not show any evidence of pelvis fracture or muscle injury Continue fentanyl patch, heat application locally Acute renal failure on CKD stage IV: Creatinine elevated 1.71.9 Given IV Lasix for decompensated CHF Diuretics kept on hold Avoid NSAIDs, contrast studies Monitor BMP Low potassium: Corrected monitor BMP Bilateral ankle pain Unsure of the etiology, no evidence of increased warmth swelling or erythema noted suggestive of acute gout Patient has been taking allopurinol, feels like she is having muscle spasm on bilateral calf muscle, radiating down to her ankles and feet Added for muscle relaxant -Flexeril Pain control continue to monitor Type 2 diabetes Appreciate input from pharmacy for glycemic management A1c = 8.0% Basal Lantus, insulin sliding scale adjusted CODE STATUS full code (2) Esophageal cancer: esophageal carcinoma undergoing chemo and radiation treatment, Severe dysphasia Due to above, Patient had speech therapy evaluation in last admission, was recommended to have GI evaluation for esophageal stent placement Was transferred to [facility] Status post esophageal stent placement at [place], procedure was unsuccessful secondary to stent migration stoma, later repeat EGD done to remove esophageal stent Patient able to tolerate soft diet only, ordered for full liquid diet aspiration precaution (3) Abdominal discomfort, epigastric: Due to Lower esophageal adeno CA Pain is worsening after swallowing solid-, has improved Continue full liquid diet only as tolerated, Patient was evaluated by pain management in the past Patient will continue IV Dilaudid, Decompensated CHF with diastolic dysfunction,. Preserved Left ventricle ejection fraction: History of diastolic CHF with preserved LV ejection fraction Patient appeared to be compensated, volume status remains stable 6 kept on hold secondary to acute renal failure Appreciate input from cardiology, Recommend supportive care; next will be resumed as renal function improves to baseline Echo 04/08/2019: LV chamber size normal with mild concentric LVH., Normal LV systolic function EF 60-65%. No segmental wall motion abnormalities noted. CODE STATUS: Full code Disposition: Continue to monitor in telemetry To bed as tolerated, ordered for PT OT evaluation Subjective Complaints of bilateral ankle pain, worse with movement-things she is having attack of gout History of bilateral ankle and knee gout in the past patient has been taking allopurinol No area of increased warmth swelling noted on ankle joints Low back pain/left sacral area pain has resolved, able to lie flat No fever or chills Review of Systems Musculoskeletal: + joint pain (Bilateral ankle pain) Physical Exam Constitutional: WD/WN, vitals as above + ill appearing Eyes: PERRL, conjunctivae normal, anicteric sclerae ENMT: external ear and nose normal, oropharynx normal Neck: trachea midline, no thyromegaly Respiratory: normal respiratory effort; no respiratory distress and no cough Auscultation: no crackles, no rales, no rhonchi and no wheezes Cardiovascular: RRR, no murmur, no edema Gastrointestinal (Abdomen): Percussion/Palpation: abdomen soft; abdomen nontender Musculoskeletal: Ankle: + limited ROM of ankle (Due to pain and discomfort, no overlying skin erythema, increased warmth or swelling noted); no effusion and no skin erythema Neurologic: PERRL, EOMI, accommodation nl, no face palsy, no dysarthria Psychiatric: Orientation: alert and oriented x 3 Results & Data Vital Signs (Past 12 Hours) Vital Signs Temp Pulse Resp BP Pulse Ox 04/09/19 07:40 36.7 C 61 15 153/63 H 98 04/09/19 04:23 58 L 18 135/62 100 04/09/19 03:12 37.0 C 58 L 16 149/97 H 100 04/09/19 01:12 57 L 16 133/61 99 04/09/19 00:47 57 L 13 141/66 H 99 04/08/19 23:15 37.0 C 99 04/08/19 23:12 60 19 127/71 88 L 04/08/19 22:30 62 20 (1) Esophageal cancer Malignant neoplasm of esophagus location: lower third Qualified Code(s): C15.5 - Malignant neoplasm of lower third of esophagus
[2019-04-09] MEDS ORDERED: MAGNESIUM SULFATE / D5W 1 GM/100 ML BAG IV ONE (10:30)
[2019-04-09 11:47] LABS: Hematocrit (blood only) 25.1 % (37-47); Hemoglobin 8.5 g/dL (12.0-16.0); Mean Corpuscular Hemoglobin 30.5 pg (25-34); Mean Corpuscular Hgb Conc 33.9 g/dL (32-36); Mean Platelet Volume 13.4 fL (7.4-10.4); Platelet Count 75 K/uL (130-400); Platelet Estimate Decreased (Normal); RDW Coefficient of Variation 14.1 % (11.5-14.5); RDW Standard Deviation 44.4 fL (36.4-46.3); Red Blood Count 2.79 M/uL (4.2-5.4); White Blood Count 4.03 K/uL (4.8-10.8)
[2019-04-09] MEDS ORDERED: INSULIN GLARGINE SOLOSTAR 100 UNITS/ML 3 ML PEN SC ONE ×2 (12:00→16:45)
[2019-04-09 13:28] LABS: Beta-Hydroxybutyrate 1.77 mg/dl (0.2-2.81)
[2019-04-09] MEDS: HYDROmorphone INJ 0.5 MG/0.5 ML SYR IV PRN (14:28)
--- NOTE | 2019-04-09 14:41 | Pharmacy Report ---
Pharmacy Glycemic Short Note 2 - Date of Service April 09, 2019 - Glycemic Short BSG Results (Last 24 hours): 04/08/19 04/08/19 04/08/19 16:55 20:00 20:14 Glucose 209 H POC Glucose 243 H 240 H 04/09/19 04/09/19 04/09/19 02:14 03:48 07:28 Glucose 205 H POC Glucose 145 H 200 H 04/09/19 11:24 Glucose POC Glucose 257 H OUTPATIENT ANTIDIABETIC REGIMEN: * Lantus 20 units Q AM * Novolog per scale, up to 65 units daily (however pt receives dexamethasone at time of chemotherapy txs) * Linagliptin 5mg daily * A1c = 8.0% ASSESSMENT: 04/09: * Zoraida received 40 units of insulin yesterday (20 units basal and 20 units bolus). BSGs ranged from 200-267 mg/dL. * Fasting BSG = 200 mg/dL. Patient was basal deficient yesterday. Despite increasing Lantus last evening, fasting BSG remains high. She was well controlled on 15 units BID during recent admission. I will trial this dose. * Post prandial BSGs are consistently elevated despite minimal oral intake, therefore Novolog CF and CR will be significantly tightened. * Will consider giving the patient an IV bolus of regular insulin if dinner BSG remains > 250 mg/dL (this was not done at lunchtime per pt had potassium level of 3.3 this AM. Repeat level drawn this afternoon improved to 4) 04/08: * Type 2 diabetic admitted for SOB, ADHF, and intractable back pain * Fasting BSG elevated this AM, will give supplemental Lantus dose now and dose per scale BID due to uncertain PO intake * Novolog doses will be based upon recent admission doses PLAN FOR INPATIENT GLYCEMIC CONTROL: * Hold outpatient oral diabetes medications (Linagliptin) * Basal insulin * Lantus SQ BID per the following scale: * 0 units if less than 100 * 10 units if 100-140 * 15 units if greater than 140 * Bolus insulin * NovoLog per scale ACHS and at 0200 * Goal Range: Low 110 mg/dL - High 140 mg/dL * Correction Factor: 15 mg/dL/unit * Nutritional / Prandial insulin per carb ratio of 1 unit per 6 grams CHO consumed PLAN FOR DISCHARGE: * to be determined
[2019-04-09] MEDS ORDERED: methylPREDNISolone 40 MG in SYRINGE 0 ML IV ONE (16:30)
[2019-04-09] MEDS ORDERED: TRAMADOL HCL 50 MG TABLET PO PRN (18:55)
--- NOTE | 2019-04-09 19:50 | Ultrasound Report ---
BILATERAL LOWER EXTREMITY VENOUS DOPPLER CLINICAL HISTORY: Calf pain. COMPARISON STUDY: Bilateral lower extremity venous Doppler ultrasound December 23, 2015. TECHNIQUE: Sonography of the deep venous system of the bilateral lower extremities was performed. Co mpression and augmentation were evaluated. FINDINGS: The bilateral common femoral, superficial femoral and popliteal veins were compressible. A ugmentation was normal. Flow was shown within the deep calf vessels. IMPRESSION: No evidence of deep venous thrombus within the bilateral lower extremities. ACT 112: Negative or not required by law. Electronically signed by: Audi Dewey M.D. 04/09/2019 7:49 PM
[2019-04-09] MEDS: CITALOPRAM 20 MG TAB PO SCH (20:54)
[2019-04-09] MEDS: allopurinoL 100 MG TAB PO SCH (20:55)
[2019-04-09] MEDS: CYCLOBENZAPRINE HCL 10 MG TAB PO SCH (21:03)
[2019-04-10] MEDS: CHECK FENTANYL PATCH PLACEMENT SCH ×3 (01:29→16:28)
[2019-04-10] MEDS: RESTASIS~ORDER AWAITING ACTION SCH ×3 (01:29→15:32)
[2019-04-10] MEDS ORDERED: INSULIN ASPART 100 UNITS/ML 3 ML PEN SC SCH (02:00)
[2019-04-10] MEDS: PIPERACILLIN/TAZOBACTAM 3.375 GM in DEXTROSE 5% 100 ML IV SCH ×2 (02:24→10:47)
[2019-04-10 07:51] LABS: BUN Creatinine Ratio 24.1 (10-20); Calcium 8.8 mg/dl (8.5-10.1); Creatinine Clr Calc Pharmacy 24.3 ml/min; Est GFR (African American) 21.7; Est GFR (Non-African American) 18.7; Potassium 4.2 mmol/L (3.5-5.1)
[2019-04-10] MEDS: INSULIN ASPART 100 UNITS/ML 3 ML PEN SC SCH ×4 (08:29→20:38)
[2019-04-10] MEDS: CYCLOBENZAPRINE HCL 10 MG TAB PO SCH ×3 (08:31→20:36)
[2019-04-10] MEDS: HydrALAZINE 10 MG TAB PO SCH ×3 (08:32→20:36)
[2019-04-10] MEDS: PANTOprazole 40 MG TAB PO SCH ×2 (08:32→20:36)
[2019-04-10] MEDS: INSULIN GLARGINE SOLOSTAR 100 UNITS/ML 3 ML PEN SC SCH ×2 (08:33→20:37)
[2019-04-10] MEDS: carvediloL 12.5 MG TAB PO SCH ×2 (09:29→20:36)
--- NOTE | 2019-04-10 14:08 | Pharmacy Report ---
Pharmacy Glycemic Short Note 2 - Date of Service April 10, 2019 - Glycemic Short BSG Results (Last 24 hours): 04/09/19 04/09/19 04/10/19 16:18 20:09 02:21 Glucose POC Glucose 184 H 156 H 166 H 04/10/19 04/10/19 04/10/19 06:45 07:44 11:27 Glucose 171 H POC Glucose 171 H 216 H OUTPATIENT ANTIDIABETIC REGIMEN: * Lantus 20 units Q AM * Novolog per scale, up to 65 units daily (however pt receives dexamethasone at time of chemotherapy txs) * Linagliptin 5mg daily * A1c = 8.0% ASSESSMENT: 04/10: * Patient is currently receiving an average of 52 units of insulin per day * 30 units of basal insulin * 22 units of prandial/correctional insulin * BSGs ranging 145 - 257 over the past 24hrs * Changes needed to insulin regimen: * AM Fasting BSG = 171 mg/dL. Will slightly increase basal insulin today per dose was increased by 50% yesterday. * Post-prandial BSGs remain elevated. I will tighten carb ratio only. Parameters are already equivalent to weight/stress 3. 04/09: * Zoraida received 40 units of insulin yesterday (20 units basal and 20 units bolus). BSGs ranged from 200-267 mg/dL. * Fasting BSG = 200 mg/dL. Patient was basal deficient yesterday. Despite increasing Lantus last evening, fasting BSG remains high. She was well controlled on 15 units BID during recent admission. I will trial this dose. * Post prandial BSGs are consistently elevated despite minimal oral intake, therefore Novolog CF and CR will be significantly tightened. * Will consider giving the patient an IV bolus of regular insulin if dinner BSG remains > 250 mg/dL (this was not done at lunchtime per pt had potassium level of 3.3 this AM. Repeat level drawn this afternoon improved to 4) 04/08: * Type 2 diabetic admitted for SOB, ADHF, and intractable back pain * Fasting BSG elevated this AM, will give supplemental Lantus dose now and dose per scale BID due to uncertain PO intake * Novolog doses will be based upon recent admission doses PLAN FOR INPATIENT GLYCEMIC CONTROL: * Hold outpatient oral diabetes medications (Linagliptin) * Basal insulin * Lantus SQ BID per the following scale: * 0 units if less than 100 * 12 units if 100-140 * 17 units if greater than 140 * Bolus insulin * NovoLog per scale ACHS and at 0200 * Goal Range: Low 110 mg/dL - High 140 mg/dL * Correction Factor: 15 mg/dL/unit * Nutritional / Prandial insulin per carb ratio of 1 unit per 5 grams CHO consumed PLAN FOR DISCHARGE: * to be determined
--- NOTE | 2019-04-10 19:02 | Hospitalist Progress Note ---
Date of Service April 10, 2019 Assessment & Plan (1) Traumatic buttock pain: Pain has improved markedly, Able to lie flat, area of erythema warmth has resolved, no evidence of cellulitis, will DC antibiotic CT abdomen pelvis does not show any evidence of pelvis fracture or muscle injury Continue fentanyl patch, heat application locally Acute renal failure on CKD stage IV: Creatinine elevated 1.71.9 Given IV Lasix for decompensated CHF Diuretics kept on hold Avoid NSAIDs, contrast studies Monitor BMP Low potassium: Corrected monitor BMP Bilateral ankle pain Unsure of the etiology, no evidence of increased warmth swelling or erythema noted suggestive of acute gout Patient has been taking allopurinol, feels like she is having muscle spasm on bilateral calf muscle, radiating down to her ankles and feet Added for muscle relaxant -Flexeril-patient reports of significant improvement of symptoms Patient had x-ray of right ankle done on admission, showed no evidence of fracture X-ray of left ankle knee and femur ordered for left lower extremity pain mild DJD no fracture noted, Ordered for PT OT out of bed at this tolerated Type 2 diabetes Appreciate input from pharmacy for glycemic management A1c = 8.0% Basal Lantus, insulin sliding scale adjusted CODE STATUS full code (2) Esophageal cancer: esophageal carcinoma undergoing chemo and radiation treatment, Severe dysphasia Due to above, Patient had speech therapy evaluation in last admission, was recommended to have GI evaluation for esophageal stent placement Was transferred to [facility] Status post esophageal stent placement at [facility], procedure was unsuccessful secondary to stent migration stoma, later repeat EGD done to remove esophageal stent Patient able to tolerate soft diet only, continue full liquid diet aspiration precaution (3) Abdominal discomfort, epigastric: Due to Lower esophageal adeno CA Pain is worsening after swallowing solid-, has improved Continue full liquid diet only as tolerated, Patient was evaluated by pain management in the past Patient will continue IV Dilaudid, Decompensated CHF with diastolic dysfunction,. Preserved Left ventricle ejection fraction: History of diastolic CHF with preserved LV ejection fraction Patient appeared to be compensated, volume status remains stable 6 kept on hold secondary to acute renal failure Appreciate input from cardiology, Recommend supportive care; next will be resumed as renal function improves to baseline Echo 04/08/2019: LV chamber size normal with mild concentric LVH., Normal LV systolic function EF 60-65%. No segmental wall motion abnormalities noted. CODE STATUS: Full code Disposition: T OT evaluation significant deconditioning noted, social service consult for discharge planning Subjective Ankle and knee pain has improved somewhat, no fever or chills, Feels a bit better today, appetite fair, Complain of shortness of breath chest pain dizzy spell or lightheadedness Further episode of diarrhea or loose stool Review of Systems Musculoskeletal: + joint pain (Bilateral ankle pain) Physical Exam Constitutional: WD/WN, vitals as above + ill appearing Eyes: PERRL, conjunctivae normal, anicteric sclerae ENMT: external ear and nose normal, oropharynx normal Neck: trachea midline, no thyromegaly Respiratory: normal respiratory effort; no respiratory distress and no cough Auscultation: no crackles, no rales, no rhonchi and no wheezes Cardiovascular: RRR, no murmur, no edema Gastrointestinal (Abdomen): Percussion/Palpation: abdomen soft; abdomen nontender Musculoskeletal: Ankle: no effusion and no skin erythema Neurologic: PERRL, EOMI, accommodation nl, no face palsy, no dysarthria Psychiatric: Orientation: alert and oriented x 3 Results & Data Vital Signs (Past 12 Hours) Vital Signs Temp Pulse Pulse Resp BP Pulse Ox 04/10/19 16:00 58 L 04/10/19 15:00 36.6 C 54 L 16 119/71 93 04/10/19 14:08 61 136/68 04/10/19 11:29 36.9 C 65 16 134/63 91 04/10/19 08:00 36.8 C 66 16 180/70 H 98 (1) Esophageal cancer Malignant neoplasm of esophagus location: lower third Qualified Code(s): C15.5 - Malignant neoplasm of lower third of esophagus
--- NOTE | 2019-04-10 20:08 | XRay Report ---
XR knee LT 3V, XR femur LT 2V routine, XR ankle LT 2V HISTORY: 64 years-old Female left knee pain /swelling acute pain and swelling of the left lower extr emity COMPARISON: CT abdomen and pelvis 04/07/2019 TECHNIQUE: 2 views of the left femur, 3 views of the left knee and 2 views of the left ankle FINDINGS: FEMUR: Moderate osteophyte is of the left femoral acetabular joint. No acute fracture, dislocation or avascu lar necrosis. Arterial calcifications are noted. KNEE: Mild tricompartmental marginal spurring with mild patellofemoral joint space narrowing. Mild soft tis quynh prominence of the lateral knee, upper calf and lower thigh dimensions. Arterial calcifications ar e noted. Trace joint effusion. No acute fracture, dislocation or intra-articular loose body. Peripher ally sclerotic and centrally lucent 10 mm focus of the lateral trochlear groove is suggestive of subc hondral cystic change. ANKLE: Mild degenerative changes of the ankle with moderate marginal spurring of the calcaneus. No acute fra cture, dislocation or avascular necrosis. Mild diffuse soft tissue prominence with arterial calcifica tions. IMPRESSION: 1. No acute fracture or dislocation. 2. Degenerative changes as above. ACT 112: Negative or not required by law. The above report was generated using voice recognition software. It may contain grammatical, syntax o r spelling errors. Electronically signed by: Efe Elkins M.D. 04/10/2019 8:07 PM
[2019-04-10] MEDS: allopurinoL 100 MG TAB PO SCH (20:36)
[2019-04-10] MEDS: CITALOPRAM 20 MG TAB PO SCH (20:36)
[2019-04-11] MEDS: RESTASIS~ORDER AWAITING ACTION SCH ×2 (00:09→08:40)
[2019-04-11] MEDS: CHECK FENTANYL PATCH PLACEMENT SCH ×3 (00:10→16:32)
[2019-04-11 06:42] LABS: BUN Creatinine Ratio 20.5 (10-20); Calcium 8.6 mg/dl (8.5-10.1); Creatinine Clr Calc Pharmacy 19.3 ml/min; Est GFR (African American) 16.1; Est GFR (Non-African American) 13.9; Magnesium 2.1 mg/dl (1.8-2.4); Potassium 3.7 mmol/L (3.5-5.1)
[2019-04-11] MEDS: CYCLOBENZAPRINE HCL 10 MG TAB PO SCH ×3 (08:39→22:36)
[2019-04-11] MEDS: PANTOprazole 40 MG TAB PO SCH ×2 (08:39→20:17)
[2019-04-11] MEDS: HydrALAZINE 10 MG TAB PO SCH ×3 (08:39→20:18)
[2019-04-11] MEDS: INSULIN GLARGINE SOLOSTAR 100 UNITS/ML 3 ML PEN SC SCH ×2 (08:49→21:57)
[2019-04-11] MEDS: INSULIN ASPART 100 UNITS/ML 3 ML PEN SC SCH ×4 (08:51→21:58)
[2019-04-11] MEDS: carvediloL 12.5 MG TAB PO SCH ×2 (08:52→20:23)
--- NOTE | 2019-04-11 09:05 | Pharmacy Report ---
Pharmacy Glycemic Short Note 2 - Date of Service April 11, 2019 - Glycemic Short BSG Results (Last 24 hours): 04/10/19 04/10/19 04/10/19 11:27 16:37 20:22 Glucose POC Glucose 216 H 239 H 286 H 04/11/19 05:33 Glucose 74 POC Glucose OUTPATIENT ANTIDIABETIC REGIMEN: * Lantus 20 units Q AM * Novolog per scale, up to 65 units daily (however pt receives dexamethasone at time of chemotherapy txs) * Linagliptin 5mg daily * A1c = 8.0% ASSESSMENT: 04/11 * Zoraida received 71 units of insulin yesterday, 32 of this was basal * Postprandial BSGs were higher yesterday but have decreased quite significantly this AM, likely due to drastically rising SCr (1.9->2.7->3.3) * Lantus scale will require dose to be held this AM. Will loosen Novolog parameters in light of lower BSG and steroids now worn off. 04/10: * Patient is currently receiving an average of 52 units of insulin per day * 30 units of basal insulin * 22 units of prandial/correctional insulin * BSGs ranging 145 - 257 over the past 24hrs * Changes needed to insulin regimen: * AM Fasting BSG = 171 mg/dL. Will slightly increase basal insulin today per dose was increased by 50% yesterday. * Post-prandial BSGs remain elevated. I will tighten carb ratio only. Parameters are already equivalent to weight/stress 3. 04/09: * Zoraida received 40 units of insulin yesterday (20 units basal and 20 units bolus). BSGs ranged from 200-267 mg/dL. * Fasting BSG = 200 mg/dL. Patient was basal deficient yesterday. Despite increasing Lantus last evening, fasting BSG remains high. She was well controlled on 15 units BID during recent admission. I will trial this dose. * Post prandial BSGs are consistently elevated despite minimal oral intake, therefore Novolog CF and CR will be significantly tightened. * Will consider giving the patient an IV bolus of regular insulin if dinner BSG remains > 250 mg/dL (this was not done at lunchtime per pt had potassium level of 3.3 this AM. Repeat level drawn this afternoon improved to 4) 04/08: * Type 2 diabetic admitted for SOB, ADHF, and intractable back pain * Fasting BSG elevated this AM, will give supplemental Lantus dose now and dose per scale BID due to uncertain PO intake * Novolog doses will be based upon recent admission doses PLAN FOR INPATIENT GLYCEMIC CONTROL: * Continue to hold outpatient oral diabetes medications (Linagliptin) * Basal insulin - no change; dose was appropriately held this AM so max that patient could receive for today will only be 17 units * Lantus SQ BID per the following scale: * 0 units if less than 100 * 12 units if 100-140 * 17 units if greater than 140 * Bolus insulin - loosen CF/CR * NovoLog per scale ACHS * Goal Range: Low 110 mg/dL - High 140 mg/dL * Correction Factor: 20 mg/dL/unit * Nutritional / Prandial insulin per carb ratio of 1 unit per 7 grams CHO consumed PLAN FOR DISCHARGE: * A1c = 8 % on 04/08/19 Goal A1c < 8 % based on age and comorbidities Less stringent A1C goals (such as less than 8%) may be appropriate for patients with a history of severe hypoglycemia, limited life expectancy, advanced microvascular or macrovascular complications, extensive comorbid conditions, or long-standing diabetes in whom the goal is difficult to achieve despite diabetes self-management education, appropriate glucose monitoring, and effective doses of multiple glucose-lowering agents including insulin. * Recommend to continue outpatient regimen on discharge
[2019-04-11] MEDS ORDERED: SODIUM CHLORIDE 0.9% 1000ML 1,000 ML IV SCH (12:00)
--- NOTE | 2019-04-11 18:06 | Hospitalist Progress Note ---
Date of Service April 11, 2019 Assessment & Plan (1) Traumatic buttock pain: Pain has improved Able to lie flat, area of erythema warmth has resolved, no evidence of cellulitis, will DC antibiotic CT abdomen pelvis does not show any evidence of pelvis fracture or muscle injury Continue fentanyl patch, heat application locally Acute renal failure on CKD stage IV: Worsening of creatinine noted 3.30 Given IV Lasix for decompensated CHF in ER Diuretics kept on hold Blood for gentle IV hydration, nephrology consult requested Avoid NSAIDs, contrast studies Monitor BMP Bilateral ankle pain Unsure of the etiology, no evidence of increased warmth swelling or erythema noted suggestive of acute gout Patient has been taking allopurinol, feels like she is having muscle spasm on bilateral calf muscle, radiating down to her ankles and feet Added for muscle relaxant -Flexeril-patient reports of significant improvement of symptoms Patient had x-ray of right ankle done on admission, showed no evidence of fracture X-ray of left ankle knee and femur ordered for left lower extremity pain mild DJD no fracture noted, Ordered for PT OT out of bed at this tolerated Type 2 diabetes Appreciate input from pharmacy for glycemic management A1c = 8.0% Basal Lantus, insulin sliding scale adjusted CODE STATUS full code (2) Esophageal cancer: esophageal carcinoma undergoing chemo and radiation treatment, Severe dysphasia Due to above, Patient had speech therapy evaluation in last admission, was recommended to have GI evaluation for esophageal stent placement Was transferred to [facility] Status post esophageal stent placement at [facility], procedure was unsuccessful secondary to stent migration stoma, later repeat EGD done to remove esophageal stent Patient able to tolerate soft diet only, continue full liquid diet aspiration precaution (3) Abdominal discomfort, epigastric: Due to Lower esophageal adeno CA Pain is worsening after swallowing solid-, has improved Continue full liquid diet only as tolerated, Patient was evaluated by pain management in the past Patient will continue IV Dilaudid, Decompensated CHF with diastolic dysfunction,. Preserved Left ventricle ejection fraction: History of diastolic CHF with preserved LV ejection fraction Patient appeared to be compensated, volume status remains stable 6 kept on hold secondary to acute renal failure Appreciate input from cardiology, Recommend supportive care; next will be resumed as renal function improves to baseline Echo 04/08/2019: LV chamber size normal with mild concentric LVH., Normal LV systolic function EF 60-65%. No segmental wall motion abnormalities noted. CODE STATUS: Full code Disposition: PT OT evaluation significant deconditioning noted, social service consult for discharge planning Subjective Bilateral ankle pain, leg pain has improved somewhat, no fever or chills, tolerating diet, no further episode of diarrhea, no abdominal pain no nausea vomiting Review of Systems Musculoskeletal: + joint pain (Bilateral ankle pain) Physical Exam Constitutional: WD/WN, vitals as above + ill appearing Eyes: PERRL, conjunctivae normal, anicteric sclerae ENMT: external ear and nose normal, oropharynx normal Neck: trachea midline, no thyromegaly Respiratory: normal respiratory effort; no respiratory distress and no cough Auscultation: no crackles, no rales, no rhonchi and no wheezes Cardiovascular: RRR, no murmur, no edema Gastrointestinal (Abdomen): Percussion/Palpation: abdomen soft; abdomen nontender Musculoskeletal: Extremities: + extremities abnormal to inspection (Sustained injury/trauma to the left buttock area, area of ecchymosis with s) Ankle: no effusion and no skin erythema Skin: Trauma: + evidence of skin trauma (Localized ecchymosis on the left buttock area) Neurologic: PERRL, EOMI, accommodation nl, no face palsy, no dysarthria Psychiatric: Orientation: alert and oriented x 3 Results & Data Vital Signs (Past 12 Hours) Vital Signs Temp Pulse Pulse Resp BP Pulse Ox 04/11/19 15:00 36.6 C 82 18 123/74 97 04/11/19 11:09 36.7 C 49 L 18 158/74 H 93 04/11/19 07:44 55 L 04/11/19 07:17 36.6 C 79 18 120/73 97 (1) Esophageal cancer Malignant neoplasm of esophagus location: lower third Qualified Code(s): C15.5 - Malignant neoplasm of lower third of esophagus
[2019-04-11] MEDS ORDERED: predniSONE 20 MG TAB PO STA (18:58)
[2019-04-11] MEDS: HEPARIN SOD 5,000 UNIT/0.5 ML VIAL SQ SCH (20:14)
[2019-04-11] MEDS: fentaNYL 12 MCG/HR TDSY TD SCH (20:14)
[2019-04-11] MEDS: allopurinoL 100 MG TAB PO SCH (20:17)
[2019-04-11] MEDS: CITALOPRAM 20 MG TAB PO SCH (20:18)
[2019-04-12] MEDS: CHECK FENTANYL PATCH PLACEMENT SCH ×3 (00:40→14:17)
[2019-04-12] MEDS: ACETAMINOPHEN 325 MG TAB PO PRN (05:48)
[2019-04-12 06:32] LABS: Hematocrit (blood only) 27.2 % (37-47); Hemoglobin 9.2 g/dL (12.0-16.0); Mean Corpuscular Hemoglobin 30.2 pg (25-34); Mean Corpuscular Hgb Conc 33.8 g/dL (32-36); Mean Corpuscular Volume 89.2 fL (80-100); Mean Platelet Volume 12.4 fL (7.4-10.4); Platelet Count 94 K/uL (130-400); RDW Coefficient of Variation 14.2 % (11.5-14.5); RDW Standard Deviation 45.6 fL (36.4-46.3); Red Blood Count 3.05 M/uL (4.2-5.4); White Blood Count 5.66 K/uL (4.8-10.8)
[2019-04-12 06:33] LABS: Platelet Estimate Decreased (Normal)
[2019-04-12 06:53] LABS: Calcium 8.6 mg/dl (8.5-10.1); Creatinine Clr Calc Pharmacy 16.3 ml/min; Est GFR (Non-African American) 11.2; Potassium 4.1 mmol/L (3.5-5.1)
[2019-04-12] MEDS: INSULIN ASPART 100 UNITS/ML 3 ML PEN SC SCH ×4 (08:54→21:51)
[2019-04-12] MEDS: HEPARIN SOD 5,000 UNIT/0.5 ML VIAL SQ SCH ×2 (08:54→22:01)
[2019-04-12] MEDS: carvediloL 12.5 MG TAB PO SCH ×2 (08:55→21:58)
[2019-04-12] MEDS: HydrALAZINE 10 MG TAB PO SCH ×3 (08:55→21:57)
[2019-04-12] MEDS: PANTOprazole 40 MG TAB PO SCH ×2 (08:55→22:02)
[2019-04-12] MEDS: CYCLOBENZAPRINE HCL 10 MG TAB PO SCH ×4 (09:06→21:59)
[2019-04-12] MEDS: INSULIN GLARGINE SOLOSTAR 100 UNITS/ML 3 ML PEN SC SCH ×2 (10:19→21:55)
--- NOTE | 2019-04-12 11:32 | Pharmacy Report ---
Pharmacy Glycemic Short Note 2 - Date of Service April 12, 2019 - Glycemic Short BSG Results (Last 24 hours): 04/11/19 04/11/19 04/11/19 11:43 16:34 21:56 Glucose POC Glucose 92 100 H 289 H 04/12/19 04/12/19 05:13 05:45 Glucose 68 L POC Glucose 77 OUTPATIENT ANTIDIABETIC REGIMEN: * Lantus 20 units Q AM * Novolog per scale, up to 65 units daily (however pt receives dexamethasone at time of chemotherapy txs) * Linagliptin 5mg daily * A1c = 8.0% ASSESSMENT: 04/12 * Patient received 26 units of insulin yesterday (significant reduction from days previous) * 17 basal, 9 prandial/correctional * BSGs yesterday ranging 62-289 mg/dL * Fasting BSG this morning of 68 mg/dL - may be a result of too much basal vs. too much correctional Novolog given HS * Will reduce Lantus scale tonight - consider loosening CF at HS if trend continues to be seen * Two consecutive days with high BSGs at HS (286 mg/dL and 289 mg/dL) * Will tighten CF/CR at dinner * SCr continues to rise 1.72 mg/dL (04/08) -> 1.92 mg/dL -> 2.57 mg/dL -> 3.3 mg/dL -> 3.92 mg/dL (04/12) * Patient's PO intake has been variable due to painful swallowing 04/11 * Zoraida received 71 units of insulin yesterday, 32 of this was basal * Postprandial BSGs were higher yesterday but have decreased quite significantly this AM, likely due to drastically rising SCr (1.9->2.7->3.3) * Lantus scale will require dose to be held this AM. Will loosen Novolog parameters in light of lower BSG and steroids now worn off. 04/10: * Patient is currently receiving an average of 52 units of insulin per day * 30 units of basal insulin * 22 units of prandial/correctional insulin * BSGs ranging 145 - 257 over the past 24hrs * Changes needed to insulin regimen: * AM Fasting BSG = 171 mg/dL. Will slightly increase basal insulin today per dose was increased by 50% yesterday. * Post-prandial BSGs remain elevated. I will tighten carb ratio only. Parameters are already equivalent to weight/stress 3. 04/09: * Zoraida received 40 units of insulin yesterday (20 units basal and 20 units bolus). BSGs ranged from 200-267 mg/dL. * Fasting BSG = 200 mg/dL. Patient was basal deficient yesterday. Despite increasing Lantus last evening, fasting BSG remains high. She was well controlled on 15 units BID during recent admission. I will trial this dose. * Post prandial BSGs are consistently elevated despite minimal oral intake, therefore Novolog CF and CR will be significantly tightened. * Will consider giving the patient an IV bolus of regular insulin if dinner BSG remains > 250 mg/dL (this was not done at lunchtime per pt had potassium level of 3.3 this AM. Repeat level drawn this afternoon improved to 4) 04/08: * Type 2 diabetic admitted for SOB, ADHF, and intractable back pain * Fasting BSG elevated this AM, will give supplemental Lantus dose now and dose per scale BID due to uncertain PO intake * Novolog doses will be based upon recent admission doses PLAN FOR INPATIENT GLYCEMIC CONTROL: * Continue to hold outpatient oral diabetes medications (Linagliptin) * Basal insulin - decrease scale * Lantus SQ BID per the following scale: * 0 units if less than 100 * 10 units if 100-140 * 15 units if greater than 140 * Bolus insulin - loosen CF/CR * NovoLog per scale 0730,1130, and 2100 * Goal Range: Low 110 mg/dL - High 140 mg/dL * Correction Factor: 20 mg/dL/unit * Nutritional / Prandial insulin per carb ratio of 1 unit per 7 grams CHO consumed * NovoLog per scale 1630 * Goal Range: Low 110 mg/dL - High 140 mg/dL * Correction Factor: 15 mg/dL/unit * Nutritional / Prandial insulin per carb ratio of 1 unit per 6 grams CHO consumed PLAN FOR DISCHARGE: * A1c = 8 % on 04/08/19 Goal A1c < 8 % based on age and comorbidities Less stringent A1C goals (such as less than 8%) may be appropriate for patients with a history of severe hypoglycemia, limited life expectancy, advanced microvascular or macrovascular complications, extensive comorbid conditions, or long-standing diabetes in whom the goal is difficult to achieve despite diabetes self-management education, appropriate glucose monitoring, and effective doses of multiple glucose-lowering agents including insulin. * Recommend to continue outpatient regimen on discharge
--- NOTE | 2019-04-12 17:03 | Hospitalist Progress Note ---
Date of Service April 12, 2019 Assessment & Plan (1) Traumatic buttock pain: Pain has resolved Able to lie flat, area of erythema warmth has resolved, no evidence of cellulitis, will DC antibiotic CT abdomen pelvis does not show any evidence of pelvis fracture or muscle injury Continue fentanyl patch, heat application locally Acute renal failure on CKD stage IV: Worsening of creatinine noted 3.9 Diuretics kept on hold nephrology consult requested,underlying advanced CKD , may eventually need dialysis , pt does not want to consider Perm cath placement /dialysis catheter now as she is already dealing with chemo and radiation tx for esophageal ca and will need a complicated surgical procedure wants to wait for consideration for dialysis if not emergently needed in this admission no evidence of volume over load, no severe electrolyte imbalance or metabolic acidosis pt is still able to urinate continue to monitor Avoid NSAIDs, contrast studies Monitor BMP Bilateral ankle pain Unsure of the etiology, no evidence of increased warmth swelling or erythema noted suggestive of acute gout Patient has been taking allopurinol, feels like she is having muscle spasm on bilateral calf muscle, radiating down to her ankles and feet Added for muscle relaxant -Flexeril-patient reports of significant improvement of symptoms Patient had x-ray of right ankle done on admission, showed no evidence of fr acture X-ray of left ankle knee and femur ordered for left lower extremity pain mild DJD no fracture noted, pain improved today after supportive care pt reports of able to get out of bed and walk with walker today Ordered for PT OT LEFT KNEE PAIN AND SWELLING : possible acute gouty arthritis previous hx of gout with Right knee involvement ordered for PO Prednisone low dose 20 mg PO daily for total X 5 dose pt was initially very reluctant for steroid tx due to side effect after ist dose , knee pain was much better. did not had any symptom of anxiety or insomina agreeable to complete total 5 days of Prednisone tx DYSPHAGIA: unable to swallow solid /dry food due to lower esophageal large mass /adeno Ca Type 2 diabetes Appreciate input from pharmacy for glycemic management A1c = 8.0% Basal Lantus, insulin sliding scale adjusted CODE STATUS full code (2) Esophageal cancer: esophageal carcinoma undergoing chemo and radiation treatment, Severe dysphasia Due to above, Patient had speech therapy evaluation in last admission, was recommended to have GI evaluation for esophageal stent placement Was transferred to [facility] Status post esophageal stent placement at [facility], procedure was unsuccessful secondary to stent migration stoma, later repeat EGD done to remove esophageal stent Patient able to tolerate soft diet only, continue full liquid diet aspiration precaution (3) Abdominal discomfort, epigastric: Due to Lower esophageal adeno CA Pain is worsening after swallowing solid-, has improved Continue full liquid diet only as tolerated, Patient was evaluated by pain management in the past Patient will continue IV Dilaudid, Decompensated CHF with diastolic dysfunction,. Preserved Left ventricle ejection fraction: History of diastolic CHF with preserved LV ejection fraction Patient appeared to be compensated, volume status remains stable 6 kept on hold secondary to acute renal failure Appreciate input from cardiology, Recommend supportive care; next will be resumed as renal function improves to baseline Echo 04/08/2019: LV chamber size normal with mild concentric LVH., Normal LV systolic function EF 60-65%. No segmental wall motion abnormalities noted. CODE STATUS: Full code Disposition: PT OT evaluation significant deconditioning noted, social service consult for discharge planning Subjective rt knee pain much better no nausea or abdominal pain feels much better today no sob ,no orthopnea managed to be out of bed and walk on the hallway Review of Systems Review of Systems: All systems reviewed & are unremarkable except as noted in HPI & below Physical Exam Constitutional: WD/WN, vitals as above + ill appearing Eyes: PERRL, conjunctivae normal, anicteric sclerae ENMT: external ear and nose normal, oropharynx normal Neck: trachea midline, no thyromegaly Respiratory: normal respiratory effort; no respiratory distress and no cough Auscultation: no crackles, no rales, no rhonchi and no wheezes Cardiovascular: RRR, no murmur, no edema Gastrointestinal (Abdomen): Percussion/Palpation: abdomen soft; abdomen nontender Musculoskeletal: Ankle: no effusion and no skin erythema Neurologic: PERRL, EOMI, accommodation nl, no face palsy, no dysarthria Psychiatric: Orientation: alert and oriented x 3 Results & Data Vital Signs (Past 12 Hours) Vital Signs Pulse BP 04/12/19 14:21 60 157/60 H 04/12/19 09:14 61 161/75 H (1) Esophageal cancer Malignant neoplasm of esophagus location: lower third Qualified Code(s): C15.5 - Malignant neoplasm of lower third of esophagus
--- NOTE | 2019-04-12 17:56 | Nephrology Consultation ---
Date of Consultation April 12, 2019 Assessment & Plan (1) Acute renal failure superimposed on chronic kidney disease: Patient with RAMONITA likely due to multifactorial etiology including intravascular volume depletion in setting of vomiting and poor po intake, chemotherapy and worsening diabetic nephropathy. She has CKD stage 4 with baseline cr 2. Her cr is now up to 3.9. Electrolytes are stable. CT showed no hydronephrosis. -I discussed with the patient her kidney are likely going to fail and need dialysis in a matter of days. She said dialysis was discussed with Dr. Brown but she had hoped to avoid it. I discussed dialysis procedure in detail and in the context of esophageal cancer. She was told there is a good chance of cure for the cancer with chemo radiation and resection. She will discuss with -Daily BMP -Avoid nephrotoxins such as contrast. -Give LR at 100ml/hr for 1 litre (2) Esophageal cancer: She had started chemo radiation but now on hold. She is trying to eat and drink. Consider palliative consult (3) CHF (congestive heart failure): She is comfortable on room air. Will give gentle fluids as above. Daily weight and 2g sodium diet. History of Present Illness Reason for Consultation: RAMONITA on CKD Requesting Physician: Margot Sampson MD Attending Physician: Margot Sampson MD History of Present Illness This is a 64YoF with multiple medical problems being seen for worsening renal function. She has PMH of HTN, hyperlipidemia, type 2 Dm, Sarcoidosis, CAD, CKD stage 4 with baseline cr of 4 and most recently diagnosis of esophageal cancer. She [place] [facility] plan to shrink tumor for resection. She also had an esophageal stent placed on 04/04 but dislodged and was removed the next day. She has not been eating well due to dysphagia from the tumor. Few days ago developed vomiting, back pain and fell. She sustained pain in the left knee which is her main complaint now. She had some SOB and got lasix in the ED. Cr was 1.7 on admission but has increased sharply to 3.9 today. She is non oliguric.dialysis has been discussed with Dr. Brown in the past but she says "she was hoping to avoid it." Allergies Allergy/AdvReac Type Severity Reaction Status Date / Time Sulfa (Sulfonamide Allergy Intermediate RASH Verified 04/07/19 21:49 Antibiotics) atenolol Allergy Mild DROP HEART Verified 04/07/19 21:49 RATE levofloxacin [From Levaquin] Allergy Mild Rash Verified 04/07/19 21:49 gabapentin [From Neurontin] AdvReac Mild FELT LIKE Verified 04/07/19 21:49 WENT TO OUTER SPACE morphine AdvReac Mild NAUSEA/SICK Verified 04/07/19 21:49 NESS Home Medications Home Medications Medication Instructions Recorded Confirmed Type Novolog Flexpen U-100 Insulin 0 sliding scale dose SUBCUT ACHS 05/31/18 04/07/19 History Tradjenta 5 mg PO QAM 05/31/18 04/07/19 History allopurinol 200 mg PO QPM 05/31/18 04/07/19 History citalopram [Celexa] 20 mg PO QPM 05/31/18 04/07/19 History Restasis 1 drp OPHTHALMIC (EYE) Q12H 09/10/18 04/07/19 History melatonin 1 mg PO HS PRN 09/10/18 04/07/19 History insulin glargine 100) 100 unit/mL 20 unit SUBCUT QAM 03/04/19 04/07/19 History subcutaneous solution pantoprazole 20 mg tablet,delayed 20 mg PO BID 03/23/19 04/07/19 History release dexamethasone 12 mg PO UD 03/28/19 04/07/19 History aspirin [Aspir-Low] 81 mg PO DAILY 04/07/19 04/07/19 History atorvastatin [Lipitor] 20 mg PO DAILY 04/07/19 04/07/19 History benzonatate 100 - 200 mg PO TID PRN 04/07/19 04/07/19 History carvedilol 12.5 mg PO BID 04/07/19 04/07/19 History clobetasol 1 applic TOPICAL HS PRN 04/07/19 04/07/19 History cranberry 500 mg PO DAILY 04/07/19 04/07/19 History cyclosporine [Restasis] 1 drp OPHTHALMIC (EYE) Q12H 04/07/19 04/07/19 History ergocalciferol (vitamin D2) 50,000 unit PO WK 04/07/19 04/07/19 History [Vitamin D2] hydralazine 10 mg PO TID 04/07/19 04/07/19 History ondansetron HCl [Zofran] 8 mg PO Q8 PRN 04/07/19 04/07/19 History prochlorperazine maleate 10 mg PO Q6H PRN 04/07/19 04/07/19 History tramadol 25 mg PO DAILY 04/07/19 04/07/19 History Patient History Medical History (Updated 04/12/19 @ 18:09 by Broderick Zendejas MD) Anemia Carcinoma in situ Cervical - 1985 CKD (chronic kidney disease), stage IV follows w/ Dr. Faye Congestive heart failure "diastolic" - Follows with Dr. Good Coronary artery disease "s/p stenting x 2"--follow with Dr. Good Depression Diastolic dysfunction with acute on chronic heart failure Difficulty swallowing Current due to esophageal CA - feels like food sits at top of stomach DM2 (diabetes mellitus, type 2) IDDM Esophageal cancer (Chronic) Diagnosed 01/19/19 Gout Hearing deficit High cholesterol (Inactive) History of GI bleed d/t ulcer (age in 20's) HTN (hypertension) Melanoma of back Removed - MOH'S Surgery Pacemaker (Inactive) implanted 2015 -- [employer] - last checked 03/01/2019 Rectus sheath hematoma (Resolved) Sarcoidosis Cutaneuos, Lung, Eyes, Spleen, Cardiac (s/p prednisone 1 year and then plaquinil) Surgical History H/O colonoscopy (Inactive) 01/19/19 [facility] History of appendectomy (Inactive) Age 16 History of bilateral cataract extraction 2014 History of bronchoscopy 1988 - with biopsy (at [facility]) History of cardiac cath prior to 2009 -- @ [place] History of carpal tunnel surgery of right wrist x 2 History of cone biopsy of cervix 1985 - malignant "in situ" History of detached retina repair 2014 - right eye History of dilatation and curettage 1974 History of esophagogastroduodenoscopy (EGD) w/ biopsy 01/19/19 [facility] History of heart artery stent (Inactive) x 2 stents prior to 2009 in [place] History of hysterectomy (Inactive) 1986 History of lumpectomy of left breast benign History of Mohs micrographic surgery for skin cancer On back - for Melanoma History of wisdom tooth extraction Hx of endoscopy upper endoscopic ultrasonography Family History Mother , Passed age 78 of dementia Breast cancer Bilateral Breasts - 2 different kinds - had lumpectomy and brachytherapy Hypertension Heart disease Father , Passed age 88 of COPD/Cardiac Complications Diabetes Melanoma Heart disease Sister No problems noted. 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 Feels Safe at Home: Yes Smoking Status: Unknown if ever smoked Hx Alcohol Use: No Hx Substance Use: No Childhood Exposure to Second-Hand Smoke: Yes (Father Smoked in Home ) Other Diet Comment: "I try to stay away from sugars" caffeine: No during the past year weight has: decreased > 10 lbs Dental Care, Regularly: No Review of Systems Review of Systems: All systems reviewed & are unremarkable except as noted in HPI & below Physical Exam Physical Exam: General exam: Appears comfortable, no acute distress HEENT: Pupils are equal and reactive to light Neck: No JVD, neck is supple trachea is midline Respiratory system: Clear breath sounds bilaterally. Gastrointestinal: Abdomen is soft, non distended, non tender, bowel sounds are present CVS: Regular rate and rhythm. No murmurs, rubs or gallops Musculoskeletal: No joint or muscle tenderness Extremities: Non tender, no edema, peripheral pulses are present. left knee is swollen and tender Neuro: Oriented, no tremors, no focal neurological deficits Skin: No rashes Results & Data Vital Signs (Past 12 Hours) Vital Signs Pulse BP 04/12/19 14:21 60 157/60 H 04/12/19 09:14 61 161/75 H Laboratory Results Laboratory Results - last 24 hr 04/11/19 04/11/19 04/12/19 16:34 21:56 05:13 WBC RBC Hgb Hct MCV MCH MCHC RDW Std Deviation RDW Coeff of Dao Plt Count MPV Platelet Estimate Sodium Potassium Chloride Carbon Dioxide Anion Gap BUN Creatinine Est Cr Clr Drug Dosing Est GFR ( Amer) Est GFR (Non-Af Amer) BUN/Creatinine Ratio Glucose POC Glucose 100 H 289 H 77 Calcium 04/12/19 04/12/19 04/12/19 05:45 05:45 16:47 WBC 5.66 RBC 3.05 L Hgb 9.2 L Hct 27.2 L MCV 89.2 MCH 30.2 MCHC 33.8 RDW Std Deviation 45.6 RDW Coeff of Dao 14.2 Plt Count 94 L MPV 12.4 H Platelet Estimate Decreased L Sodium 136 Potassium 4.1 Chloride 107 Carbon Dioxide 22 Anion Gap 7.0 BUN 74 H Creatinine 3.92 H D Est Cr Clr Drug Dosing 16.3 Est GFR ( Amer) 13.0 Est GFR (Non-Af Amer) 11.2 BUN/Creatinine Ratio 19.0 Glucose 68 L POC Glucose 245 H Calcium 8.6 (1) Esophageal cancer Malignant neoplasm of esophagus location: lower third Qualified Code(s): C15.5 - Malignant neoplasm of lower third of esophagus (2) CHF (congestive heart failure) Heart failure chronicity: unspecified Heart failure type: unspecified Qualified Code(s): I50.9 - Heart failure, unspecified
[2019-04-12] MEDS ORDERED: SODIUM CHLORIDE 0.9% 1000ML 1,000 ML IV SCH (18:30)
[2019-04-12] MEDS ORDERED: predniSONE 20 MG TAB PO STA (18:53)
[2019-04-12] MEDS: CITALOPRAM 20 MG TAB PO SCH (21:56)
[2019-04-12] MEDS: allopurinoL 100 MG TAB PO SCH (21:56)
[2019-04-13] MEDS: CHECK FENTANYL PATCH PLACEMENT SCH ×3 (00:16→16:42)
[2019-04-13] MEDS: ACETAMINOPHEN 325 MG TAB PO PRN ×2 (00:16→21:02)
[2019-04-13] MEDS: HEPARIN 100 UNIT/ML 5ML FLUSH FLUSH PRN ×2 (05:16→06:10)
[2019-04-13 07:08] LABS: Hematocrit (blood only) 26.6 % (37-47); Hemoglobin 8.8 g/dL (12.0-16.0); Mean Corpuscular Hemoglobin 29.7 pg (25-34); Mean Corpuscular Hgb Conc 33.1 g/dL (32-36); Mean Corpuscular Volume 89.9 fL (80-100); RDW Coefficient of Variation 14.2 % (11.5-14.5); Red Blood Count 2.96 M/uL (4.2-5.4); White Blood Count 3.25 K/uL (4.8-10.8)
[2019-04-13 07:28] LABS: Mean Platelet Volume 11.4 fL (7.4-10.4); Platelet Count 90 K/uL (130-400)
[2019-04-13 07:38] LABS: BUN Creatinine Ratio 23.4 (10-20); Calcium 8.8 mg/dl (8.5-10.1); Creatinine Clr Calc Pharmacy 19.6 ml/min; Est GFR (African American) 16.3; Est GFR (Non-African American) 14.1; Potassium 4.5 mmol/L (3.5-5.1)
[2019-04-13] MEDS: INSULIN ASPART 100 UNITS/ML 3 ML PEN SC SCH ×4 (08:45→20:58)
[2019-04-13] MEDS: predniSONE 20 MG TAB PO SCH (08:47)
[2019-04-13] MEDS: carvediloL 12.5 MG TAB PO SCH ×2 (08:47→20:57)
--- NOTE | 2019-04-13 08:47 | Hospitalist Progress Note ---
Date of Service April 13, 2019 Assessment & Plan (1) Traumatic buttock pain: Pain has resolved Able to lie flat, area of erythema warmth has resolved, no evidence of cellulitis, will antibiotic discontinued CT abdomen pelvis does not show any evidence of pelvis fracture or muscle injury Continue fentanyl patch, heat application locally Acute renal failure on CKD stage IV: Worsening of creatinine noted 3.9 Diuretics kept on hold - now improved, Cr 3.3 nephrology consult requested,underlying advanced CKD , may eventually need dialysis , pt does not want to consider Perm cath placement /dialysis catheter now as she is already dealing with chemo and radiation tx for esophageal ca and will need a complicated surgical procedure wants to wait for consideration for dialysis if not emergently needed in this admission no evidence of volume overload, no severe electrolyte imbalance or metabolic acidosis pt is still able to urinate continue to monitor Avoid NSAIDs, contrast studies Monitor BMP Bilateral ankle pain Unsure of the etiology, no evidence of increased warmth swelling or erythema noted suggestive of acute gout Patient has been taking allopurinol, feels like she is having muscle spasm on bilateral calf muscle, radiating down to her ankles and feet Added for muscle relaxant -Flexeril-patient reports of significant improvement of symptoms Patient had x-ray of right ankle done on admission, showed no evidence of fracture X-ray of left ankle knee and femur ordered for left lower extremity pain mild DJD no fracture noted, pain improved after supportive care pt reports of able to get out of bed and walk with walker Ordered for PT/OT LEFT KNEE PAIN AND SWELLING : possible acute gouty arthritis previous hx of gout with Right knee involvement ordered for PO Prednisone low dose 20 mg PO daily for total X 5 dose pt was initially very reluctant for steroid tx due to side effect after 1st dose , knee pain was much better. did not had any symptom of anxiety agreeable to complete total 5 days of Prednisone tx DYSPHAGIA: unable to swallow solid /dry food due to lower esophageal large mass /adeno Ca Type 2 diabetes Appreciate input from pharmacy for glycemic management A1c = 8.0% Basal Lantus, insulin sliding scale adjusted HYPERTENSION -Currently on Coreg and hydralazine 10 mg 3 times daily -Elevated BP today, SBP this afternoon 190, will give another hydralazine (2) Esophageal cancer: esophageal carcinoma undergoing chemo and radiation treatment Severe dysphasia Due to above, Patient had speech therapy evaluation in last admission, was recommended to have GI evaluation for esophageal stent placement Was transferred to [facility] Status post esophageal stent placement at [place], procedure was unsuccessful secondary to stent migration stoma, later repeat EGD done to remove esophageal stent Patient able to tolerate soft diet only, continue full liquid diet aspiration precaution (3) Abdominal discomfort, epigastric: Due to Lower esophageal adeno CA Pain is worsening after swallowing solid-, has improved Continue full liquid diet only as tolerated, Patient was evaluated by pain management in the past Patient will continue IV Dilaudid, Decompensated CHF with diastolic dysfunction,. Preserved Left ventricle ejection fraction: History of diastolic CHF with preserved LV ejection fraction Patient appeared to be compensated, volume status remains stable 6 kept on hold secondary to acute renal failure Appreciate input from cardiology, Recommend supportive care; next will be resumed as renal function improves to baseline Echo 04/08/2019: LV chamber size normal with mild concentric LVH., Normal LV systolic function EF 60-65%. No segmental wall motion abnormalities noted. CODE STATUS: Full code Disposition: PT OT evaluation significant deconditioning noted, social service consult for discharge planning Subjective No acute is overnight. Patient is lying in bed, her is at the bedside. Patient appears tired, says she was up late, watching TV/celebrating New Years. Says she is able to tolerate p.o. much better, than last time (during her last admission, prior to esophageal stent). Denies fevers, chills, chest pain, shortness of breath, abdominal pain. Says she is able to void, and had BM today. Yesterday she had conversation with e commerce project manager, about possible dialysis. At this time she is hopeful to avoid it. Review of Systems Review of Systems: All systems reviewed & are unremarkable except as noted in HPI & below Constitutional: + fatigue; no fever and no chills Respiratory: no cough, no dyspnea and no pain on inspiration Cardiovascular: no chest pain, no dyspnea on exertion and no palpitations Gastrointestinal: no abdominal pain, no nausea and no vomiting Physical Exam Physical Exam: Constitutional: Elderly female, lying in bed, in no acute distress, + ill appearing Eyes: PERRL, EOMI, conjunctivae normal, anicteric sclerae ENMT: external ear and nose normal, oropharynx normal Neck: trachea midline, no thyromegaly Respiratory: normal respiratory effort; no respiratory distress and no cough Auscultation: no crackles, no rales, no rhonchi and no wheezes Cardiovascular: RRR, no murmur, no edema Gastrointestinal (Abdomen): Percussion/Palpation: abdomen soft; abdomen nontender, no guarding Musculoskeletal: Ankle: no effusion and no skin erythema, moves extremities spontaneously, able to ambulate with a walker Neurologic: PERRL, EOMI, accommodation nl, no face palsy, no dysarthria, moves extremities spontaneously Psychiatric: Orientation: alert and oriented x 3, euthymic affect Results & Data Vital Signs (Past 12 Hours) Vital Signs Temp Pulse Resp BP Pulse Ox 04/13/19 08:00 36.2 C L 59 L 18 165/81 H 97 04/12/19 23:55 36.3 C L 58 L 17 154/65 H 95 Laboratory Results 04/13/19 04/13/19 04/12/19 Range/Units 06:06 06:06 21:50 WBC 3.25 L (4.8-10.8) K/uL RBC 2.96 L (4.2-5.4) M/uL Hgb 8.8 L (12.0-16.0) g/dL Hct 26.6 L (37-47) % MCV 89.9 (80-100) fL MCH 29.7 (25-34) pg MCHC 33.1 (32-36) g/dL RDW Std Deviation 46.0 (36.4-46.3) fL RDW Coeff of Dao 14.2 (11.5-14.5) % Plt Count 90 L (130-400) K/uL MPV 11.4 H (7.4-10.4) fL Sodium 137 (136-145) mmol/L Potassium 4.5 (3.5-5.1) mmol/L Chloride 107 (98-107) mmol/L Carbon Dioxide 23 (21-32) mmol/L Anion Gap 7.0 (3-11) BUN 76 H (7-18) mg/dl Creatinine 3.26 H D (0.6-1.2) mg/dl Est Cr Clr Drug Dosing 19.6 ml/min Est GFR ( Amer) 16.3 Est GFR (Non-Af Amer) 14.1 BUN/Creatinine Ratio 23.4 H (10-20) Glucose 291 H (70-99) mg/dl POC Glucose 253 H (70-99) Calcium 8.8 (8.5-10.1) mg/dl 04/12/19 04/11/19 Range/Units 16:47 16:34 WBC (4.8-10.8) K/uL RBC (4.2-5.4) M/uL Hgb (12.0-16.0) g/dL Hct (37-47) % MCV (80-100) fL MCH (25-34) pg MCHC (32-36) g/dL RDW Std Deviation (36.4-46.3) fL RDW Coeff of Dao (11.5-14.5) % Plt Count (130-400) K/uL MPV (7.4-10.4) fL Sodium (136-145) mmol/L Potassium (3.5-5.1) mmol/L Chloride (98-107) mmol/L Carbon Dioxide (21-32) mmol/L Anion Gap (3-11) BUN (7-18) mg/dl Creatinine (0.6-1.2) mg/dl Est Cr Clr Drug Dosing ml/min Est GFR ( Amer) Est GFR (Non-Af Amer) BUN/Creatinine Ratio (10-20) Glucose (70-99) mg/dl POC Glucose 245 H 100 H (70-99) Calcium (8.5-10.1) mg/dl Medications Administered Current Inpatient Medications Acetaminophen (Tylenol) 650 mg PO Q4H PRN PRN Reason: Pain or Fever Stop: 05/08/19 01:09 Last Admin: 04/13/19 00:16 Dose: 650 mg Documented by: Allopurinol (Zyloprim) 200 mg PO QPM [facility] Stop: 05/08/19 20:59 Last Admin: 04/12/19 21:56 Dose: 200 mg Documented by: Benzonatate (Tessalon Perle) 100 - 200 mg PO TID PRN PRN Reason: Cough Stop: 05/08/19 01:09 Last Admin: 04/12/19 05:51 Dose: 200 mg Documented by: Carvedilol (Coreg) 12.5 mg PO BID [facility] Stop: 05/08/19 08:59 Last Admin: 04/12/19 21:58 Dose: 12.5 mg Documented by: Citalopram Hydrobromide (Celexa) 20 mg PO QPM [facility] Stop: 05/08/19 20:59 Last Admin: 04/12/19 21:56 Dose: 20 mg Documented by: Clobetasol Propionate (Clobetasol Propionate Oint) 1 appln EXT HS PRN PRN Reason: Rash Stop: 05/08/19 03:02 Cyclobenzaprine HCl (Flexeril) 10 mg PO TID [facility] Stop: 05/09/19 19:29 Last Admin: 04/12/19 21:59 Dose: 10 mg Documented by: Dextrose (Dextrose 50%) 25 - 50 ml IV UD PRN; Protocol PRN Reason: Hypoglycemia Protocol Stop: 05/08/19 01:44 Fentanyl (Duragesic) 12 mcg TD Q3D [facility] Stop: 04/22/19 19:59 Last Admin: 04/11/19 20:14 Dose: 12 mcg Documented by: Glucagon (Glucagen) 1 mg SQ UD PRN; Protocol PRN Reason: Hypoglycemia Protocol Stop: 05/08/19 01:44 Glucose (Glucose 40%) 15 - 30 gm PO UD PRN; Protocol PRN Reason: Hypoglycemia Protocol Stop: 05/08/19 01:44 Glucose (Dex4 Glucose) 4 - 8 tabs PO UD PRN; Protocol PRN Reason: Hypoglycemia Protocol Stop: 05/08/19 01:44 Heparin Sodium (Porcine) (Heparin Sodium (Porcine)) 5,000 units SQ Q12 [facility] Stop: 05/11/19 20:59 Last Admin: 04/12/19 22:01 Dose: 5,000 units Documented by: Heparin Sodium (Porcine) (Heparin Sod 100 Unit/Ml Flush) 5 ml FLUSH PRN PRN PRN Reason: Flush Stop: 05/13/19 04:15 Last Admin: 04/13/19 06:10 Dose: 5 ml Documented by: Hydralazine HCl (Apresoline) 10 mg PO TID [facility] Stop: 05/08/19 08:59 Last Admin: 04/12/19 21:57 Dose: 10 mg Documented by: Hydromorphone HCl (Dilaudid) 0.5 mg IV Q3H PRN PRN Reason: Pain Stop: 04/22/19 01:09 Last Admin: 04/09/19 14:28 Dose: 0.5 mg Documented by: Prochlorperazine 5 mg/ Syringe 5 mls @ 5 mls/min IV Q6 PRN PRN Reason: Nausea And Vomiting Stop: 05/09/19 10:08 Insulin Aspart (Novolog Flexpen) 0 units SC 0730,1130,2100 [facility]; Protocol Stop: 05/08/19 07:29 Last Admin: 04/12/19 21:51 Dose: 6 units Documented by: Insulin Aspart (Novolog Flexpen) 0 units SC 1630 [facility]; Protocol Stop: 05/12/19 16:29 Last Admin: 04/12/19 17:47 Dose: 7 units Documented by: Insulin Glargine (Lantus Solostar Pen) 0 units SC BID [facility]; Protocol Stop: 05/08/19 20:59 Last Admin: 04/12/19 21:55 Dose: 15 units Documented by: Miscellaneous (Carbohydrates For Hypoglycemia) 15 - 30 gm PO UD PRN PRN Reason: Hypoglycemia Treatment Stop: 05/08/19 01:44 Last Admin: 04/11/19 08:47 Dose: 15 gm Documented by: Miscellaneous (Fentanyl Patch Remove & Waste) 1 ea N/A Q3D [facility] Stop: 05/11/19 19:58 Last Admin: 04/11/19 20:14 Dose: 1 ea Documented by: Miscellaneous (Fentanyl Patch Check Placement) 1 ea N/A QS [facility] Stop: 05/09/19 00:00 Last Admin: 04/13/19 00:16 Dose: 1 ea Documented by: Miscellaneous Information (Consult Glycemic Management Pharmacy) 1 ea N/A UD PRN PRN Reason: Consult Stop: 05/08/19 14:22 Nitroglycerin (Nitrostat) 0.4 mg SL UD PRN PRN Reason: Chest Pain Stop: 05/08/19 01:09 Pantoprazole Sodium (Protonix) 40 mg PO BID [facility] Stop: 05/08/19 08:59 Last Admin: 04/12/19 22:02 Dose: 40 mg Documented by: Prednisone (Prednisone) 20 mg PO DAILY [facility] Stop: 04/15/19 09:01 Prochlorperazine (Compazine) 10 mg PO Q6H PRN PRN Reason: Nausea Stop: 05/08/19 01:09 Tramadol HCl (Ultram) 25 mg PO Q8H PRN PRN Reason: pain Stop: 05/09/19 18:59 Last Admin: 04/11/19 02:35 Dose: 25 mg Documented by: (1) Esophageal cancer Malignant neoplasm of esophagus location: lower third Qualified Code(s): C15.5 - Malignant neoplasm of lower third of esophagus
[2019-04-13] MEDS: HydrALAZINE 10 MG TAB PO SCH ×3 (08:48→21:03)
[2019-04-13] MEDS: PANTOprazole 40 MG TAB PO SCH ×2 (08:49→21:04)
[2019-04-13] MEDS: HEPARIN SOD 5,000 UNIT/0.5 ML VIAL SQ SCH ×2 (08:49→21:04)
[2019-04-13] MEDS: CYCLOBENZAPRINE HCL 10 MG TAB PO SCH ×3 (08:49→21:04)
[2019-04-13] MEDS: INSULIN GLARGINE SOLOSTAR 100 UNITS/ML 3 ML PEN SC SCH ×2 (08:51→20:57)
--- NOTE | 2019-04-13 09:57 | Nephrology Progress Note ---
Date of Service April 13, 2019 Assessment & Plan (1) Acute renal failure superimposed on chronic kidney disease: Patient with RAMONITA likely due to multifactorial etiology including intravascular volume depletion in setting of vomiting and poor po intake, chemotherapy and worsening diabetic nephropathy. She has CKD stage 4 with baseline cr 2. Her cr is now up to 3.9. Electrolytes are stable. CT showed no hydronephrosis. -I discussed with the patient her kidney are likely going to fail and need dialysis in a matter of days. She said dialysis was discussed with Dr. Brown but she had hoped to avoid it. I discussed dialysis procedure in detail and in the context of esophageal cancer. She was told there is a good chance of cure for the cancer with chemo radiation and resection. She will discuss with . Creatinine slightly better at 3.2 from 3.9 yesterday. No indication for dialysis today. -Daily BMP -Avoid nephrotoxins such as contrast. (2) Esophageal cancer: She had started chemo radiation but now on hold. She is trying to eat and drink. She is tolerating drinks and food better. Hopefully renal function continues to improve so she can resume her chemotherapy. (3) CHF (congestive heart failure): She is comfortable on room air. No need for IV fluids today. Daily weight and 2g sodium diet. (4) HTN (hypertension): Blood pressure is above target today. Continue current regimen with Coreg and hydralazine. No need to escalate antihypertensives now. Subjective She feels better today. She is eating and drinking fairly well. She had eggs this morning. No shortness of breath. She is nonoliguric now with urine output of 1 L yesterday. Creatinine downtrending 3.2. Review of Systems Review of Systems: All systems reviewed & are unremarkable except as noted in HPI & below Physical Exam Physical Exam: General exam: Appears comfortable, no acute distress HEENT: Pupils are equal and reactive to light Neck: No JVD, neck is supple trachea is midline Respiratory system: Clear breath sounds bilaterally. Gastrointestinal: Abdomen is soft, non distended, non tender, bowel sounds are present CVS: Regular rate and rhythm. No murmurs, rubs or gallops Musculoskeletal: No joint or muscle tenderness Extremities: Non tender, no edema, peripheral pulses are present Neuro: Oriented, no tremors, no focal neurological deficits Skin: No rashes Results & Data Vital Signs (Past 12 Hours) Vital Signs Temp Pulse Resp BP Pulse Ox 04/13/19 08:56 62 04/13/19 08:00 36.2 C L 59 L 18 165/81 H 97 04/12/19 23:55 36.3 C L 58 L 17 154/65 H 95 Laboratory Results Laboratory Results - last 24 hr 04/11/19 04/12/19 04/12/19 16:34 16:47 21:50 WBC RBC Hgb Hct MCV MCH MCHC RDW Std Deviation RDW Coeff of Dao Plt Count MPV Sodium Potassium Chloride Carbon Dioxide Anion Gap BUN Creatinine Est Cr Clr Drug Dosing Est GFR ( Amer) Est GFR (Non-Af Amer) BUN/Creatinine Ratio Glucose POC Glucose 100 H 245 H 253 H Calcium 04/13/19 04/13/19 06:06 06:06 WBC 3.25 L RBC 2.96 L Hgb 8.8 L Hct 26.6 L MCV 89.9 MCH 29.7 MCHC 33.1 RDW Std Deviation 46.0 RDW Coeff of Dao 14.2 Plt Count 90 L MPV 11.4 H Sodium 137 Potassium 4.5 Chloride 107 Carbon Dioxide 23 Anion Gap 7.0 BUN 76 H Creatinine 3.26 H D Est Cr Clr Drug Dosing 19.6 Est GFR ( Amer) 16.3 Est GFR (Non-Af Amer) 14.1 BUN/Creatinine Ratio 23.4 H Glucose 291 H POC Glucose Calcium 8.8 (1) Esophageal cancer Malignant neoplasm of esophagus location: lower third Qualified Code(s): C15.5 - Malignant neoplasm of lower third of esophagus (2) CHF (congestive heart failure) Heart failure chronicity: unspecified Heart failure type: unspecified Qualified Code(s): I50.9 - Heart failure, unspecified
[2019-04-13 11:23] LABS: Appearance Urine Clear (Clear); Bacteria Urine Automated Negative (Negative); Bilirubin Urine Negative (Negative); Blood Urine Negative (Negative); Color Urine Yellow; Epithelial Cell Urine Auto 20-30 /lpf (0-5); Glucose Urine UA 2+ (Negative); Ketones Urine Negative (Negative); Leukocyte Esterase Urine Negative (Negative); Nitrite Urine Negative (Negative); Protein Urine 1+ (Negative); RBC Urine Automated 0-4 /hpf (0-4); Specific Gravity Urine 1.012 (1.000-1.030); Urobilinogen Urine Negative (Negative)
--- NOTE | 2019-04-13 13:42 | Pharmacy Report ---
Pharmacy Glycemic Short Note 2 - Date of Service April 13, 2019 - Glycemic Short BSG Results (Last 24 hours): 04/12/19 04/12/19 04/13/19 16:47 21:50 06:06 Glucose 291 H POC Glucose 245 H 253 H OUTPATIENT ANTIDIABETIC REGIMEN: * Lantus 20 units Q AM * Novolog per scale, up to 65 units daily (however pt receives dexamethasone at time of chemotherapy txs) * Linagliptin 5mg daily * A1c = 8.0% ASSESSMENT: 04/13 * Blood sugars 245-308mg/dl over the last 24 hours, patient had ice cream and cheetos last evening and prednisone HS and again this AM - all contributing to hyperglycemia. * Initially tightened CR/CF at breakfast and lunch, but will resume previous changes from yesterday in attempt to prevent AM hypoglycemia and HS Hyperglycemia. 04/12 * Patient received 26 units of insulin yesterday (significant reduction from days previous) * 17 basal, 9 prandial/correctional * BSGs yesterday ranging 62-289 mg/dL * Fasting BSG this morning of 68 mg/dL - may be a result of too much basal vs. too much correctional Novolog given HS * Will reduce Lantus scale tonight - consider loosening CF at HS if trend continues to be seen * Two consecutive days with high BSGs at HS (286 mg/dL and 289 mg/dL) * Will tighten CF/CR at dinner * SCr continues to rise 1.72 mg/dL (04/08) -> 1.92 mg/dL -> 2.57 mg/dL -> 3.3 mg/dL -> 3.92 mg/dL (04/12) * Patient's PO intake has been variable due to painful swallowing 04/11 * Zoraida received 71 units of insulin yesterday, 32 of this was basal * Postprandial BSGs were higher yesterday but have decreased quite significantly this AM, likely due to drastically rising SCr (1.9->2.7->3.3) * Lantus scale will require dose to be held this AM. Will loosen Novolog parameters in light of lower BSG and steroids now worn off. 04/10: * Patient is currently receiving an average of 52 units of insulin per day * 30 units of basal insulin * 22 units of prandial/correctional insulin * BSGs ranging 145 - 257 over the past 24hrs * Changes needed to insulin regimen: * AM Fasting BSG = 171 mg/dL. Will slightly increase basal insulin today per dose was increased by 50% yesterday. * Post-prandial BSGs remain elevated. I will tighten carb ratio only. Parameters are already equivalent to weight/stress 3. 04/09: * Zoraida received 40 units of insulin yesterday (20 units basal and 20 units bolus). BSGs ranged from 200-267 mg/dL. * Fasting BSG = 200 mg/dL. Patient was basal deficient yesterday. Despite increasing Lantus last evening, fasting BSG remains high. She was well controlled on 15 units BID during recent admission. I will trial this dose. * Post prandial BSGs are consistently elevated despite minimal oral intake, therefore Novolog CF and CR will be significantly tightened. * Will consider giving the patient an IV bolus of regular insulin if dinner BSG remains > 250 mg/dL (this was not done at lunchtime per pt had potassium level of 3.3 this AM. Repeat level drawn this afternoon improved to 4) 04/08: * Type 2 diabetic admitted for SOB, ADHF, and intractable back pain * Fasting BSG elevated this AM, will give supplemental Lantus dose now and dose per scale BID due to uncertain PO intake * Novolog doses will be based upon recent admission doses PLAN FOR INPATIENT GLYCEMIC CONTROL: * Continue to hold outpatient oral diabetes medications (Linagliptin) * Basal insulin * Lantus SQ BID per the following scale: * 0 units if less than 100 * 10 units if 100-140 * 15 units if greater than 140 * Bolus insulin * NovoLog per scale 0730,1130, and 2100 * Goal Range: Low 110 mg/dL - High 140 mg/dL * Correction Factor: 20 mg/dL/unit * Nutritional / Prandial insulin per carb ratio of 1 unit per 7 grams CHO consumed * NovoLog per scale 1630 * Goal Range: Low 110 mg/dL - High 140 mg/dL * Correction Factor: 15 mg/dL/unit * Nutritional / Prandial insulin per carb ratio of 1 unit per 6 grams CHO consumed PLAN FOR DISCHARGE: * A1c = 8 % on 04/08/19 Goal A1c < 8 % based on age and comorbidities Less stringent A1C goals (such as less than 8%) may be appropriate for patients with a history of severe hypoglycemia, limited life expectancy, advanced microvascular or macrovascular complications, extensive comorbid conditions, or long-standing diabetes in whom the goal is difficult to achieve despite diabetes self-management education, appropriate glucose monitoring, and effective doses of multiple glucose-lowering agents including insulin. * Recommend to continue outpatient regimen on discharge
[2019-04-13] MEDS ORDERED: HydrALAZINE 10 MG TAB PO ONE (16:01)
[2019-04-13] MEDS: CITALOPRAM 20 MG TAB PO SCH (21:04)
[2019-04-13] MEDS: allopurinoL 100 MG TAB PO SCH (21:05)
[2019-04-13] MEDS ORDERED: HydrALAZINE HCL 20 MG/ML VIAL IV STA (22:13)
[2019-04-14] MEDS: CHECK FENTANYL PATCH PLACEMENT SCH ×4 (00:21→23:39)
[2019-04-14] MEDS ORDERED: ALBUT/IPRATROP 3MG/0.5MG NEB 3 ML VIAL NEB STA (00:39)
[2019-04-14] MEDS ORDERED: ALBUMIN 25% 50 ML with FUROSEMIDE 80 MG IV ONE (02:00)
[2019-04-14] MEDS: HEPARIN 100 UNIT/ML 5ML FLUSH FLUSH PRN ×2 (04:48→05:26)
[2019-04-14 05:58] LABS: Hematocrit (blood only) 24.4 % (37-47); Hemoglobin 8.5 g/dL (12.0-16.0); Mean Corpuscular Hemoglobin 30.6 pg (25-34); Mean Corpuscular Hgb Conc 34.8 g/dL (32-36); Mean Corpuscular Volume 87.8 fL (80-100); RDW Coefficient of Variation 14.1 % (11.5-14.5); RDW Standard Deviation 44.7 fL (36.4-46.3); Red Blood Count 2.78 M/uL (4.2-5.4); White Blood Count 4.36 K/uL (4.8-10.8)
[2019-04-14 06:21] LABS: Mean Platelet Volume 11.8 fL (7.4-10.4); Platelet Count 94 K/uL (130-400)
[2019-04-14 06:31] LABS: BUN Creatinine Ratio 24.2 (10-20); Calcium 8.8 mg/dl (8.5-10.1); Est GFR (African American) 19.8; Est GFR (Non-African American) 17.1; Magnesium 2.2 mg/dl (1.8-2.4); Potassium 4.1 mmol/L (3.5-5.1)
--- NOTE | 2019-04-14 07:06 | XRay Report ---
XR chest 1V portable CLINICAL HISTORY: wheeze COMPARISON STUDY: Chest radiograph April 07, 2019. FINDINGS: A dual-lead left subclavian pacemaker and right internal jugular [id number] are in place . There is no pneumothorax. There are small bilateral pleural effusions. Bibasilar opacities have inc reased. There is pulmonary vascular congestion with suspected mild pulmonary edema. Moderate cardiome jose is noted. IMPRESSION: 1. Increase in bibasilar opacities which may reflect consolidation or atelectasis. Radiographic follo w-up is recommended. 2. Small bilateral pleural effusions. 3. Mild pulmonary edema. ACT 112: Negative or not required by law. Electronically signed by: Audi Dewey M.D. 04/14/2019 7:05 AM
[2019-04-14] MEDS ORDERED: INSULIN GLARGINE SOLOSTAR 100 UNITS/ML 3 ML PEN SC ONE (08:00)
[2019-04-14] MEDS: predniSONE 20 MG TAB PO SCH (08:58)
[2019-04-14] MEDS: carvediloL 12.5 MG TAB PO SCH ×2 (08:59→20:35)
[2019-04-14] MEDS: PANTOprazole 40 MG TAB PO SCH ×2 (09:02→20:36)
[2019-04-14] MEDS: HEPARIN SOD 5,000 UNIT/0.5 ML VIAL SQ SCH ×2 (09:03→20:35)
[2019-04-14] MEDS: INSULIN ASPART 100 UNITS/ML 3 ML PEN SC SCH ×4 (09:04→20:41)
[2019-04-14] MEDS: CYCLOBENZAPRINE HCL 10 MG TAB PO SCH ×3 (09:06→20:34)
--- NOTE | 2019-04-14 09:07 | Hospitalist Progress Note ---
Date of Service April 14, 2019 Assessment & Plan (1) Traumatic buttock pain: Pain has resolved Able to lie flat, area of erythema warmth has resolved, no evidence of cellulitis, will antibiotic discontinued CT abdomen pelvis does not show any evidence of pelvis fracture or muscle injury Continue fentanyl patch, heat application locally Acute renal failure on CKD stage IV: Worsening of creatinine noted 3.9 Diuretics kept on hold - now improved, Cr 2.8 nephrology consult requested,underlying advanced CKD , may eventually need dialysis , pt does not want to consider Perm cath placement /dialysis catheter now as she is already dealing with chemo and radiation tx for esophageal ca and will need a complicated surgical procedure wants to wait for consideration for dialysis if not emergently needed in this a dmission no evidence of volume overload, no severe electrolyte imbalance or metabolic acidosis pt is still able to urinate continue to monitor Avoid NSAIDs, contrast studies Monitor BMP Bilateral ankle pain Unsure of the etiology, no evidence of increased warmth swelling or erythema noted suggestive of acute gout Patient has been taking allopurinol, feels like she is having muscle spasm on bilateral calf muscle, radiating down to her ankles and feet Added for muscle relaxant -Flexeril-patient reports of significant improvement of symptoms Patient had x-ray of right ankle done on admission, showed no evidence of fracture X-ray of left ankle knee and femur ordered for left lower extremity pain mild DJD no fracture noted, pain improved after supportive care pt reports of able to get out of bed and walk with walker Ordered for PT/OT LEFT KNEE PAIN AND SWELLING : possible acute gouty arthritis previous hx of gout with Right knee involvement ordered for PO Prednisone low dose 20 mg PO daily for total X 5 dose pt was initially very reluctant for steroid tx due to side effect after 1st dose , knee pain was much better. did not had any symptom of anxiety agreeable to complete total 5 days of Prednisone tx -Yesterday / overnight (04/13) patient feels that she had a panic attack, and feels that this was secondary to prednisone, she asks to discontinue that, will stop -Currently denies any knee pain, says that swelling is down - will cont. to monitor DYSPHAGIA: unable to swallow solid /dry food due to lower esophageal large mass /adeno Ca Type 2 diabetes Appreciate input from pharmacy for glycemic management A1c = 8.0% Basal Lantus, insulin sliding scale adjusted HYPERTENSION -Currently on Coreg and hydralazine 10 mg 3 times daily -Elevated BP today, SBP this afternoon 190, will give another hydralazine (2) Esophageal cancer: esophageal carcinoma undergoing chemo and radiation treatment Severe dysphasia Due to above, Patient had speech therapy evaluation in last admission, was recommended to have GI evaluation for esophageal stent placement Was transferred to [facility] [place] Status post esophageal stent placement at [place], procedure was unsuccessful secondary to stent migration stoma, later repeat EGD done to remove esophageal stent Patient able to tolerate soft diet only, continue full liquid diet aspiration precaution (3) Abdominal discomfort, epigastric: Due to Lower esophageal adeno CA Pain is worsening after swallowing solid-, has improved Continue full liquid diet only as tolerated, Patient was evaluated by pain management in the past Patient will continue IV Dilaudid, Decompensated CHF with diastolic dysfunction,. Preserved Left ventricle ejection fraction: History of diastolic CHF with preserved LV ejection fraction Patient appeared to be compensated, volume status remains stable lasix kept on hold secondary to acute renal failure Appreciate input from cardiology, Recommend supportive care; next will be resumed as renal function improves to baseline Echo 04/08/2019: LV chamber size normal with mild concentric LVH., Normal LV systolic function EF 60-65%. No segmental wall motion abnormalities noted. CODE STATUS: Full code Disposition: Home with home health services Subjective Patient sitting up in bed, in no acute distress, eating lunch. Denies any fevers, chills, chest pain, shortness of breath, abdominal pain. Says that unfortunately yesterday she felt like she had a panic attack, her blood pressure was elevated, she felt short of breath and she says that she had one like that in the past. She is asking to discontinue prednisone, she feels that it causes it. Review of Systems Review of Systems: All systems reviewed & are unremarkable except as noted in HPI & below Constitutional: no fever and no chills Respiratory: no cough, no dyspnea and no pain on inspiration Cardiovascular: no chest pain, no dyspnea on exertion and no palpitations Gastrointestinal: no abdominal pain, no nausea and no vomiting Physical Exam Physical Exam: Constitutional: Elderly female, lying in bed, in no acute distress, + ill appearing Eyes: PERRL, EOMI, conjunctivae normal, anicteric sclerae ENMT: external ear and nose normal, oropharynx normal Neck: trachea midline, no thyromegaly Respiratory: normal respiratory effort; no respiratory distress and no cough Auscultation: no crackles, no rales, no rhonchi and no wheezes Cardiovascular: RRR, no murmur, no edema Gastrointestinal (Abdomen): Percussion/Palpation: abdomen soft; abdomen nontender, no guarding Musculoskeletal: no effusion and no skin erythema, moves extremities spontaneously, able to ambulate with a walker Neurologic: PERRL, EOMI, accommodation nl, no face palsy, no dysarthria, moves extremities spontaneously Psychiatric: Orientation: alert and oriented x 3, euthymic affect Results & Data Vital Signs (Past 12 Hours) Vital Signs Temp Pulse Resp BP Pulse Ox 04/14/19 08:04 36.6 C 59 L 20 173/71 H 93 04/14/19 04:51 54 L 156/73 H 04/14/19 01:38 54 L 149/73 H 04/14/19 01:02 56 L 16 97 04/13/19 23:24 36.3 C L 62 15 187/70 H 96 04/13/19 21:59 36.3 C L 67 16 208/80 H 97 04/13/19 21:07 190/74 H Laboratory Results 04/14/19 04/14/19 04/14/19 Range/Units 07:52 05:37 05:23 WBC (4.8-10.8) K/uL RBC (4.2-5.4) M/uL Hgb (12.0-16.0) g/dL Hct (37-47) % MCV (80-100) fL MCH (25-34) pg MCHC (32-36) g/dL RDW Std Deviation (36.4-46.3) fL RDW Coeff of Dao (11.5-14.5) % Plt Count (130-400) K/uL MPV (7.4-10.4) fL Sodium 137 (136-145) mmol/L Potassium 4.1 (3.5-5.1) mmol/L Chloride 108 H (98-107) mmol/L Carbon Dioxide 23 (21-32) mmol/L Anion Gap 7.0 (3-11) BUN 67 H (7-18) mg/dl Creatinine 2.77 H D (0.6-1.2) mg/dl Est Cr Clr Drug Dosing 23.0 ml/min Est GFR ( Amer) 19.8 Est GFR (Non-Af Amer) 17.1 BUN/Creatinine Ratio 24.2 H (10-20) Glucose 220 H (70-99) mg/dl POC Glucose 226 H 243 H (70-99) Calcium 8.8 (8.5-10.1) mg/dl Magnesium 2.2 (1.8-2.4) mg/dl Urine Color Urine Appearance (Clear) Urine pH (4.5-7.5) Ur Specific [place] (1.000-1.030) Urine Protein (Negative) Urine Glucose (UA) (Negative) Urine Ketones (Negative) Urine Blood (Negative) Urine Nitrite (Negative) Urine Bilirubin (Negative) Urine Urobilinogen (Negative) Ur Leukocyte Esterase (Negative) Urine WBC (Auto) (0-5) /hpf Urine RBC (Auto) (0-4) /hpf U Hyaline Cast (Auto) (0-5) /lpf U Epithel Cells (Auto) (0-5) /lpf Urine Bacteria (Auto) (Negative) 04/14/19 04/13/19 04/13/19 Range/Units 05:23 20:46 17:04 WBC 4.36 L (4.8-10.8) K/uL RBC 2.78 L (4.2-5.4) M/uL Hgb 8.5 L (12.0-16.0) g/dL Hct 24.4 L (37-47) % MCV 87.8 (80-100) fL MCH 30.6 (25-34) pg MCHC 34.8 (32-36) g/dL RDW Std Deviation 44.7 (36.4-46.3) fL RDW Coeff of Dao 14.1 (11.5-14.5) % Plt Count 94 L (130-400) K/uL MPV 11.8 H (7.4-10.4) fL Sodium (136-145) mmol/L Potassium (3.5-5.1) mmol/L Chloride (98-107) mmol/L Carbon Dioxide (21-32) mmol/L Anion Gap (3-11) BUN (7-18) mg/dl Creatinine (0.6-1.2) mg/dl Est Cr Clr Drug Dosing ml/min Est GFR ( Amer) Est GFR (Non-Af Amer) BUN/Creatinine Ratio (10-20) Glucose (70-99) mg/dl POC Glucose 310 H* 263 H (70-99) Calcium (8.5-10.1) mg/dl Magnesium (1.8-2.4) mg/dl Urine Color Urine Appearance (Clear) Urine pH (4.5-7.5) Ur Specific [place] (1.000-1.030) Urine Protein (Negative) Urine Glucose (UA) (Negative) Urine Ketones (Negative) Urine Blood (Negative) Urine Nitrite (Negative) Urine Bilirubin (Negative) Urine Urobilinogen (Negative) Ur Leukocyte Esterase (Negative) Urine WBC (Auto) (0-5) /hpf Urine RBC (Auto) (0-4) /hpf U Hyaline Cast (Auto) (0-5) /lpf U Epithel Cells (Auto) (0-5) /lpf Urine Bacteria (Auto) (Negative) 04/13/19 04/13/19 04/13/19 Range/Units 11:44 10:50 07:52 WBC (4.8-10.8) K/uL RBC (4.2-5.4) M/uL Hgb (12.0-16.0) g/dL Hct (37-47) % MCV (80-100) fL MCH (25-34) pg MCHC (32-36) g/dL RDW Std Deviation (36.4-46.3) fL RDW Coeff of Dao (11.5-14.5) % Plt Count (130-400) K/uL MPV (7.4-10.4) fL Sodium (136-145) mmol/L Potassium (3.5-5.1) mmol/L Chloride (98-107) mmol/L Carbon Dioxide (21-32) mmol/L Anion Gap (3-11) BUN (7-18) mg/dl Creatinine (0.6-1.2) mg/dl Est Cr Clr Drug Dosing ml/min Est GFR ( Amer) Est GFR (Non-Af Amer) BUN/Creatinine Ratio (-20) Glucose (70-99) mg/dl POC Glucose 253 H 308 H* (70-99) Calcium (8.5-10.1) mg/dl Magnesium (1.8-2.4) mg/dl Urine Color Yellow Urine Appearance Clear (Clear) Urine pH 5.0 (4.5-7.5) Ur Specific [place] 1.012 (1.000-1.030) Urine Protein 1+ H (Negative) Urine Glucose (UA) 2+ H (Negative) Urine Ketones Negative (Negative) Urine Blood Negative (Negative) Urine Nitrite Negative (Negative) Urine Bilirubin Negative (Negative) Urine Urobilinogen Negative (Negative) Ur Leukocyte Esterase Negative (Negative) Urine WBC (Auto) 1-5 (0-5) /hpf Urine RBC (Auto) 0-4 (0-4) /hpf U Hyaline Cast (Auto) 1-5 (0-5) /lpf U Epithel Cells (Auto) 20-30 H (0-5) /lpf Urine Bacteria (Auto) Negative (Negative) 04/13/19 Range/Units 07:50 WBC (4.8-10.8) K/uL RBC (4.2-5.4) M/uL Hgb (12.0-16.0) g/dL Hct (37-47) % MCV (80-100) fL MCH (25-34) pg MCHC (32-36) g/dL RDW Std Deviation (36.4-46.3) fL RDW Coeff of Dao (11.5-14.5) % Plt Count (130-400) K/uL MPV (7.4-10.4) fL Sodium (136-145) mmol/L Potassium (3.5-5.1) mmol/L Chloride (98-107) mmol/L Carbon Dioxide (21-32) mmol/L Anion Gap (3-11) BUN (7-18) mg/dl Creatinine (0.6-1.2) mg/dl Est Cr Clr Drug Dosing ml/min Est GFR ( Amer) Est GFR (Non-Af Amer) BUN/Creatinine Ratio (10-20) Glucose (70-99) mg/dl POC Glucose 322 H* (70-99) Calcium (8.5-10.1) mg/dl Magnesium (1.8-2.4) mg/dl Urine Color Urine Appearance (Clear) Urine pH (4.5-7.5) Ur Specific [place] (1.000-1.030) Urine Protein (Negative) Urine Glucose (UA) (Negative) Urine Ketones (Negative) Urine Blood (Negative) Urine Nitrite (Negative) Urine Bilirubin (Negative) Urine Urobilinogen (Negative) Ur Leukocyte Esterase (Negative) Urine WBC (Auto) (0-5) /hpf Urine RBC (Auto) (0-4) /hpf U Hyaline Cast (Auto) (0-5) /lpf U Epithel Cells (Auto) (0-5) /lpf Urine Bacteria (Auto) (Negative) Medications Administered Current Inpatient Medications Acetaminophen (Tylenol) 650 mg PO Q4H PRN PRN Reason: Pain or Fever Stop: 05/08/19 01:09 Last Admin: 04/13/19 21:02 Dose: 650 mg Documented by: Allopurinol (Zyloprim) 200 mg PO QPM [facility] Stop: 05/08/19 20:59 Last Admin: 04/13/19 21:05 Dose: 200 mg Documented by: Benzonatate (Tessalon Perle) 100 - 200 mg PO TID PRN PRN Reason: Cough Stop: 05/08/19 01:09 Last Admin: 04/12/19 05:51 Dose: 200 mg Documented by: Carvedilol (Coreg) 12.5 mg PO BID [facility] Stop: 05/08/19 08:59 Last Admin: 04/14/19 08:59 Dose: 12.5 mg Documented by: Citalopram Hydrobromide (Celexa) 20 mg PO QPM [facility] Stop: 05/08/19 20:59 Last Admin: 04/13/19 21:04 Dose: 20 mg Documented by: Clobetasol Propionate (Clobetasol Propionate Oint) 1 appln EXT HS PRN PRN Reason: Rash Stop: 05/08/19 03:02 Cyclobenzaprine HCl (Flexeril) 10 mg PO TID [facility] Stop: 05/09/19 19:29 Last Admin: 04/14/19 09:06 Dose: Not Given Documented by: Dextrose (Dextrose 50%) 25 - 50 ml IV UD PRN; Protocol PRN Reason: Hypoglycemia Protocol Stop: 05/08/19 01:44 Fentanyl (Duragesic) 12 mcg TD Q3D [facility] Stop: 04/22/19 19:59 Last Admin: 04/11/19 20:14 Dose: 12 mcg Documented by: Glucagon (Glucagen) 1 mg SQ UD PRN; Protocol PRN Reason: Hypoglycemia Protocol Stop: 05/08/19 01:44 Glucose (Glucose 40%) 15 - 30 gm PO UD PRN; Protocol PRN Reason: Hypoglycemia Protocol Stop: 05/08/19 01:44 Glucose (Dex4 Glucose) 4 - 8 tabs PO UD PRN; Protocol PRN Reason: Hypoglycemia Protocol Stop: 05/08/19 01:44 Heparin Sodium (Porcine) (Heparin Sodium (Porcine)) 5,000 units SQ Q12 [facility] Stop: 05/11/19 20:59 Last Admin: 04/14/19 09:03 Dose: 5,000 units Documented by: Heparin Sodium (Porcine) (Heparin Sod 100 Unit/Ml Flush) 5 ml FLUSH PRN PRN PRN Reason: Flush Stop: 05/13/19 04:15 Last Admin: 04/14/19 05:26 Dose: 5 ml Documented by: Hydralazine HCl (Apresoline) 25 mg PO TID [facility] Stop: 05/14/19 08:59 Last Admin: 04/14/19 08:59 Dose: 25 mg Documented by: Hydromorphone HCl (Dilaudid) 0.5 mg IV Q3H PRN PRN Reason: Pain Stop: 04/22/19 01:09 Last Admin: 04/09/19 14:28 Dose: 0.5 mg Documented by: Prochlorperazine 5 mg/ Syringe 5 mls @ 5 mls/min IV Q6 PRN PRN Reason: Nausea And Vomiting Stop: 05/09/19 10:08 Insulin Aspart (Novolog Flexpen) 0 units SC ACHS [facility]; Protocol Stop: 05/12/19 16:29 Last Admin: 04/14/19 09:04 Dose: 6 units Documented by: Insulin Glargine (Lantus Solostar Pen) 0 units SC BID [facility]; Protocol Stop: 05/08/19 20:59 Last Admin: 04/13/19 20:57 Dose: 15 units Documented by: Miscellaneous (Carbohydrates For Hypoglycemia) 15 - 30 gm PO UD PRN PRN Reason: Hypoglycemia Treatment Stop: 05/08/19 01:44 Last Admin: 04/11/19 08:47 Dose: 15 gm Documented by: Miscellaneous (Fentanyl Patch Remove & Waste) 1 ea N/A Q3D [facility] Stop: 05/11/19 19:58 Last Admin: 04/11/19 20:14 Dose: 1 ea Documented by: Miscellaneous (Fentanyl Patch Check Placement) 1 ea N/A QS [facility] Stop: 05/09/19 00:00 Last Admin: 04/14/19 09:02 Dose: 1 ea Documented by: Miscellaneous Information (Consult Glycemic Management Pharmacy) 1 ea N/A UD PRN PRN Reason: Consult Stop: 05/08/19 14:22 Nitroglycerin (Nitrostat) 0.4 mg SL UD PRN PRN Reason: Chest Pain Stop: 05/08/19 01:09 Pantoprazole Sodium (Protonix) 40 mg PO BID [facility] Stop: 05/08/19 08:59 Last Admin: 04/14/19 09:02 Dose: 40 mg Documented by: Prednisone (Prednisone) 20 mg PO DAILY [facility] Stop: 04/15/19 09:01 Last Admin: 04/14/19 08:58 Dose: 20 mg Documented by: Prochlorperazine (Compazine) 10 mg PO Q6H PRN PRN Reason: Nausea Stop: 05/08/19 01:09 Tramadol HCl (Ultram) 25 mg PO Q8H PRN PRN Reason: pain Stop: 05/09/19 18:59 Last Admin: 04/11/19 02:35 Dose: 25 mg Documented by: (1) Esophageal cancer Malignant neoplasm of esophagus location: lower third Qualified Code(s): C15.5 - Malignant neoplasm of lower third of esophagus
--- NOTE | 2019-04-14 14:38 | Pharmacy Report ---
Pharmacy Glycemic Short Note 2 - Date of Service April 14, 2019 - Glycemic Short BSG Results (Last 24 hours): 04/13/19 04/13/19 04/13/19 07:50 07:52 11:44 Glucose POC Glucose 322 H* 308 H* 253 H 04/13/19 04/13/19 04/14/19 17:04 20:46 05:23 Glucose 220 H POC Glucose 263 H 310 H* 04/14/19 04/14/19 04/14/19 05:37 07:52 11:47 Glucose POC Glucose 243 H 226 H 207 H OUTPATIENT ANTIDIABETIC REGIMEN: * Lantus 20 units Q AM * Novolog per scale, up to 65 units daily (however pt receives dexamethasone at time of chemotherapy txs) * Linagliptin 5mg daily * A1c = 8.0% ASSESSMENT: 04/14 * Patient initiated on prednisone 20 mg PO daily starting 04/12 - last dose scheduled for tomorrow 04/15 * Patient's BSGs elevated yesterday ranging 253-310 mg/dL (received 72 units of insulin) * Will increase Lantus this morning to 20 units (approximately 0.2 units/kg) to account for prednisone - will schedule this Lantus dose for tomorrow AM as well * Will tighten CF:CR to 15:6 ACHS while on steroids * SCr continues to trend down (2.77 mg/dL today down from 3.26 mg/dL yesterday) PLAN FOR INPATIENT GLYCEMIC CONTROL: * Continue to hold outpatient oral diabetes medications (Linagliptin) * Basal insulin * Lantus 20 units x 1 this AM given with prednisone 20 mg - dose reordered for tomorrow morning with last dose of prednisone * Lantus SQ HS per the following scale: * 0 units if less than 100 * 10 units if 100-140 * 15 units if greater than 140 * Bolus insulin - * NovoLog per scale ACHS/q6h if NPO * Goal Range: Low 110 mg/dL - High 140 mg/dL * Correction Factor: 15 mg/dL/unit * Nutritional / Prandial insulin per carb ratio of 1 unit per 6 grams CHO consumed PLAN FOR DISCHARGE: * A1c = 8 % on 04/08/19 * Goal A1c < 8 % based on age and comorbidities * Less stringent A1C goals (such as less than 8%) may be appropriate for patients with a history of severe hypoglycemia, limited life expectancy, advanced microvascular or macrovascular complications, extensive comorbid conditions, or long-standing diabetes in whom the goal is difficult to achieve despite diabetes self-management education, appropriate glucose monitoring, and effective doses of multiple glucose-lowering agents including insulin. * Reasonable to continue home regimen upon discharge
[2019-04-14] MEDS: INSULIN GLARGINE SOLOSTAR 100 UNITS/ML 3 ML PEN SC SCH ×2 (15:13→20:40)
--- NOTE | 2019-04-14 17:40 | Nephrology Progress Note ---
Date of Service April 14, 2019 Assessment & Plan (1) Acute renal failure superimposed on chronic kidney disease: Patient with RAMONITA likely due to multifactorial etiology including intravascular volume depletion in setting of vomiting and poor po intake, chemotherapy and worsening diabetic nephropathy. She has CKD stage 4 with baseline cr 2. Her cr was 1.8 on 04/08 presentation, then trended up to peak at 3.9 on 04/12, now drifting down to 2.8 today. Electrolytes are in acceptable ranges. CT showed no hydronephrosis. -No indication for dialysis today; has been discussed this admission -Daily BMP -Avoid nephrotoxins such as contrast. (2) Esophageal cancer: She had started chemo radiation but now on hold. She is trying to eat and drink. She is tolerating drinks and food better. Hopefully renal function continues to improve so she can resume her chemotherapy. (3) CHF (congestive heart failure): She is comfortable on room air. No need for IV fluids today. Daily weight and <2g sodium diet. (4) HTN (hypertension): Blood pressure remains above target today. Continue current regimen with Coreg and hydralazine. No need to escalate antihypertensives now. Subjective reports a panic attack overnight; insistent that prednisone must be stopped when I saw her this am d/t elevated BG and HTN. no voiding c/o, denies edema, sob; tolerating po; no palpitations no uncontrolled pain Review of Systems Review of Systems: All systems reviewed & are unremarkable except as noted in HPI & below Physical Exam Constitutional: well developed, + obese and cooperative; no acute distress on RA Eyes: EOM intact bilaterally ENMT: Ears: no external ear abnormality Nose: no external nose abnormality Mouth: + dry oral mucous membranes Neck: no nuchal rigidity Respiratory: normal respiratory effort Auscultation: lungs clear to auscultation bilaterally and + diminished lung sounds Cardiovascular: Rate/Rhythm: regular rate and regular rhythm Extremities: + edema (trace BLE) Gastrointestinal (Abdomen): Inspection/Auscultation: normal bowel sounds Percussion/Palpation: abdomen soft; abdomen nontender Musculoskeletal: Extremities: strength 5/5 throughout Skin: no rashes, warm and dry Neurologic: [place], fluent speech, no tremor Psychiatric: A+Ox3, euthymic affect Genitourinary: no steinberg Results & Data Vital Signs (Past 12 Hours) Vital Signs Temp Pulse Resp BP Pulse Ox 04/14/19 11:33 36.8 C 54 L 18 170/72 H 93 04/14/19 08:04 36.6 C 59 L 20 173/71 H 93 Laboratory Results 04/14/19 05:23 04/14/19 05:23 (1) Esophageal cancer Malignant neoplasm of esophagus location: lower third Qualified Code(s): C15.5 - Malignant neoplasm of lower third of esophagus (2) CHF (congestive heart failure) Heart failure chronicity: unspecified Heart failure type: unspecified Qualified Code(s): I50.9 - Heart failure, unspecified
[2019-04-14] MEDS: HydrALAZINE TAB 50 MG TAB PO SCH (20:32)
[2019-04-14] MEDS: fentaNYL 12 MCG/HR TDSY TD SCH (20:33)
[2019-04-14] MEDS ORDERED: LORazepam 0.5 MG TAB PO STA (20:34)
[2019-04-14] MEDS: allopurinoL 100 MG TAB PO SCH (20:35)
[2019-04-14] MEDS: CITALOPRAM 20 MG TAB PO SCH (20:35)
[2019-04-14] MEDS ORDERED: AMLODIPINE BESYLATE 5 MG TAB PO ONE (23:51)
--- NOTE | 2019-04-14 23:53 | Communication Note ---
Date of Service: April 14, 2019 Made aware by RN of uncontrolled blood pressure. SBP 140 -210s the last 24 hours. Cardiac rate 50s. Patient asymptomatic as per RN. AP Hypertensive urgency No response to escalating dosage of Hydralazine over the last 48 hours. Add Norvasc to patient regimen. Will relay to AM provider.
--- NOTE | 2019-04-15 07:36 | Hospitalist Progress Note ---
Date of Service April 15, 2019 Subjective Started on amlodipine overnight, for persistent hypertension. Results & Data Vital Signs (Past 12 Hours) Vital Signs Temp Pulse Resp BP Pulse Ox 04/15/19 03:00 36.9 C 59 L 18 177/63 H 96 04/15/19 02:31 72 166/75 H 04/15/19 01:14 76 161/85 H 04/14/19 23:24 36.3 C L 44 L 20 187/71 H 94 04/14/19 22:08 58 L 20 174/90 H 96 04/14/19 20:20 185/65 H 04/14/19 20:00 36.5 C 62 18 210/83 H 93 Laboratory Results 04/15/19 04/14/19 04/14/19 Range/Units 07:38 16:49 11:47 Sodium 140 (136-145) mmol/L Potassium 4.1 (3.5-5.1) mmol/L Chloride 109 H (98-107) mmol/L Carbon Dioxide 25 (21-32) mmol/L Anion Gap 5.0 (3-11) BUN 61 H (7-18) mg/dl Creatinine 2.29 H D (0.6-1.2) mg/dl Est Cr Clr Drug Dosing 28.6 ml/min Est GFR ( Amer) 25.0 Est GFR (Non-Af Amer) 21.5 BUN/Creatinine Ratio 26.6 H (10-20) Glucose 132 H (70-99) mg/dl POC Glucose 257 H 207 H (70-99) Calcium 9.6 (8.5-10.1) mg/dl Magnesium 2.2 (1.8-2.4) mg/dl Medications Administered Current Inpatient Medications Acetaminophen (Tylenol) 650 mg PO Q4H PRN PRN Reason: Pain or Fever Stop: 05/08/19 01:09 Last Admin: 04/13/19 21:02 Dose: 650 mg Documented by: Allopurinol (Zyloprim) 200 mg PO QPM [facility] Stop: 05/08/19 20:59 Last Admin: 04/14/19 20:35 Dose: 200 mg Documented by: Amlodipine Besylate (Norvasc) 2.5 mg PO QAM [facility] Stop: 05/16/19 08:59 Benzonatate (Tessalon Perle) 100 - 200 mg PO TID PRN PRN Reason: Cough Stop: 05/08/19 01:09 Last Admin: 04/12/19 05:51 Dose: 200 mg Documented by: Carvedilol (Coreg) 12.5 mg PO BID [facility] Stop: 05/08/19 08:59 Last Admin: 04/15/19 09:13 Dose: 12.5 mg Documented by: Citalopram Hydrobromide (Celexa) 20 mg PO QPM [facility] Stop: 05/08/19 20:59 Last Admin: 04/14/19 20:35 Dose: 20 mg Documented by: Clobetasol Propionate (Clobetasol Propionate Oint) 1 appln EXT HS PRN PRN Reason: Rash Stop: 05/08/19 03:02 Cyclobenzaprine HCl (Flexeril) 10 mg PO TID [facility] Stop: 05/09/19 19:29 Last Admin: 04/15/19 09:15 Dose: 10 mg Documented by: Dextrose (Dextrose 50%) 25 - 50 ml IV UD PRN; Protocol PRN Reason: Hypoglycemia Protocol Stop: 05/08/19 01:44 Fentanyl (Duragesic) 12 mcg TD Q3D [facility] Stop: 04/22/19 19:59 Last Admin: 04/14/19 20:33 Dose: 12 mcg Documented by: Glucagon (Glucagen) 1 mg SQ UD PRN; Protocol PRN Reason: Hypoglycemia Protocol Stop: 05/08/19 01:44 Glucose (Glucose 40%) 15 - 30 gm PO UD PRN; Protocol PRN Reason: Hypoglycemia Protocol Stop: 05/08/19 01:44 Glucose (Dex4 Glucose) 4 - 8 tabs PO UD PRN; Protocol PRN Reason: Hypoglycemia Protocol Stop: 05/08/19 01:44 Heparin Sodium (Porcine) (Heparin Sodium (Porcine)) 5,000 units SQ Q12 [facility] Stop: 05/11/19 20:59 Last Admin: 04/15/19 09:15 Dose: 5,000 units Documented by: Heparin Sodium (Porcine) (Heparin Sod 100 Unit/Ml Flush) 5 ml FLUSH PRN PRN PRN Reason: Flush Stop: 05/13/19 04:15 Last Admin: 04/15/19 07:43 Dose: 5 ml Documented by: Hydralazine HCl (Apresoline) 50 mg PO TID [facility] Stop: 05/14/19 19:44 Last Admin: 04/15/19 09:12 Dose: 50 mg Documented by: Hydromorphone HCl (Dilaudid) 0.5 mg IV Q3H PRN PRN Reason: Pain Stop: 04/22/19 01:09 Last Admin: 04/09/19 14:28 Dose: 0.5 mg Documented by: Prochlorperazine 5 mg/ Syringe 5 mls @ 5 mls/min IV Q6 PRN PRN Reason: Nausea And Vomiting Stop: 05/09/19 10:08 Insulin Aspart (Novolog Flexpen) 0 units SC ACHS [facility]; Protocol Stop: 05/12/19 16:29 Last Admin: 04/15/19 09:18 Dose: 2 units Documented by: Insulin Glargine (Lantus Solostar Pen) 0 units SC DAILY [facility]; Protocol Stop: 05/15/19 08:59 Last Admin: 04/15/19 09:17 Dose: 20 units Documented by: Miscellaneous (Carbohydrates For Hypoglycemia) 15 - 30 gm PO UD PRN PRN Reason: Hypoglycemia Treatment Stop: 05/08/19 01:44 Last Admin: 04/11/19 08:47 Dose: 15 gm Documented by: Miscellaneous (Fentanyl Patch Remove & Waste) 1 ea N/A Q3D [facility] Stop: 05/11/19 19:58 Last Admin: 04/14/19 20:33 Dose: 1 ea Documented by: Miscellaneous (Fentanyl Patch Check Placement) 1 ea N/A QS [facility] Stop: 05/09/19 00:00 Last Admin: 04/15/19 09:14 Dose: 1 ea Documented by: Miscellaneous Information (Consult Glycemic Management Pharmacy) 1 ea N/A UD PRN PRN Reason: Consult Stop: 05/08/19 14:22 Nitroglycerin (Nitrostat) 0.4 mg SL UD PRN PRN Reason: Chest Pain Stop: 05/08/19 01:09 Pantoprazole Sodium (Protonix) 40 mg PO BID [facility] Stop: 05/08/19 08:59 Last Admin: 04/15/19 09:13 Dose: 40 mg Documented by: Prochlorperazine (Compazine) 10 mg PO Q6H PRN PRN Reason: Nausea Stop: 05/08/19 01:09 Tramadol HCl (Ultram) 25 mg PO Q8H PRN PRN Reason: pain Stop: 05/09/19 18:59 Last Admin: 04/11/19 02:35 Dose: 25 mg Documented by:
[2019-04-15] MEDS: HEPARIN 100 UNIT/ML 5ML FLUSH FLUSH PRN (07:43)
[2019-04-15 08:24] LABS: Potassium 4.1 mmol/L (3.5-5.1)
[2019-04-15 08:25] LABS: BUN Creatinine Ratio 26.6 (10-20); Calcium 9.6 mg/dl (8.5-10.1); Creatinine Clr Calc Pharmacy 28.6 ml/min; Est GFR (Non-African American) 21.5; Magnesium 2.2 mg/dl (1.8-2.4)
[2019-04-15] MEDS ORDERED: INSULIN GLARGINE SOLOSTAR 100 UNITS/ML 3 ML PEN SC SCH ×3 (09:00)
[2019-04-15] MEDS: HydrALAZINE TAB 50 MG TAB PO SCH ×2 (09:12→13:18)
[2019-04-15] MEDS: carvediloL 12.5 MG TAB PO SCH (09:13)
[2019-04-15] MEDS: PANTOprazole 40 MG TAB PO SCH (09:13)
[2019-04-15] MEDS: CHECK FENTANYL PATCH PLACEMENT SCH (09:14)
[2019-04-15] MEDS: HEPARIN SOD 5,000 UNIT/0.5 ML VIAL SQ SCH (09:15)
[2019-04-15] MEDS: CYCLOBENZAPRINE HCL 10 MG TAB PO SCH ×2 (09:15→13:21)
[2019-04-15] MEDS: INSULIN ASPART 100 UNITS/ML 3 ML PEN SC SCH ×2 (09:18→13:20)
[2019-04-15 11:41] VITALS: PULSE 54; TEMP 97.7; O2SAT 96
--- NOTE | 2019-04-15 12:29 | Discharge Summary ---
Date of Service April 15, 2019 Admission HPI Per Admitting Provider This is a 64-year-old female with past medical history significant for type 2 diabetes, chronic kidney disease stage IV, baseline creatinine around 1.8, hyperlipidemia, restrictive lung disease, sinus node dysfunction status post pacemaker, venous insufficiency, chronic diastolic congestive heart failure. The patient says recently her Lasix was stopped and she is having complaints of shortness of breath on exertion and lower extremity swelling since last about 1 week, hypertension, history of coronary artery disease with stable angina s/p stent, vitamin D deficiency, cutaneous sarcoidosis, anemia, depression. The patient has esophageal adenocarcinoma on the lower part of the esophagus, was getting chemo and radiation treatment, which is on hold currently. The patient was here in the hospital at [facility], was admitted on 03/28/2019 as she was not able to eat anything at that time. Was having severe dysphagia and odynophagia secondary to advanced esophageal carcinoma with obstructive 7-cm tumor in GE junction. At that time, the patient was transferred to [facility] for further management and possible J-tube placement, but in [facility] she was status post EGD and esophageal stent placement, but the stent migrated into the proximal stomach. The stent was placed on 04/04/2019, migrated on 04/05/2019. Status post stent removal but the esophagus was noted to be more dilated with stent removal, so there was no indication for J-tube at that time, and she was started on diet. Currently, patient is tolerating soft diet. No nausea, vomiting. The odynophagia has improved. The patient was discharged yesterday. At home, she was walking and her ankle gave away and she almost fell down. At that time, she was fine, but today on 04/07/2019 evening around 2:30 p.m., she started to have severe back pain in the buttock region, very severe, which she notes now she cannot walk because of the back pain. Because of that she came to the hospital and also she is lately having shortness of breath on exertion, she thinks it is because of stopping the Lasix. She does not know why it was stopped, probably because of her kidney disease. She has also noticed some swelling in the legs since last 1 week. But because of shortness of breath on exertion, she took 1 dose of Lasix today. Currently hemodynamics are stable, saturating okay on oxygen. Denies any fever, chills, no headache, no dizziness, no blurred visions, no earache. She always has runny nose and since last few weeks she is getting blood clots from the nose every day. Denies any sore throat, no cough, no fever or chills. No chest pain. Currently, no nausea. She says some abdominal discomfort from empty stomach. No diarrhea. She is constipated and she uses stool softeners, but no blood in the stools or black stools. Normal bladder movements. No blood in the stools. No hematuria or burning micturition. She has some bruises in the left forearm. Admission Exam Per Admitting Provider GENERAL: The patient is of moderate build, not in acute distress. VITAL SIGNS: Temperature 37.6, pulse 62, respiratory rate 20, blood pressure 169/62, oxygen 97% on room air. HEENT: No pallor, no icterus. Pupils are slightly dilated chronically. NECK: No JVD, no neck masses, no carotid bruits. CARDIOVASCULAR: S1, S2 heard, regular rate and rhythm, no murmur, no gallop. RESPIRATORY SYSTEM: Normal AP diameter. No accessory muscle use. No wheezing, no crackles. ABDOMEN: Soft, bowel sounds present, nontender. No distention. CENTRAL NERVOUS SYSTEM: Alert and oriented. Obeys commands. Moves extremities. EXTREMITIES: Bilateral lower extremities, +1 edema present, no erythema seen. Straight leg test positive on the left leg. Principal Diagnosis RAMONITA on CKD, s/p fall - traumatic buttocks pain, Esophageal ca, Hypertension, CHF Discharge Exam Constitutional: Elderly female, siting up in bed, in no acute distress Eyes: PERRL, EOMI, conjunctivae normal, anicteric sclerae ENMT: external ear and nose normal, oropharynx normal Neck: trachea midline, no thyromegaly Respiratory: normal respiratory effort; no respiratory distress and no cough Auscultation: no crackles, no rales, no rhonchi and no wheezes Cardiovascular: RRR, no murmur, no edema Gastrointestinal (Abdomen): Percussion/Palpation: abdomen soft; abdomen nontender, no guarding Musculoskeletal: no effusion and no skin erythema, moves extremities spontaneously, able to ambulate with a walker Neurologic: PERRL, EOMI, accommodation nl, no face palsy, no dysarthria, moves extremities spontaneously Psychiatric: alert and oriented x 3, euthymic affect Discharge Data Allergies Allergy/AdvReac Type Severity Reaction Status Date / Time Sulfa (Sulfonamide Allergy Intermediate RASH Verified 04/07/19 21:49 Antibiotics) atenolol Allergy Mild DROP HEART Verified 04/07/19 21:49 RATE levofloxacin [From Levaquin] Allergy Mild Rash Verified 04/07/19 21:49 gabapentin [From Neurontin] AdvReac Mild FELT LIKE Verified 04/07/19 21:49 WENT TO OUTER SPACE morphine AdvReac Mild NAUSEA/SICK Verified 04/07/19 21:49 NESS Consultations 04/08/19 01:10 Consult Case Management - Discharge Planning Routine 04/08/19 08:00 Consult Cardiology Routine 04/11/19 12:00 Consult Nephrology Routine Ordered Studies 04/07/19 20:45 CT abd pelvis wo con Stat CT lumbar spine wo con Stat CT pelvis wo con Stat 04/09/19 14:25 US venous doppler LE Urgent Hospital Course (1) Traumatic buttock pain: Pain has resolved Able to lie flat, area of erythema warmth has resolved, no evidence of cellulitis, will antibiotic discontinued CT abdomen pelvis does not show any evidence of pelvis fracture or muscle injury Provided fentanyl patch, heat application locally Acute renal failure on CKD stage IV: Worsening of creatinine noted 3.9 Diuretics kept on hold, she can restart her home Lasix on Thursday, April 18 - now improved, Cr 2.3 nephrology consulted,underlying advanced CKD , may eventually need dialysis , pt does not want to consider Perm cath placement /dialysis catheter now as she is already dealing with chemo and radiation tx for esophageal ca and will need a complicated surgical procedure wants to wait for consideration for dialysis if not emergently needed in this admission no evidence of volume overload, no severe electrolyte imbalance or metabolic acidosis pt is still able to urinate continue to monitor Avoid NSAIDs, contrast studies Monitor BMP -per inspector publications Dr. Brown, patient will obtain BMP weekly x3, starting April 21, results will be sent to her. Patient will follow-up with nephrology in 2 months as outpatient. Bilateral ankle pain Unsure of the etiology, no evidence of increased warmth swelling or erythema noted suggestive of acute gout Patient has been taking allopurinol, feels like she is having muscle spasm on bilateral calf muscle, radiating down to her ankles and feet Added for muscle relaxant -Flexeril-patient reports of significant improvement of symptoms Patient had x-ray of right ankle done on admission, showed no evidence of fracture X-ray of left ankle knee and femur ordered for left lower extremity pain mild DJD no fracture noted, pain improved after supportive care pt reports of able to get out of bed and walk with walker Ordered for PT/OT LEFT KNEE PAIN AND SWELLING : possible acute gouty arthritis previous hx of gout with Right knee involvement ordered for PO Prednisone low dose 20 mg PO daily for total X 5 dose pt was initially very reluctant for steroid tx due to side effect after 1st dose , knee pain was much better. did not had any symptom of anxiety -Overnight of (04/13) patient felt that she had a panic attack, and felt that this was secondary to prednisone, she asked to discontinue that, will stop -Currently denies any knee pain, says that swelling is down - will cont. to monitor DYSPHAGIA: unable to swallow solid /dry food due to lower esophageal large mass /adeno Ca -She is able to swallow liquids, and slippery foods Type 2 diabetes - pharmacy for glycemic management - A1c = 8.0% - Basal Lantus, insulin sliding scale adjusted -Resume home diabetic regimen on discharge HYPERTENSION -BP elevated usually in the evenings -Currently at home on Coreg and hydralazine 10 mg 3 times daily -continue Coreg, and will start amlodipine 5 mg nightly, will stop hydralazine (2) Esophageal cancer: esophageal carcinoma undergoing chemo and radiation treatment Severe dysphasia Due to above, Patient had speech therapy evaluation in last admission, was recommended to have GI evaluation for esophageal stent placement Was transferred to [facility] Status post esophageal stent placement at [facility], procedure was unsuccessful secondary to stent migration stoma, later repeat EGD done to remove esophageal stent Patient able to tolerate soft diet only, continue full liquid diet aspiration precaution (3) Abdominal discomfort, epigastric: Due to Lower esophageal adeno CA Pain is worsening after swallowing solid-, has improved Continue full liquid diet only as tolerated, Patient was evaluated by pain management in the past Decompensated CHF with diastolic dysfunction,. Preserved Left ventricle ejection fraction: History of diastolic CHF with preserved LV ejection fraction Patient appeared to be compensated, volume status remains stable lasix kept on hold secondary to acute renal failure She can restart Lasix, on Eleazar, Mery 6 Appreciate input from cardiology, Recommend supportive care; next will be resumed as renal function improves to baseline Echo 04/08/2019: LV chamber size normal with mild concentric LVH., Normal LV systolic function EF 60-65%. No segmental wall motion abnormalities noted. On discharge, patient should weigh herself daily, and record her weights she can restart Lasix on April 18 She should continue low-sodium diet Disposition: Home with home health services Total Time Total Time Spent Total Time Spent (In Minutes): 40 Total Time Includes: Examination of the Patient, Discharge Planning, Medication Reconciliation and Communication With Other Providers Discharge Plan Discharge Items Patient Disposition: Home - Home Health Services Reason For Visit: BACK PAIN Discharge Diagnosis: RAMONITA on CKD, s/p fall - traumatic buttocks pain, Esophageal ca, Hypertension, CHF Activity: As commented below Activity Comment: as tolerated, pace yourself, ask for help as needed Non-emergency contact: Primary Care Provider, Cable Installer Repairer, Art Education Professor and Oncologist Call non-emergency contact if: you have any medication questions and your symptoms worsen Follow-up/Referrals: Madelaine Harrison DO [Primary Care Provider] - 04/21/19 12:45 pm Diet: Low Sodium (2gm) Fluids: 1800ml (7 cups) Ambulatory Orders: Basic Metabolic Panel (Routine) Timeframe: 20190505 Location: Determined by Patient Ordered By: Juan Jose Jolley Basic Metabolic Panel (Routine) Timeframe: 20190421 Location: Determined by Patient Ordered By: Juan Jose Jolley Basic Metabolic Panel (Routine) Timeframe: 20190428 Location: Determined by Patient Ordered By: Juan Jose Jolley Addtl Attending Provider Instructions: Make sure to follow-up with your primary care provider on April 21, at 12:45. You can restart taking your Lasix on Thursday04/18/2019. Stop taking hydralazine for blood pressure, and start taking amlodipine 5 mg at night. Continue taking your Coreg. Make sure to get the blood work done, to monitor your kidney function weekly, the first one, on April 21. The results will be sent to your inspector publications, Dr. Brown. You will follow-up with nephrology in 2-months, they will call you with the appointment. Your radiation oncologist, Dr. Sifuentes, is going to contact you as well, he plans to see you on April 18. Please also review information below concerning congestive heart failure: Call your Primary Care doctor if any of the following symptoms or problems start or get worse: * Shortness of breath or difficulty breathing * Wake up at night short of breath * Chest pain * Cough * Swelling of your hands, feet, or legs * More fatigued or tired with your normal activity * Palpitations - sudden fast heart beats WEIGHT * Weigh yourself every morning after using the bathroom. * Use the same scale. * Wear the same amount of clothing. * Write your weight down on a chart. * Call your Primary Care doctor if you gain more than 2-3 pounds in 1-2 days. MEDICATIONS * Use this discharge instruction sheet for medication instructions. * Take your medications at the time your doctor ordered. * Do not skip a dose of your medicines. * If you miss a dose of medicine, take it as soon as possible, but DO NOT DOUBLE A DOSE. * Read your medicine information when you get home. * Know all of the side effects of your medicine. If in doubt, ask your pharmacist * Call your Primary Care doctor's office if you have any side effects. * Be sure all of your doctors know what medicine and herbs you take (including cold, flu, and herbal medicine). Take the following with you to your follow-up doctor appointments: * Weight Chart * Medication List * List of questions Do not drink excessive alcohol, beer or wine. Pending Studies at Discharge: No Stand-Alone Forms: My [facility], Smoking Cessation Medications and DC Order Prescriptions: New amlodipine [Norvasc] 5 mg Tablet 5 mg PO HS 30 Days Qty: 30 RF: 0 cyclobenzaprine 10 mg Tablet 10 mg PO TID PRN (Reason: muscle spasm) 14 Days Qty: 30 RF: 0 Continued pantoprazole [Protonix] 20 mg tablet,delayed release (DR/EC) 20 mg PO BID RF: 0 dexamethasone 4 mg tablet 12 mg PO UD RF: 0 allopurinol 100 mg Tablet 200 mg PO QPM RF: 0 citalopram [Celexa] 20 mg Tablet 20 mg PO QPM RF: 0 Novolog Flexpen U-100 Insulin 100 unit/mL Insulin Pen 0 sliding scale dose SUBCUT ACHS RF: 0 Tradjenta 5 mg Tablet 5 mg PO QAM RF: 0 Lantus U-100 Insulin 100 unit/mL solution 20 unit SUBCUT QAM RF: 0 melatonin 1 mg Tablet 1 mg PO HS PRN (Reason: Insomnia) RF: 0 atorvastatin [Lipitor] 20 mg tablet 20 mg PO DAILY RF: 0 carvedilol 12.5 mg Tablet 12.5 mg PO BID RF: 0 ondansetron HCl [Zofran] 8 mg tablet 8 mg PO Q8 PRN (Reason: Nausea) RF: 0 prochlorperazine maleate 10 mg Tablet 10 mg PO Q6H PRN (Reason: Nausea) RF: 0 benzonatate 100 mg Capsule 100 - 200 mg PO TID PRN (Reason: Cough) RF: 0 ergocalciferol (vitamin D2) [Vitamin D2] 50,000 unit Capsule 50,000 unit PO WK RF: 0 clobetasol 0.05 % Ointment 1 applic TOPICAL HS PRN (Reason: ..) RF: 0 cranberry 500 mg Capsule 500 mg PO DAILY RF: 0 Changed tramadol 50 mg Tablet 50 mg PO TID PRN (Reason: pain) Qty: 0 RF: 0 Discontinued Restasis 0.05 % Dropperette 1 drp OPHTHALMIC (EYE) Q12H RF: 0 hydralazine 10 mg tablet 10 mg PO TID RF: 0 aspirin [Aspir-Low] 81 mg Tablet,Delayed Release (Dr/Ec) 81 mg PO DAILY RF: 0 Restasis 0.05 % Dropperette 1 drp OPHTHALMIC (EYE) Q12H RF: 0 Discharge Orders: Discharge Order (Routine); Ordered 04/15/19 Ordered By: Juan Jose Jolley Admission Data Admit Date/Time: 04/08/19 00:04 Attending Provider: Juan Jose Jolley Admit Provider: Mitch Arteaga Primary Care Provider: Madelaine Harrison Other Providers: Juan A Agrawal ; Korin Brown ; Parth Silva ; Jenny Garcia ; Cathy Godoy ; Broderick Zendejas ; Margot Sampson ; [facility]
[2019-04-15 14:40] VITALS: BP 120/69
--- NOTE | 2019-04-15 18:02 | Nephrology Progress Note ---
Date of Service April 15, 2019 Assessment & Plan (1) Acute renal failure superimposed on chronic kidney disease: Patient with RAMONITA likely due to multifactorial etiology including intravascular volume depletion in setting of vomiting and poor po intake, chemotherapy and worsening diabetic nephropathy. She has CKD stage 4 with baseline cr 2. Her cr was 1.8 on 04/08 presentation, then trended up to peak at 3.9 on 04/12, now drifting down to 2.3 today. Electrolytes remain in acceptable ranges. CT showed no hydronephrosis. -Avoid nephrotoxins such as contrast. DISCHARGE RECOMMENDATIONS -hold OP diuretics until 04/18/19, then resume at prior OP dose -weekly bmp x 3 checks > so ordered -BP meds >> continue coreg, up amlodipine to 5 mg daily; hold hydralazine -f/u in CKD clinic in 2-3 mos (2) HTN (hypertension): Blood pressure remains above target today. believe much of elevation in house is situational. d/c recs as above. Subjective seen and evaluated on rounds at 0930 approx; feels improved, eating better, no sob, no n/v, bp remains elevated; no chest pain, no voiding concerns or edema; reiterates that she fell b/c twisted ankle not b/c blacked out or other Review of Systems Review of Systems: All systems reviewed & are unremarkable except as noted in HPI & below Physical Exam Constitutional: well developed, + obese and cooperative; no acute distress Eyes: EOM intact bilaterally ENMT: Ears: no external ear abnormality Nose: no external nose abnormality Mouth: + dry oral mucous membranes Neck: no nuchal rigidity Respiratory: normal respiratory effort Auscultation: lungs clear to auscultation bilaterally and + diminished lung sounds Cardiovascular: Rate/Rhythm: regular rhythm and + bradycardic (in 50s) Extremities: + edema (trace BLE) Gastrointestinal (Abdomen): Inspection/Auscultation: normal bowel sounds Percussion/Palpation: abdomen soft; abdomen nontender Musculoskeletal: Extremities: strength 5/5 throughout Skin: no rashes, warm and dry Neurologic: [place], fluent speech, no tremor Psychiatric: A+Ox3, euthymic affect Results & Data Vital Signs (Past 12 Hours) Vital Signs Temp Pulse Resp BP BP Pulse Ox 04/15/19 14:33 36.5 C 54 L 16 140/62 120/69 96 04/15/19 11:40 36.5 C 54 L 16 140/62 96 04/15/19 07:40 36.2 C L 53 L 18 173/68 H 97 (1) Acute renal failure superimposed on chronic kidney disease Acute renal failure type: with acute tubular necrosis Chronic kidney disease stage: stage 4 (severe) Qualified Code(s): N17.0 - Acute kidney failure with tubular necrosis; N18.4 - Chronic kidney disease, stage 4 (severe) (2) HTN (hypertension) Hypertension type: essential hypertension Qualified Code(s): I10 - Essential (primary) hypertension
[2019-04-16] MEDS ORDERED: AMLODIPINE BESYLATE 5 MG TAB PO SCH ×2 (09:00)
--- NOTE | 2019-05-20 13:42 | Coding Query ---
CODING QUERY To promote full compliance with coding requirements relating to patient care, provider participation is requested in all cases of biological engineer uncertainty. Please assist us with the question(s) below: Coding Question(s): Can you please clarify the acuity of back/buttock pain below Physician's Response(s): ( x) Acute pain NOS ( ) Acute pain Due to trauma ( ) Chronic Pain NOS ( ) Chronic pain due to trauma ( ) Other, Please specify: Acute pain NOS Thank you Hue Figueroa Principal Diagnosis: "that condition established after study, to be chiefly responsible for occasioning the admission of the patient to the hospital for care." Co-Existing Principal Diagnosis: "when two or more diagnoses equally meet the criteria for principal diagnosis as determined by the circumstances of admission, diagnostic work up, and/or therapy provided, and the Alphabetic Index, Tabular List, or another coding guideline does not provide sequencing direction, any one of the diagnoses may be sequenced first." "When the physician has documented what appears to be a current diagnosis in the body of the record, but has not included the diagnosis in the final diagnostic statement, the physician should be asked whether the diagnosis should be added." ([facility] 2 QTR90. p3-4) LENNY
== END 2019-04-15 15:29 | disposition home health service (06) | DRG 947 ==
LOC: ED 19:19 → 1E 04-08 00:04 → SUATTDRO 04-08 00:04 → 1E 04-08 00:44 → 2S 04-09 16:04 → 2N 04-10 13:48

== ENCOUNTER 2019-05-21 22:54 | Inpatient (IN) ==
[2019-05-21] MEDS ORDERED: HYDROmorphone INJ 0.5 MG/0.5 ML SYR IV STA (23:39)
[2019-05-21] MEDS ORDERED: ONDANSETRON INJ 2 MG/ML 2 ML VIAL IV STA (23:39)
[2019-05-21] MEDS ORDERED: SODIUM CHLORIDE 0.9% 1000ML 1,000 ML IV SCH (23:45)
[2019-05-22] MEDS ORDERED: HYDROmorphone INJ 1 MG/ML SYRINGE IV STA (00:19)
[2019-05-22 00:45] LABS: Hematocrit (blood only) 29.5 % (37-47); Mean Corpuscular Hemoglobin 30.2 pg (25-34); Mean Corpuscular Hgb Conc 33.9 g/dL (32-36); Mean Corpuscular Volume 89.1 fL (80-100); Mean Platelet Volume 12.1 fL (7.4-10.4); Platelet Count 122 K/uL (130-400); RDW Standard Deviation 51.7 fL (36.4-46.3); Red Blood Count 3.31 M/uL (4.2-5.4); White Blood Count 3.85 K/uL (4.8-10.8)
[2019-05-22 00:46] LABS: Basophils # (auto) 0.01 K/uL (0-0.2); Basophils % (auto) 0.3 %; Eosinophils # (auto) 0.08 K/uL (0-0.5); Eosinophils % (auto) 2.1 %; Immature Granulocytes # (auto) 0.01 K/uL (0.00-0.02); Immature Granulocytes % (auto) 0.3 %; Monocytes % (auto) 5.2 %; Neutrophils # (auto) 3.05 K/uL (1.4-6.5); Neutrophils % (auto) 79.1 %; Ovalocytes 1+; Platelet Estimate Decreased (Normal)
[2019-05-22 00:48] LABS: Alanine Aminotransferase 11 U/L (12-78); Albumin Globulin Ratio 0.7 (0.9-2); Albumin Level 2.3 gm/dl (3.4-5.0); Alkaline Phosphatase 85 U/L (45-117); Aspartate Aminotransferase 18 U/L (15-37); BUN Creatinine Ratio 23.1 (10-20); Bilirubin,Total 1.1 mg/dl (0.2-1); Blood Urea Nitrogen 32 mg/dl (7-18); Carbon Dioxide 19 mmol/L (21-32); Chloride 106 mmol/L (98-107); Est GFR (African American) 46.1; Est GFR (Non-African American) 39.7; Globulin 3.4 gm/dl (2.5-4.0); Potassium 4.1 mmol/L (3.5-5.1); Sodium 136 mmol/L (136-145); Total Protein 5.7 gm/dl (6.4-8.2); Troponin I 0.021 ng/ml (0-0.045)
[2019-05-22 00:54] LABS: Calcium 8.7 mg/dl (8.5-10.1); Glucose 320 mg/dl (70-99)
[2019-05-22 01:22] LABS: Beta-Hydroxybutyrate 30.42 mg/dl (0.2-2.81)
[2019-05-22] MEDS ORDERED: SODIUM CHLORIDE 0.9% 1000ML 1,000 ML IV ONE (01:44)
[2019-05-22] MEDS ORDERED: ED DKA INSULIN DRIP ONE (01:48)
[2019-05-22] MEDS ORDERED: PATIENT'S HEIGHT AND/OR WEIGHT NEEDED STA (01:51)
[2019-05-22] MEDS ORDERED: GLUCOSE 10 TABS/TUBE PO PRN ×2 (02:00→04:15)
[2019-05-22] MEDS ORDERED: GLUCOSE 40% GEL 15 GM TUBE PO PRN ×2 (02:00→04:15)
[2019-05-22] MEDS ORDERED: DEXTROSE 50% 50 ML SYRINGE IV PRN ×2 (02:00→04:15)
[2019-05-22] MEDS ORDERED: GLUCAGON FOR INJ 1 MG VIAL IM PRN (02:00)
[2019-05-22] MEDS ORDERED: INSULIN REGULAR 250 UNITS in SODIUM CHLORIDE 0.9% 247.5 ML IV SCH ×2 (02:00→03:45)
[2019-05-22] MEDS ORDERED: CARBOHYDRATES FOR HYPOGLYCEMIA PO PRN ×2 (02:00→04:15)
[2019-05-22] MEDS ORDERED: PHARMACY GLYCEMIC MGMT CONSULT PRN ×2 (02:47→04:02)
[2019-05-22] MEDS ORDERED: ACETAMINOPHEN 325 MG TAB PO PRN (03:45)
[2019-05-22] MEDS ORDERED: PENDING D5 1/2NS+20mEq KCL IVF SCH (03:45)
[2019-05-22] MEDS ORDERED: NON-FORMULARY MEDICATION (Melatonin 1 MG) PO PRN (03:45)
[2019-05-22] MEDS ORDERED: DKA GOAL RANGE 150-250 mg/dl ONE (03:45)
[2019-05-22] MEDS ORDERED: SODIUM CHLORIDE 0.9% 1000ML 1,000 ML IV SCH ×2 (03:45→17:15)
[2019-05-22] MEDS ORDERED: BENZONATATE 100 MG CAPSULE PO PRN (03:45)
[2019-05-22] MEDS ORDERED: NITROGLYCERIN SL 0.4 MG/TAB TAB SL PRN (03:45)
[2019-05-22] MEDS ORDERED: DC ALL PREVIOUSLY ORDERED DIABETES MEDS ONE (03:45)
[2019-05-22] MEDS ORDERED: PENDING 1/2NSS+20mEq KCL IVF SCH (03:45)
[2019-05-22] MEDS ORDERED: D5W AND 1/2NSS + 20MEQ KCL 20 MEQ/1,000 ML BAG IV SCH (04:00)
[2019-05-22] MEDS ORDERED: MoRPHine SULFATE 5 MG/0.25 ML UDP PO PRN (04:04)
[2019-05-22] MEDS ORDERED: CLOBETASOL PROPIONATE 0.05% OINT 15 GM TUBE EXT PRN (04:06)
[2019-05-22] MEDS: ONDANSETRON INJ 2 MG/ML 2 ML VIAL IV PRN ×4 (04:06→23:37)
[2019-05-22] MEDS: HYDROmorphone INJ 0.5 MG/0.5 ML SYR IV PRN ×3 (04:09→19:44)
[2019-05-22] MEDS ORDERED: GLUCAGON FOR INJ 1 MG VIAL SQ PRN (04:15)
[2019-05-22 04:30] LABS: BUN Creatinine Ratio 21.7 (10-20); Calcium 8.5 mg/dl (8.5-10.1); Creatinine Clr Calc Pharmacy 40.6 ml/min; Est GFR (Non-African American) 37.1; Magnesium 1.5 mg/dl (1.8-2.4); Phosphorus 2.4 mg/dl (2.5-4.9); Potassium 4.2 mmol/L (3.5-5.1)
--- NOTE | 2019-05-22 05:45 | History and Physical Report ---
DATE OF ADMISSION: 05/22/2019 CHIEF COMPLAINT: Nausea, vomiting and abdominal pain. HISTORY OF PRESENT ILLNESS: This is a 64-year-old female with past medical history significant for type 2 diabetes since 1999 on insulin, hypertension, cardiac sarcoid diagnosed in 1999 with involvement of skin and suspected lung and left eye, hyperlipidemia, depression, recurrent UTIs, CAD status post stenting, melanoma status post excision in 2014, bifascicular block status . Had 1 year of prednisone after sarcoid diagnosis and later development of forearm dermatitis with diagnosis of subcutaneous sarcoid treated with Plaquenil. 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 There is a plan for surgery but to treat with chemoradiation prior to surgery. The patient has T3N1 disease. Received 3 doses of Taxol, carboplatin, in combination with radiation therapy. Last dose of chemotherapy was reduced because of neutropenia and thrombocytopenia and because of generalized weakness, dehydration plus nausea, vomiting and poor appetite, overall general worsening condition, chemo was discontinued. She is getting radiation therapy. Last dose of radiation was on and the patient is currently stating that she wants to stop with radiation treatment too. She was here recently, was admitted on 05/05/2019 and discharged on 05/09/2019 with same nausea and vomiting. Currently, again presents with the same nausea and vomiting, several episodes, and severe abdominal pain in the epigastric region, 9/10 in severity. Because she was not eating, she did not take her insulin and sugars were high at 320 and she was in mild DKA with CO2 of 19 with elevated beta hydroxybutyric acid. Dehydrated. The patient was started on insulin drip in the ER which we will continue for now with IV fluids. . She says she is not making much urine. Denies any burning micturition or blood in the urine. She is constipated. No black stools or blood in the stools. Very weak and not ambulating much. She uses a walker at home. Lives with her . Denies any dysphagia or odynophagia, not eating much. No chest pain, no shortness of breath, no cough, no fever, no chills. Has some headache. No blurred vision, no double vision, no earache, no runny nose, no sore throat. With the pain medications and nausea medications in ER, the symptoms are improved currently. ALLERGIES: SULFA ANTIBIOTICS, ATENOLOL, LEVAQUIN, GABAPENTIN, MORPHINE. PAST MEDICAL HISTORY: As mentioned above. PAST SURGICAL HISTORY: Biopsy of the breast, colonoscopy, EGD with endoscopic ultrasound, cardiac catheterization, status post stent placement, wide local excision of the left back for melanoma and also left axilla, cataract surgery on right side, partial removal of the eye fluid, appendectomy, tonsillectomy, total abdominal hysterectomy with removal of tubes. MEDICATIONS: Currently the patient is on amlodipine 5 mg p.o. daily, allopurinol 200 mg p.o. q.p.m., Coreg 12.5 mg p.o. b.i.d., Celexa 20 mg p.o. daily, clobetasol 1 application topically in chest p.r.n., cranberry 500 mg p.o. daily, vitamin D 50,000 units p.o. on Thursday, Lasix 40 mg p.o. a.m., hydralazine 10 mg p.o. t.i.d., insulin sliding scale, Lantus 40 units in the a.m., melatonin 1 mg p.o. at bedtime p.r.n., morphine concentrate 10 mg p.o. q. 6 hours p.r.n., Protonix 20 mg p.o. b.i.d., prochlorperazine 10 mg p.o. q. 6 hours p.r.n., sucralfate 1 gram p.o. b.i.d., tramadol 50 mg p.o. t.i.d. p.r.n. FAMILY HISTORY: Significant for father had cancer, diabetes, heart disorder, nephrolithiasis. Mother has breast cancer, diabetes, glaucoma, heart disorder, stroke. Maternal grandmother has rheumatoid arthritis, AAA, heart disorder, stroke. SOCIAL HISTORY: , lives with , smoked for 1 year. No alcohol, no drug use. REVIEW OF SYSTEMS: As per HPI. Rest of the systems are negative. PHYSICAL EXAMINATION: GENERAL: The patient is obese, not in acute distress currently. VITAL SIGNS: Temperature afebrile, pulse 75, respiratory rate 16, blood pressure 165/93, oxygen 100% on 2 liters. HEENT: No pallor, no icterus. Pupils equal, round, and reactive to light. NECK: No JVD, no neck masses, no carotid bruits. CARDIOVASCULAR: S1, S2 heard, regular rate and rhythm, no murmur, no gallop. RESPIRATORY SYSTEM: Normal AP diameter. No accessory muscle use. No wheezing, no crackles. ABDOMEN: Soft, bowel sounds present. Patient having epigastric pain, does not want to palpate. No distention seen. CENTRAL NERVOUS SYSTEM: Cranial nerves II-XII grossly intact, nonfocal. EXTREMITIES: Mild pedal edema, no erythema seen. LABORATORY DATA: WBC 3.8, hemoglobin 10, hematocrit 29, platelets 122. Sodium 136, potassium 4.1, chloride 106, bicarbonate 19, BUN 32, creatinine 1.38, serum glucose 320, calcium 8.7, total bilirubin 1.1, AST 18, ALT 11, alkaline phosphatase 85, troponin I 0.02. Beta hydroxybutyrate 30. EKG: AFib with right bundle branch block, left anterior fascicular block, with rate of 71. T-wave inversions in inferior leads. ASSESSMENT AND PLAN: This is a 64-year-old female who presents with early diabetic ketoacidosis, dehydration, persistent nausea, vomiting and abdominal pain. 1. Persistent nausea, vomiting, and abdominal pain. The patient has esophageal cancer at the GE junction, status post chemoradiation. Chemo was stopped currently. Last dose of radiation was last and patient states she wants to stop the radiation treatment too because it seems she is not tolerating it. Will be admitted to the hospital, placed on IV fluids, IV Dilaudid p.r.n. Continue her home pain medications and IV antiemetics and monitor. 2. Early diabetic ketoacidosis with sugars of 320, CO2 of 19, elevated beta hydroxybutyric acid. Started on insulin drip, DKA protocol, which we will continue. Pharmacy consulted. The patient is here because of nausea, vomiting and not eating. She is not taking her home Lantus. Follow the labs as per protocol.. 3. New atrial fibrillation on the EKG with some EKG changes. History of bifascicular block, history of sinoatrial dysfunction status post pacemaker. Currently rate is under control. Will continue home Coreg. Will get a repeat EKG, echocardiogram. Follow up troponin. Consult cardiology for further recommendations. The patient seems not a candidate for anticoagulation because of esophageal cancer, but will await cardiology opinion. 4. Coronary artery disease status post stent. Currently on Coreg. Currently asymptomatic. 5. Hypertension, on amlodipine, Coreg, hydralazine. We will monitor the blood pressure. 6. History of chronic diastolic heart failure. Getting IV fluids. We will monitor for volume overload. Continue Coreg, hydralazine, holding the Lasix. 7. Gastroesophageal reflux disease, on PPI. 8. Gout, on allopurinol. 9. Depression, on Celexa. 10. Generalized weakness, most likely secondary to chemoradiation and esophageal cancer. PT and OT when patient is stable. 11. Chronic kidney disease stage III-IV, creatinine around baseline. Will follow the labs. 12. Deep venous thrombosis prophylaxis, sequential compression devices for now. 13. Disposition: Admit to tele floor. Expect to discharge home and follow with family doctor. Level 1 full code. MTDD
--- NOTE | 2019-05-22 05:55 | Emergency Department Note ---
Entered by Kamala Batres acting as a scribe for Caro Montejo DO History of Present Illness General Chief complaint: Dehydration Stated complaint: DEHYDRATION,DRY HIVES, CANCER PT Time Seen by Provider: 05/21/19 23:07 Source: patient History of Present Illness Location: abdomen Pain Consistency: + constant Relieved By: + none Exacerbated By: + none Associated symptoms: + headaches, + loss of appetite, + nausea/vomiting and + other (dry heaving, dehydration) Treatments prior to arrival: other (Toradol) The patient is a 64 year old female with a history of stage 3 esophageal cancer who presents to the Emergency Room with complaints of dehydration. The patient also complains of loss of appetite, shortness of breath, headache, dry heaves, and vomiting. The patient reports a history of stage 3 cancer and gallstones. Her last chemotherapy treatment was last month. She had radiation treatment at 3 times last week. She confirms that she has a port on her right side, and she has a pacer on her left side. The patient took Toradol prior to arrive, which did not help her symptoms. Home Medications Home Medications Medication Instructions Recorded Confirmed Type allopurinol 200 mg PO QPM 05/31/18 05/22/19 History citalopram [Celexa] 20 mg PO QPM 05/31/18 05/22/19 History melatonin 1 mg PO HS PRN 09/10/18 05/22/19 History pantoprazole 20 mg tablet,delayed 20 mg PO BID 03/23/19 05/22/19 History release carvedilol 12.5 mg PO BID 04/07/19 05/22/19 History insulin glargine 100 unit/mL 40 units SUBCUT QAM ml 04/19/19 05/22/19 History subcutaneous solution sucralfate 1 gram tablet 1 gm PO BID 04/26/19 05/22/19 History hydralazine 10 mg PO BID 05/05/19 05/22/19 History furosemide [Lasix] 40 mg PO QAM #0 tab 05/09/19 05/22/19 Rx prochlorperazine maleate 10 mg PO Q6H PRN #120 tab 05/09/19 05/22/19 Rx tramadol 50 mg PO TID PRN #20 tab 05/09/19 05/22/19 Rx morphine concentrate 10 mg PO Q6H PRN #30 ml 05/10/19 05/22/19 Rx amlodipine [Norvasc] 5 mg PO DAILY 05/22/19 05/22/19 History atorvastatin 20 mg PO DAILY 05/22/19 05/22/19 History metolazone 2.5 mg PO WK 05/22/19 05/22/19 History Allergies Allergy/AdvReac Type Severity Reaction Status Date / Time Sulfa (Sulfonamide Allergy Intermediate RASH Verified 05/22/19 03:15 Antibiotics) atenolol Allergy Mild DROP HEART Verified 05/22/19 03:15 RATE levofloxacin [From Levaquin] Allergy Mild Rash Verified 05/22/19 03:15 gabapentin [From Neurontin] AdvReac Mild FELT LIKE Verified 05/22/19 03:15 WENT TO OUTER SPACE morphine AdvReac Mild NAUSEA/SICK Verified 05/22/19 03:15 NESS Past Med/Surg History Medical History Anemia Bifascicular block Carcinoma in situ Cervical - 1985 Cardiac pacemaker in situ Chronic diastolic (congestive) heart failure CKD (chronic kidney disease), stage IV follows w/ Dr. Faye Coronary artery disease Remote history of BMS Depression DM2 (diabetes mellitus, type 2) IDDM Esophageal cancer (Chronic) Diagnosed 01/19/19 Gout Hearing deficit High cholesterol (Inactive) History of GI bleed d/t ulcer (age in 20's) HTN (hypertension) Melanoma of back Removed - MOH'S Surgery Pacemaker (Inactive) implanted 2015 -- [employer] - last checked 03/01/2019 Rectus sheath hematoma (Resolved) Sarcoidosis Cutaneuos, Lung, Eyes, Spleen, Cardiac (s/p prednisone 1 year and then plaquinil) Sinus node dysfunction Surgical History H/O colonoscopy (Inactive) 01/19/19 [facility] History of appendectomy (Inactive) Age 16 History of bilateral cataract extraction 2014 History of bronchoscopy 1988 - with biopsy (at [facility]) History of cardiac cath prior to 2009 -- @ [place] History of carpal tunnel surgery of right wrist x 2 History of cone biopsy of cervix 1985 - malignant "in situ" History of detached retina repair 2014 - right eye History of dilatation and curettage 1974 History of esophagogastroduodenoscopy (EGD) w/ biopsy 01/19/19 [facility] History of heart artery stent (Inactive) x 2 stents prior to 2009 in [place] History of hysterectomy (Inactive) 1986 History of lumpectomy of left breast benign History of Mohs micrographic surgery for skin cancer On back - for Melanoma History of wisdom tooth extraction Hx of endoscopy upper endoscopic ultrasonography Family History Mother , Passed age 78 of dementia Breast cancer Bilateral Breasts - 2 different kinds - had lumpectomy and brachytherapy Hypertension Heart disease Father , Passed age 88 of COPD/Cardiac Complications Diabetes Melanoma Heart disease Sister No problems noted. 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 and A total of 10 systems reviewed and were otherwise negative Physical Exam Vital Signs Vital Signs - 24 hr 05/21/19 22:56 05/22/19 00:10 05/22/19 00:24 Pulse Rate 89 Pulse Rate [Right Finger] 63 Pulse Rhythm [Right Finger] Regular Pulse Strength [Right Finger] Normal Respiratory Rate 19 16 Respiratory Effort / Characteristics Non-Labored Non-Labored Respiratory Depth Normal Normal Respiratory Pattern Regular Blood Pressure 234/89 H Blood Pressure [Right Arm] 161/75 H Blood Pressure Mean 137 Blood Pressure Mean [Right Arm] 103 Blood Pressure Position Sitting Blood Pressure Position [Right Arm] Lying Pulse Oximetry 98 93 95 Oxygen Delivery Method Room Air Room Air Room Air Oxygen Flow Rate Sepsis Recent Fever Within 48 Hours No Sepsis New/Unexplained Change in Mental Status No Sepsis Action Taken by Nursing No Action Required 05/22/19 00:35 05/22/19 01:11 05/22/19 02:33 Pulse Rate Pulse Rate [Right Finger] 77 82 75 Pulse Rhythm [Right Finger] Pulse Strength [Right Finger] Respiratory Rate 16 16 16 Respiratory Effort / Characteristics Non-Labored Respiratory Depth Normal Normal Respiratory Pattern Blood Pressure Blood Pressure [Right Arm] 188/88 H 157/76 H 165/93 H Blood Pressure Mean Blood Pressure Mean [Right Arm] 121 103 117 Blood Pressure Position Blood Pressure Position [Right Arm] Lying Lying Lying Pulse Oximetry 95 98 100 Oxygen Delivery Method Room Air Nasal Cannula Nasal Cannula Oxygen Flow Rate 2 2 Sepsis Recent Fever Within 48 Hours Sepsis New/Unexplained Change in Mental Status Sepsis Action Taken by Nursing HEENT: Head - normocephalic and atraumatic Pupils are equal, round, and reactive to light. Extraocular eye muscles are intact, and sclera are anicteric. Nose - moist nasal mucosa without discharge. Mouth - dry. Oropharynx is nonerythematous and there is no tonsillar exudate or edema noted. Neck: Supple; no JVD, nuchal rigidity, cervical lymphadenopathy, or auscultated bruits. Heart: Regular rate and rhythm. There is a normal S1 and S2 with no murmurs, clicks, or gallops appreciated. Lungs: Clear to auscultation bilaterally with no wheezes, rales, or rhonchi. Abdomen: Exquisite epigastric tenderness and left upper quadrant tenderness to palpation.Soft, nondistended, with good bowel sounds. There are no palpable pulsatile masses or hepatosplenomegaly. There is no guarding, rigidity, or rebound noted. Extremities: No evidence of cyanosis, clubbing, or edema. There are easily palpable peripheral pulses. Skin: Pale, dry with poor turgor. No rashes. Course Course 2329: Past medical records reviewed. The patient was evaluated in room B07. A complete history and physical exam was performed. Her port was accessed. Labs are drawn as above. A twelve-lead EKG was obtained. Patient was given a liter of normal saline solution wide open. She was given IV Dilaudid for pain 0019: I rechecked on the patient, who states that her pain has decreased slightly. Her blood pressure has lowered as well. She will be given more pain medicine. 0140: I rechecked on the patient. She is in DKA, so we discussed further treatment in the hospital. The patient was agreeable to this plan. She will continue to receive IV crystalloid therapy and will start an insulin drip. 0149: I spoke to Dr. Arteaga, [facility] hospitalist, who agreed to take over care of the patient. She understands and is agreeable to the treatment plan. She will be evaluated for further treatment. Administered Medications Hydromorphone HCl (Dilaudid) 0.5 mg IV Q3H PRN PRN Reason: Pain Stop: 06/05/19 03:44 Last Admin: 05/22/19 04:09 Dose: 0.5 mg Documented by: [id number] Insulin Human Regular 250 (units/ Sodium Chloride) 250 mls @ 3.3 mls/hr IV .Q24H AVIS; Protocol Stop: 06/21/19 03:44 Last Titration: 05/22/19 05:38 Dose: 3.3 units/hr, 3.3 mls/hr Documented by: [id number] Cosigned by: [id number] Titration: 05/22/19 04:40 Dose: 3.3 units/hr, 3.3 mls/hr Documented by: [id number] Cosigned by: [id number] Admin: 05/22/19 03:45 Dose: 3.3 units/hr, 3.3 mls/hr Documented by: [id number] Cosigned by: [id number] Potassium Chloride/Dextrose/Sod Cl (D5w And 1/2nss + 20meq Kcl) 20 meq in 1,000 mls @ 150 mls/hr IV .Q6H40M AVIS Stop: 06/21/19 03:59 Last Admin: 05/22/19 04:04 Dose: 150 mls/hr Documented by: [id number] Ondansetron HCl (Zofran) 4 mg IV Q6H PRN PRN Reason: Nausea Stop: 06/21/19 03:44 Last Admin: 05/22/19 04:06 Dose: 4 mg Documented by: [id number] Discontinued Medications Hydromorphone HCl (Dilaudid) 1 mg IV NOW STA Stop: 05/21/19 23:40 Last Admin: 05/21/19 23:55 Dose: 1 mg Documented by: [id number] Hydromorphone HCl (Dilaudid) 1 mg IV NOW STA Stop: 05/22/19 00:20 Last Admin: 05/22/19 00:33 Dose: 1 mg Documented by: [id number] Sodium Chloride (Nss 1000ml) 1,000 mls @ 999 mls/hr IV .Q1H1M AVIS Stop: 05/22/19 00:45 Last Infusion: 05/22/19 02:20 Dose: 0 mls/hr Documented by: [id number] Admin: 05/21/19 23:55 Dose: 999 mls/hr Documented by: [id number] Sodium Chloride (Nss 1000ml) 1,000 mls @ 999 mls/hr IV .Q1H1M ONE Stop: 05/22/19 02:44 Last Infusion: 05/22/19 04:24 Dose: 0 mls/hr Documented by: [id number] Admin: 05/22/19 02:28 Dose: 999 mls/hr Documented by: [id number] Insulin Human Regular 250 (units/ Sodium Chloride) 250 mls @ 3.3 mls/hr IV .Q24H AVIS; Protocol Stop: 06/21/19 01:59 Last Titration: 05/22/19 04:25 Dose: 0 units/hr, 0 mls/hr Documented by: [id number] Cosigned by: [id number] Admin: 05/22/19 02:23 Dose: 2.2 units/hr, 2.2 mls/hr Documented by: [id number] Cosigned by: [id number] Miscellaneous (Patient's Height And/Or Weight Needed) 1 ea N/A NOW STA Stop: 05/22/19 01:52 Last Admin: 05/22/19 02:26 Dose: 1 ea Documented by: [id number] Ondansetron HCl (Zofran) 4 mg IV NOW STA Stop: 05/21/19 23:40 Last Admin: 05/21/19 23:55 Dose: 4 mg Documented by: [id number] Critical Care Time Critical Care Time: Yes (I have personally spent greater than 30 minutes of critical care time in the direct management of this patient. This includes bedside care, interpretation of diagnostic studies, and testing, discussion with consultants, patient, and family members, and other required patient management activities. This 30 minutes is in excess of all separately billable procedures.) Total Critical Care Time: 30 I have personally spent greater than 30 minutes of critical care time in the direct management of this patient. This includes bedside care, interpretation of diagnostic studies, and testing, discussion with consultants, patient, and family members, and other required patient management activities. This 30 minutes is in excess of all separately billable procedures. Medical Decision Making Differential Diagnosis Differential diagnosis includes: dehydration, hypertensive crisis, intracranial hemorrhage, intracranial mass, electrolyte abnormality, among others were considered. Medical Records Attestation: I reviewed the patient's medical records. Home Medications Current Medication List: was personally reviewed by me Laboratory Data Attestation: I reviewed the patient's lab results. Result diagrams: 05/22/19 00:00 05/22/19 04:00 Lab Results 05/22/19 05/22/19 05/22/19 Range/Units 00:00 00:00 01:55 WBC 3.85 L (4.8-10.8) K/uL RBC 3.31 L (4.2-5.4) M/uL Hgb 10.0 L (12.0-16.0) g/dL Hct 29.5 L (37-47) % MCV 89.1 (80-100) fL MCH 30.2 (25-34) pg MCHC 33.9 (32-36) g/dL RDW Std Deviation 51.7 H (36.4-46.3) fL RDW Coeff of Dao 16.0 H (11.5-14.5) % Plt Count 122 L (130-400) K/uL MPV 12.1 H (7.4-10.4) fL Immature Gran % (Auto) 0.3 % Neut % (Auto) 79.1 % Lymph % (Auto) 13.0 % Motley % (Auto) 5.2 % Eos % (Auto) 2.1 % Baso % (Auto) 0.3 % Immature Gran # (Auto) 0.01 (0.00-0.02) K/uL Neut # (Auto) 3.05 (1.4-6.5) K/uL Lymph # (Auto) 0.50 L (1.2-3.4) K/uL Motley # (Auto) 0.20 (0.11-0.59) K/uL Eos # (Auto) 0.08 (0-0.5) K/uL Baso # (Auto) 0.01 (0-0.2) K/uL Platelet Estimate Decreased L (Normal) Ovalocytes 1+ Sodium 136 (136-145) mmol/L Potassium 4.1 (3.5-5.1) mmol/L Chloride 106 (98-107) mmol/L Carbon Dioxide 19 L (21-32) mmol/L Anion Gap 11.0 (3-11) BUN 32 H (7-18) mg/dl Creatinine 1.38 H (0.6-1.2) mg/dl Est Cr Clr Drug Dosing Not Reportable Est GFR ( Amer) 46.1 Est GFR (Non-Af Amer) 39.7 BUN/Creatinine Ratio 23.1 H (10-20) Glucose 320 H* (70-99) mg/dl POC Glucose 299 H (70-99) mg/dl Calcium 8.7 (8.5-10.1) mg/dl Total Bilirubin 1.1 H (0.2-1) mg/dl AST 18 (15-37) U/L ALT 11 L (12-78) U/L Alkaline Phosphatase 85 (45-117) U/L Troponin I 0.021 (0-0.045) ng/ml Total Protein 5.7 L (6.4-8.2) gm/dl Albumin 2.3 L (3.4-5.0) gm/dl Globulin 3.4 (2.5-4.0) gm/dl Albumin/Globulin Ratio 0.7 L (0.9-2) Beta-Hydroxybutyric Acd 30.42 H (0.2-2.81) mg/dl ECG Data Attestation: I personally reviewed and interpreted this ECG as follows: Indication: + weakness Rate (beats per minute): 71 Rhythm: + normal sinus ECG Intervals/blocks: + Right Bundle branch block ECG ST segments: + T-wave inversions (Inferior) Comparison ECG Date: from (05/06/19) Change: no significant change Blood Pressure Blood Pressure Findings: Elevated blood pressure Blood Pressure Disposition: further management by hospitalist BARRY Lance Continuous Cardiac Monitoring: An order was placed for continuous cardiac monitoring. The monitor shows a rate of 71 with normal sinus rhythm. This is a 64-year-old female patient who presents to the emergency department with complaints of significant nausea, vomiting and decreased oral intake. The patient has a history of stage III esophageal cancer. She appears quite dehydrated on physical exam. She is an insulin-dependent diabetic. She has a blood sugar greater than 300 here in the emergency department with a significant elevation to her BHA consistent with DKA. The patient was receiving IV crystalloid therapy. The patient was started on an insulin drip [facility]. Impression & Plan DKA (diabetic ketoacidoses), Vomiting Discharge Plan Visit Data *Final* Discharge Date/Time: 05/22/19 03:09 Chief Complaint: Dehydration Stated Complaint: DEHYDRATION,DRY HIVES, CANCER PT ED Provider: Caro Montejo Discharge Problem: DKA (diabetic ketoacidoses), Vomiting Patient Disposition: Admitted As Inpatient Discharge Instructions Interventions: ED Discharge Assessment Last Done: 05/22/19 03:09 Discharge Problem: DKA (diabetic ketoacidoses) Qualifiers: Diabetes mellitus type: type 2 Diabetes mellitus complication detail: without coma Qualified Code(s): E11.10 - Type 2 diabetes mellitus with ketoacidosis without coma Vomiting Qualifiers: Vomiting type: unspecified Vomiting Intractability: unspecified Nausea presence: unspecified Qualified Code(s): R11.10 - Vomiting, unspecified The scribe's documentation has been prepared under my direction and personally reviewed by me in its entirety. I confirm that the note above accurately reflects all work, treatment, procedures, and medical decision making performed by me.
[2019-05-22] MEDS ORDERED: SODIUM PHOSPHATE 3 MMOL/1 ML INFUSION IV STA (06:41)
[2019-05-22] MEDS ORDERED: SODIUM PHOSPHATE 21 MMOL in SODIUM CHLORIDE 0.9% 500 ML IV ONE (06:45)
[2019-05-22] MEDS ORDERED: PERFLUTREN LIPID MICROSPHERE (DEFINITY) IV ONE (07:12)
[2019-05-22] MEDS ORDERED: INSULIN ASPART 100 UNITS/ML 3 ML PEN SC SCH ×2 (07:30→12:00)
--- NOTE | 2019-05-22 08:09 | Electrocardiogram Report ---
Test Reason : Blood Pressure : / mmHG Vent. 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
[2019-05-22] MEDS: MAGNESIUM SULFATE / D5W 1 GM/100 ML BAG IV SCH ×2 (08:30→09:53)
[2019-05-22] MEDS ORDERED: SUCRALFATE 1 GM TAB PO SCH (09:00)
[2019-05-22] MEDS ORDERED: PANTOprazole 40 MG TAB PO SCH (09:00)
[2019-05-22 09:08] LABS: BUN Creatinine Ratio 20.9 (10-20); Calcium 8.3 mg/dl (8.5-10.1); Creatinine Clr Calc Pharmacy 40.1 ml/min; Est GFR (African American) 42.3; Est GFR (Non-African American) 36.5; Magnesium 1.5 mg/dl (1.8-2.4); Phosphorus 2.5 mg/dl (2.5-4.9); Potassium 4.2 mmol/L (3.5-5.1)
[2019-05-22] MEDS: carvediloL 12.5 MG TAB PO SCH ×3 (09:52→21:33)
[2019-05-22] MEDS: AMLODIPINE BESYLATE 5 MG TAB PO SCH ×2 (09:53→14:20)
[2019-05-22] MEDS: HydrALAZINE 10 MG TAB PO SCH ×4 (09:53→21:32)
--- NOTE | 2019-05-22 10:14 | Electrocardiogram Report ---
Test Reason : Blood Pressure : / mmHG Vent. Rate : 073 BPM Atrial Rate : 073 BPM P-R Int : 276 ms QRS Dur : 142 ms QT Int : 450 ms P-R-T Axes : 075 -66 -83 degrees QTc Int : 495 ms Sinus rhythm with 1st degree A-V block with occasional Premature ventricular complexes Right bundle branch block Left anterior fascicular block Old Lateral infarct Chronic T-wave inversion in multiple leads Abnormal ECG When compared with ECG of 22-MAY-2019 00:18, Premature ventricular complexes are now Present Otherwise no significant change Confirmed by Troy Moreno ([id number]) on 05/22/2019 10:14:13 AM Referred By: REFERRED SELF Confirmed By:Troy Moreno
[2019-05-22] MEDS ORDERED: INSULIN GLARGINE SOLOSTAR 100 UNITS/ML 3 ML PEN SC ONE (10:30)
[2019-05-22] MEDS ORDERED: DC IV INSULIN INFUSION 1 EA DEVI ONE ×2 (10:31→10:32)
[2019-05-22] MEDS: PROMETHAZINE HCL 12.5 MG in SODIUM CHLORIDE 0.9% 50 ML IV PRN ×2 (11:35→19:44)
--- NOTE | 2019-05-22 12:03 | Pharmacy Report ---
Pharmacy Glycemic Short Note 2 - Date of Service May 22, 2019 - Glycemic Short BSG Results (Last 24 hours): 05/22/19 05/22/19 05/22/19 00:00 01:55 03:38 Glucose 320 H* POC Glucose 299 H 246 H 05/22/19 05/22/19 05/22/19 04:00 04:34 05:36 Glucose 242 H POC Glucose 242 H 236 H 05/22/19 05/22/19 05/22/19 06:31 08:30 08:34 Glucose 202 H POC Glucose 248 H 200 H 05/22/19 10:31 Glucose POC Glucose 185 H ASSESSMENT: * Zoraida is a 64 yr old T2DM female with esophageal cancer who presented to the ED with complaints of dehydration, loss of appetite, shortness of breath, headache, dry heaves, and vomiting. Per H&P, she has not been taking her insulin. * She was started on an IV insulin infusion for mild DKA. Most recent labs show normal anion gap and normal bicarb with BSG continuing to trend downward. Dextrose containing fluids have been discontinued. * Will start transition to SQ insulin: * one time dose of Lantus 15 units @ 1100 (reduced for NPO status) * will base Novolog CF/CR on previous admission data PLAN FOR INPATIENT GLYCEMIC CONTROL: * Basal insulin * Lantus 15 units SQ x 1, then per scale at HS: * 0 units if BSG is 180 mg/dL or less * 8 units if BSG is > 180 mg/dL * Bolus insulin * NovoLog per scale ACHS or Q6hrs while NPO * Goal Range: Low 110 mg/dL - High 140 mg/dL * Correction Factor: 25 mg/dL/unit * Nutritional / Prandial insulin per carb ratio of 1 unit per 8 grams CHO consumed PLAN FOR DISCHARGE: * pending
--- NOTE | 2019-05-22 12:23 | Hospitalist Progress Note ---
Date of Service May 22, 2019 Assessment & Plan (1) Nausea and vomiting: Presented with intractable nausea vomiting: Abdominal pain History of esophageal cancer at the GE junction, status post chemoradiation Patient completed her chemo treatment Received last dose of radiation on Afterwards patient has been experiencing nonstop nausea vomiting, lower abdominal pain In the ER patient was clinically dehydrated given IV fluids Ordered for bowel rest with n.p.o. 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 EKG and telemetry reviewed, no evidence of atrial fibrillation Echocardiogram ordered, noted to have significant pulmonary hypertension right heart strain new from a prior study of March 2019, Lower extremity Doppler shows extensive bilateral DVT, the likelihood of extensive PE, Able to do CT of chest with IV contrast study, patient has advanced stage IV CKD, Started on Lovenox subcu every 12 therapeutic dose for anticoagulation dose adjusted as per renal clearance Lower extremity bilateral extensive DVT Management as outlined above Doppler finding updated to patient and her History of CHF with diastolic heart failure(HFpEF) Patient appears to be clinically dehydrated, secondary to very poor p.o. intake, persistent nausea vomiting Given IV fluids, continue to hold Lasix CKD stage IV: Creatinine approximate baseline Option for dialysis offered by nephrology in the past patient declined CODE STATUS: Full code DVT prophylaxis: Subcu Lovenox therapeutic dose Disposition: Patient lives at home with her /independent in her ADLs Plan to be discharged home when medically stable Patient follows with hematology oncology in [place] with Dr. Cagle Patient's oncologist will be updated regarding new finding of bilateral lower extremities extensive DVT Subjective Patient reports of ongoing nausea, poor appetite, no vomiting No abdominal pain or discomfort Complains of shortness of breath but which has been ongoing for last few months secondary to chemo/radiation treatment Ordered for clear liquid diet, patient able to only sips of water, Review of Systems Review of Systems: All systems reviewed & are unremarkable except as noted in HPI & below Respiratory: + dyspnea and + dyspnea on exertion; no cough and no pain with cough Cardiovascular: as per Subjective / HPI Gastrointestinal: + abdominal pain and + nausea; no vomiting Results & Data ([facility]) Vital Signs (Past 12 Hours) Vital Signs Temp Pulse Pulse Resp BP BP BP 05/22/19 11:29 36.7 C 75 18 156/72 H 05/22/19 08:38 36.7 C 81 18 146/78 H 05/22/19 03:23 36.7 C 76 18 174/95 H 05/22/19 03:09 72 18 162/82 H 05/22/19 02:33 75 16 165/93 H 05/22/19 01:11 82 16 157/76 H 05/22/19 00:35 77 16 188/88 H 05/22/19 00:24 63 16 161/75 H Pulse Ox 05/22/19 11:29 95 05/22/19 08:38 96 05/22/19 03:23 99 05/22/19 03:09 100 05/22/19 02:33 100 05/22/19 01:11 98 05/22/19 00:35 95 05/22/19 00:24 95 (1) Nausea and vomiting Vomiting type: unspecified
[2019-05-22] MEDS: PANTOprazole 40 MG TAB PO SCH ×2 (14:20→21:33)
[2019-05-22] MEDS: SUCRALFATE 1 GM/10 ML UDC PO SCH ×3 (14:20→21:32)
[2019-05-22] MEDS ORDERED: HEPARIN 100 UNIT/ML 5ML FLUSH ONE (14:39)
[2019-05-22] MEDS ORDERED: Nursing to Pharmacy Communication ONE (15:20)
--- NOTE | 2019-05-22 15:26 | Ultrasound Report ---
BILATERAL LOWER EXTREMITY VENOUS DOPPLER CLINICAL HISTORY: evaluation for DVT COMPARISON STUDY: Bilateral lower extremity venous Doppler ultrasound April 09, 2019. TECHNIQUE: Sonography of the deep venous system of the bilateral lower extremities was performed. Co mpression and augmentation were evaluated. FINDINGS: Note is made of extensive deep venous thrombus within the right common femoral, superficial femoral, popliteal, posterior tibial, peroneal and anterior tibial veins. This is new since exam of April 09, 2019. There is nonocclusive deep venous thrombus within the left femoral, popliteal, pos terior tibial and perineal veins. IMPRESSION: Interval development of extensive deep venous thrombus within the lower extremities, righ t greater than left, since ultrasound of April 09, 2019. ACT 112: Negative or not required by law. Electronically signed by: Audi Dewey M.D. 05/22/2019 3:25 PM
--- NOTE | 2019-05-22 15:31 | Hospitalist Progress Note ---
Date of Service May 22, 2019 Subjective Attending addendum Updated by on-call cardiology Dr. Ken: echocardiogram: Shows severe pulmonary hypertension, estimated pulmonary artery systolic pressure 78 mmHg Compared to prior study dated on 04/08/2019 mild right ventricular chamber dilation no noted Severe pulmonary hypertension is now noted which is a new finding compared to the prior studies performed in March 2019 as well as serial studies performed in 2016. Pain and fast carcinoma concern for pulmonary embolism CT chest with contrast for evaluation of PE could not be done for a CKD stage IV (Patient did report of worsening of shortness of breath in last few months Lower extremity Doppler Ordered: IMPRESSION: Interval development of extensive deep venous thrombus within the lower extremities, right greater than left, since ultrasound of April 09, 2019. Patient started on therapeutic subcu Lovenox dose 1 mg/kg every 12 hours Report of Doppler ultrasound updated to patient Margot Sampson MD Results & Data ([facility]) Vital Signs (Past 12 Hours) Vital Signs Temp Pulse Resp BP BP Pulse Ox 05/22/19 15:29 36.8 C 75 16 169/77 H 95 05/22/19 11:29 36.7 C 75 18 156/72 H 95 05/22/19 08:38 36.7 C 81 18 146/78 H 96
[2019-05-22] MEDS: ENOXAPARIN 80 MG/0.8 ML SYR SQ SCH (16:13)
[2019-05-22] MEDS: HEPARIN 100 UNIT/ML 5ML FLUSH FLUSH PRN (16:14)
[2019-05-22 16:52] LABS: Appearance Urine Clear (Clear); Bacteria Urine Automated Negative (Negative); Bilirubin Urine Negative (Negative); Blood Urine Negative (Negative); Color Urine Dark Yellow; Epithelial Cell Urine Auto >30 /lpf (0-5); Glucose Urine UA Trace (Negative); Ketones Urine Negative (Negative); Leukocyte Esterase Urine 1+ (Negative); Nitrite Urine Negative (Negative); Protein Urine 3+ (Negative); RBC Urine Automated 0-4 /hpf (0-4); Specific Gravity Urine 1.017 (1.000-1.030); Urobilinogen Urine Negative (Negative)
[2019-05-22] MEDS: INSULIN ASPART 100 UNITS/ML 3 ML PEN SC SCH ×2 (18:35→21:35)
[2019-05-22] MEDS ORDERED: INSULIN GLARGINE SOLOSTAR 100 UNITS/ML 3 ML PEN SC SCH (21:00)
[2019-05-22] MEDS: CITALOPRAM 20 MG TAB PO SCH (21:32)
[2019-05-22] MEDS: allopurinoL 100 MG TAB PO SCH (21:33)
[2019-05-23] MEDS: TRAMADOL HCL 50 MG TABLET PO PRN ×2 (01:39→08:17)
[2019-05-23 06:10] LABS: Hematocrit (blood only) 25.4 % (37-47); Hemoglobin 8.6 g/dL (12.0-16.0); Mean Corpuscular Hemoglobin 30.4 pg (25-34); Mean Corpuscular Hgb Conc 33.9 g/dL (32-36); Mean Corpuscular Volume 89.8 fL (80-100); RDW Coefficient of Variation 16.5 % (11.5-14.5); RDW Standard Deviation 53.6 fL (36.4-46.3); Red Blood Count 2.83 M/uL (4.2-5.4); White Blood Count 2.44 K/uL (4.8-10.8)
[2019-05-23 06:16] LABS: Mean Platelet Volume 10.1 fL (7.4-10.4); Platelet Count 98 K/uL (130-400)
[2019-05-23] MEDS: ENOXAPARIN 80 MG/0.8 ML SYR SQ SCH ×2 (06:18→17:14)
[2019-05-23] MEDS: PROMETHAZINE HCL 12.5 MG in SODIUM CHLORIDE 0.9% 50 ML IV PRN (06:19)
[2019-05-23 06:40] LABS: Creatinine Clr Calc Pharmacy 43.9 ml/min; Est GFR (African American) 47.3; Est GFR (Non-African American) 40.8
[2019-05-23 07:04] LABS: Estimated Average Glucose 157 mg/dl; Hemoglobin A1C 7.1 % (4.5-5.6)
[2019-05-23] MEDS ORDERED: LACTATED RINGER'S 1,000 ML IV SCH (07:30)
[2019-05-23] MEDS: SUCRALFATE 1 GM/10 ML UDC PO SCH ×5 (07:48→22:05)
[2019-05-23] MEDS: PANTOprazole 40 MG TAB PO SCH ×2 (07:50→20:49)
[2019-05-23] MEDS: carvediloL 12.5 MG TAB PO SCH ×2 (07:52→20:49)
[2019-05-23] MEDS: AMLODIPINE BESYLATE 5 MG TAB PO SCH (07:52)
[2019-05-23] MEDS: HydrALAZINE 10 MG TAB PO SCH ×4 (07:52→20:49)
[2019-05-23] MEDS: INSULIN ASPART 100 UNITS/ML 3 ML PEN SC SCH ×5 (08:49→20:55)
--- NOTE | 2019-05-23 09:19 | Pharmacy Report ---
Glycemic Control Progress Note - Date of Service May 23, 2019 - Scope Glycemic Pharmacist consulted for glycemic control to write orders per [facility] inpatient glycemic control protocol. - Objective Accuchecks BSG(last 24 hours):: 05/22/19 05/22/19 05/22/19 10:31 13:00 14:07 POC Glucose 185 H 135 H 100 H 05/22/19 05/22/19 05/22/19 15:28 17:15 21:05 POC Glucose 91 99 123 H 05/23/19 08:11 POC Glucose 161 H HbA1c:: Hemoglobin A1c 7.1 % (4.5-5.6) H 05/22/19 04:00 - Recent Pertinent Medications The patient is currently receiving: * Basal insulin: Lantus 15 units every 24 hours * Correctional Insulin: Novolog Correction per scale ACHS Goal Range: Low 110 mg/dL - High 140 mg/dL Correction Factor: 25 mg/dL/unit * Prandial insulin: Per carb ratio of 1 unit per 8 grams CHO consumed - Outpatient Anti-Diabetic Meds Lantus 40 units SQ qAM - Assessment & Plan ASSESSMENT: * See progress note from 05/22/2019 for more background info, in short: * Pt receiving SQ basal bolus insulin regimen for hyperglycemia secondary to baseline DM (outpatient regimen on hold). * Patient is currently receiving an average of 15 units of insulin per day + IV drip. * 15 units of basal insulin * 0 units of prandial/correctional insulin * BSGs ranging 91 - 299 mg/dl over the past 24hrs * Changes needed to insulin regimen: * AM Fasting BSG = 161 mg/dl. This is slightly above goal range for patient based on inpatient targets and co-morbidities. Therefore Basal insulin will be increased slightly to 20 units. Per previous admissions, the patient requires basal insulin between 15-30 units. Thirty units is too much. It appears that 15 units was not enough so increased slightly. * Post-prandial BSGs are have not evaluated. Will use Novolog from previous admissions. * Total daily dose = ? units. PLAN FOR INPATIENT GLYCEMIC CONTROL: * Increasing Lantus to 20 units SQ qAM * Continuing correction factor of 25 mg/dl/unit * Continuing carb ratio of 1 unit per 8 grams CHO consumed * Continuing goal range of Low 110 mg/dL - High 140 mg/dL * Please note that the plan above was derived based on current level of insulin resistance and hospital stress. These recommendations are appropriate for inpatient admission only. Plan of care upon discharge will need to be reassessed to avoid potential outpatient hypo/hyperglycemia. Thank you.
[2019-05-23] MEDS ORDERED: INSULIN GLARGINE SOLOSTAR 100 UNITS/ML 3 ML PEN SC SCH (09:30)
--- NOTE | 2019-05-23 11:03 | CT Scan Report ---
CT chest wo con CLINICAL HISTORY: 64 years-old Female presenting with SOB /hx of ca /rule out metastasis. TECHNIQUE: Multidetector CT imaging of the chest was performed without the use of intravenous contras t. IV contrast: None. One or more dose lowering techniques were used consistent with the principles o f ALARA (as low as reasonably achievable), including automatic exposure control, mA or kV adjustment to individual patient size, and/or use of iterative reconstruction. COMPARISON: 06/01/2018. CT DOSE (mGy.cm): The estimated cumulative dose is 459.37 mGy.cm. FINDINGS: Knotter Hand topogram: Left subclavian pacer with leads to the right atrium and right ventricular apex. Soft tissues: Normal thyroid. Mild body wall edema. Prominent mediastinal lymph nodes, which are subc entimeter in short axis and similar to prior exam. Prominence of the stanley likely vascular though eval uation of the stanley degraded by absence of intravenous contrast. Right internal jugular Mediport termi nates in the superior cavoatrial junction. Atherosclerosis of the aorta. Main pulmonary artery enlarg ed measuring over 3 cm in diameter. Severe three-vessel coronary artery calcification. Aortic valve a nd mitral annular calcification also noted. Pacer wires to the right ventricular apex and right shoul estefany appendage. Small bilateral pleural effusions, which are grossly simple appearing. No significant pericardial effusion. Small sliding type hiatal hernia. Lungs and airways: No pneumothorax. Central airways patent. Pulmonary arteries enlarged relative to a djacent bronchi. Mild interlobular septal thickening most pronounced at the lung bases. Extensive per ibronchovascular and dependent consolidation in the lower lobes likely representing passive atelectas is in the setting of the pleural effusions. Patchy groundglass opacities also evident predominantly i n the lower lobes. Mild mosaic attenuation in the upper lobes. Redemonstration of a few scattered sma ll solid pulmonary nodules measuring up to 4 mm. Numerous calcified granulomata. Musculoskeletal: Degenerative changes of the spine. IMPRESSION: 1. No findings to suggest intrathoracic malignancy or metastatic disease. 2. Cardiomegaly with volume overload and congestive change. Early/developing pulmonary edema may als o be present at the lung bases. 3. Small bilateral pleural effusions and bibasilar passive atelectasis. 4. Additional findings as above. ACT 112: Negative or not required by law. Electronically signed by: Valdemar Amaya M.D. 05/23/2019 11:02 AM
[2019-05-23] MEDS: ONDANSETRON INJ 2 MG/ML 2 ML VIAL IV PRN ×2 (11:14→17:29)
--- NOTE | 2019-05-23 11:21 | Hospitalist Progress Note ---
Date of Service May 23, 2019 Assessment & Plan (1) Nausea and vomiting: Presented with intractable nausea vomiting: Abdominal pain History of esophageal cancer at the GE junction, status post chemoradiation Patient completed chemo treatment Received last dose of radiation on 05/19/2019 Afterwards patient has been experiencing nonstop nausea vomiting, lower abdominal pain GI symptom has gradually improved, diet advanced to clears, Able to tolerate, appetite remains poor We will consult dietitian for recommendation of dietary supplements Lower extremity bilateral extensive DVT : Echo shows a significant pulmonary hypertension with right heart strain, new finding compared to prior study of March 2019 CTA of the chest with contrast could not be done because of advanced CKD Lower extremity Doppler shows bilateral ox occlusive DVT(new finding compared to bilateral lower extremity DVT done on April 09, 2019) Started on Lovenox therapeutic dose, will need lifelong treatment Given history of advanced carcinoma high risk for coagulopathy, recurrent blood clots CT chest noncontrast: Shows no evidence of lung mass or metastasis History of CHF with diastolic heart failure(HFpEF) Presented with poor p.o. 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 EKG and telemetry reviewed, no evidence of atrial fibrillation Echocardiogram ordered, noted to have significant pulmonary hypertension right heart strain new from a prior study of March 2019, Lower extremity Doppler shows extensive bilateral DVT, the likelihood of extensive PE, On able to do CT of chest with IV contrast study, patient has advanced stage IV CKD, Started on Lovenox subcu every 12 therapeutic dose for anticoagulation dose adju sted as per renal clearance Hyperglycemia/diabetic ketoacidosis: History of type 2 diabetes insulin-dependent, at home takes Lantus 40 units subcu daily Due to persistent nausea vomiting, not able to eat, patient has not been taking her home insulin dose With blood sugar of 300, elevated beta hydroxybutyric acid of 13, bicarb of 19 Patient treated with IV insulin drip, IV fluids Blood sugar improved to baseline, transition made to subcu insulin, appreciate input from pharmacy At present patient is on Lantus 15 units daily, with NovoLog insulin correction factor Continue to monitor BSG before meals and at bedtime per protocol CKD stage IV: Creatinine approximate baseline Option for dialysis offered by nephrology in the past patient declined CODE STATUS: Full code DVT prophylaxis: Subcu Lovenox therapeutic dose Disposition: Patient lives at home with her /independent in her ADLs Plan to be discharged home when medically stable Patient follows with hematology oncology in [place] with Dr. Cagle Patient's oncologist is updated regarding new finding of bilateral lower extremities extensive DVT Admission and Anticipated Discharge Date Admission Date: May 22, 2019 Subjective Patient had an uneventful night, No complaint of worsening of shortness of breath, no cough, no chest pain No hypoxia, remains in room air No lower extremity pain or edema Nausea has improved, no vomiting, appetite remains poor Able to keep down of clear liquid diet breakfast Patient voices concern regarding pulmonary embolism/worried whether she also developed progression of her esophageal cancer, metastasis to lung as well Do a CT chest noncontrast today for evaluation Review of Systems Respiratory: + dyspnea on exertion (Chronic); no cough, no dyspnea and no pain with cough Cardiovascular: as per Subjective / HPI Gastrointestinal: + nausea; no abdominal pain and no vomiting Physical Exam Constitutional: WD/WN, vitals as above + ill appearing; no acute distress Eyes: PERRL, conjunctivae normal, anicteric sclerae ENMT: external ear and nose normal, oropharynx normal Neck: trachea midline, no thyromegaly Respiratory: no cough Auscultation: + diminished lung sounds; no rales, no rhonchi and no wheezes Cardiovascular: Rate/Rhythm: regular rate and regular rhythm Extremities: + edema (2+ pitting edema, no calf tenderness) Gastrointestinal (Abdomen): Inspection/Auscultation: + abdomen distended and normal bowel sounds Percussion/Palpation: abdomen soft; abdomen nontender Musculoskeletal: Generalized weakness Skin: no rashes, warm and dry Neurologic: PERRL, EOMI, accommodation nl, no face palsy, no dysarthria Psychiatric: Orientation: alert and oriented x 3 Affect: + flat affect Results & Data ([facility]) Vital Signs (Past 12 Hours) Vital Signs Temp Pulse Resp BP Pulse Ox 05/23/19 07:10 37.0 C 67 16 163/89 H 95 05/22/19 23:41 146/[address] chest noncontrast: 05/23/2019 IMPRESSION: 1. No findings to suggest intrathoracic malignancy or metastatic disease. 2. Cardiomegaly with volume overload and congestive change. Early/developing pulmonary edema may also be present at the lung bases. 3. Small bilateral pleural effusions and bibasilar passive atelectasis. Bilateral lower extremity Doppler 05/22/2019: IMPRESSION: Interval development of extensive deep venous thrombus within the lower extremities, right greater than left, (lower extremity Doppler ultrasound ultrasound of April 09, 2019.-Was negative for DVT) (1) Nausea and vomiting Vomiting type: unspecified
[2019-05-23] MEDS ORDERED: PROCHLORPERAZINE 5 MG in SYRINGE 4 ML IV PRN (11:41)
[2019-05-23] MEDS: FUROSEMIDE 40 MG TAB PO SCH ×2 (13:28→18:19)
[2019-05-23] MEDS ORDERED: MoRPHine SULFATE 5 MG/0.25 ML UDP PO STA (13:53)
[2019-05-23] MEDS: PROMETHAZINE HCL 12.5 MG/10 ML UDP PO SCH ×2 (14:22→22:07)
[2019-05-23] MEDS: HEPARIN 100 UNIT/ML 5ML FLUSH FLUSH PRN (17:29)
[2019-05-23] MEDS ORDERED: HydrALAZINE HCL 20 MG/ML VIAL IV PRN (17:47)
[2019-05-23] MEDS ORDERED: FUROSEMIDE 40 MG in SYRINGE 0 ML IV ONE (17:55)
[2019-05-23] MEDS: MAGNESIUM SULFATE / D5W 1 GM/100 ML BAG IV SCH ×2 (18:50→19:50)
[2019-05-23] MEDS: CITALOPRAM 20 MG TAB PO SCH (20:49)
[2019-05-23] MEDS: allopurinoL 100 MG TAB PO SCH (20:49)
[2019-05-24] MEDS: HEPARIN 100 UNIT/ML 5ML FLUSH FLUSH PRN ×2 (05:27→09:43)
[2019-05-24] MEDS: PROMETHAZINE HCL 12.5 MG/10 ML UDP PO SCH ×2 (06:02→14:14)
[2019-05-24] MEDS: ENOXAPARIN 80 MG/0.8 ML SYR SQ SCH ×2 (06:14→18:29)
[2019-05-24 07:10] LABS: BUN Creatinine Ratio 15.7 (10-20); Calcium 8.5 mg/dl (8.5-10.1); Creatinine Clr Calc Pharmacy 40.3 ml/min; Est GFR (African American) 42.7; Est GFR (Non-African American) 36.8; Potassium 3.7 mmol/L (3.5-5.1)
[2019-05-24] MEDS: SUCRALFATE 1 GM/10 ML UDC PO SCH ×4 (07:58→21:02)
[2019-05-24] MEDS: HydrALAZINE 10 MG TAB PO SCH ×3 (08:00→19:30)
[2019-05-24] MEDS: AMLODIPINE BESYLATE 5 MG TAB PO SCH (08:00)
[2019-05-24] MEDS ORDERED: metOLazone 2.5 MG TABLET PO SCH (08:30)
[2019-05-24] MEDS ORDERED: INSULIN GLARGINE SOLOSTAR 100 UNITS/ML 3 ML PEN SC SCH (09:00)
[2019-05-24] MEDS ORDERED: FUROSEMIDE 40 MG in SYRINGE 0 ML IV SCH (09:00)
--- NOTE | 2019-05-24 09:27 | Pharmacy Report ---
Glycemic Control Progress Note - Date of Service May 24, 2019 - Scope Glycemic Pharmacist consulted for glycemic control to write orders per [facility] inpatient glycemic control protocol. - Objective Accuchecks BSG(last 24 hours):: 05/23/19 05/23/19 05/23/19 11:58 17:13 20:51 Glucose POC Glucose 167 H 145 H 146 H 05/24/19 05/24/19 05:27 08:01 Glucose 86 POC Glucose 92 HbA1c:: Hemoglobin A1c 7.1 % (4.5-5.6) H 05/22/19 04:00 - Recent Pertinent Medications The patient is currently receiving: * Basal insulin: Lantus 20 units every 24 hours * Correctional Insulin: Novolog Correction per scale ACHS Goal Range: Low 110 mg/dL - High 140 mg/dL Correction Factor: 25 mg/dL/unit * Prandial insulin: Per carb ratio of 1 unit per 8 grams CHO consumed - Outpatient Anti-Diabetic Meds Lantus 40 units in the morning - Assessment & Plan ASSESSMENT: * See progress note from 05/22/2019 for more background info, in short: * Pt receiving SQ basal bolus insulin regimen for hyperglycemia secondary to baseline DM (outpatient regimen on hold). Patient ordered a clear liquid diet but has not consumed much. * Patient is currently receiving an average of 25 units of insulin per day * 20 units of basal insulin * 5 units of prandial/correctional insulin * BSGs ranging 145 - 167 mg/dl over the past 24hrs * Changes needed to insulin regimen: * AM Fasting BSG = 92 mg/dl. This is below goal range for patient based on inpatient targets and co-morbidities. Therefore Basal insulin will be reduced. Will reduce by 30% due to poor PO intake. * Post-prandial BSGs are in range therefore no changes needed to CF/CR. * Total daily dose = ~15 units. Expect this to increase as patient's diet improves. PLAN FOR INPATIENT GLYCEMIC CONTROL: * Decreasing Lantus to 14 units SQ daily * Continuing correction factor of 25 mg/dl/unit * Continuing carb ratio of 1 unit per 8 grams CHO consumed * Continuing goal range of Low 110 mg/dL - High 140 mg/dL * Please note that the plan above was derived based on current level of insulin resistance and hospital stress. These recommendations are appropriate for inpatient admission only. Plan of care upon discharge will need to be reassessed to avoid potential outpatient hypo/hyperglycemia. Thank you.
[2019-05-24] MEDS: INSULIN ASPART 100 UNITS/ML 3 ML PEN SC SCH ×4 (09:35→21:02)
[2019-05-24] MEDS: carvediloL 12.5 MG TAB PO SCH ×2 (10:19→19:30)
[2019-05-24] MEDS: PANTOprazole 40 MG TAB PO SCH ×2 (10:19→21:03)
[2019-05-24] MEDS: FUROSEMIDE 40 MG TAB PO SCH (10:20)
--- NOTE | 2019-05-24 14:36 | Hospitalist Progress Note ---
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, status post chemoradiation Patient completed chemo treatment Received last dose of radiation on 05/19/2019 Afterwards patient has been experiencing nonstop nausea vomiting, lower abdominal pain Appetite remains extremely poor We will consult dietitian for recommendation of dietary supplements Chest pain: Has been experiencing intermittent sharp chest pain, since yesterday Symptom lasting for few minutes, occurs at rest, Leading to severe shortness of breath, increased chest pain with deep breath Possible due to acute PE Doubt evidence of ACS/code this admission showed no wall motion abnormality except for new evidence of right heart strain Patient will be transferred to telemetry for further care Lower extremity bilateral extensive DVT : Echo shows a significant pulmonary hypertension with right heart strain, new finding compared to prior study of March 2019 CTA of the chest with contrast could not be done because of advanced CKD Lower extremity Doppler shows bilateral ox occlusive DVT(new finding compared to bilateral lower extremity DVT done on April 09, 2019) Started on Lovenox therapeutic dose, will need lifelong treatment Given history of advanced carcinoma high risk for coagulopathy, recurrent blood clots CT chest noncontrast: Shows no evidence of lung mass or metastasis History of CHF with diastolic heart failure(HFpEF) Presented with poor p.o. 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 EKG and telemetry reviewed, no evidence of atrial fibrillation Echocardiogram ordered, noted to have significant pulmonary hypertension right heart strain new from a prior study of March 2019, Lower extremity Doppler shows extensive bilateral DVT, the likelihood of extensive PE, Not able to do CT of chest with IV contrast study, patient has advanced stage IV CKD, Started on Lovenox subcu every 12 therapeutic dose for anticoagulation dose adjusted as per renal clearance Patient has been experiencing intermittent sharp chest pain, possible secondary to? Underlying PE Hyperglycemia/diabetic ketoacidosis: History of type 2 diabetes insulin-dependent, at home takes Lantus 40 units subcu daily Due to persistent nausea vomiting, not able to eat, patient has not been taking her home insulin dose With blood sugar of 300, elevated beta hydroxybutyric acid of 13, bicarb of 19 Patient treated with IV insulin drip, IV fluids Blood sugar improved to baseline, transition made to subcu insulin, appreciate input from pharmacy At present patient is on Lantus 15 units daily, with NovoLog insulin correction factor Continue to monitor BSG before meals and at bedtime per protocol CKD stage IV: Creatinine approximate baseline Option for dialysis offered by nephrology in the past patient declined CODE STATUS: Full code DVT prophylaxis: Subcu Lovenox therapeutic dose Disposition: Patient lives at home with her /independent in her ADLs Plan to be discharged home when medically stable Will need prescription for Lovenox for long-term anticoagulation Patient follows with hematology oncology in [place] with Dr. Cagle Patient's oncologist is updated regarding new finding of bilateral lower extremities extensive DVT Admission and Anticipated Discharge Date Admission Date: May 22, 2019 Subjective Patient has been intermittent sharp chest pain, mostly on the left anterior chest wall, nonradiating Worse with taking deep breath Symptom gets resolved with p.o. Roxanol Twelve-lead EKG showed T wave inversion on lateral leads which has been unchanged from prior EKGs Evaluated bedside, does not have any chest discomfort or shortness of breath Explained to patient sharp pleuritic chest pain possibly secondary to underlying pulmonary embolism Supportive care, continued on therapeutic anticoagulation with Lovenox, pain control usually the standard of care We will transfer patient to medical telemetry, to monitor any evidence of acute EKG change or arrhythmia Nausea has much improved, able to tolerate solid food Patient is ordered scheduled dose of Compazine, p.o. Benadryl or Zofran as needed Patient reports improvement of GI symptoms No fever or chills, no cough/Chest pain as outlined above Review of Systems Respiratory: + dyspnea on exertion (Chronic); no cough, no dyspnea and no pain with cough Cardiovascular: as per Subjective / HPI and + chest pain (Sharp chest pain intermittent); no radiating jaw, neck or arm pain, no palpitations and no lightheadedness Gastrointestinal: + abdominal pain (Mostly left lower quadrant); no nausea and no vomiting Physical Exam Constitutional: WD/WN, vitals as above + ill appearing; no acute distress Eyes: PERRL, conjunctivae normal, anicteric sclerae ENMT: external ear and nose normal, oropharynx normal Neck: trachea midline, no thyromegaly Respiratory: no cough Auscultation: + diminished lung sounds; no rales, no rhonchi and no wheezes Cardiovascular: Rate/Rhythm: regular rate and regular rhythm Extremities: + edema (2+ pitting edema, no calf tenderness) Gastrointestinal (Abdomen): Inspection/Auscultation: + abdomen distended and normal bowel sounds Percussion/Palpation: abdomen soft; abdomen nontender Skin: no rashes, warm and dry Neurologic: PERRL, EOMI, accommodation nl, no face palsy, no dysarthria Psychiatric: Orientation: alert and oriented x 3 Affect: + flat affect Results & Data ([facility]) Vital Signs (Past 12 Hours) Vital Signs Temp Pulse Resp BP Pulse Ox 05/24/19 14:12 166/72 H 05/24/19 11:06 37.1 C 63 20 145/74 H 93 05/24/19 10:18 70 05/24/19 07:54 37.1 C 57 L 16 176/71 H 99 (1) Nausea and vomiting Vomiting type: unspecified
[2019-05-24] MEDS: MoRPHine SULFATE 5 MG/0.25 ML UDP PO PRN ×2 (14:44→18:30)
--- NOTE | 2019-05-24 15:25 | Electrocardiogram Report ---
Test Reason : Blood Pressure : / mmHG Vent. Rate : 059 BPM Atrial Rate : 227 BPM P-R Int : 274 ms QRS Dur : 144 ms QT Int : 482 ms P-R-T Axes : 000 -85 013 degrees QTc Int : 477 ms Atrial-paced rhythm with prolonged AV conduction with premature ventricular or aberrantly conducted c omplexes Right bundle branch block Left anterior fascicular block Bifascicular block Lateral infarct (cited on or before 22-MAY-2019) Abnormal ECG When compared with ECG of 22-MAY-2019 06:45, Electronic atrial pacemaker has replaced Sinus rhythm T wave inversion less evident in Lateral leads Confirmed by Rome Abel [id number]) on 05/24/2019 3:25:03 PM Referred By: REFERRED SELF Confirmed By:Rome Abel
--- NOTE | 2019-05-24 16:41 | Radiation Oncology Progress Nt ---
Date of Service May 24, 2019 Assessment & Plan (1) Esophageal cancer: Ms. Murray is a 64-year-old female with locally advanced esophageal cancer who was receiving chemotherapy and radiation therapy. The patient did have several interruptions in her treatment due to medical issues. The patient has received 24 of a planned 29 fractions of radiation therapy and received her last treatment on 05/19/2019. The patient is currently admitted in the hospital due to mulptile medical issues. The patient has requested that she no longer receive radiation therapy. I did have an in-depth conversation with her regarding further radiation therapy and explained to her the benefits and risks of stopping treatment earlier. She understands and is comfortable with her decision. I explained to her we would like to see her in the outpatient setting. She should also see Dr. Segura for medical oncology and Dr. Neves from thoracic surgery. Present on Admission?: Yes (1) Esophageal cancer Malignant neoplasm of esophagus location: lower third Qualified Code(s): C15.5 - Malignant neoplasm of lower third of esophagus
[2019-05-24] MEDS ORDERED: PROMETHAZINE HCL 12.5 MG/10 ML UDP PO PRN (19:03)
[2019-05-24] MEDS ORDERED: LOVENOX TEACHING KIT ONE (19:15)
[2019-05-24] MEDS: PROCHLORPERAZINE MALEATE 10 MG TAB PO SCH (20:02)
[2019-05-24] MEDS: CITALOPRAM 20 MG TAB PO SCH (21:02)
[2019-05-24] MEDS: allopurinoL 100 MG TAB PO SCH (21:03)
[2019-05-25] MEDS: ENOXAPARIN 80 MG/0.8 ML SYR SQ SCH ×2 (05:00→17:21)
[2019-05-25] MEDS: PROCHLORPERAZINE MALEATE 10 MG TAB PO SCH ×3 (05:00→19:47)
[2019-05-25] MEDS: HEPARIN 100 UNIT/ML 5ML FLUSH FLUSH PRN (05:59)
[2019-05-25 06:51] LABS: Hematocrit (blood only) 27.8 % (37-47); Hemoglobin 9.5 g/dL (12.0-16.0); Mean Corpuscular Hemoglobin 30.4 pg (25-34); Mean Corpuscular Hgb Conc 34.2 g/dL (32-36); Mean Corpuscular Volume 88.8 fL (80-100); Mean Platelet Volume 10.5 fL (7.4-10.4); Platelet Count 106 K/uL (130-400); RDW Coefficient of Variation 16.3 % (11.5-14.5); RDW Standard Deviation 52.4 fL (36.4-46.3); Red Blood Count 3.13 M/uL (4.2-5.4); White Blood Count 2.74 K/uL (4.8-10.8)
[2019-05-25 07:05] LABS: BUN Creatinine Ratio 14.7 (10-20); Calcium 8.8 mg/dl (8.5-10.1); Creatinine Clr Calc Pharmacy 40.8 ml/min; Est GFR (Non-African American) 37.1; Magnesium 1.6 mg/dl (1.8-2.4); Phosphorus 2.9 mg/dl (2.5-4.9); Potassium 3.3 mmol/L (3.5-5.1)
[2019-05-25] MEDS: INSULIN ASPART 100 UNITS/ML 3 ML PEN SC SCH ×4 (07:58→20:42)
[2019-05-25] MEDS: INSULIN GLARGINE SOLOSTAR 100 UNITS/ML 3 ML PEN SC SCH (07:59)
[2019-05-25] MEDS: PANTOprazole 40 MG TAB PO SCH ×2 (08:00→20:40)
[2019-05-25] MEDS: SUCRALFATE 1 GM/10 ML UDC PO SCH ×4 (08:00→20:41)
[2019-05-25] MEDS: HydrALAZINE 10 MG TAB PO SCH ×3 (08:00→20:39)
[2019-05-25] MEDS: carvediloL 12.5 MG TAB PO SCH ×2 (08:01→20:40)
[2019-05-25] MEDS: AMLODIPINE BESYLATE 5 MG TAB PO SCH (08:02)
[2019-05-25] MEDS: FUROSEMIDE 40 MG TAB PO SCH (08:04)
--- NOTE | 2019-05-25 14:09 | Pharmacy Report ---
Pharmacy Glycemic Short Note 2 - Date of Service May 25, 2019 - Glycemic Short BSG Results (Last 24 hours): 05/24/19 05/24/19 05/25/19 17:25 20:40 05:59 Glucose 143 H POC Glucose 181 H 206 H 05/25/19 05/25/19 07:32 11:42 Glucose POC Glucose 132 H 174 H ASSESSMENT: * BSGs ranging 86-206 mg/dL yesterday 05/24/19 * Patient received 22 units of insulin * 14 basal (Lantus) * 8 prandial/correctional * Fasting BSG this morning of 132 mg/dL - will slightly increase basal insulin * Patient continues to have intermittent nausea and vomiting PLAN FOR INPATIENT GLYCEMIC CONTROL: * Basal insulin - increase * Lantus 17 units SC qAM * Bolus insulin - continue * NovoLog per scale ACHS or Q6hrs while NPO * Goal Range: Low 110 mg/dL - High 140 mg/dL * Correction Factor: 25 mg/dL/unit * Nutritional / Prandial insulin per carb ratio of 1 unit per 8 grams CHO consumed PLAN FOR DISCHARGE: * Patient requiring slightly approximately half of outpatient insulin dose (not unsurprising given intermittent nausea/vomiting and variable appetite) * Patient's A1c of 7.1% on 05/22/19 suggests reasonable glycemic control as an outpatient * A1c of less than 8% is a reasonable goal for this 64 year old patient with multiple comorbidities * Assess insulin requirements at time of discharge to determine appropriate once daily Lantus dose
[2019-05-25] MEDS ORDERED: MAGNESIUM SULFATE / D5W 1 GM/100 ML BAG IV ONE (17:59)
--- NOTE | 2019-05-25 19:11 | Hospitalist Progress Note ---
Date of Service May 25, 2019 Assessment & Plan (1) Nausea and vomiting: Presented with severe nausea and vomiting attributed to radiation therapy. Radiation therapy discontinued. Received antiemetics PRN. Symptoms improved. (2) Esophageal cancer: Patient has opted to hold radiation therapy treatments at this time due to side effects. (3) DVT (deep venous thrombosis): Venous duplex of lower extremities done because of lower extremity edema. Found to have extensive bilateral proximal and distal DVTs. Present on admission. Suspected pulmonary emboli-new pulmonary hypertension and RV dilatation noted on echo. CTA chest to confirm diagnosis of PE not pursued because of CKD. Receiving subcutaneous enoxaparin which be continued upon discharge. (4) Hypokalemia: Serum potassium today = 3.3. Replete as necessary. Follow. (5) Hypomagnesemia: Serum magnesium today = 1.6. Replace. Follow. (6) Coronary artery disease: No anginal symptoms. Continue carvedilol and statin. (7) Acute on chronic diastolic (congestive) heart failure: History of chronic left ventricular diastolic heart failure. CT of chest showed cardiomegaly and pulmonary edema. Acute on chronic left ventricular diastolic heart failure. Check follow-up chest x-ray in the morning. Continue diuretics. (8) Prolonged QT interval: QTc at time of admission was 497 ms. Avoid QT prolonging drugs when possible. (9) Hypertension: Stable. Continue carvedilol, amlodipine, hydralazine. (10) Sarcoidosis: Quiescent. (11) CKD (chronic kidney disease), stage IV: History of CKD stage IV. Serum creatinine day of admission 1.38. Creatinine today = 1.46. Follow. (12) Diabetes mellitus type 2 with complications: History of diabetes mellitus type 2 complicated by ischemic heart disease. Managed with insulin at home. Blood sugars in 300s day of admission, probably secondary to acute loss. BHB and anion gap elevated, but doubt DKA. Hemoglobin A1c 7.1. Insulin dosing adjusted. Fasting blood sugar today = 132. (13) Gout: Quiescent. Continue allopurinol. (14) DVT prophylaxis: Receiving SQ enoxaparin for acute DVT present on admission. (15) Discharge planning issues: Anticipated discharge to home. Family Medicine follow-up with Dr. Harrison. Medical Oncology follow-up with Dr. Segura. Radiation Oncology follow-up with Dr. Sifuentes. Admission and Anticipated Discharge Date Admission Date: May 22, 2019 Anticipated date of discharge: 05/27/19 Subjective Recheck for multiple problems. Patient seen in their room around 0940. Feels somewhat better. Dysphagia, nausea, vomiting improved. No further chest pain. Still wearing O2. No dyspnea at rest. Review of Systems: Constitutional- no fever. Cardiac- as noted above. Pulmonary- as noted above. GI- no diarrhea, melena, hematochezia. - no urinary symptoms. Otherwise, as noted above. Physical Exam Constitutional: no acute distress Respiratory: no respiratory distress Auscultation: lungs clear to auscultation bilaterally Cardiovascular: Rate/Rhythm: regular rate and regular rhythm Vessels: + JVD Extremities: + edema (1+ pretibial); no calf tenderness Gastrointestinal (Abdomen): normal bowel sounds, soft, nontender, no hep atosplenomegaly Musculoskeletal: Extremities: no cyanosis Skin: no rashes, warm and dry Psychiatric: Orientation: alert and oriented x 3 Results & Data ([facility]) Vital Signs (Past 12 Hours) Vital Signs Temp Pulse Pulse Resp BP Pulse Ox 05/25/19 16:00 58 L 05/25/19 15:00 37.0 C 57 L 16 131/59 L 94 05/25/19 13:10 100 05/25/19 11:25 37.0 C 80 16 134/75 95 05/25/19 08:00 58 L 05/25/19 07:06 36.6 C 56 L 18 174/76 H 96 Laboratory Results 05/25/19 05:59 05/25/19 05:59 (1) Esophageal cancer Malignant neoplasm of esophagus location: lower third Qualified Code(s): C15.5 - Malignant neoplasm of lower third of esophagus (2) Nausea and vomiting Vomiting type: unspecified
[2019-05-25] MEDS: POTASSIUM CHLORIDE / WTR 10 MEQ/100 ML PLCT IV SCH ×2 (19:22→20:36)
[2019-05-25] MEDS: POTASSIUM CHLORIDE 10 MEQ TABCR PO SCH (20:38)
[2019-05-25] MEDS: MAGNESIUM OXIDE 400 MG TAB PO SCH (20:39)
[2019-05-25] MEDS: allopurinoL 100 MG TAB PO SCH (20:39)
[2019-05-25] MEDS: CITALOPRAM 20 MG TAB PO SCH (20:41)
[2019-05-26] MEDS: PROCHLORPERAZINE MALEATE 10 MG TAB PO SCH ×4 (04:40→20:45)
[2019-05-26] MEDS: HEPARIN 100 UNIT/ML 5ML FLUSH FLUSH PRN ×2 (05:34→09:49)
[2019-05-26] MEDS: ENOXAPARIN 80 MG/0.8 ML SYR SQ SCH ×2 (05:45→17:27)
[2019-05-26 06:15] LABS: BUN Creatinine Ratio 14.2 (10-20); Calcium 8.5 mg/dl (8.5-10.1); Creatinine Clr Calc Pharmacy 35.4 ml/min; Est GFR (African American) 36.3; Est GFR (Non-African American) 31.3; Magnesium 1.7 mg/dl (1.8-2.4); Potassium 3.6 mmol/L (3.5-5.1)
[2019-05-26] MEDS ORDERED: MAGNESIUM SULFATE / D5W 1 GM/100 ML BAG IV ONE (07:15)
--- NOTE | 2019-05-26 07:25 | XRay Report ---
XR chest 1V portable HISTORY: 64 years-old Female CHF acute shortness of breath with congestive heart failure COMPARISON: Chest CT 05/23/2019, acute abdominal series radiographs 05/05/2019 TECHNIQUE: Portable AP view of the chest FINDINGS: Cardiac silhouette is enlarged, unchanged. Calcified plaque of the thoracic aortic arch. Dilated pulm onary arteries redemonstrated. Unchanged positioning of the right IJ [id number] catheter and left subclavian pacer is. Small bilateral pleural effusions with left greater than right bibasilar consoli dative opacities redemonstrated. Mild pulmonary vascular congestion. Degenerative changes of the shou lders and spine. IMPRESSION: 1. Cardiomegaly with mild pulmonary vascular congestion. 2. Small pleural effusions with left greater than right bibasilar opacities suggestive of probable at electasis. 3. Pulmonary artery hypertension. ACT 112: Negative or not required by law. The above report was generated using voice recognition software. It may contain grammatical, syntax o r spelling errors. Electronically signed by: Efe Elkins M.D. 05/26/2019 7:24 AM
[2019-05-26] MEDS: POTASSIUM CHLORIDE 10 MEQ TABCR PO SCH ×3 (08:45→20:53)
[2019-05-26] MEDS: SUCRALFATE 1 GM/10 ML UDC PO SCH ×4 (08:45→20:40)
[2019-05-26] MEDS: carvediloL 12.5 MG TAB PO SCH ×2 (08:46→20:48)
[2019-05-26] MEDS: PANTOprazole 40 MG TAB PO SCH ×2 (08:46→20:46)
[2019-05-26] MEDS: MAGNESIUM OXIDE 400 MG TAB PO SCH ×2 (08:46→20:53)
[2019-05-26] MEDS: FUROSEMIDE 40 MG TAB PO SCH (08:48)
[2019-05-26] MEDS: INSULIN GLARGINE SOLOSTAR 100 UNITS/ML 3 ML PEN SC SCH (08:49)
[2019-05-26] MEDS: AMLODIPINE BESYLATE 5 MG TAB PO SCH (08:49)
[2019-05-26] MEDS: HydrALAZINE 10 MG TAB PO SCH ×3 (08:50→20:47)
[2019-05-26] MEDS: INSULIN ASPART 100 UNITS/ML 3 ML PEN SC SCH ×4 (08:52→20:49)
[2019-05-26] MEDS: CITALOPRAM 20 MG TAB PO SCH (20:45)
[2019-05-26] MEDS: allopurinoL 100 MG TAB PO SCH (20:46)
--- NOTE | 2019-05-26 22:01 | Hospitalist Progress Note ---
Date of Service May 26, 2019 Assessment & Plan (1) Nausea and vomiting: Presented with severe nausea and vomiting attributed to radiation therapy. Radiation therapy discontinued. Received antiemetics PRN. Symptoms improving. (2) Esophageal cancer: Patient has opted to hold radiation therapy treatments at this time due to side effects. (3) DVT (deep venous thrombosis): Venous duplex of lower extremities done because of lower extremity edema. Found to have extensive bilateral proximal and distal DVTs. Present on admission. Suspected pulmonary emboli-new pulmonary hypertension and RV dilatation noted on echo. CTA chest to confirm diagnosis of PE not pursued because of CKD. Receiving subcutaneous enoxaparin which be continued upon discharge. (4) Hypokalemia: Serum K as low as 3.3. Received replacement. K today = 3.6. Follow. (5) Hypomagnesemia: Serum magnesium as low as 1.6. Received replacement. Mg today = 1.7. Follow. (6) Coronary artery disease: No anginal symptoms. Continue carvedilol and statin. (7) Acute on chronic diastolic (congestive) heart failure: History of chronic left ventricular diastolic heart failure. CT of chest showed cardiomegaly and pulmonary edema. Acute on chronic left ventricular diastolic heart failure. Chest x-ray today showed cardiomegaly and mild pulmonary vascular congestion. Continue diuretics and carvedilol. No WENDY or ARB due to renal disease. (8) Prolonged QT interval: QTc at time of admission was 497 ms. Avoid QT prolonging drugs when possible. (9) Ventricular tachycardia, nonsustained: Several beat run of nonsutained VT on 05/25. K and Mg low and replaced. Continue cardiac monitoring. (10) Hypertension: Stable. Continue carvedilol, amlodipine, hydralazine. (11) Hypoxia: O2 sats as low as 89%. Hypoxia may have been secondary to CHF, possible pulmonary embolism, or c ombination of the 2. Wean O2 as tolerated. 2-step pulse oximetry before discharge. (12) Sarcoidosis: Quiescent. (13) CKD (chronic kidney disease), stage IV: History of CKD stage IV. Serum creatinine day of admission 1.38. Creatinine today = 1.68. Follow. 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 Managed with insulin at home. Blood sugars in 300s day of admission, probably secondary to acute loss. BHB and anion gap elevated, but doubt DKA. Hemoglobin A1c 7.1. Insulin dosing adjusted. Fasting blood sugar today = 147. (15) Gout: Quiescent. Continue allopurinol. (16) Severe malnutrition: Poor oral intake due to esophageal Ca. 12.8 kg weight loss over last 4 months. 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 Severe malnutrition. Dietary supplements recommended. (17) DVT prophylaxis: Receiving SQ enoxaparin for acute DVT present on admission. (18) Discharge planning issues: Anticipated discharge to home. Family Medicine follow-up with Dr. Harrison. Medical Oncology follow-up with Dr. Segura. Radiation Oncology follow-up with Dr. Sifuentes. Admission and Anticipated Discharge Date Admission Date: May 22, 2019 Anticipated date of discharge: 05/27/19 Subjective Recheck for multiple problems. Patient seen in their room around 1850. Better. Dysphagia improved. Tolerating diet and meds. No nausea or vomiting. No further chest pain. Still wearing O2. Mild SOB with exertion. Review of Systems: Constitutional- no fever. Cardiac- as noted above. Pulmonary- as noted above. GI- no diarrhea, melena, hematochezia. - no urinary symptoms. Otherwise, as noted above. Physical Exam Constitutional: no acute distress Respiratory: no respiratory distress Auscultation: lungs clear to auscultation bilaterally Cardiovascular: Rate/Rhythm: regular rate and regular rhythm Vessels: + JVD Extremities: + edema (1+ pretibial); no calf tenderness Gastrointestinal (Abdomen): normal bowel sounds, soft, nontender, no hepatosplenomegaly Musculoskeletal: Extremities: no cyanosis Skin: no rashes, warm and dry Psychiatric: Orientation: alert and oriented x 3 Results & Data ([facility]) Vital Signs (Past 12 Hours) Vital Signs Temp Pulse Pulse Pulse Resp BP Pulse Ox 05/26/19 20:40 37.0 C 62 22 139/85 95 05/26/19 16:03 36.9 C 58 L 18 115/64 97 05/26/19 15:50 64 05/26/19 11:25 37.1 C 55 L 18 141/79 H 96 Laboratory Results Laboratory Results - last 24 hr 05/26/19 05/26/19 05/26/19 05:30 07:55 11:38 Sodium 139 Potassium 3.6 Chloride 107 Carbon Dioxide 29 Anion Gap 3.0 BUN 24 H Creatinine 1.68 H Est Cr Clr Drug Dosing 35.4 Est GFR ( Amer) 36.3 Est GFR (Non-Af Amer) 31.3 BUN/Creatinine Ratio 14.2 Glucose 130 H POC Glucose 147 H 215 H Calcium 8.5 Magnesium 1.7 L 05/26/19 05/26/19 16:44 20:43 Sodium Potassium Chloride Carbon Dioxide Anion Gap BUN Creatinine Est Cr Clr Drug Dosing Est GFR ( Amer) Est GFR (Non-Af Amer) BUN/Creatinine Ratio Glucose POC Glucose 146 H 203 H Calcium Magnesium (1) Esophageal cancer Malignant neoplasm of esophagus location: lower third Qualified Code(s): C15.5 - Malignant neoplasm of lower third of esophagus (2) Nausea and vomiting Vomiting type: unspecified
[2019-05-26] MEDS ORDERED: POLYETHYLENE (MIRALAX) 17 GM PACK PO PRN (22:08)
[2019-05-26] MEDS: DOCUSATE SODIUM 100 MG CAP PO SCH (22:35)
[2019-05-27] MEDS: PROCHLORPERAZINE MALEATE 10 MG TAB PO SCH ×2 (04:28→12:06)
[2019-05-27] MEDS: ENOXAPARIN 80 MG/0.8 ML SYR SQ SCH (05:36)
[2019-05-27 05:50] LABS: Hematocrit (blood only) 28.9 % (37-47); Hemoglobin 9.5 g/dL (12.0-16.0); Mean Corpuscular Hemoglobin 30.2 pg (25-34); Mean Corpuscular Hgb Conc 32.9 g/dL (32-36); Mean Corpuscular Volume 91.7 fL (80-100); RDW Coefficient of Variation 16.1 % (11.5-14.5); RDW Standard Deviation 53.7 fL (36.4-46.3); Red Blood Count 3.15 M/uL (4.2-5.4); White Blood Count 2.97 K/uL (4.8-10.8)
[2019-05-27 06:13] LABS: Mean Platelet Volume 10.7 fL (7.4-10.4); Platelet Count 97 K/uL (130-400)
[2019-05-27 06:16] LABS: Platelet Estimate Decreased (Normal)
[2019-05-27 06:23] LABS: BUN Creatinine Ratio 14.6 (10-20); Calcium 8.7 mg/dl (8.5-10.1); Creatinine Clr Calc Pharmacy 32.5 ml/min; Est GFR (African American) 32.7; Est GFR (Non-African American) 28.3; Magnesium 1.8 mg/dl (1.8-2.4); Potassium 3.6 mmol/L (3.5-5.1)
[2019-05-27] MEDS: SUCRALFATE 1 GM/10 ML UDC PO SCH ×2 (09:00→12:05)
[2019-05-27] MEDS ORDERED: INSULIN GLARGINE SOLOSTAR 100 UNITS/ML 3 ML PEN SC SCH (09:00)
[2019-05-27] MEDS: POTASSIUM CHLORIDE 10 MEQ TABCR PO SCH ×2 (09:00→12:06)
[2019-05-27] MEDS: DOCUSATE SODIUM 100 MG CAP PO SCH (09:01)
[2019-05-27] MEDS: MAGNESIUM OXIDE 400 MG TAB PO SCH (09:01)
[2019-05-27] MEDS: PANTOprazole 40 MG TAB PO SCH (09:02)
[2019-05-27] MEDS: HydrALAZINE 10 MG TAB PO SCH ×2 (09:03→12:07)
[2019-05-27] MEDS: carvediloL 12.5 MG TAB PO SCH (09:03)
[2019-05-27] MEDS: AMLODIPINE BESYLATE 5 MG TAB PO SCH (09:04)
[2019-05-27] MEDS: INSULIN ASPART 100 UNITS/ML 3 ML PEN SC SCH ×2 (09:08→12:39)
[2019-05-27 11:45] VITALS: BP 146/69; TEMP 98.6; O2SAT 92
--- NOTE | 2019-05-27 11:51 | Hospitalist Progress Note ---
Date of Service May 27, 2019 Assessment & Plan (1) Nausea and vomiting: Presented with severe nausea and vomiting attributed to radiation therapy. Radiation therapy discontinued. Received antiemetics PRN. Symptoms improving. (2) Esophageal cancer: Patient has opted to hold radiation therapy treatments at this time due to side effects. (3) DVT (deep venous thrombosis): Venous duplex of lower extremities done because of lower extremity edema. Found to have extensive bilateral proximal and distal DVTs - present on admission. Suspected pulmonary emboli-new pulmonary hypertension and RV dilatation noted on echo. CTA chest to confirm diagnosis of PE not pursued because of CKD. Receiving subcutaneous enoxaparin which be continued upon discharge. May be reasonable to consider DOAC in the future- will defer decision to Heme / Onc. (4) Hypokalemia: Serum K as low as 3.3. Received replacement. K today = 3.6. Discharge on KCl 10 mEq PO BID. Follow. (5) Hypomagnesemia: Serum magnesium as low as 1.6. Received replacement. Mg today = 1.8. Discharge on MgOxide 400 BID. Follow. (6) Coronary artery disease: No anginal symptoms. Continue carvedilol and statin. (7) Acute on chronic diastolic (congestive) heart failure: History of chronic left ventricular diastolic heart failure. CT of chest showed cardiomegaly and pulmonary edema. Acute on chronic left ventricular diastolic heart failure. Chest x-ray today showed cardiomegaly and mild pulmonary vascular congestion. Continue diuretics and carvedilol. Creatinine up to 1.83. Skip furosemide today. DC metolazone. No WENDY or ARB due to renal disease. (8) Prolonged QT interval: QTc at time of admission was 497 ms. Avoid QT prolonging drugs when possible. (9) Ventricular tachycardia, nonsustained: Several beat run of nonsutained VT on 05/25. K and Mg low and replaced. (10) Hypertension: Stable. Continue carvedilol, amlodipine, hydralazine. (11) Hypoxia: O2 sats as low as 89%. Hypoxia may have been secondary to CHF, possible pulmonary embolism, or combination of the 2. Weaned O2 as tolerated. 2-step pulse oximetry - no desaturation on RA. (12) Sarcoidosis: Quiescent. (13) CKD (chronic kidney disease), stage IV: History of CKD stage IV. Serum creatinine day of admission 1.38. Creatinine today = 1.83. Creatinine up to 1.83. Skip furosemide today. DC metolazone. Follow. 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 Managed with insulin at home. Blood sugars in 300s day of admission, probably secondary to acute illness. BHB and anion gap elevated, but doubt DKA. Hemoglobin A1c 7.1. Insulin dosing adjusted. Fasting blood sugar today = 165. PO intake affected by esophageal Ca; has lost weight. Discharge on reduced dose of Lantus 20 units daily + NovoLog coverage as before. Ongoing adjustments as necessary. (15) Gout: Quiescent. Continue allopurinol. (16) Severe malnutrition: Poor oral intake due to esophageal Ca. 12.8 kg weight loss over last 4 months. Seen by relief pilot. Severe malnutrition. Dietary supplements recommended. (17) DVT prophylaxis: Receiving SQ enoxaparin for acute DVT present on admission. (18) Discharge planning issues: Discharge to home. Family Medicine follow-up with Dr. Harrison. Medical Oncology follow-up with Dr. Segura. Radiation Oncology follow-up with Dr. Sifuentes. Admission and Anticipated Discharge Date Admission Date: May 22, 2019 Subjective Recheck for multiple problems. Patient seen in their room around 1140. No fever. No chest pain or SOB. PO intake better- no dysphagia, no N/V. Ambulating. Did well with 2-step pulse ox. No desaturation with activity. Ready to go home. Physical Exam Constitutional: no acute distress Respiratory: no respiratory distress Auscultation: lungs clear to auscultation bilaterally Cardiovascular: Rate/Rhythm: regular rate and regular rhythm Vessels: + JVD Extremities: + edema (trace pretibial); no calf tenderness Gastrointestinal (Abdomen): normal bowel sounds, soft, nontender, no hepatosplenomegaly Musculoskeletal: Extremities: no cyanosis Skin: no rashes, warm and dry Psychiatric: Orientation: alert and oriented x 3 Results & Data ([facility]) Vital Signs (Past 12 Hours) Vital Signs Temp Pulse Pulse Pulse Pulse Pulse Resp 05/27/19 11:44 37 C 65 18 05/27/19 09:32 79 89 79 05/27/19 09:00 72 05/27/19 07:24 37.0 C 73 20 05/27/19 04:03 37.0 C 80 17 Resp Resp Resp BP BP Pulse Ox Pulse Ox 05/27/19 11:44 146/69 H 92 05/27/19 09:32 18 18 16 95 05/27/19 09:00 05/27/19 07:24 144/74 H 91 05/27/19 04:03 155/81 H 97 Pulse Ox Pulse Ox 05/27/19 11:44 05/27/19 09:32 92 93 05/27/19 09:00 05/27/19 07:24 05/27/19 04:03 Laboratory Results 05/27/19 05:32 05/27/19 05:32 (1) Nausea and vomiting Vomiting type: unspecified (2) Esophageal cancer Malignant neoplasm of esophagus location: lower third Qualified Code(s): C15.5 - Malignant neoplasm of lower third of esophagus
--- NOTE | 2019-05-27 12:02 | Discharge Summary ---
Date of Service May 27, 2019 Discharge Data Allergies Allergy/AdvReac Type Severity Reaction Status Date / Time Sulfa (Sulfonamide Allergy Intermediate RASH Verified 05/22/19 03:15 Antibiotics) atenolol Allergy Mild DROP HEART Verified 05/22/19 03:15 RATE levofloxacin [From Levaquin] Allergy Mild Rash Verified 05/22/19 03:15 gabapentin [From Neurontin] AdvReac Mild FELT LIKE Verified 05/22/19 03:15 WENT TO OUTER SPACE morphine AdvReac Mild NAUSEA/SICK Verified 05/22/19 03:15 NESS Consultations 05/22/19 01:44 ED Decision to Admit Stat 05/22/19 03:45 Consult Case Management - Discharge Planning Routine Ordered Studies 05/22/19 12:23 US venous doppler LE BI Routine 05/23/19 10:22 CT chest wo con Routine Discharge Plan Discharge Items Patient Disposition: Home - Home Health Services Reason For Visit: nausea and vomiting Discharge Diagnosis: nausea and vomiting DVT's (blood clots) in legs Condition on Discharge: Good Activity: As commented below Activity Comment: Light activity at first, then gradually increase as tolerated. Non-emergency contact: Primary Care Provider, Hospitalist and Oncologist Call non-emergency contact if: you have any medication questions Follow-up/Referrals: Madelaine Harrison DO [Primary Care Provider] - 05/30/19 10:45 am Diet: Carb Consistent or DM2 and Heart Healthy Addtl Attending Provider Instructions: MEDICATION CHANGES: Start enoxaparin (Lovenox) 80 mg injected twice a day. (blood thinner for blood clots) Take potassium chloride 10 mEq twice a day. Take magnesium oxide 400 mg twice a day. Stop metolazone (Zaroxolyn) for now. SUMMARY OF TEST RESULTS: Ultrasound showed blood clots in both legs. RECOMMENDATIONS FOR FOLLOW-UP: [] OTHER INSTRUCTIONS: Seek medical attention if you have: * temperature above 101 * chest pain or trouble breathing * abdominal pain, nausea, vomiting * diarrhea, dark stools or bloody stools * any unanswered questions or concerns Call 911 if symptoms are severe. Please take good care of yourself. Call if you have any questions or problems. You can reach a [facility] hospitalist on duty at [facility] 24 hours a day by calling [phone]. My cell # is [phone]. Pending Studies at Discharge: No Stand-Alone Forms: My [facility], Smoking Cessation Medications and DC Order Prescriptions: Continued pantoprazole [Protonix] 20 mg tablet,delayed release (DR/EC) 20 mg PO BID RF: 0 sucralfate [Carafate] 1 gram tablet 1 gm PO BID RF: 0 hydralazine 10 mg tablet 10 mg PO BID RF: 0 furosemide [Lasix] 80 mg tablet 40 mg PO QAM Qty: 0 RF: 0 prochlorperazine maleate 10 mg Tablet 10 mg PO Q6H PRN (Reason: Nausea) Qty: 120 RF: 3 tramadol 50 mg Tablet 50 mg PO TID PRN (Reason: pain) Qty: 20 RF: 0 morphine concentrate 100 mg/5 mL (20 mg/mL) solution 10 mg PO Q6H PRN (Reason: pain) Qty: 30 RF: 0 amlodipine [Norvasc] 5 mg tablet 5 mg PO DAILY RF: 0 atorvastatin 20 mg tablet 20 mg PO DAILY RF: 0 metolazone 2.5 mg tablet 2.5 mg PO WK RF: 0 allopurinol 100 mg Tablet 200 mg PO QPM RF: 0 citalopram [Celexa] 20 mg Tablet 20 mg PO QPM RF: 0 Lantus U-100 Insulin 100 unit/mL solution 40 units SUBCUT QAM RF: 0 melatonin 1 mg Tablet 1 mg PO HS PRN (Reason: Insomnia) RF: 0 carvedilol 12.5 mg Tablet 12.5 mg PO BID RF: 0 Admission Data Admit Date/Time: 05/22/19 02:41 Attending Provider: Kishore Cameron Admit Provider: Mitch Arteaga Primary Care Provider: Madelaine Harrison Other Providers: [facility] ; Mitch Arteaga ; Margot Sampson
[2019-05-27 13:51] VITALS: PULSE 62
--- NOTE | 2019-05-28 08:10 | Discharge Summary ---
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 Had 1 year of prednisone after sarcoid diagnosis and later development of forearm dermatitis with diagnosis of subcutaneous sarcoid treated with Plaquenil. 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 There is a plan for surgery but to treat with chemoradiation prior to surgery. The patient has T3N1 disease. Received 3 doses of Taxol, carboplatin, in combination with radiation therapy. Last dose of chemotherapy was reduced because of neutropenia and thrombocytopenia and because of generalized weakness, dehydration plus nausea, vomiting and poor appetite, overall general worsening condition, chemo was discontinued. She is getting radiation therapy. Last dose of radiation was on and the patient is currently stating that she wants to stop with radiation treatment too. She was here recently, was admitted on 05/05/2019 and discharged on 05/09/2019 with same nausea and vomiting. Currently, again presents with the same nausea and vomiting, several episodes, and severe abdominal pain in the epigastric region, 9/10 in severity. Because she was not eating, she did not take her insulin and sugars were high at 320 and she was in mild DKA with CO2 of 19 with elevated beta hydroxybutyric acid. Dehydrated. The patient was started on insulin drip in the ER which we will continue for now with IV fluids. . She says she is not making much urine. Denies any burning micturition or blood in the urine. She is constipated. No black stools or blood in the stools. Very weak and not ambulating much. She uses a walker at home. Lives with her . Denies any dysphagia or odynophagia, not eating much. No chest pain, no shortness of breath, no cough, no fever, no chills. Has some headache. No blurred vision, no double vision, no earache, no runny nose, no sore throat. With the pain medications and nausea medications in ER, the symptoms are improved currently. Principal Diagnosis nausea and vomiting secondary to radiation therapy OTHER ACUTE / NEW DIAGNOSES: DVT's bilateral lower extremities- present on admission probable acute pulmonary emboli DM type 2 with hyperglycemia hypokalemia hypomagnesemia nonsustained ventricular tachycardia severe malnutrition Discharge Data Allergies Allergy/AdvReac Type Severity Reaction Status Date / Time Sulfa (Sulfonamide Allergy Intermediate RASH Verified 05/22/19 03:15 Antibiotics) atenolol Allergy Mild DROP HEART Verified 05/22/19 03:15 RATE levofloxacin [From Levaquin] Allergy Mild Rash Verified 05/22/19 03:15 gabapentin [From Neurontin] AdvReac Mild FELT LIKE Verified 05/22/19 03:15 WENT TO OUTER SPACE morphine AdvReac Mild NAUSEA/SICK Verified 05/22/19 03:15 NESS Consultations 05/22/19 01:44 ED Decision to Admit Stat 05/22/19 03:45 Consult Case Management - Discharge Planning Routine Ordered Studies 05/22/19 12:23 US venous doppler LE BI Routine 05/23/19 10:22 CT chest wo con Routine Hospital Course (1) Nausea and vomiting: Presented with severe nausea and vomiting attributed to radiation therapy. Radiation therapy discontinued. Received antiemetics PRN. Symptoms improved and diet advanced. (2) Esophageal cancer: Patient has opted to hold radiation therapy treatments at this time due to side effects. (3) DVT (deep venous thrombosis): Venous duplex of lower extremities done because of lower extremity edema. Found to have extensive bilateral proximal and distal DVTs - present on admission. Suspected pulmonary emboli-new pulmonary hypertension and RV dilatation noted on echo. CTA chest to confirm diagnosis of PE not pursued because of CKD. Receiving subcutaneous enoxaparin which be continued upon discharge. May be reasonable to consider DOAC in the future- will defer decision to Heme / Onc. (4) Hypokalemia: Serum K as low as 3.3. Received replacement. K day of discharge 3.6. Discharge on KCl 10 mEq PO BID. Follow. (5) Hypomagnesemia: Serum magnesium as low as 1.6. Received replacement. Mg day of discharge 1.8. Discharge on MgOxide 400 BID. Follow. (6) Coronary artery disease: No anginal symptoms. Continue carvedilol and statin. (7) Acute on chronic diastolic (congestive) heart failure: History of chronic left ventricular diastolic heart failure. CT of chest showed cardiomegaly and pulmonary edema. Acute on chronic left ventricular diastolic heart failure. Chest x-ray today showed cardiomegaly and mild pulmonary vascular congestion. Continue diuretics and carvedilol. Creatinine up to 1.83 day of discharge . Skipped furosemide dose day of discharge . DC metolazone. No WENDY or ARB due to renal disease. (8) Prolonged QT interval: QTc at time of admission was 497 ms. Avoid QT prolonging drugs when possible. (9) Ventricular tachycardia, nonsustained: Several beat run of nonsutained VT on 05/25. K and Mg low and replaced. No recurrence, (10) Hypertension: Stable. Continue carvedilol, amlodipine, hydralazine. (11) Hypoxia: O2 sats as low as 89%. Hypoxia may have been secondary to CHF, possible pulmonary embolism, or combination of the 2. Weaned O2 as tolerated. 2-step pulse oximetry - no desaturation on RA. (12) Sarcoidosis: Quiescent. (13) CKD (chronic kidney disease), stage IV: History of CKD stage IV. Serum creatinine day of admission 1.38. Creatinine day of discharge 1.83. Skipped furosemide day of discharge . DC metolazone. Follow. 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 Managed with insulin at home. Blood sugars in 300s day of admission, probably secondary to acute illness. BHB and anion gap elevated, but doubt DKA. Hemoglobin A1c 7.1. Insulin dosing adjusted. Fasting day of discharge 165. PO intake affected by esophageal Ca; has lost weight. Discharge on reduced dose of Lantus 20 units daily + NovoLog coverage as before. Ongoing adjustments as necessary. (15) Gout: Quiescent. Continue allopurinol. (16) Severe malnutrition: Poor oral intake due to esophageal Ca. 12.8 kg weight loss over last 4 months. Seen by knuckle bender. Severe malnutrition. Dietary supplements recommended. (17) DVT prophylaxis: Receiving SQ enoxaparin for acute DVT present on admission. (18) Discharge planning issues: Discharged to home. Family Medicine follow-up with Dr. Harrison. Medical Oncology follow-up with Dr. Segura. Radiation Oncology follow-up with Dr. Sifuentes. Total Time Total Time Spent Total Time Spent (In Minutes): 45 Discharge Plan Discharge Items Patient Disposition: Home - Home Health Services Reason For Visit: nausea and vomiting Discharge Diagnosis: nausea and vomiting DVT's (blood clots) in legs Condition on Discharge: Good Activity: As commented below Activity Comment: Light activity at first, then gradually increase as tolerated. Non-emergency contact: Primary Care Provider, Hospitalist and Oncologist Call non-emergency contact if: you have any medication questions Follow-up/Referrals: Korin Brown MD, PhD [Physician] - (06/15/2019 9:40 AM Korin Brown MD) Madelaine Harrison DO [Primary Care Provider] - 05/30/19 10:45 am Dong Segura MD [Hospitalist] - (06/20/2019 9:15 AM Dong Segura MD) Diet: Carb Consistent or DM2 and Heart Healthy Addtl Attending Provider Instructions: MEDICATION CHANGES: Start enoxaparin (Lovenox) 80 mg injected twice a day. (blood thinner for blood clots) Take potassium chloride 10 mEq twice a day. Take magnesium oxide 400 mg twice a day. Stop metolazone (Zaroxolyn) for now. Change Lantus dose to 20 units every morning. Call [facility] if blood sugars are running too high or too low. SUMMARY OF TEST RESULTS: Ultrasound showed blood clots in both legs. INSTRUCTIONS FOR BLOOD CLOTS: Medication Instructions: Your condition is typically treated with an anticoagulant. Anticoagulants will thin your blood to help prevent new clots. * You should take her medication exactly as directed. * Never skip a dose. * Never take a double dose. If you miss a dose, take it as soon as you remember. Call your Primary Care doctor if you experience any of the following: * Swelling or Pain in your leg * Sudden, continuous pain deep in a muscle * Pain that worsens when you are active or when you stand still for a long time * Chest Pain * Sudden Shortness of Breath * Rapid or pounding heart beat * Fainting * Dizziness * Cough with blood or bloody sputum * Sweating more than normal * Bruises * Heavy or uncontrolled bleeding * Blood in your urine, stool or vomit * Black or tarry stools Caring for Your Self at Home: * Avoid sitting, standing or lying down for long periods without moving your l egs and feet * When traveling by car, stop to get out and move around at least once every 3 hours * On long airplane, train or bus rides, get up and move around when possible * If you can't get up, wiggle your toes and tighten your calves to keep your blood moving Follow Up: It is important for you to keep your follow up appointments with your medical provider. OTHER INSTRUCTIONS: Seek medical attention if you have: * temperature above 101 * chest pain or trouble breathing * abdominal pain, nausea, vomiting * diarrhea, dark stools or bloody stools * any unanswered questions or concerns Call [phone] if symptoms are severe. Please take good care of yourself. Call if you have any questions or problems. You can reach a [facility] hospitalist on duty at [facility] 24 hours a day by calling [phone]. My cell # is [phone]. Pending Studies at Discharge: No Stand-Alone Forms: My [facility], Smoking Cessation Medications and DC Order Prescriptions: New magnesium oxide 400 mg (241.3 mg magnesium) Tablet 400 mg PO BID Qty: 60 RF: 1 potassium chloride 10 mEq capsule, extended release 10 meq PO BID Qty: 60 RF: 1 enoxaparin 80 mg/0.8 mL syringe 80 mg SQ Q12H Qty: 48 RF: 1 Continued pantoprazole [Protonix] 20 mg tablet,delayed release (DR/EC) 20 mg PO BID RF: 0 sucralfate [Carafate] 1 gram tablet 1 gm PO BID RF: 0 hydralazine 10 mg tablet 10 mg PO TID RF: 0 prochlorperazine maleate 10 mg Tablet 10 mg PO Q6H PRN (Reason: Nausea) Qty: 120 RF: 3 tramadol 50 mg Tablet 50 mg PO TID PRN (Reason: pain) Qty: 20 RF: 0 morphine concentrate 100 mg/5 mL (20 mg/mL) solution 10 mg PO Q6H PRN (Reason: pain) Qty: 30 RF: 0 amlodipine [Norvasc] 5 mg tablet 5 mg PO DAILY RF: 0 atorvastatin 20 mg tablet 20 mg PO DAILY RF: 0 insulin aspart U-100 [Novolog PenFill U-100 Insulin] 100 unit/mL Cartridge See Rx Instructions .ROUTE .COMPLEX RF: 0 furosemide 80 mg tablet 40 mg PO DAILY RF: 0 allopurinol 100 mg Tablet 200 mg PO QPM RF: 0 citalopram [Celexa] 20 mg Tablet 20 mg PO QPM RF: 0 melatonin 1 mg Tablet 1 mg PO HS PRN (Reason: Insomnia) RF: 0 carvedilol 12.5 mg Tablet 12.5 mg PO BID RF: 0 Changed Lantus U-100 Insulin 100 unit/mL solution See Rx Instructions .ROUTE .COMPLEX Qty: 0 RF: 0 Discontinued metolazone 2.5 mg tablet 2.5 mg PO WK RF: 0 Discharge Orders: Discharge Order (Routine); Ordered 05/27/19 Ordered By: Kishore Cameron Admission Data Admit Date/Time: 05/22/19 02:41 Attending Provider: Kishore Cameron Admit Provider: Mitch Arteaga Primary Care Provider: Madelaine Harrison Other Providers: [facility] ; Mitch Arteaga ; Margot Sampson Other Interventions: Discharge Summary Assessment (RN) Last Done: 05/27/19 13:50 DC Date/Time DO NOT enter until pt leaves facility: 05/27/19 14:53
== END 2019-05-27 14:53 | disposition home health service (06) | DRG 637 ==
LOC: ED 22:54 → SUATTDRO 05-22 02:41 → 2S 05-22 02:41 → 3N 05-22 11:20 → 2N 05-24 19:04